=== PATIENT | female | born 1965 | race African-American/Black ===

== ENCOUNTER 2020-05-24 09:17 | Outpatient (REF) | payer MEDICAID, SELFPAY ==
[2020-05-24 10:49] LABS: Anion Gap 11 (12-20); Blood Urea Nitrogen 15 mg/dL (9-16); Carbon Dioxide 26 mmol/L (22-29); Chloride 107 mmol/L (96-108); Estimated Glomerular Filt Rate > 60; Glucose Random 106 mg/dL (60-115); Potassium 4.4 mmol/l (3.3-5.1); Sodium 140 mmol/L (135-145)
== END 2020-05-24 09:18 | disposition home or self-care (01) ==
LOC: HO.LAB 09:17
PROVIDERS: PCP Nurse Practitioner Family; Visit Provider Physician Assistant Medical
DX: I42.8 Other cardiomyopathies (principal)
CPT/HCPCS: 80051; 82565; 82947; 84520

== ENCOUNTER → 2020-11-07 08:34 | Outpatient (REF) | payer MEDICAID, SELFPAY ==
--- NOTE | 2020-11-07 08:30 | CA_ITS ---
Transthoracic Echocardiogram Patient (Last, First, Middle): Flor Martinez, Gender: Female Date of : 1965 Age: 55 Procedure Date: 11/07/2020 Procedure Type: Transthoracic Echocardiogram Location: OP Height: 156.21 cm Weight: 73.48 kg BSA: 1.74 m2 Heart Rate: bpm BP: 121 / 66 mmHg Warehouse Production Worker: YAMILETH Referring MD: Everett Wray MD Bending Press Operator: Florin Sands MD Symptoms: I42.8 NON ISCHEMIC CARDIOMYOPATHY Study Quality: Fair ECG Rhythm: Sinus Conclusions: - Normal LV systolic function by Smith's method Findings Left Ventricle Normal left ventricular size and systolic function. The visually estimated ejection fraction is between 55-60%. Diastolic function was not performed Measurements 2D Systolic Function EF 4C: 62.00 >55% Updated in Other Vendor System with Status of Final Florin Sands MD electronically signed on 11/07/2020 12:40:26 PM with status of Final
== END ==
LOC: HO.CARD 08:34
PROVIDERS: Visit Provider Internal Medicine Cardiovascular Disease
DX: I42.8 Other cardiomyopathies (principal)
CPT/HCPCS: 93308; Q9957

== ENCOUNTER 2020-11-13 09:51 | Outpatient (REF) | payer MEDICAID, SELFPAY ==
--- NOTE | ~2020-11-13 | MM_ITS ---
EXAMINATION: MM SCREENING DIGITAL BREAST TOMOSYNTHESIS, BILATERAL CLINICAL INFORMATION: Screening. Asymptomatic. The lifetime risk of breast cancer based on the Tyrer-Cuzick Model is 6%. COMPARISON: Mammography: 05/11/2019, 04/28/2018, 11/06/2016 TECHNIQUE: Digital breast tomosynthesis is performed in both the craniocaudal and mediolateral oblique views along with computer-aided detection (CAD). Synthesized 2D images are generated from the tomosynthesis. FINDINGS: There are scattered areas of fibroglandular density (ACR BI-RADS breast composition Category b). Parenchymal pattern is similar to prior exams. There is no interval mass or architectural abnormality or developing density. Again, there are round calcifications in the bilateral anterior central breasts. The axilla and skin contours are unremarkable. MM/MM tomosynthesis screening BI IMPRESSION: No mammographic evidence of malignancy. ASSESSMENT: BI-RADS 2: Benign RECOMMENDATION: Routine annual mammography screening. This patient's information was entered into a reminder system with a target due date for their next mammogram.
== END 2020-11-13 09:52 | disposition home or self-care (01) ==
LOC: HO.MAMMO 09:51
PROVIDERS: Visit Provider Nurse Practitioner Family
DX: Z12.31 Encounter for screening mammogram for malignant neoplasm of breast (principal)
CPT/HCPCS: 77063; 77067

== ENCOUNTER 2021-03-19 12:06 | Outpatient (REF) | payer MEDICAID, SELFPAY ==
[2021-03-19 13:01] LABS: MANUAL DIFF FLAG NO
[2021-03-19 13:07] LABS: Basophils Percent Auto 0.6 % (0-2); Eosinophils Absolute Auto 0.3 X10*3/uL (0.0-0.4); Eosinophils Percent Auto 5.3 % (0-4); Hematocrit 39.5 % (37-47); Hemoglobin 12.9 g/dl (12.0-16.0); Imm Gran Abs Auto 0.02 X10*3/uL (0.00-0.03); Imm Gran Pct Auto 0.4 % (0.0-0.4); Lymphocytes Absolute Auto 1.8 X10*3/uL (1.2-4.9); Lymphocytes Percent Auto 35.4 % (20-40); Mean Corpuscular HGB Conc 32.7 g/dl (31.0-35.0); Mean Corpuscular Hemoglobin 29.7 pg (27.0-33.0); Mean Platelet Volume 12.4 fL (9.4-12.3); Monocytes Absolute Auto 0.4 X10*3/uL (0.1-1.2); Monocytes Percent Auto 8.3 % (2-11); Neutrophils Absolute Auto 2.5 X10*3/uL (2.0-8.3); Platelet Count 230 X10*3/uL (160-400); Red Blood Count 4.34 X10*6/uL (4.20-5.50); Red Cell Distribution Width 13.6 % (11.0-16.0); White Blood Count 5.1 X10*3/uL (4.8-10.8)
[2021-03-19 13:13] LABS: Estimated Average Glucose 114 mg/dL; Hemoglobin A1c % 5.6 %
[2021-03-19 14:06] LABS: Alanine Aminotransferase 22 U/L (0-31); Albumin Level 4.2 g/dL (3.5-5.0); Alkaline Phosphatase 100 U/L (39-117); Anion Gap 13 (12-20); Aspartate Amino Transferase 24 U/L (5-31); Bilirubin Total 0.5 mg/dL (0.0-1.0); Blood Urea Nitrogen 17 mg/dL (9-16); Calcium 9.5 mg/dL (8.4-10.2); Carbon Dioxide 24 mmol/L (22-29); Chloride 109 mmol/L (96-108); Cholesterol 134 mg/dL; Estimated Glomerular Filt Rate > 60; Glucose Random 73 mg/dL (60-115); HDL Cholesterol 37 mg/dL; LDL Cholesterol Calculated 76 mg/dl; Potassium 4.6 mmol/L (3.3-5.1); Sodium 141 mmol/L (135-145); Total Protein 7.3 g/dL (6.5-8.0); Triglycerides 105 mg/dL
[2021-03-19 14:23] LABS: Vitamin D 25-OH Total 56.8 ng/mL (>30)
[2021-03-19 14:30] LABS: Creatinine Urine 124.73 mg/dL; Microalbum/Creatinine Ratio Ur 4.8 ug/mg cr
== END 2021-03-19 12:07 | disposition home or self-care (01) ==
LOC: HO.LAB 12:06
PROVIDERS: Visit Provider Internal Medicine
DX: I10 Essential (primary) hypertension (principal); M79.7 Fibromyalgia; R73.03 Prediabetes
CPT/HCPCS: 36415; 80053; 80061; 82043; 82306; 83036; 85025

== ENCOUNTER 2021-07-30 12:01 | Outpatient (REF) | payer MEDICAID, SELFPAY ==
--- NOTE | ~2021-07-30 | XR_ITS ---
EXAMINATION: XR HIP, LEFT CLINICAL INFORMATION: Left-sided pain COMPARISON: None TECHNIQUE: Two views of the left hip. FINDINGS: Bones and soft tissues are normal. No fracture. Alignment is anatomic. Hip joint space is maintained. XR/XR hip LT w PEL1V IMPRESSION: Normal left hip.
== END 2021-07-30 12:02 | disposition home or self-care (01) ==
LOC: HO.XRAY 12:01
PROVIDERS: PCP Internal Medicine; Visit Provider Internal Medicine
DX: M25.552 Pain in left hip (principal)
CPT/HCPCS: 73502

== ENCOUNTER 2021-09-01 07:43 | Outpatient (REF) | payer MEDICAID, SELFPAY ==
--- NOTE | ~2021-09-01 | XR_ITS ---
EXAMINATION: XR HIP, RIGHT CLINICAL INFORMATION: Pain COMPARISON: Previous x-ray July 2021 TECHNIQUE: Two views of the right hip and one view of the pelvis. FINDINGS: Bone alignment is normal. No fracture or dislocation is seen. There is mild arthritis at the right hip joint with small osteophytes along the superior lateral acetabular surface. There are degenerative changes of visualized lower lumbar spine. Bones of the pelvis are unremarkable. Soft tissues are unremarkable. XR/XR hip RT w PEL1V IMPRESSION: Mild degenerative changes.
== END 2021-09-01 07:44 | disposition home or self-care (01) ==
LOC: HO.HOSX 07:43
PROVIDERS: Visit Provider Physician Assistant
DX: M25.552 Pain in left hip (principal); M25.551 Pain in right hip; M54.16 Radiculopathy, lumbar region; Z88.8 Allergy status to other drugs, medicaments and biological substances
CPT/HCPCS: 73502; 99202

== ENCOUNTER → 2021-09-22 08:39 | Outpatient (BNVA) | payer MEDICAID, SELFPAY | PROVIDERS: PCP Internal Medicine; Visit Provider Internal Medicine | DX: M54.16 Radiculopathy, lumbar region (principal); M47.816 Spondylosis without myelopathy or radiculopathy, lumbar region; M79.18 Myalgia, other site | CPT/HCPCS: 99202 ==

== ENCOUNTER → 2021-10-07 09:54 | Outpatient (BNVA) | payer MEDICAID, SELFPAY | PROVIDERS: PCP Internal Medicine; Referring Provider Internal Medicine; Visit Provider Nurse Practitioner Family | DX: G47.33 Obstructive sleep apnea (adult) (pediatric) (principal); E66.9 Obesity, unspecified; Z68.35 Body mass index [BMI] 35.0-35.9, adult | CPT/HCPCS: 99202 ==

== ENCOUNTER → 2021-10-13 10:01 | Outpatient (BNVA) | payer MEDICAID, SELFPAY | PROVIDERS: PCP Internal Medicine; Visit Provider Internal Medicine | DX: M79.18 Myalgia, other site (principal) | CPT/HCPCS: 20553; J3300 ==

== ENCOUNTER 2021-10-27 11:00 | Outpatient (RCR) | payer MEDICAID, SELFPAY ==
--- NOTE | 2021-10-10 13:38 | MHC.PT.EP ---
[facility] [place] Office [place] [facility] [place] Office [address] Rosita Meneses [address] [phone] F: [phone] F: [phone] F: [phone] F: [phone] Physical Therapy Plan of Care Date of Evaluation: Date of Surgery: N/A Diagnosis: M54.16 radiculopathy, lumbar region M47.816 spondylosis without myelopathy or radiculopathy, lumbar region Assessment: pt's signs and symptoms seem consistent w/ poor habitual posturing as well as core and pelvic weakness causing excessive movement of lumbar spine and SI joints. pt presents to physical therapy with pain, decreased range of motion, decreased strength, impaired functional mobility, impaired postural awareness, and gait deviations. pt is a good candidate for skilled PT due to age, potential remediation of impairments, typical disease/condition progression and prognosis, comorbidities, and motivation. pt would benefit from tailored strengthening and stretching exercise program, functional training, gait training, postural re-training, neuromuscular re-education, modalities as needed for pain, equipment safety demonstration. Frequency and Duration: The patient will be seen 2x/wk for 6 wks Short Term Goals: pt will be I w HEP to promote self-management of condition. pt will demo proper sitting posture w/ lumbar roll to promote neutral spine w/ seated ADLs and sitting at latter-day for social participation. Long-Term Goals: pt will report a statistically significant improvement in self-reported outcome measure, Eliana, to promote return to PLOF. pt will improve B hip abduction strength to at least 4+/5 to improve Trendelenburg w/ gait on even ground. Treatment Plan: Modalities to reduce pain, spasms and effusion. Manual therapy to restore motion and function. Therapeutic exercise to improve strength and flexibility. Neuromuscular re-education for posture and balance. Therapeutic activities to return to functional activities of daily living. Electronically signed by: Lelia Galaviz PT, DPT Please sign and return to therapist. Thank you for your referral.
--- NOTE | 2021-11-18 14:26 | MHC.PT.DC ---
[facility] [place] Office [place] Office [place] Office [address] Rosita Meneses 140 [facility] [phone] F: [phone] F: [phone] F: [phone] F: [phone] Physical Therapy Discharge Report Diagnosis: M54.16 radiculopathy, lumbar region M47.816 spondylosis without myelopathy or radiculopathy, lumbar region Date of Surgery: N/A Date of Evaluation: 10/10/21 Date of Discharge: 11/18/21 Treatments to Date: 4 Cancellations to Date: 4 No Shows to Date: 3 Discharge Status: Visit Non-compliance Discharge Summary: The patient cancelled four consecutive appointments and no showed three consecutive appointments. Per [facility] Core Therapy policy she is being discharged for visit non-compliance. Electronically signed by: Lelia Galaviz PT, DPT Please sign and return to therapist. Thank you for your referral.
== END 2021-11-18 14:26 | disposition home or self-care (01) ==
LOC: HO.PT 11:00
PROVIDERS: PCP Internal Medicine; Visit Provider Internal Medicine
DX: M54.16 Radiculopathy, lumbar region (principal); M47.816 Spondylosis without myelopathy or radiculopathy, lumbar region
CPT/HCPCS: 97110; 97112; 97162

== ENCOUNTER 2021-12-02 08:55 | Outpatient (REF) | payer MEDICAID, SELFPAY ==
--- NOTE | ~2021-12-02 | MR_ITS ---
EXAMINATION: MR LUMBAR SPINE WITHOUT CONTRAST CLINICAL INFORMATION: 56-year-old with low back and left leg pain. COMPARISON: None TECHNIQUE: MRI of the lumbar spine was obtained using routine sequences without contrast. FINDINGS: CORONAL ALIGNMENT: Slight mid lumbar dextrocurvature noted, which could be positional. SAGITTAL ALIGNMENT: The lumbosacral spine is anatomically aligned. There is no spondylolisthesis or spondylolysis. LUMBOSACRAL JUNCTION: Normal. Rudimentary S1-S2 intervertebral disc. VERTEBRAL BODIES: Vertebral body heights are well maintained. DISC SPACES AND ENDPLATES: Intervertebral disc space heights are well maintained. Disc desiccation is noted at L5-S1 and, to a lesser degree, at L3-L4. No significant spondylosis. Endplates appear intact. SPINAL CANAL: No abnormal developmental findings. BONE MARROW: Note is made of marrow edema in the L5 and S1 pedicles bilaterally and on both sides of the left L5-S1 facet joint. This could be reactive secondary to facet arthrosis or could be related to stress reactions in the pedicles. No suspicious marrow replacing process. No other foci of bone marrow edema. Small benign vertebral hemangioma on the right side of the L4 vertebral body. CONUS MEDULLARIS: Terminates at L1-L2. Morphology and signal are normal. Minimal dilatation of the central canal within the visualized distal thoracic spinal cord is noted which is nonspecific. INTRADURAL NERVE ROOTS: Within normal limits. L5-S1: Small central disc protrusion noted with left posterolateral disc osteophyte complex. Slight flattening of the central dural sac is noted with mild ligamentum flavum thickening without significant spinal canal stenosis. Severe left-sided and uyrpapld-be-hmasyf right-sided facet arthropathy is noted with mild right-sided and yeivzvlk-ls-heipni left-sided neural foraminal stenosis, with encroachment on the exiting left L5 nerve root. Active facet inflammatory changes are suspected on the left. L4-L5: Tiny, shallow left subarticular disc protrusion. Minor facet arthrosis noted. No canal or neural foraminal stenosis. L3-L4: Normal disc contour. No significant facet arthrosis, canal or neural foraminal stenosis. L2-L3: Normal disc contour. No significant facet arthrosis, canal or neural foraminal stenosis. L1-L2: Normal disc contour. No significant facet arthrosis, canal or neural foraminal stenosis. PARASPINAL/RETROPERITONEAL: The paravertebral soft tissues appear unremarkable. MR/MR lumbar spine wo con IMPRESSION: 1. Discogenic degenerative changes at L5-S1 as discussed above, with small central disc protrusion and left posterolateral disc osteophyte complex, severe left-sided and soxuksaq-tp-axnuuz right-sided facet arthropathy with active inflammatory changes at the left facet joint, with sgyrhclj-iy-rsmcak left-sided neural foraminal stenosis impinging on the exiting left L5 nerve root. No spinal canal stenosis. 2. Mild marrow edema in the L5 and S1 pedicles bilaterally which may be reactive or secondary to stress reactions.
== END 2021-12-02 08:56 | disposition home or self-care (01) ==
LOC: HO.MRI 08:55
PROVIDERS: Visit Provider Internal Medicine
DX: M54.16 Radiculopathy, lumbar region (principal)
CPT/HCPCS: 72148

== ENCOUNTER → 2022-01-12 09:04 | Outpatient (BNVA) | payer MEDICAID, SELFPAY | PROVIDERS: PCP Internal Medicine; Visit Provider Internal Medicine | DX: M79.18 Myalgia, other site (principal); M79.7 Fibromyalgia | CPT/HCPCS: 99212 ==

== ENCOUNTER → 2022-01-13 08:55 | Outpatient (BNVA) | payer MEDICAID, SELFPAY | PROVIDERS: PCP Internal Medicine; Visit Provider Nurse Practitioner Family | DX: G47.33 Obstructive sleep apnea (adult) (pediatric) (principal); Z99.89 Dependence on other enabling machines and devices | CPT/HCPCS: 99212 ==

== ENCOUNTER → 2022-05-19 08:46 | Outpatient (BNVA) | payer MEDICAID, SELFPAY | PROVIDERS: PCP Internal Medicine; Visit Provider Nurse Practitioner Family | DX: G47.33 Obstructive sleep apnea (adult) (pediatric) (principal) | CPT/HCPCS: 99212 ==

== ENCOUNTER → 2022-09-15 10:24 | Outpatient (BNVA) | payer MEDICAID, SELFPAY | PROVIDERS: PCP Internal Medicine; Visit Provider Nurse Practitioner Family | DX: G47.33 Obstructive sleep apnea (adult) (pediatric) (principal); Z99.89 Dependence on other enabling machines and devices | CPT/HCPCS: 99212 ==

== ENCOUNTER 2022-12-28 08:12 | Outpatient (REF) | payer MEDICARE, MEDICAID, SELFPAY ==
--- NOTE | ~2022-12-28 | MM_ITS ---
EXAMINATION: MM SCREENING DIGITAL BREAST TOMOSYNTHESIS, BILATERAL CLINICAL INFORMATION: Screening. Asymptomatic. The lifetime risk of breast cancer based on the Tyrer-Cuzick Model is 6%. COMPARISON: Mammography: 11/13/2020, 05/11/2019, 04/28/2018 TECHNIQUE: Digital breast tomosynthesis is performed in both the craniocaudal and mediolateral oblique views along with computer-aided detection (CAD). Synthesized 2D images are generated from the tomosynthesis. FINDINGS: There are scattered areas of fibroglandular density (ACR BI-RADS breast composition Category b). Parenchymal pattern is similar to prior studies. There is summation artifact anterior left breast on synthesized MLO view, tomography unremarkable. There are no significant masses, abnormal calcifications, or other abnormalities. There is no developing density or architectural abnormality. The axilla and skin contours are unremarkable. MM/MM tomosynthesis screening BI IMPRESSION: No mammographic evidence of malignancy. ASSESSMENT: BI-RADS 2: Benign RECOMMENDATION: Routine annual mammography screening. This patient's information was entered into a reminder system with a target due date for their next mammogram.
== END 2022-12-28 08:13 | disposition home or self-care (01) ==
LOC: HO.MAMMO 08:12
PROVIDERS: PCP Registered Nurse; Visit Provider Registered Nurse
DX: Z12.31 Encounter for screening mammogram for malignant neoplasm of breast (principal)
CPT/HCPCS: 77063; 77067

== ENCOUNTER → 2023-01-13 13:30 | Outpatient (BNVA) | payer MEDICARE, MEDICAID, SELFPAY | PROVIDERS: PCP Registered Nurse; Visit Provider Internal Medicine | DX: Z01.818 Encounter for other preprocedural examination (principal); R11.0 Nausea; R07.9 Chest pain, unspecified | CPT/HCPCS: 99202 ==

== ENCOUNTER 2023-04-01 08:03 | Day surgery (SDC) | payer MEDICARE, MEDICAID, SELFPAY ==
[2023-03-30 10:21] VITALS: BMI 39.1
--- NOTE | 2023-03-31 11:44 | HO.ANESPROP2 ---
Documented by User: Kristie Vargas NP 03/31/23 11:50 HPI - Anesthesia Eval Consult details Narrative: 57yo F for Upper Endoscopy and Colonoscopy Nonischemic CMP. Follows [facility]. Last office visit 01/2023. Instructed complete GI w/u for atypical CP. Consider ICD in future if EF not improved on Jardiance. [facility] Active Problems Active Problems: All Active Problems (Updated 03/30/23 @ 10:20 by Cyndi Winn RN) Lumbar back pain with radiculopathy affecting left lower extremity (Acute) Lumbar back pain with radiculopathy affecting right lower extremity (Acute) Myofascial pain dysfunction syndrome (Acute) Fibromyalgia (Acute) Chest pain (Acute) Nausea (Acute) Colon cancer screening (Acute) Cervical myofascial pain syndrome (Acute) Lumbar spondylosis (Acute) Obesity (Acute) GERD (gastroesophageal reflux disease) (Acute) Mild persistent asthma (Acute) Uterine leiomyoma (Acute) Depressive disorder (Acute) ALKA on CPAP (Acute) Allergic rhinitis (Acute) Nonrheumatic mitral valve regurgitation (Acute) Non-ischemic cardiomyopathy (Acute) Prediabetes (Acute) Obstructive sleep apnea (Acute) Past Medical History Medical History Allergic rhinitis Cervical myofascial pain syndrome Depressive disorder GERD (gastroesophageal reflux disease) Lumbar spondylosis Mild persistent asthma Non-ischemic cardiomyopathy Nonrheumatic mitral valve regurgitation Obesity ALKA on CPAP Prediabetes Uterine leiomyoma Family History Family History Family/Other Intestinal cancer, Onset Age: 31 Surgical History Surgical History H/O elbow surgery H/O: hysterectomy History of hand surgery History of hernia surgery Hx of cardiac catheterization Hx of colonoscopy Social History Social History Alcohol intake: never Patient Tobacco Use Status: Former Tobacco user Years Smoked: stopped in 2007 Are you DNR?: No Advance Directives: No Advance Directives Information Provided: Yes Recently lost weight without trying: No Nutrition Risks: No Nutritional Risk Current occupational status: disabled 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 Meds Allergies Allergy/AdvReac Type Severity Reaction Status Date / Time diclofenac [DICLOFENAC] Allergy Unknown itch Verified 04/01/23 08:18 Home Medications Medication Instructions Recorded Confirmed Last Taken Type albuterol sulfate 90 mcg/actuation 2 puff inhalation QID 09/22/21 05/19/22 Unknown History aerosol inhaler (ProAir HFA) amlodipine 5 mg tablet 5 mg PO QPM 09/22/21 05/19/22 Unknown History cetirizine 10 mg tablet 10 mg PO QAM 09/22/21 05/19/22 Unknown History chlorpromazine 50 mg tablet 100 mg PO BEDTIME 09/22/21 05/19/22 Unknown History fluticasone propionate 110 2 puff PO BID 09/22/21 05/19/22 Unknown History mcg/actuation HFA aerosol inhaler (Flovent HFA) ibuprofen 800 mg tablet 800 mg PO TID PRN 09/22/21 05/19/22 Unknown History lisinopril 2.5 mg tablet 2.5 mg PO QAM 09/22/21 05/19/22 Unknown History omeprazole 20 mg capsule,delayed 20 mg PO 09/22/21 05/19/22 Unknown History release venlafaxine 75 mg capsule,extended 75 mg PO QAM 09/22/21 05/19/22 Unknown History release 24 hr oxcarbazepine 300 mg tablet 300 mg PO DAILY 10/13/21 05/19/22 Unknown History oxcarbazepine 300 mg tablet 900 mg PO .hs 10/13/21 05/19/22 Unknown History hydrochlorothiazide 12.5 mg tablet 12.5 mg PO QAM 09/15/22 Unknown History pregabalin 150 mg capsule 200 mg PO BID 09/15/22 Unknown History Exam Exam Date and Time: March 31, 2023 1144 Height,Weight and Vital Signs: Height 5 ft 1 in Weight 93.894 kg Narrative Narrative: EKG 09/2022 NSR @ 64 LBBB ECHO 01/2023 1 Severe globabl hypokinesis of LV contractility 2. Overall LV systolic function is moderate-severely impaired with an EF 30-35% 3. No change c/w 08/2022 Assessment and Plan Assessment Anesthesia Assessment: Chart Reviewed Documented by User: Victorina Jennings MD 04/01/23 08:44 PMFSH Past Medical History Medical History Allergic rhinitis Cervical myofascial pain syndrome Depressive disorder GERD (gastroesophageal reflux disease) Lumbar spondylosis Mild persistent asthma Non-ischemic cardiomyopathy Nonrheumatic mitral valve regurgitation Obesity ALKA on CPAP Prediabetes Uterine leiomyoma Family History Family History Family/Other Intestinal cancer, Onset Age: 31 Family history of problems with anesthesia: No Surgical History Surgical History H/O elbow surgery H/O: hysterectomy History of hand surgery History of hernia surgery Hx of cardiac catheterization Hx of colonoscopy History of Problems with Anesthesia: No Social History Social History Alcohol intake: never Patient Tobacco Use Status: Former Tobacco user Years Smoked: stopped in 2007 Are you DNR?: No Advance Directives: No Advance Directives Information Provided: Yes Recently lost weight without trying: No Nutrition Risks: No Nutritional Risk Current occupational status: disabled 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 Meds Allergies Allergy/AdvReac Type Severity Reaction Status Date / Time diclofenac [DICLOFENAC] Allergy Unknown itch Verified 04/01/23 08:18 Home Medications Medication Instructions Recorded Confirmed Last Taken Type albuterol sulfate 90 mcg/actuation 2 puff inhalation QID 09/22/21 05/19/22 Unknown History aerosol inhaler (ProAir HFA) amlodipine 5 mg tablet 5 mg PO QPM 09/22/21 05/19/22 Unknown History cetirizine 10 mg tablet 10 mg PO QAM 09/22/21 05/19/22 Unknown History chlorpromazine 50 mg tablet 100 mg PO BEDTIME 09/22/21 05/19/22 Unknown History fluticasone propionate 110 2 puff PO BID 09/22/21 05/19/22 Unknown History mcg/actuation HFA aerosol inhaler (Flovent HFA) ibuprofen 800 mg tablet 800 mg PO TID PRN 09/22/21 05/19/22 Unknown History lisinopril 2.5 mg tablet 2.5 mg PO QAM 09/22/21 05/19/22 Unknown History omeprazole 20 mg capsule,delayed 20 mg PO 09/22/21 05/19/22 Unknown History release venlafaxine 75 mg capsule,extended 75 mg PO QAM 09/22/21 05/19/22 Unknown History release 24 hr oxcarbazepine 300 mg tablet 300 mg PO DAILY 10/13/21 05/19/22 Unknown History oxcarbazepine 300 mg tablet 900 mg PO .hs 10/13/21 05/19/22 Unknown History hydrochlorothiazide 12.5 mg tablet 12.5 mg PO QAM 09/15/22 Unknown History pregabalin 150 mg capsule 200 mg PO BID 09/15/22 Unknown History Exam Airway Mallampati Class: III TM Dist: <=3cm Heart: rrr Lungs: cta Assessment and Plan Assessment Anesthesia Assessment: Anesthesia Plan Discussed Final Anesthetic Review Family History of Problems with Anesthesia: No History of Problems with Anesthesia: No ASA Class: IV Final Preanesthetic Review: No Changes in Pt Med Stat, Meds/Allgs Chart Reviewed, Consent Obtained/Reviewed and Anes Risks/Benef Reviewed Patient Risk: High (now with low EF , severely impaired ventricular function.pt not agood historian, low functional capacity, pt easily SOB with exertion. Dr. hanna aware ) Procedure Risk: Low Anesthetic Plan Anesthetic Plan: MAC: Disposition: Standard PACU
[2023-04-01 08:15] VITALS: BP 151/77; PULSE 76; RESP 17; TEMP 36.8; O2SAT 98
[2023-04-01] MEDS: Lactated Ringers 1,000 ML 100 ML IVCONT (08:29)
--- NOTE | 2023-04-01 08:53 | MHC.SHP ---
Pre-Procedural Eval Section A Date of Service: 04/01/23 Section B Chief Complaint: Chest pain, screening Details of Present Illness: Medical History: Allergic rhinitis Cervical myofascial pain syndrome Depressive disorder GERD (gastroesophageal reflux disease) Lumbar spondylosis Mild persistent asthma Non-ischemic cardiomyopathy Nonrheumatic mitral valve regurgitation Obesity Obstructive sleep apnea ALKA on CPAP Prediabetes Uterine leiomyoma Surgical History H/O elbow surgery H/O: hysterectomy History of hand surgery History of hernia surgery Hx of colonoscopy Allergies: Allergies Allergy/AdvReac Type Severity Reaction Status Date / Time diclofenac [DICLOFENAC] Allergy Unknown itch Verified 04/01/23 08:18 Review of Systems Review of Systems Comment: 10 point ROS negative except as above Exam Exam Comment: Gen appear: No acute distress HEENT: no icterus Chest: No overt resp distress Abd: soft, nontender, nondistended Psych: Stable affect, answering questions appropriately Neuro: A/Ox3 noted to move all extremities spontaneously Ext: no peripheral edema Plan Diagnosis/Plan: Unchanged I have reviewed the history and physical and performed a pertinent physical examination on my patient. No changes have occurred unless specified. Time Spent With Patient Time: Total time managing care of this patient today ____ minutes.
--- NOTE | 2023-04-01 09:28 | P.OP_ITS ---
Operative Note Operative Note Date of Service: 04/01/23 Narrative: Procedure:?Esophagogastroduodenoscopy and colonoscopy Endoscopist:?Estelle Fischer MD Indication:?Chest pain, CRC screening Anesthesia Provider:?Bronson Hernandez MD Anesthesia Type:?MAC Instrument:?Olympus [id number], [id number] EGD Procedure:?? The procedure, indications, preparation and potential complications were reviewed with the patient, who indicated understanding and gave written informed consent to proceed. Encounter was carried out with the help of a head worker. A physical exam was performed. The endoscope was introduced through the mouth, and advanced to the second part of duodenum. The mucosa was carefully examined on slow withdrawal of the endoscope.? There were no immediate complications.? Patient tolerated the procedure well. EGD Findings:? * Esophagus:? Normal mucosa noted in the entire esophagus.? The Z-line is at 37 cm and irregular to <1 cm. Middle and lower esophagus cold forceps biopsies were obtained to r/o eosinophilic esophagitis. ? * Stomach:? Normal gastric mucosa. Retroflexion was performed in the fundus. * Duodenum:? Normal mucosa was noted to the second portion of the duodenum. Cold forceps biopsies were taken to rule out celiac disease. Colonoscopy Procedure:? The patient was then turned for the colonoscopy. A digital rectal exam was performed which was abnormal for external hemorrhoids.? A distal attachment cap was affixed to the tip of the scope and the colonoscope was then inserted through the anus and advanced through the colon to the cecum at 80 cm and terminal ileum. Appendiceal orifice and ileocecal valve were identified. Mucosa was carefully examined under high definition white light as the instrument was slowly withdrawn in a retrograde panoramic fashion. Retroflexion was performed in the rectum. The procedure was not difficult. There were no immediate obvious complications. The quality of the prep was BBPS: 3+2+3 = adequate Withdrawal time: 10 minutes Limitations: No limitation. Findings: Mucosa: Normal mucosa to cecum and terminal ileum.? Protruding lesions: * Large internal hemorrhoids without stigmata of recent bleeding. Excavated lesions: * Moderate diverticulosis of sigmoid colon. Impression: 1. Normal esophageal mucosa (biopsy) 2. Normal stomach mucosa 3. Stomach mucosa (biopsy) 4. Normal colon and terminal ileum mucosa 5. Diverticulosis 6. Internal hemorrhoids Recommendations:?? * Normal upper endoscopy. * Await pathology results.? * Repeat colonoscopy for asymptomatic colon cancer screening in 10 years.
[2023-04-01 09:34] VITALS: BP 94/62; PULSE 69; RESP 18; TEMP 36.2; O2SAT 94
[2023-04-01 09:49] VITALS: BP 101/63; PULSE 62; RESP 18; TEMP 36.7; O2SAT 96
== END 2023-04-01 10:17 | disposition home or self-care (01) ==
PROVIDERS: PCP Registered Nurse; Visit Provider Internal Medicine
PROC: (CPT 43239; principal; 2023-04-01 09:40)
DX: Z12.11 Encounter for screening for malignant neoplasm of colon (principal); K57.30 Diverticulosis of large intestine without perforation or abscess without bleeding; K64.8 Other hemorrhoids; K64.4 Residual hemorrhoidal skin tags; R19.7 Diarrhea, unspecified; K21.9 Gastro-esophageal reflux disease without esophagitis; R11.0 Nausea; R07.9 Chest pain, unspecified; I42.8 Other cardiomyopathies; J45.30 Mild persistent asthma, uncomplicated; J30.9 Allergic rhinitis, unspecified; G47.33 Obstructive sleep apnea (adult) (pediatric); R73.03 Prediabetes; E66.9 Obesity, unspecified; Z68.39 Body mass index [BMI] 39.0-39.9, adult; Z88.8 Allergy status to other drugs, medicaments and biological substances; Z79.899 Other long term (current) drug therapy; Z99.89 Dependence on other enabling machines and devices; Z87.891 Personal history of nicotine dependence
CPT/HCPCS: 43239; G0121; 88305; J3010

== ENCOUNTER → 2023-04-01 08:03 | Outpatient (BNV) | payer MEDICARE, MEDICAID, SELFPAY | PROVIDERS: PCP Registered Nurse; Visit Provider Internal Medicine | DX: Z12.11 Encounter for screening for malignant neoplasm of colon (principal); R07.9 Chest pain, unspecified; K64.8 Other hemorrhoids; K57.30 Diverticulosis of large intestine without perforation or abscess without bleeding | CPT/HCPCS: 43239; G0121 ==

== ENCOUNTER 2023-04-13 13:30 | Outpatient (AMB) | payer MEDICARE, MEDICAID, SELFPAY ==
--- NOTE | 2023-04-13 13:32 | MHC.OFFVIS ---
Intake Vital Signs 04/13/23 13:38 Height 5 ft 1 in Weight 209 lb BMI 39.5 BP 116/84 Blood Pressure Location Rt brachial Position Sitting Pulse 86 Pulse Source Pulse Oximeter Pulse Oximetry (%) 98 Oxygen Delivery Method Room Air Intake Visit Reasons: cpap follow up Intake Note: Patient presents for follow up CPAP. Patient states Im here to follow up on my sleep apnea. Allergies diclofenac [DICLOFENAC] Allergy (Unknown, Verified 04/13/23 13:39) itch HPI HPI Comments History of Present Illness Details 57 y/o female patient presents for follow up of ALKA on CPAP. Pt's insurance has changed and need compliance and follow up note. The CPAP compliance and therapy response reviewed (01/14/23-04/13/23). Pt is on APAP [id number]. The usage days 91% and and the average usage hours 5 hrs. The mean pressure was 8.8 and AHI was 3.2/hr. Pt reports that she sleeps well with CPAP for 5-6 hrs and daytime sleepiness has resolved. However, she has not received new supplies since July, last year. [facility] Medical History Allergic rhinitis Cervical myofascial pain syndrome Depressive disorder GERD (gastroesophageal reflux disease) Lumbar spondylosis Mild persistent asthma Non-ischemic cardiomyopathy Nonrheumatic mitral valve regurgitation Obesity ALKA on CPAP Prediabetes Uterine leiomyoma Surgical History H/O elbow surgery H/O: hysterectomy History of hand surgery History of hernia surgery Hx of cardiac catheterization Hx of colonoscopy Family History Family/Other Intestinal cancer, Onset Age: 31 Social History Alcohol intake: never Patient Tobacco Use Status: Former Tobacco user Years Smoked: stopped in 2007 Current occupational status: disabled 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 Review of Systems Const All systems reviewed & are unremarkable except as noted in HPI and below Physical Exam Vital Signs: Last Vital Signs Pulse 86 04/13/23 13:38 BP 116/84 04/13/23 13:38 Pulse Ox 98 04/13/23 13:38 Oxygen Delivery Method Room Air 04/13/23 13:38 BMI result Body Mass Index 39.5 Const General: no acute distress Orientation/consciousness: patient oriented x3 Resp Effort & Inspection: able to speak in complete sentences Neuro General: patient oriented x3 Psych Mental Status: mental status grossly normal Speech and movement: Clear speech present Attitude: cooperative Assessment & Plan Assessment & Plan (1) ALKA on CPAP: Code(s): G47.33 - Obstructive sleep apnea (adult) (pediatric); Z99.89 - Dependence on other enabling machines and devices Plan Continue APAP 9-12 cmH2O nightly > 4 hours, as pt is having good clinical effect. Clean machine and supplies daily. Change PAP supplies routinely. We will request new CPAP mask from regional- as pt is Sami speaking. Pt to call us/respiratory home care company with any concerns. f/u in 1yr or sooner prn. Coding Level of Care Code Est Pt Level 3 (58579) Diagnoses ALKA on CPAP G47.33; Z99.89
[2023-04-13 13:38] VITALS: BP 116/84; PULSE 86; O2SAT 98; BMI 39.5
== END 2023-04-13 14:09 | disposition home or self-care (01) ==
LOC: HO.HSMC 13:30
PROVIDERS: PCP Registered Nurse; Visit Provider Nurse Practitioner Family
DX: G47.33 Obstructive sleep apnea (adult) (pediatric) (principal); Z99.89 Dependence on other enabling machines and devices
CPT/HCPCS: 99213

== ENCOUNTER → 2023-04-13 13:30 | Outpatient (BNVA) | payer MEDICARE, MEDICAID, SELFPAY | PROVIDERS: PCP Registered Nurse; Visit Provider Nurse Practitioner Family | DX: G47.33 Obstructive sleep apnea (adult) (pediatric) (principal); Z99.89 Dependence on other enabling machines and devices | CPT/HCPCS: 99212 ==

== ENCOUNTER 2023-04-14 09:44 | Outpatient (AMB) | payer MEDICARE, MEDICAID, SELFPAY ==
--- NOTE | 2023-04-14 09:46 | A.OFFVIS_ITS ---
Intake Vital Signs 04/14/23 09:47 Height 5 ft 1 in Weight 205 lb 0.478 oz BMI 38.7 BP 125/70 Blood Pressure Location Lt brachial Position Sitting Pulse 70 Intake Visit Reasons: S/P Double; Dr. Fischer Intake Note: Flor presents in the office as a follow up double for Amado. CC: No concerns just here for the results to her procedures. Cost Recovery Technician Required: Yes Allergies diclofenac [DICLOFENAC] Allergy (Unknown, Verified 04/14/23 09:49) itch HPI HPI Comments History of Present Illness Details 57y.o F with PMH of who is here for chest pain 01/13/23: Pt reports having chest pain associated with burning devon on walking long dis tance that started almost 3 years ago. This is associated with shortness of breath. Intermittently with palpitations and nausea. No changes in appetite, and has gained weight. Has been taking Omeprazole 20 BID x 1 year now without any change in sx. Has had extensive cardiac work up through Dr Wray including cardiac cath, echo etc without any CAD or cardiomyopathy. Last colo was in 2017 (Dr Dan) no polyps were noted but cecum could not be intubated. Repeat recommended in 5-10 years. 04/01/23: 1. Normal esophageal mucosa (biopsy) 2. Normal stomach mucosa 3. Stomach mucosa (biopsy) 4. Normal colon and terminal ileum mucosa 5. Diverticulosis 6. Internal hemorrhoids Path: A.? Duodenum, biopsy:? Duodenal mucosa within normal limits; preserved villous architecture and no increased intraepithelial lymphocytes seen.? B.? Esophagus, lower, biopsy:? Squamous mucosa within normal limits; negative for inflammation (including intraepithelial eosinophils), fungal organisms, intestinal metaplasia and dysplasia.? C.? Esophagus, middle, biopsy:? Squamous mucosa with rare intraepithelial eosinophils (up to 2 per high-power field); negative for fungal organisms, intestinal metaplasia and dysplasia. 04/14/23: Reports persistent chest discomfort devon early in morning and on exertion. Recent echo and records from Cardiology reviewed from January 2022. EF 35%. Being considered for ICD and has appt next month. EGD and colo results reviewed with the pt. Mild reflux otherwise no esophageal abnormality. No colon polyps. [facility] Medical History Allergic rhinitis Cervical myofascial pain syndrome Depressive disorder GERD (gastroesophageal reflux disease) Lumbar spondylosis Mild persistent asthma Non-ischemic cardiomyopathy Nonrheumatic mitral valve regurgitation Obesity ALKA on CPAP Prediabetes Uterine leiomyoma Surgical History H/O elbow surgery H/O: hysterectomy History of esophagogastroduodenoscopy (EGD) History of hand surgery History of hernia surgery Hx of cardiac catheterization Hx of colonoscopy Family History Family/Other Intestinal cancer, Onset Age: 31 Social History Alcohol intake: never Patient Tobacco Use Status: Former Tobacco user Years Smoked: stopped in 2007 Current occupational status: disabled 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 Chest pain likely due to underlying cardiac disease and cardiomyopathy. Undergoing work up through her rn testing. No evidence of esophageal abnormality on endoscopic assessment to account for this. Plan: - Reduce omeprazole to 20mg once daily x 4 weeks and then decrease to 10mg once daily. 2. No colon polyps were noted on most recent colo. Plan: - Repeat colonoscopy due in 10 years. Follow up in GI office PRN Coding Level of Care Code Est Pt Level 4 (54564) Diagnoses Chest pain R07.9 Nausea R11.0 Colon cancer screening Z12.11
[2023-04-14 09:47] VITALS: BP 125/70; PULSE 70; BMI 38.7
== END 2023-04-14 10:26 | disposition home or self-care (01) ==
PROVIDERS: PCP Registered Nurse; Visit Provider Internal Medicine
DX: R07.9 Chest pain, unspecified (principal); R11.0 Nausea; Z12.11 Encounter for screening for malignant neoplasm of colon
CPT/HCPCS: 99214

== ENCOUNTER → 2023-04-14 09:44 | Outpatient (BNVA) | payer MEDICARE, MEDICAID, SELFPAY | PROVIDERS: PCP Registered Nurse; Visit Provider Internal Medicine | DX: Z12.11 Encounter for screening for malignant neoplasm of colon (principal); R07.9 Chest pain, unspecified; R11.0 Nausea | CPT/HCPCS: 99212 ==

== ENCOUNTER 2023-04-16 10:36 | Outpatient (AMB) | payer MEDICARE, MEDICAID, SELFPAY ==
[2023-04-16 10:48] VITALS: BP 128/72; PULSE 68; RESP 14; O2SAT 95; BMI 39.3
--- NOTE | 2023-04-16 10:48 | A.OFFVIS_ITS ---
Intake Vital Signs 04/16/23 10:48 Height 5 ft 1 in Weight 208 lb BMI 39.3 BP 128/72 Blood Pressure Location Lt brachial Position Sitting Respiration 14 Pulse 68 Pulse Source Pulse Oximeter Pulse Oximetry (%) 95 Oxygen Delivery Method Room Air Intake Visit Reasons: LOW BACK PAIN Laydown Machine Operator Required: Yes Laydown Machine Operator Name: Oneida # [id number] Allergies diclofenac [DICLOFENAC] Allergy (Unknown, Verified 04/16/23 10:48) itch Medication List - Last Reconciled 04/16/23 by Cristina Garcia LPN albuterol sulfate 90 mcg/actuation (ProAir HFA) 2 puffs inhalation QID amlodipine 5 mg PO QPM APAP Machine/Device 9-12 cmH2O nightly > 4 hours cetirizine 10 mg PO QAM chlorpromazine 100 mg PO BEDTIME empagliflozin (Jardiance) 10 mg PO DAILY fluticasone propionate 110 mcg/actuation (Flovent HFA) 2 puffs PO BID hydrochlorothiazide 12.5 mg PO QAM ibuprofen 800 mg PO TID PRN isosorbide mononitrate ER 30 mg PO DAILY lisinopril 2.5 mg PO QAM omeprazole 20 mg PO oxcarbazepine 300 mg PO DAILY pregabalin 200 mg PO BID sacubitril-valsartan 24-26 mg (Entresto) 1 tab PO BID venlafaxine ER 75 mg PO QAM HPI LOW BACK PAIN HPI Details 57-year-old female who presents today to the office for an evaluation of low back pain. A certified scraper meat was present during the visit. The patient reports back pain that does not radiate down to her leg. She describes her pain as an aching, stabbing, and pinching. She has not received any injections in the past. She has not completed any physical therapy in the past. She is currently taking Lyrica 150 mg B.I.D. and inquired about increasing the dose for better pain relief. Past procedure: 10/13/21: Trigger point injection: Moder ate relief. [facility] Medical History Allergic rhinitis Cervical myofascial pain syndrome Depressive disorder GERD (gastroesophageal reflux disease) Lumbar spondylosis Mild persistent asthma Non-ischemic cardiomyopathy Nonrheumatic mitral valve regurgitation Obesity ALKA on CPAP Prediabetes Uterine leiomyoma Surgical History H/O elbow surgery H/O: hysterectomy History of esophagogastroduodenoscopy (EGD) History of hand surgery History of hernia surgery Hx of cardiac catheterization Hx of colonoscopy Family History Family/Other Intestinal cancer, Onset Age: 31 Social History Alcohol intake: never Patient Tobacco Use Status: Former Tobacco user Years Smoked: stopped in 2007 Current occupational status: disabled 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 Alert and oriented. Mood and affect appropriate. Follows and participates in conversation appropriately. Respiratory effort is unlabored. Able to transition from sit to stand unassisted. Ambulates with bilaterally normal heel strike and toe off. Lumbar extension is very limited. She is unable to do it because of increased pain. Facet loading is positive. Results Reviewed Results Reviewed: Significant facet hypertrophy on MR imaging of the L5-S1 facets. Assessment & Plan Assessment & Plan (1) Lumbar spondylosis: Code(s): M47.816 - Spondylosis without myelopathy or radiculopathy, lumbar region Plan Will schedule her for bilateral L5-S1 intraarticular facet aspiration/steroid injection. Discussed the risks and benefits of the procedure with the patient in detail. All questions were answered. The patient is on board with the plan. For the time being, continue taking Lyrica 150 mg B.I.D for pain relief. A refill was also provided today in the office. Justification for interventional therapy: ? Patient with average pain > 6/10 ? Patient has exhausted conservative therapy ? Patient unable to tolerate physical therapy due to pain. Scribed for Dr. Moser by Pramod Platt, claim review medical director, on 04/16/2023. I, Dr. Moser, have personally reviewed and agree with the information entered by the scribe. Medications: Changed From pregabalin 200 mg PO BID To pregabalin 150 mg PO BID 60 caps 5RF Coding Level of Care Code Est Pt Level 3 (63555) Diagnoses Lumbar spondylosis M47.816
== END 2023-04-16 11:23 | disposition home or self-care (01) ==
PROVIDERS: PCP Registered Nurse; Visit Provider Internal Medicine
DX: M47.816 Spondylosis without myelopathy or radiculopathy, lumbar region (principal)
CPT/HCPCS: 99213

== ENCOUNTER → 2023-04-16 10:36 | Outpatient (BNVA) | payer MEDICARE, MEDICAID, SELFPAY | PROVIDERS: PCP Registered Nurse; Visit Provider Internal Medicine | DX: M47.816 Spondylosis without myelopathy or radiculopathy, lumbar region (principal) | CPT/HCPCS: 99212 ==

== ENCOUNTER → 2023-08-27 10:42 | Outpatient (REF) | payer MEDICARE, MEDICAID, SELFPAY ==
--- NOTE | 2023-08-27 10:45 | CA_ITS ---
Transthoracic Echocardiogram Patient (Last, First, Middle): Flor Martinez I Gender: Female Date of : 1965 Age: 58 Procedure Date: 08/27/2023 Procedure Type: Transthoracic Echocardiogram Location: OP Height: 154.94 cm Weight: 89.36 kg BSA: 1.88 m2 Heart Rate: bpm BP: 124 / 70 mmHg Money Market Dealer: Referring MD: Everett Wray MD Symptoms: I42.0 NON ISCHEMIC CARDIOMYOPATHY Study Quality: Fair ECG Rhythm: Sinus Conclusions: - The left ventricular systolic function is mildly decreased. The calculated ejection fraction is 43% by biplane method. - No obvious valvular pathology seen on this study. Findings Left Ventricle Normal left ventricular cavity size. There is mildly increased left ventricular wall thickness. The left ventricular systolic function is mildly decreased. The calculated ejection fraction is 43% by biplane method. There is mild global hypokinesis. There is paradoxical septal motion consistent with a left bundle branch block. Diastolic function is normal for age. Right Ventricle Normal right ventricular cavity size. There is low normal right ventricular systolic function. Atria Both atria are normal in size. Aortic Valve The aortic valve was not well visualized. There is no aortic valve stenosis. There is no aortic valve regurgitation. Mitral Valve The mitral valve appears normal. There is trace mitral valve regurgitation. There is no mitral valve stenosis. Pulmonic Valve The pulmonic valve is likely normal. Tricuspid Valve There is trace tricuspid valve regurgitation. There is no evidence of pulmonary hypertension. Great Vessels The asc aorta is normal in size. Venous The inferior vena cava is normal in size and collapses greater than 50% with inspiration. Pericardium/Pleural There is no evidence of pericardial effusion. Prior Study Comparison No significant change compared to prior study dated: 11/07/2020. (images reviewed) Recommendations, Care & Conclusions No obvious valvular pathology seen on this study. Measurements 2D Linear Measurements IVSd: 1.16 0.6-0.9/0.6-1.0 cm LVIDd: 5.14 3.9-5.3/4.2-5.9 cm LVIDd Index: 2.73 2.4-3.2/2.2-3.1 cm/m2 LVIDs: 4.20 2.0-3.6 cm LVPWd: 1.13 0.7-1.1 cm Ao Root: 2.70 2.1-3.5 cm LA Diam: 3.80 2.7-3.8/3.0-4.0 cm LAIDs Index: 2.02 1.5-2.3 cm/m2 LV Mass: 285.35 67-162/88-224 g LV Mass Index: 151.78 43-95/49-115 g/m2 LVOT Diam: 2.00 3.0+(-)1.3 cm 2D Systolic Function EF 4C: 39.30 >55% EF 2C: 47.10 >55% EF BiP: 43.10 >55% Mitral Valve MV Pk E: 0.93 MV PK A: 0.80 MV Decel Time: 205.00 E/A: 1.20 E'Lateral: 9.57 E'Medial: 6.20 E/E' Med: 14.90 E/E' Lat: 9.70 PHT: 60.00 MVA PHT: 3.67 Decel Carter: 4.51 Aortic Valve AoV Pk Klye: 1.89 AoV Mn Kyle: 1.20 AoV VTI: 0.41 AoV Pk Grad: 14.00 Aov Mn Grad: 7.00 RK Cont.VTI: 1.92 LVOT LVOT Pk Kyle: 1.23 LVOT Mn Kyle: 0.81 LVOT VTI: 0.25 LVOT Pk Grad: 6.00 LVOT Mn Grad: 3.00 LVOT Diam: 2.00 LVOT Area: 3.14 Diastolic Function MV Pk E: 0.93 MV Pk A: 0.80 E/A: 1.20 E'Medial: 6.20 E/E' Med: 14.90 E' Laterial: 9.57 E/E' Lat: 9.70 Right Ventricle TAPSE (mm): 21.00 TVS' Kyle: 9.00 Tricuspid Valve TR Pk Kyle: 2.00 TR Pk Grad: 16.00 RA Press: 3.00 RVSP: 19.00 Great Vessels Aorta Ao Root-2D: 2.70 2.0-3.7 cm Ao Asc: 2.80 2.1-3.4 cm Pulmonary Valve PV Pk Kyle: 1.44 Peak PV Grad: 8.00 Updated in Other Vendor System with Status of Final Arslan Rios MD electronically signed on 08/28/2023 3:23:18 PM with status of Final
== END ==
LOC: HO.CARD 10:42
PROVIDERS: PCP Internal Medicine; Visit Provider Internal Medicine Cardiovascular Disease
DX: I42.8 Other cardiomyopathies (principal)
CPT/HCPCS: 93306

== ENCOUNTER → 2023-08-27 10:45 | Outpatient (BNV) | payer MEDICARE, MEDICAID, SELFPAY | PROVIDERS: PCP Internal Medicine; Visit Provider Internal Medicine | DX: I42.0 Dilated cardiomyopathy (principal) | CPT/HCPCS: 93306 ==

== ENCOUNTER 2023-09-10 10:23 | Outpatient (REF) | payer MEDICARE, MEDICAID, SELFPAY ==
[2023-09-10 11:04] LABS: Eosinophils Absolute Auto 0.2 X10*3/uL (0.0-0.4); Imm Gran Abs Auto 0.01 X10*3/uL (0.00-0.03); Imm Gran Pct Auto 0.2 % (0.0-0.4); Monocytes Absolute Auto 0.3 X10*3/uL (0.1-1.2)
[2023-09-10 11:10] LABS: INTERNATIONAL NORM RATIO 0.9 (0.9-1.1)
[2023-09-10 11:31] LABS: Basophils Percent Auto 0.7 % (0-2); Eosinophils Percent Auto 4.8 % (0-4); Hemoglobin 13.9 g/dl (12.0-16.0); Lymphocytes Absolute Auto 1.7 X10*3/uL (1.2-4.9); Mean Corpuscular HGB Conc 32.3 g/dl (31.0-35.0); Mean Corpuscular Hemoglobin 28.4 pg (27.0-33.0); Mean Corpuscular Volume 87.8 fL (80.0-98.0); Mean Platelet Volume 13.4 fL (9.4-12.3); Monocytes Percent Auto 7.2 % (2-11); Neutrophils Absolute Auto 2.3 x10*3/uL (2.0-8.3); Neutrophils Percent Auto 50.1 % (45-73); Platelet Count 171 X10*3/uL (160-400); White Blood Count 4.6 X10*3/uL (4.8-10.8)
[2023-09-10 11:33] LABS: Anion Gap 11 (12-20); Blood Urea Nitrogen 14 mg/dL (9-16); Calcium 8.9 mg/dL (8.4-10.2); Carbon Dioxide 26 mmol/L (22-29); Chloride 107 mmol/L (96-108); Estimated Glomerular Filt Rate > 60; Glucose Random 90 mg/dL (60-115); Potassium 3.6 mmol/L (3.3-5.1); Sodium 140 mmol/L (135-145)
== END 2023-09-10 10:24 | disposition home or self-care (01) ==
LOC: HO.LAB 10:23
PROVIDERS: PCP Internal Medicine; Visit Provider Internal Medicine Cardiovascular Disease
DX: I44.7 Left bundle-branch block, unspecified (principal)
CPT/HCPCS: 36415; 80048; 85025; 85610

== ENCOUNTER 2023-10-13 10:50 | Outpatient (REF) | payer MEDICARE, MEDICAID, SELFPAY ==
[2023-10-13 13:11] LABS: MANUAL DIFF FLAG NO
[2023-10-13 13:36] LABS: Basophils Percent Auto 0.7 % (0-2); Eosinophils Absolute Auto 0.4 X10*3/uL (0.0-0.4); Eosinophils Percent Auto 7.2 % (0-4); Hematocrit 40.1 % (37.0-47.0); Hemoglobin 13.2 g/dl (12.0-16.0); Imm Gran Abs Auto 0.02 X10*3/uL (0.00-0.03); Imm Gran Pct Auto 0.3 % (0.0-0.4); Lymphocytes Absolute Auto 1.3 X10*3/uL (1.2-4.9); Lymphocytes Percent Auto 22.2 % (20-40); Mean Corpuscular HGB Conc 32.9 g/dl (31.0-35.0); Mean Corpuscular Hemoglobin 28.6 pg (27.0-33.0); Mean Platelet Volume 13.3 fL (9.4-12.3); Monocytes Absolute Auto 0.5 X10*3/uL (0.1-1.2); Monocytes Percent Auto 8.1 % (2-11); Neutrophils Absolute Auto 3.6 x10*3/uL (2.0-8.3); Neutrophils Percent Auto 61.5 % (45-73); Platelet Count 207 X10*3/uL (160-400); Red Blood Count 4.61 X10*6/uL (4.20-5.50); Red Cell Distribution Width 14.1 % (11.0-16.0); White Blood Count 5.8 X10*3/uL (4.8-10.8)
[2023-10-13 14:07] LABS: Erythrocyte Sedimentation Rate 80 MM/HR (0-20)
[2023-10-13 14:39] LABS: Rheumatoid Factor < 13.0 IU/mL (<15.0)
[2023-10-14 08:48] LABS: HIV AB/AG Nonreactive (Nonreactive); HIV Num 1 0.06 S/CO (0.00-0.99); ~HepC Num1 0.41 S/CO (0.00-0.79); ~Hepatitis C Antibody Nonreactive (Nonreactive)
[2023-10-18 13:04] LABS: Anti Nuclear Antibody Pattern Nuclear, Speckled; Anti Nuclear Antibody Screen POSITIVE (NEGATIVE)
== END 2023-10-13 10:51 | disposition home or self-care (01) ==
LOC: HO.HHCL 10:50
PROVIDERS: Visit Provider Internal Medicine
DX: R53.83 Other fatigue (principal)
CPT/HCPCS: 36415; 80048; 84443; 85025; 85652; 86038; 86039; 86140; 86431; 86803; 87389

== ENCOUNTER 2023-11-17 08:41 | Outpatient (REF) | payer MEDICARE, MEDICAID, SELFPAY ==
[2023-11-17 09:49] LABS: MANUAL DIFF FLAG NO
[2023-11-17 10:54] LABS: Appearance Urine Cloudy; Color Urine Yellow; Glucose Urine UA >=1000 mg/dL (Negative); Leukocyte Esterase Urine Negative (Negative); Nitrite Urine Negative (Negative); PH 6.5 (5.0-9.0); Specific Gravity - Urine 1.025 (1.005-1.025); UMIC TRIGGER UA YES; Urine Blood Negative (Negative); Urine Ketones Trace mg/dL (Negative); Urine Protein Trace mg/dL (Neg-Trace)
[2023-11-17 10:54] LABS: Basophils Percent Auto 0.5 % (0-2); Eosinophils Absolute Auto 0.2 X10*3/uL (0.0-0.4); Eosinophils Percent Auto 3.6 % (0-4); Hemoglobin 12.6 g/dl (12.0-16.0); Imm Gran Abs Auto 0.01 X10*3/uL (0.00-0.03); Imm Gran Pct Auto 0.2 % (0.0-0.4); Lymphocytes Absolute Auto 1.1 X10*3/uL (1.2-4.9); Mean Corpuscular HGB Conc 32.3 g/dl (31.0-35.0); Mean Corpuscular Hemoglobin 28.4 pg (27.0-33.0); Mean Corpuscular Volume 87.8 fL (80.0-98.0); Mean Platelet Volume 12.9 fL (9.4-12.3); Monocytes Absolute Auto 0.4 X10*3/uL (0.1-1.2); Monocytes Percent Auto 7.7 % (2-11); Neutrophils Absolute Auto 3.8 x10*3/uL (2.0-8.3); Platelet Count 262 X10*3/uL (160-400); Red Blood Count 4.44 X10*6/uL (4.20-5.50); Red Cell Distribution Width 14.6 % (11.0-16.0); White Blood Count 5.6 X10*3/uL (4.8-10.8)
[2023-11-17 11:05] LABS: Bacteria Urine 3+ (None Seen); Hyaline Casts Urine 0-2 /LPF (0-2); RBC Urine 0-2 /HPF (0-2); Squamous Epithelial Cell Urine >20 /HPF (0-2); WBC Urine 0-5 /HPF (0-5)
[2023-11-17 11:23] LABS: Alanine Aminotransferase 26 U/L (0-31); Albumin Level 3.6 g/dL (3.5-5.0); Alkaline Phosphatase 101 U/L (39-117); Anion Gap 13 (12-20); Aspartate Amino Transferase 46 U/L (5-31); Bilirubin Total 0.6 mg/dL (0.0-1.0); Blood Urea Nitrogen 10 mg/dL (9-16); C Reactive Protein 5.14 mg/dL (< or = 0.50); Calcium 8.9 mg/dL (8.4-10.2); Carbon Dioxide 25 mmol/L (22-29); Chloride 103 mmol/L (96-108); Estimated Glomerular Filt Rate > 60; Glucose Random 104 mg/dL (60-115); Sodium 138 mmol/L (135-145); Total Protein 8.5 g/dL (6.5-8.0)
[2023-11-17 11:25] LABS: Potassium 2.8 mmol/L (3.3-5.1)
[2023-11-17 11:37] LABS: HBc Num1 0.38 S/CO (0.00-0.79); HBsAGNum1 0.27 S/CO (0.00-0.99); Hepatitis A Antibody IgM 0.16 Index (0-0.79); Hepatitis B Core Antibody Nonreactive (Nonreactive); Hepatitis B Surface Antigen Negative (Negative); ~HepC Num1 0.26 S/CO (0.00-0.79); ~Hepatitis A Antibody IgM Nonreactive (Nonreactive); ~Hepatitis B Surface Antibody REACTIVE (Nonreactive); ~Hepatitis C Antibody Nonreactive (Nonreactive)
[2023-11-17 11:58] LABS: Protein/Creatinine Ratio, Ur 0.21 (<0.2); Total Protein Urine Random 26 mg/dL (<12)
[2023-11-17 12:26] LABS: Erythrocyte Sedimentation Rate 73 MM/HR (0-20)
[2023-11-18 09:28] LABS: Complement C3 179 mg/dL (83-193)
[2023-11-18 14:43] LABS: Cyclic Citrullinated Peptide <16 UNITS
[2023-11-19 21:05] LABS: Anti DNA DS Antibody 11 IU/mL; Antibody to SS-A Antigen >8.0 POS AI (<1.0 NEG); Antibody to SS-B Antigen <1.0 NEG AI (<1.0 NEG); SM/Ribonucleoprotein Ab >8.0 POS AI (<1.0 NEG); Smith Protein 2.1 POS AI (<1.0 NEG)
[2023-11-19 22:03] LABS: Prot Elec - Albumin 3.3 g/dL (3.8-4.8); Prot Elec - Alpha1 0.5 g/dL (0.2-0.3); Prot Elec - Alpha2 0.9 g/dL (0.5-0.9); Prot Elec - Beta 1 0.5 g/dL (0.4-0.6); Prot Elec - Beta 2 0.5 g/dL (0.2-0.5); Prot Elec - Gamma 2.4 g/dL (0.8-1.7); Prot Elec - Total Protein 8.1 g/dL (6.1-8.1)
[2023-11-19 22:28] LABS: TS Negative Control Passed; TS Panel A 0; TS Panel B 0; TS Positive Control Passed; TSpotTB Negative (Negative)
[2023-11-24 19:29] LABS: DNAds, Crithidia Antibody Positive (Negative)
[2023-11-25 09:33] LABS: IgA 240 mg/dL (47-310); IgG 2601 mg/dL (600-1640); IgM 85 mg/dL (50-300)
[2023-11-26 19:28] LABS: Cytosolic 5'nuc 1A Ab IgG <5 Units; Ej Ab <11 SI (<11); HMGCR Ab IgG <2 CU (<20); Jo-1 Ab <11 SI (<11); MDA5 Ab <11 SI (<11); Mi-2 alpha Ab <11 SI (<11); Mi-2 beta Ab <11 SI (<11); NXP-2 (MJ) Ab <11 SI (<11); Oj Ab <11 SI (<11); Pl-12 Ab <11 SI (<11); Pl-7 Ab <11 SI (<11); SRP Ab <11 SI (<11); TIF1 gamma Ab <11 SI (<11)
[2023-11-27 18:23] LABS: Centromere Protein A Ab <11 SI (<11); Centromere Protein B Ab <11 SI (<11); Fibrillarin Ab <11 SI (<11); PM SCL 100 Ab <11 SI (<11); PM SCL 75 Ab <11 SI (<11); RNA Polymerase III RP11 Ab <11 SI (<11); RNA Polymerase III RP155 Ab <11 SI (<11); SCL-70 Extractable Nuclear Ab <11 SI (<11); Th-To Ab <11 SI (<11); U1 SNRNP RNP 70KD 51 SI (<11); U1 SNRNP RNP A 153 SI (<11); U1 SNRNP RNP C 21 SI (<11)
== END 2023-11-17 08:42 | disposition home or self-care (01) ==
LOC: HO.LAB 08:41
PROVIDERS: PCP Internal Medicine; Visit Provider Student in an Organized Health Care Education/Training Program
DX: M34.9 Systemic sclerosis, unspecified (principal); M32.9 Systemic lupus erythematosus, unspecified; R76.8 Other specified abnormal immunological findings in serum; M25.50 Pain in unspecified joint; Z11.7 Encounter for testing for latent tuberculosis infection; Z11.59 Encounter for screening for other viral diseases; Z79.899 Other long term (current) drug therapy; Z72.89 Other problems related to lifestyle
CPT/HCPCS: 36415; 80053; 81001; 82550; 82570; 82784; 83516; 83520; 84156; 84165; 84182; 85025; 85652; 86140; 86160; 86200; 86225; 86235; 86255; 86334; 86481; 86704; 86706; 86709; 86803; 87340; 99202

== ENCOUNTER 2023-11-17 08:41 | Outpatient (AMB) | payer MEDICARE, MEDICAID, SELFPAY ==
--- NOTE | 2023-11-17 08:47 | A.OFFVIS_ITS ---
Intake Vital Signs 11/17/23 08:48 Height 5 ft 1 in Weight 187 lb 6.287 oz BMI 35.4 BP 118/72 Blood Pressure Location Rt brachial Position Sitting Pulse 96 Pulse Source Pulse Oximeter Pulse Oximetry (%) 94 Oxygen Delivery Method Room Air Intake Visit Reasons: +JOANN Intake Note: New pt presents today for consult, referred by [facility] Dr Leo. +JOANN, fatigue, joint pain Cardiothoracic Anesthesia Technician Required: Yes Cardiothoracic Anesthesia Technician Language: Shoeshiner Name: Katia Tariq - form signed Accompanied by: Daughter Allergies diclofenac [DICLOFENAC] Allergy (Unknown, Verified 11/17/23 08:51) itch Medication List - Last Reconciled 11/17/23 by Lisa Simmons MD albuterol sulfate 90 mcg/actuation (ProAir HFA) 2 puffs inhalation QID amlodipine 5 mg PO QPM APAP Machine/Device 9-12 cmH2O nightly > 4 hours cetirizine 10 mg PO QAM chlorpromazine 100 mg PO BEDTIME empagliflozin (Jardiance) 10 mg PO DAILY fluticasone propionate 110 mcg/actuation (Flovent HFA) 2 puffs PO BID hydrochlorothiazide 12.5 mg PO QAM ibuprofen 800 mg PO TID PRN isosorbide mononitrate ER 30 mg PO DAILY lisinopril 2.5 mg PO QAM omeprazole 20 mg PO oxcarbazepine 300 mg PO DAILY pregabalin 300 mg PO BID sacubitril-valsartan 24-26 mg (Entresto) 1 tab PO BID venlafaxine ER 75 mg PO QAM HPI HPI Comments History of Present Illness Details This is a 58-year-old female who presents for evaluation of a positive JOANN. Patient stated that she has had generalized fatigue and weakness for more than 2 years. Recently patient had an AICD placed. She stated that she has history of mitral regurgitation, she stated that it was treated with medications however her heart rate was too slow and an AICD was placed recently. Patient is unaware of any family history of an autoimmune rheumatic disease. She has generalized pain but no swollen joints. Denies any skin rashes. Denies any history of DVT/PE. Denies any history of stroke or AL. denies any fevers or weight loss. She had 6 pregnancies in total, 5 children and 1 miscarriage. [facility] Medical History Cervical myofascial pain syndrome Lumbar spondylosis Obesity GERD (gastroesophageal reflux disease) Mild persistent asthma Uterine leiomyoma Depressive disorder ALKA on CPAP Allergic rhinitis Nonrheumatic mitral valve regurgitation Non-ischemic cardiomyopathy Prediabetes Surgical History Hx of cardiac pacemaker History of esophagogastroduodenoscopy (EGD) Hx of cardiac catheterization Hx of colonoscopy History of hernia surgery H/O elbow surgery H/O: hysterectomy History of hand surgery Family History Family/Other Intestinal cancer, Onset Age: 31 Social History Alcohol intake: never Patient Tobacco Use Status: Former Tobacco user Years Smoked: stopped in 2007 Current occupational status: disabled 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 Female Reproductive History Menstrual Total pregnancies: 6 Full term: 5 Ab spontaneous: 1 Review of Systems Const Reports fatigue and Reports weakness Card Reports dyspnea Resp Reports dyspnea GI Reports diarrhea Musc Reports back pain and Reports myalgias Neuro Reports weakness Psych Reports anxiety Endo Reports fatigue and Reports polydipsia Physical Exam Vital Signs: Last Vital Signs Pulse 96 11/17/23 08:48 BP 118/72 11/17/23 08:48 Pulse Ox 94 11/17/23 08:48 Oxygen Delivery Method Room Air 11/17/23 08:48 BMI result Body Mass Index 35.4 Const General: cooperative, healthy appearing and comfortable Nutritional Appearance: obese Orientation/consciousness: patient oriented x3 Limitations: no limitations HEENT Head: Yes normocephalic and Yes atraumatic Mouth: moist mucous membranes Resp Effort & Inspection: normal respiratory effort and able to speak in complete sentences Auscultation: clear to auscultation bilaterally Skin General skin exam: no rashes or lesions noted Neuro General: patient oriented x3 Extrem Other: No active synovitis Normal nailfold capillaroscopy Assessment & Plan Assessment & Plan (1) Positive JOANN (antinuclear antibody): Code(s): R76.8 - Other specified abnormal immunological findings in serum Plan: This is a 58-year-old female who presents for evaluation of positive JOANN as well as significantly elevated ESR. This was in the setting of generalized fatigue for a few years. Will order comprehensive serology to screen for underlying autoimmune rheumatic disease. Follow-up in 6 weeks Plan I spent 48 minutes reviewing patient's chart, evaluating patient, ordering diagnostic workup, counseling patient and documenting in the chart Orders: Orders Anti DNA DS Antibody Today M32.9 - Systemic lupus erythematosus, unspecified Complement C3 Today M32.9 - Systemic lupus erythematosus, unspecified Protein Creatinine Ratio, Ur Today M32.9 - Systemic lupus erythematosus, unspecified Sjogren's Antibodies Today M32.9 - Systemic lupus erythematosus, unspecified Comprehensive Met. Panel Today M32.9 - Systemic lupus erythematosus, unspecified T Spot TB Today Z11.7 - Encounter for testing for latent tuberculosis infection Immunofixation Pnl, Serum Today M32.9 - Systemic lupus erythematosus, unspecified Creatine Kinase Total Today M32.9 - Systemic lupus erythematosus, unspecified Cyclic Citrullinated Peptide Today M25.50 - Pain in unspecified joint MSA Panel Extended Today M60.9 - Myositis, unspecified Anti Extractable Nuclear Ag Today M32.9 - Systemic lupus erythematosus, unspecified Complement C4 Today M32.9 - Systemic lupus erythematosus, unspecified C Reactive Protein Today M32.9 - Systemic lupus erythematosus, unspecified DNA Double Stranded-Crithidia Today M32.9 - Systemic lupus erythematosus, unspecified Erythrocyte Sedimentation Rate Today M32.9 - Systemic lupus erythematosus, unspecified UA w Microscopic Today M32.9 - Systemic lupus erythematosus, unspecified Complete Blood Count Auto Diff Today M32.9 - Systemic lupus erythematosus, unspecified Hepatitis A,B,C Profile Today Z11.59 - Encounter for screening for other viral diseases Protein Electrophoresis, Serum Today M32.9 - Systemic lupus erythematosus, unspecified Scleroderma 12 Panel Today M34.9 - Systemic sclerosis, unspecified Coding Level of Care Code New Pt Level 4 (12304) Diagnoses Positive JOANN (antinuclear antibody) R76.8
[2023-11-17 08:48] VITALS: BP 118/72; PULSE 96; O2SAT 94; BMI 35.4
== END 2023-11-17 09:23 | disposition home or self-care (01) ==
PROVIDERS: PCP Internal Medicine; Visit Provider Student in an Organized Health Care Education/Training Program
DX: R76.8 Other specified abnormal immunological findings in serum (principal)
CPT/HCPCS: 99204

== ENCOUNTER 2023-12-03 09:46 | Outpatient (AMB) | payer MEDICARE, MEDICAID, SELFPAY ==
[2023-12-03 10:03] VITALS: BP 112/72; PULSE 72; O2SAT 98; BMI 36.3
--- NOTE | 2023-12-03 10:03 | MHC.OFFVIS ---
Vital Signs 12/03/23 10:03 Height 5 ft 1 in Weight 192 lb BMI 36.3 BP 112/72 Blood Pressure Location Rt brachial Position Sitting Pulse 72 Pulse Source Pulse Oximeter Pulse Oximetry (%) 98 Oxygen Delivery Method Room Air Intake Visit Reasons: 1yr follow up/ Confirmed Intake Note: Patient presents for 1 year follow up. Allergies diclofenac [DICLOFENAC] Allergy (Unknown, Verified 12/03/23 10:12) itch HPI Comments Details: 58-yr-old female presents for follow-up visit. Pt endorses the following interval medical history changes: Pt reports she underwent biventricular ICD pacemaker placement in Sep d/t HTN, bradycardia, LBBB, EF 30%, unfortunately, has needed to have 2 revisions and now needs a 3rd revision- scheduled tentatively for this . She also recently had rheumatology consult for + JOANN w/ elevated ESR. She is sleeping well w/ CPAP use. She has only missed days when she has been hospitalized. She has enough PAP supplies. Cleans her PAP supplies. 09/03/23-12/01/23, APAP compliance report reveals APAP- 9-12 cmH2O w/ average pressure 8.9cmH2O; overall usage of 88.89% with usage > 4 hours of 87.78%; average usage on days used 7hrs 45min; and residual AHI of 2.9/hr. [facility] Medical History Cervical myofascial pain syndrome Lumbar spondylosis Obesity GERD (gastroesophageal reflux disease) Mild persistent asthma Uterine leiomyoma Depressive disorder ALKA on CPAP Allergic rhinitis Nonrheumatic mitral valve regurgitation Non-ischemic cardiomyopathy Prediabetes Surgical History Hx of cardiac pacemaker History of esophagogastroduodenoscopy (EGD) Hx of cardiac catheterization Hx of colonoscopy History of hernia surgery H/O elbow surgery H/O: hysterectomy History of hand surgery Family History Family/Other Intestinal cancer, Onset Age: 31 Social History Alcohol intake: never Patient Tobacco Use Status: Former Tobacco user Years Smoked: stopped in 2007 Current occupational status: disabled 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 Review of Systems Const All systems reviewed & are unremarkable except as noted in HPI and below Physical Exam Vital Signs: Last Vital Signs Pulse 72 12/03/23 10:03 BP 112/72 12/03/23 10:03 Pulse Ox 98 12/03/23 10:03 Oxygen Delivery Method Room Air 12/03/23 10:03 BMI result Body Mass Index 36.3 Const General: no acute distress Orientation/consciousness: patient oriented x3 HEENT Head: Yes normocephalic Resp Effort & Inspection: normal respiratory effort and able to speak in complete sentences Neuro General: patient oriented x3 Psych Mental Status: mental status grossly normal Speech and movement: Clear speech present Attitude: cooperative Results Reviewed Results Reviewed: PAP compliance report- see HPI Assessment & Plan Assessment & Plan (1) Obstructive sleep apnea: Code(s): G47.33 - Obstructive sleep apnea (adult) (pediatric) Category: Medical Plan Continue APAP 9-12 cmH2O nightly > 4 hours, as pt is having good clinical effect. Clean machine and supplies daily. Change PAP supplies routinely. Pt to call us/respiratory home care company with any concerns. F/u w/ cardiology as scheduled. f/u in 6 months or sooner prn. Coding Level of Care Code Est Pt Level 3 (38830) Diagnoses Obstructive sleep apnea G47.33
== END 2023-12-03 11:07 | disposition home or self-care (01) ==
PROVIDERS: PCP Internal Medicine; Visit Provider Nurse Practitioner Family
DX: G47.33 Obstructive sleep apnea (adult) (pediatric) (principal)
CPT/HCPCS: 99213

== ENCOUNTER → 2023-12-03 09:46 | Outpatient (BNVA) | payer MEDICARE, MEDICAID, SELFPAY | PROVIDERS: Visit Provider Nurse Practitioner Family | DX: G47.33 Obstructive sleep apnea (adult) (pediatric) (principal) | CPT/HCPCS: 99212 ==

== ENCOUNTER 2023-12-14 12:19 | Outpatient (REF) | payer MEDICARE, MEDICAID, SELFPAY ==
--- NOTE | ~2023-12-14 | US_ITS ---
EXAMINATION: US VENOUS WITH DOPPLER UPPER EXTREMITY, LEFT CLINICAL INFORMATION: Left arm swelling and pain COMPARISON: None available. TECHNIQUE: Ultrasound of the upper extremity is performed using compression sonography and color and pulse Doppler flow with assessment of augmentation of flow. There is also imaging and Doppler assessment of the jugular and subclavian veins. Spectral analysis with color-flow imaging is performed. FINDINGS: Thrombus is present in the basilic vein throughout its course. In the upper arm, thrombus is present in the left brachial vein.The left IJ and subclavian vein are free of thrombus. The cephalic vein is free of thrombus. The radial veins appear normal. No imaging of the ulnar vein is present. US/US venous duplex UE LT IMPRESSION: There is DVT as well as superficial thrombophlebitis in the left arm with superficial thrombus in the basilic vein DVT in the brachial vein.
== END 2023-12-14 12:20 | disposition home or self-care (01) ==
LOC: HO.US 12:19
PROVIDERS: Absent Provider Internal Medicine; PCP Internal Medicine; Visit Provider Emergency Medicine
DX: Z13.89 Encounter for screening for other disorder (principal)
CPT/HCPCS: 93971

== ENCOUNTER 2023-12-14 13:39 | Emergency (ER) | payer MEDICARE, MEDICAID, SELFPAY ==
[2023-12-14 14:46] VITALS: BP 106/74; PULSE 103; RESP 16; TEMP 36.4; O2SAT 97; BMI 34.3
--- NOTE | 2023-12-14 14:48 | ED_ITS ---
HPI - Extremity Problem General Chief complaint: General Medical Stated complaint: Bloodclot-ultrasound just done Time Seen by Provider: 12/14/23 15:04 Source: patient and old records reviewed Mode of arrival: ambulatory Limitations: no limitations History of Present Illness HPI Narrative: 58 female who had AICD placed last week presents to the ER from outpatient imaging for evaluation of a positive DVT study in her left arm. Patient reports a couple of days after the defibrillator was placed she noticed swelling, redness, pain of her right upper arm. Ultrasound today showed deep vein thrombosis in the brachial vein. She denies any chest pain or shortness of breath. She has ongoing soreness in the area where the defibrillator was placed. She is unable to lift her arm above her head due to pain as well as instructions from her washer and crusher tender. She has not on anticoagulation. No history of DVTs in the past. MD Complaint: extremity pain and extremity swelling Onset (ago): day(s) Pain Consistency: constant Location: left and upper extremity Severity scale (1-10): 6 Quality: aching Radiation: distal Relieving factors: rest Exacerbating factors: range of motion and palpation Associated symptoms: denies other symptoms Related Data Home Medications ?Medication ?Instructions ?Recorded ?Confirmed albuterol sulfate 90 mcg/actuation 2 puff inhalation QID 09/22/21 11/17/23 aerosol inhaler (ProAir HFA) amlodipine 5 mg tablet 5 mg PO QPM 09/22/21 11/17/23 cetirizine 10 mg tablet 10 mg PO QAM 09/22/21 11/17/23 chlorpromazine 50 mg tablet 100 mg PO BEDTIME 09/22/21 11/17/23 fluticasone propionate 110 2 puff PO BID 09/22/21 11/17/23 mcg/actuation HFA aerosol inhaler (Flovent HFA) ibuprofen 800 mg tablet 800 mg PO TID PRN 09/22/21 11/17/23 lisinopril 2.5 mg tablet 2.5 mg PO QAM 09/22/21 11/17/23 omeprazole 20 mg capsule,delayed 20 mg PO 09/22/21 11/17/23 release venlafaxine 75 mg capsule,extended 75 mg PO QAM 09/22/21 11/17/23 release 24 hr oxcarbazepine 300 mg tablet 300 mg PO DAILY 10/13/21 11/17/23 hydrochlorothiazide 12.5 mg tablet 12.5 mg PO QAM 09/15/22 11/17/23 empagliflozin 10 mg tablet 10 mg PO DAILY 04/14/23 11/17/23 (Jardiance) isosorbide mononitrate 30 mg 30 mg PO DAILY 04/14/23 11/17/23 tablet,extended release 24 hr sacubitril 24 mg-valsartan 26 mg 1 tab PO BID 04/14/23 11/17/23 tablet (Entresto) pregabalin 300 mg capsule 300 mg PO BID 11/17/23 11/17/23 Previous Rx's ?Medication ?Instructions ?Recorded APAP Machine/Device #1 ea 01/13/22 apixaban 5 mg (74 tabs) tablets in 5 mg PO BID #74 ea 12/14/23 a dose pack (Eliquis DVT-PE Treat 30D Start) Allergies Allergy/AdvReac Type Severity Reaction Status Date / Time diclofenac [DICLOFENAC] Allergy Unknown itch Verified 12/14/23 14:51 Review of Systems 2 Review of Systems: Yes all other systems are reviewed and are negative [facility] Past Medical History Medical History Cervical myofascial pain syndrome Lumbar spondylosis Obesity GERD (gastroesophageal reflux disease) Mild persistent asthma Uterine leiomyoma Depressive disorder ALKA on CPAP Allergic rhinitis Nonrheumatic mitral valve regurgitation Non-ischemic cardiomyopathy Prediabetes Surgical History Hx of cardiac pacemaker History of esophagogastroduodenoscopy (EGD) Hx of cardiac catheterization Hx of colonoscopy History of hernia surgery H/O elbow surgery H/O: hysterectomy History of hand surgery Family History Family History Family/Other Intestinal cancer, Onset Age: 31 Social History Social History Alcohol intake: never Patient Tobacco Use Status: Former Tobacco user Years Smoked: stopped in 2007 Advance Directives: No Advance Directives Information Provided: Yes Current occupational status: disabled 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 Oriented X3. No acute distress. Head: normocephalic, atraumatic. Eyes: Pupils equal, round and reactive to light. ENT: Pharynx normal. No tonsillar swelling or exudate. Neck: Normal inspection. Neck supple. CVS: Normal heart rate and rhythm. Pulses normal. Chest wall with recent incision site on the upper left side consistent with recent AICD placement, surgical site is clean, dry, intact no warmth, redness, drainage. Respiratory: No respiratory distress. Breath sounds normal. Skin: Skin warm and dry. Normal skin color. Normal skin turgor. No rashes. Extremities: No lower extremity edema. No joint swelling. Left upper extremity with proximal erythema and warmth, mild swelling, soft tissue tenderness. Neurovascularly intact distally. Neuro/psych: Oriented X 3. No motor deficit. No sensory deficit. CN II-XII intact. Normal speech and cognition. Course Course Course Narrative: This is a Rapid Medical Examination (RME) performed by Sam Vitale PA-C in triage. Full HPI, ROS, assessment and treatment plan per primary provider in the Main ED. 58 yo female with recent AICD placement 12/09/23 here with + DVT test as an outpatient. LUE swelling and pain x3 days. Plan: check labs and start NOAC x3-6 months Medical Decision Making Medical Decision Making MDM Narrative: 50-year-old female presents to the ER for evaluation of positive DVT study done as an outpatient of the left upper extremity. This is a provoked deep vein thrombosis as she had recent procedure. She has no chest pain or shortness a breath suggest pulmonary embolism. Low suspicion for arterial clot. Labs were rechecked today, no anemia or thrombocytopenia. Will start her on Eliquis. She was counseled on initiation of this medication as well as maintenance, complications, risks and benefits. She expressed understanding and will rock picker the prescription tonight to start it. She will follow-up with her washer and crusher tender and primary care doctor for further prescribing of this medication. Stable for discharge home Differential Diagnosis Differential Diagnoses: The differential diagnosis associated with the presentation includes Acute DVT, superficial thrombophlebitis, arterial clot Admission/Observation Consideration of admission/observation: Escalation of care including admission/observation considered Lab Data MDM Lab Attestation statement: I reviewed the patient's lab results. No anemia or thrombocytopenia 12/14/23 15:02 12/14/23 15:02 Labs: Lab Results 12/14/23 12/14/23 Range/Units 15:02 16:23 WBC 8.2 (4.8-10.8) X10*3/uL RBC 4.53 (4.20-5.50) X10*6/uL Hgb 12.9 (12.0-16.0) g/dl Hct 39.6 (37.0-47.0) % MCV 87.4 (80.0-98.0) fL MCH 28.5 (27.0-33.0) pg MCHC 32.6 (31.0-35.0) g/dl RDW 15.5 (11.0-16.0) % Plt Count 169 D (160-400) X10*3/uL MPV 12.0 (9.4-12.3) fL Immature Gran % (Auto) 0.4 (0.0-0.4) % Neut % (Auto) 74.0 H (45-73) % Lymph % (Auto) 16.7 L (20-40) % [place] % (Auto) 7.2 (2-11) % Eos % (Auto) 1.2 (0-4) % Baso % (Auto) 0.5 (0-2) % Lymph # (Auto) 1.4 (1.2-4.9) X10*3/uL [place] # (Auto) 0.6 (0.1-1.2) X10*3/uL Eos # (Auto) 0.1 (0.0-0.4) X10*3/uL Baso # (Auto) 0.0 (0.0-0.2) X10*3/uL Abs Immat Gran (auto) 0.03 (0.00-0.03) X10*3/uL Absolute Neuts (auto) 6.1 (2.0-8.3) x10*3/uL Absolute Nucleated RBC 0.000 (0.0-0.012) X10*3/uL Nucleated RBC % (auto) 0.0 (0.0-0.2) /100WBC Smear Tech's Comments VERIFIED PT 13.3 D (11.1-13.3) SEC INR 1.1 (0.9-1.1) APTT 31.4 (26.0-36.8) SEC Sodium 137 (135-145) mmol/L Potassium 3.6 D (3.3-5.1) mmol/L Chloride 103 (96-108) mmol/L Carbon Dioxide 22 (22-29) mmol/L Anion Gap 16 (12-20) BUN 10 (9-16) mg/dL Creatinine 0.84 (0.5-1.4) mg/dL Estim Creat Clear Calc 73.9 Estimated GFR > 60 Random Glucose 99 (60-115) mg/dL Calcium 9.1 (8.4-10.2) mg/dL Magnesium 1.7 (1.6-2.6) mg/dL Total Bilirubin 0.5 (0.0-1.0) mg/dL Direct Bilirubin 0.2 (0.0-0.5) mg/dL AST 63 H (5-31) U/L ALT 30 (0-31) U/L Alkaline Phosphatase 124 H (39-117) U/L Total Protein 9.0 H (6.5-8.0) g/dL Albumin 3.3 L (3.5-5.0) g/dL Independent Interpretation I performed an independent interpretation of an: Ultrasound Interpretation: DVT noted in the basilic vein Radiology Impression Discussion of test interpretation with radiology: I have reviewed the radiologist's reading. Radiologist Impression: EXAMINATION: US VENOUS WITH DOPPLER UPPER EXTREMITY, LEFT CLINICAL INFORMATION: Left arm swelling and pain COMPARISON: None available. TECHNIQUE: Ultrasound of the upper extremity is performed using compression sonography and color and pulse Doppler flow with assessment of augmentation of flow. There is also imaging and Doppler assessment of the jugular and subclavian veins. Spectral analysis with color-flow imaging is performed. FINDINGS: Thrombus is present in the basilic vein throughout its course. In the upper arm, thrombus is present in the left brachial vein.The left IJ and subclavian vein are free of thrombus. The cephalic vein is free of thrombus. The radial veins appear normal. No imaging of the ulnar vein is present. US/US venous duplex UE LT IMPRESSION: There is DVT as well as superficial thrombophlebitis in the left arm with superficial thrombus in the basilic vein DVT in the brachial vein. External Record Review External record reviewed: Prior outpatient labs Prescription Management I considered prescription management with: Pain Medication and Antibiotic Critical Care Time Critical Care Time Critical Care Time: No Discharge Plan Discharge Clinical Impression: Acute deep vein thrombosis (DVT) of left upper extremity Patient Disposition: Home, Self-Care Instructions: Deep Vein Thrombosis (ED) Additional Instructions: take the prescribed blood thinner medication to treat your blood clot follow up with your doctor and your washer and crusher tender Prescriptions: New Seth DVT-PE Treat 30D Start 5 mg (74 tabs) tablets,dose pack 5 mg PO BID Qty: 74 0RF No Action Flovent HFA 110 mcg/actuation HFA aerosol inhaler 2 puff PO BID lisinopril 2.5 mg tablet 2.5 mg PO QAM omeprazole 20 mg capsule,delayed release(DR/EC) 20 mg PO cetirizine 10 mg tablet 10 mg PO QAM venlafaxine 75 mg capsule,extended release 24hr 75 mg PO QAM ibuprofen 800 mg tablet 800 mg PO TID PRN amlodipine 5 mg tablet 5 mg PO QPM chlorpromazine 50 mg tablet 100 mg PO BEDTIME albuterol sulfate [ProAir HFA] 90 mcg/actuation HFA aerosol inhaler 2 puff inhalation QID oxcarbazepine 300 mg tablet 300 mg PO DAILY (DME) APAP Machine/Device Kit See Rx Instructions .Route Qty: 1 0RF Rx Instructions: 9-12 cmH2O nightly > 4 hours hydrochlorothiazide 12.5 mg tablet 12.5 mg PO QAM pregabalin 300 mg capsule 300 mg PO BID Jardiance 10 mg tablet 10 mg PO DAILY isosorbide mononitrate 30 mg tablet extended release 24 hr 30 mg PO DAILY Entresto 24-26 mg tablet 1 tab PO BID Referrals: Joan Antunez MD [Primary Care Provider] - Interventions: ED Discharge Assessment Last Done: 12/14/23 17:36 Discharge Date/Time: 12/14/23 17:37 Print Language: Hong Konger
[2023-12-14 15:15] LABS: Basophils Percent Auto 0.5 % (0-2); Eosinophils Absolute Auto 0.1 X10*3/uL (0.0-0.4); Eosinophils Percent Auto 1.2 % (0-4); Hematocrit 39.6 % (37.0-47.0); Hemoglobin 12.9 g/dl (12.0-16.0); Imm Gran Abs Auto 0.03 X10*3/uL (0.00-0.03); Imm Gran Pct Auto 0.4 % (0.0-0.4); Lymphocytes Absolute Auto 1.4 X10*3/uL (1.2-4.9); Lymphocytes Percent Auto 16.7 % (20-40); MANUAL DIFF FLAG SCAN; Mean Corpuscular HGB Conc 32.6 g/dl (31.0-35.0); Mean Corpuscular Hemoglobin 28.5 pg (27.0-33.0); Mean Corpuscular Volume 87.4 fL (80.0-98.0); Monocytes Absolute Auto 0.6 X10*3/uL (0.1-1.2); Monocytes Percent Auto 7.2 % (2-11); Neutrophils Absolute Auto 6.1 x10*3/uL (2.0-8.3); PLT CLUMP 1; Red Blood Count 4.53 X10*6/uL (4.20-5.50); Red Cell Distribution Width 15.5 % (11.0-16.0); SCAN SMEAR FLAG 1
[2023-12-14 15:25] LABS: Platelet Count 169 X10*3/uL (160-400); White Blood Count 8.2 X10*3/uL (4.8-10.8)
[2023-12-14 15:50] LABS: Alanine Aminotransferase 30 U/L (0-31); Albumin Level 3.3 g/dL (3.5-5.0); Alkaline Phosphatase 124 U/L (39-117); Anion Gap 16 (12-20); Aspartate Amino Transferase 63 U/L (5-31); Bilirubin Direct 0.2 mg/dL (0.0-0.5); Bilirubin Total 0.5 mg/dL (0.0-1.0); Blood Urea Nitrogen 10 mg/dL (9-16); Calcium 9.1 mg/dL (8.4-10.2); Carbon Dioxide 22 mmol/L (22-29); Chloride 103 mmol/L (96-108); Creatinine Clr Calc Pharmacy 73.9; Estimated Glomerular Filt Rate > 60; Glucose Random 99 mg/dL (60-115); Magnesium 1.7 mg/dL (1.6-2.6); Potassium 3.6 mmol/L (3.3-5.1); Sodium 137 mmol/L (135-145)
[2023-12-14 16:02] LABS: SLIDE REVIEW VERIFIED
[2023-12-14 16:40] LABS: INTERNATIONAL NORM RATIO 1.1 (0.9-1.1); Prothrombin Time 13.3 SEC (11.1-13.3)
[2023-12-14 16:43] LABS: Partial Thromboplastin Time 31.4 SEC (26.0-36.8)
[2023-12-14 17:36] VITALS: BP 106/74; PULSE 103; RESP 16; TEMP 36.4; O2SAT 97
== END 2023-12-14 17:37 | disposition home or self-care (01) ==
PROVIDERS: Physician Assistant; Emergency Provider Emergency Medicine; PCP Internal Medicine
DX: I82.622 Acute embolism and thrombosis of deep veins of left upper extremity (principal); Z95.810 Presence of automatic (implantable) cardiac defibrillator
CPT/HCPCS: 36415; 80048; 80076; 83735; 85025; 85610; 85730; 93971; 99282; 99284

== ENCOUNTER 2023-12-23 09:33 | Outpatient (REF) | payer MEDICARE, MEDICAID, SELFPAY ==
[2023-12-24 14:13] LABS: Cardiolipin IgG Ab <2.0 GPL-U/mL; Cardiolipin IgM Ab <2.0 MPL-U/mL
[2023-12-30 14:44] LABS: DRVVT Confirmation Negative (Negative); PTT (LAC) Screen 37 sec (<=40)
[2023-12-31 21:52] LABS: Beta-2 Glycoprotein IgA <2.0 U/mL (<20.0); Beta-2 Glycoprotein IgG <2.0 U/mL (<20.0); Beta-2 Glycoprotein IgM <2.0 U/mL (<20.0)
== END 2023-12-23 09:34 | disposition home or self-care (01) ==
LOC: HO.LAB 09:33
PROVIDERS: PCP Internal Medicine; Visit Provider Student in an Organized Health Care Education/Training Program
DX: D68.61 Antiphospholipid syndrome (principal); M32.8 Other forms of systemic lupus erythematosus; Z79.899 Other long term (current) drug therapy
CPT/HCPCS: 36415; 85597; 85598; 85613; 85730; 86146; 86147; 99212

== ENCOUNTER 2023-12-23 09:33 | Outpatient (AMB) | payer MEDICARE, MEDICAID, SELFPAY ==
--- NOTE | 2023-12-23 09:37 | A.OFFVIS_ITS ---
Intake Visit Reasons: JOANN +ve/CM Intake Note: Patient last seen 11/17/23 presents today for follow up and test results. Patient reports Pacemaker surgery on 12/09/23 at [facility] [place] due to a lead falling off. Patient was also seen at our ED where a clot was found on the left arm, started on Eliquis. Credit And Collections Representative Required: Yes Credit And Collections Representative Language: [place] [place] Name: Chandni Accompanied by: Daughter Allergies diclofenac [DICLOFENAC] Allergy (Unknown, Verified 12/23/23 09:37) itch Medication List - Last Reconciled 12/23/23 by Lisa Simmons MD albuterol sulfate 90 mcg/actuation (ProAir HFA) 2 puffs inhalation QID amlodipine 5 mg PO QPM APAP Machine/Device 9-12 cmH2O nightly > 4 hours apixaban (Eliquis DVT-PE Treat 30D Start) 5 mg PO BID cetirizine 10 mg PO QAM chlorpromazine 100 mg PO BEDTIME empagliflozin (Jardiance) 10 mg PO DAILY fluticasone propionate 110 mcg/actuation (Flovent HFA) 2 puffs PO BID hydrochlorothiazide 12.5 mg PO QAM ibuprofen 800 mg PO TID PRN isosorbide mononitrate ER 30 mg PO DAILY lisinopril 2.5 mg PO QAM omeprazole 20 mg PO oxcarbazepine 300 mg PO DAILY pregabalin 300 mg PO BID sacubitril-valsartan 24-26 mg (Entresto) 1 tab PO BID venlafaxine ER 75 mg PO QAM HPI Comments Details: Patient returns for follow-up after completion of her diagnostic workup. A few days ago patient had her pacemaker adjusted, soon after she developed left upper extremity DVT and SVT confirmed with venous duplex. She was started on Eliquis and referred to her contact lens cutter. She stated that she will be on Eliquis for approximately 3 months. Initial history: This is a 58-year-old female who presents for evaluation of a positive JOANN. Patient stated that she has had generalized fatigue and weakness for more than 2 years. Recently patient had an AICD placed. She stated that she has history of mitral regurgitation, she stated that it was treated with medications however her heart rate was too slow and an AICD was placed recently. Patient is unaware of any family history of an autoimmune rheumatic disease. She has generalized pain but no swollen joints. Denies any skin rashes. Denies any history of DVT/PE. Denies any history of stroke or [place]. denies any fevers or weight loss. She had 6 pregnancies in total, 5 children and 1 miscarriage. [facility] Medical History Cervical myofascial pain syndrome Lumbar spondylosis Obesity GERD (gastroesophageal reflux disease) Mild persistent asthma Uterine leiomyoma Depressive disorder ALKA on CPAP Allergic rhinitis Nonrheumatic mitral valve regurgitation Non-ischemic cardiomyopathy Prediabetes Surgical History Hx of cardiac pacemaker History of esophagogastroduodenoscopy (EGD) Hx of cardiac catheterization Hx of colonoscopy History of hernia surgery H/O elbow surgery H/O: hysterectomy History of hand surgery Family History Family/Other Intestinal cancer, Onset Age: 31 Social History Alcohol intake: never Patient Tobacco Use Status: Former Tobacco user Years Smoked: stopped in 2007 Current occupational status: disabled 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 Female Reproductive History Menstrual Total pregnancies: 6 Full term: 5 Ab spontaneous: 1 Review of Systems Const Reports fatigue Musc Reports back pain and Reports myalgias Endo Reports fatigue Physical Exam Const General: cooperative, healthy appearing and comfortable Nutritional Appearance: obese Orientation/consciousness: patient oriented x3 Limitations: no limitations HEENT Head: Yes normocephalic and Yes atraumatic Mouth: moist mucous membranes Resp Effort & Inspection: normal respiratory effort and able to speak in complete sentences Auscultation: clear to auscultation bilaterally Skin General skin exam: no rashes or lesions noted Neuro General: patient oriented x3 Extrem Other: No active synovitis Normal nailfold capillaroscopy Assessment & Plan Assessment & Plan (1) SLE (systemic lupus erythematosus): Comment: dx 12/2023 (+++JOANN +++Mcelroy+++AUTOMOBILE INSPECTOR ++DsDNA) Code(s): M32.9 - Systemic lupus erythematosus, unspecified Category: Medical Qualifiers: Systemic lupus erythematosus type: other Systemic lupus erythematosus organ involvement: unspecified Qualified Code(s): M32.8 - Other forms of systemic lupus erythematosus Plan: This is a 58-year-old female with history of nonischemic cardiomyopathy s/p pacemaker placement who presents for evaluation of a positive JOANN. Labs show significantly elevated ESR. Subsequent serology showed positive Mcelroy/AUTOMOBILE INSPECTOR/dsDNA and hypergammaglobulinemia. Patient has specific serologies for lupus. She has vague symptoms that can be related to lupus such as generalized intermittent body aches, questionable fevers and fatigue. There is no significant cytopenias or proteinuria. Patient recently had a provoked DVT in the left upper extremity in the setting of pacemaker adjustment. Started on Eliquis. Discussed risks and benefits of hydroxychloroquine. Start hydroxychloroquine 200 mg Twice daily. Hydroxychloroquine has been shown to reduce thrombo embolism risk There is some risk of QTC prolongation with hydroxychloroquine combination with chlorpromazine however patient has a pacemaker Will check antiphospholipid antibodies Labs before next visit in 3 months (2) Long-term use of hydroxychloroquine: Code(s): Z79.899 - Other assisted (current) drug therapy Category: Medical Plan: Discussed risk of retinopathy associated with hydroxychloroquine. Advised patient to follow-up with her life skills coach Plan I spent 40 minutes reviewing patient's chart, evaluating patient, ordering diagnostic workup, counseling patient and documenting in the chart Orders: Orders Lupus Anticoagulant Panel Today D68.61 - Antiphospholipid syndrome Complement C3 3 Months M32.9 - Systemic lupus erythematosus, unspecified Protein Creatinine Ratio, Ur 3 Months M32.9 - Systemic lupus erythematosus, unspecified DNA Double Stranded-Crithidia 3 Months M32.9 - Systemic lupus erythematosus, unspecified Beta-2 Glycoprotein Antibody Today D68.61 - Antiphospholipid syndrome Cardiolipin Antibodies Today D68.61 - Antiphospholipid syndrome Anti DNA DS Antibody 3 Months M32.9 - Systemic lupus erythematosus, unspecified Complement C4 3 Months M32.9 - Systemic lupus erythematosus, unspecified C Reactive Protein 3 Months M32.9 - Systemic lupus erythematosus, unspecified Erythrocyte Sedimentation Rate 3 Months M32.9 - Systemic lupus erythematosus, unspecified UA w Microscopic 3 Months M32.9 - Systemic lupus erythematosus, unspecified Complete Blood Count Auto Diff 3 Months M32.9 - Systemic lupus erythematosus, unspecified Comprehensive Met. Panel 3 Months M32.9 - Systemic lupus erythematosus, unspecified Medications: New hydroxychloroquine 200 mg PO BID 180 tabs 1RF Coding Level of Care Code Est Pt Level 4 (14050) Diagnoses Other forms of systemic lupus erythematosus, unspecified organ involvement status M32.8 Systemic lupus erythematosus type: other Systemic lupus erythematosus organ involvement: unspecified Long-term use of hydroxychloroquine Z79.899
== END 2023-12-23 10:15 | disposition home or self-care (01) ==
PROVIDERS: PCP Internal Medicine; Visit Provider Student in an Organized Health Care Education/Training Program
DX: M32.8 Other forms of systemic lupus erythematosus (principal); Z79.899 Other long term (current) drug therapy
CPT/HCPCS: 99214

== ENCOUNTER 2024-01-12 13:22 | Outpatient (REF) | payer OTHER, SELFPAY ==
[2024-01-12 15:12] LABS: Alanine Aminotransferase 19 U/L (0-31); Albumin Level 3.6 g/dL (3.5-5.0); Alkaline Phosphatase 105 U/L (39-117); Anion Gap 11 (12-20); Aspartate Amino Transferase 35 U/L (5-31); Bilirubin Direct 0.2 mg/dL (0.0-0.5); Bilirubin Total 0.4 mg/dL (0.0-1.0); Blood Urea Nitrogen 12 mg/dL (9-16); Calcium 9.4 mg/dL (8.4-10.2); Carbon Dioxide 24 mmol/L (22-29); Chloride 111 mmol/L (96-108); Estimated Glomerular Filt Rate > 60; Glucose Random 92 mg/dL (60-115); Potassium 3.6 mmol/L (3.3-5.1); Sodium 142 mmol/L (135-145)
== END 2024-01-12 13:23 | disposition home or self-care (01) ==
LOC: HO.LAB 13:22
PROVIDERS: Absent Provider Internal Medicine Cardiovascular Disease; PCP Internal Medicine; Visit Provider Internal Medicine
DX: M32.9 Systemic lupus erythematosus, unspecified (principal); R53.83 Other fatigue
CPT/HCPCS: 36415; 80048; 80076; 84443

== ENCOUNTER 2024-03-10 08:41 | Outpatient (REF) | payer OTHER, SELFPAY ==
--- NOTE | ~2024-03-10 | MM_ITS ---
EXAMINATION: MM SCREENING DIGITAL BREAST TOMOSYNTHESIS, BILATERAL CLINICAL INFORMATION: Screening. Asymptomatic. COMPARISON: Mammography: This study is compared with prior exams dating back to 2018. TECHNIQUE: Digital breast tomosynthesis is performed in both the craniocaudal and mediolateral oblique views along with computer-aided detection (CAD). Synthesized 2D images are generated from the tomosynthesis. FINDINGS: There are scattered areas of fibroglandular density (ACR BI-RADS breast composition Category b). There are no significant masses, abnormal calcifications, or other abnormalities. There is a pacemaker in the superior aspect of the left breast. MM/MM tomosynthesis screening BI IMPRESSION: No mammographic evidence of malignancy. ASSESSMENT: BI-RADS BI-RADS 1 - Negative RECOMMENDATION: Routine annual mammography screening. 1 year F/U This examination should not preclude the clinical evaluation of a suspicious palpable abnormality. This patient's information was entered into a reminder system with a target due date for their next mammogram. Electronically signed by: Cielo Velazquez MD 04/10/2024 11:02 PM EDT
== END 2024-03-10 08:42 | disposition home or self-care (01) ==
LOC: HO.MAMMO 08:41
PROVIDERS: PCP Internal Medicine; Visit Provider Internal Medicine
DX: Z12.31 Encounter for screening mammogram for malignant neoplasm of breast (principal)
CPT/HCPCS: 77063; 77067

== ENCOUNTER → 2024-03-10 09:00 | Outpatient (BNV) | payer OTHER, SELFPAY | PROVIDERS: PCP Internal Medicine; Visit Provider Radiology Diagnostic Radiology | DX: Z12.31 Encounter for screening mammogram for malignant neoplasm of breast (principal) | CPT/HCPCS: 77063; 77067 ==

== ENCOUNTER 2024-03-14 09:38 | Outpatient (REF) | payer OTHER, SELFPAY ==
[2024-03-14 10:18] LABS: Basophils Percent Auto 1.1 % (0-2); Eosinophils Absolute Auto 0.2 X10*3/uL (0.0-0.4); Eosinophils Percent Auto 6.1 % (0-4); Hematocrit 40.6 % (37.0-47.0); Imm Gran Abs Auto 0.01 X10*3/uL (0.00-0.03); Imm Gran Pct Auto 0.3 % (0.0-0.4); Lymphocytes Absolute Auto 1.4 X10*3/uL (1.2-4.9); Lymphocytes Percent Auto 35.5 % (20-40); MANUAL DIFF FLAG SCAN; Mean Corpuscular Hemoglobin 28.1 pg (27.0-33.0); Mean Corpuscular Volume 87.7 fL (80.0-98.0); Monocytes Absolute Auto 0.4 X10*3/uL (0.1-1.2); Monocytes Percent Auto 9.2 % (2-11); Neutrophils Absolute Auto 1.8 x10*3/uL (2.0-8.3); Neutrophils Percent Auto 47.8 % (45-73); PLT CLUMP 1; Red Blood Count 4.63 X10*6/uL (4.20-5.50); Red Cell Distribution Width 14.8 % (11.0-16.0); SCAN SMEAR FLAG 1
[2024-03-14 10:48] LABS: White Blood Count 3.8 X10*3/uL (4.8-10.8)
[2024-03-14 10:49] LABS: Mean Platelet Volume 13.3 fL (9.4-12.3); Platelet Count 147 X10*3/uL (160-400)
[2024-03-14 10:51] LABS: SLIDE REVIEW VERIFIED
[2024-03-14 10:55] LABS: Erythrocyte Sedimentation Rate 21 MM/HR (0-20)
[2024-03-14 11:00] LABS: Appearance Urine Clear; Color Urine Yellow; Glucose Urine UA >=1000 mg/dL (Negative); Leukocyte Esterase Urine Moderate (2+) (Negative); Nitrite Urine Negative (Negative); Specific Gravity - Urine 1.015 (1.005-1.025); UMIC TRIGGER UA YES; Urine Blood Negative (Negative); Urine Ketones Negative (Negative); Urine Protein Negative (Neg-Trace)
[2024-03-14 11:06] LABS: Bacteria Urine None Seen (None Seen); Hyaline Casts Urine 0-2 /LPF (0-2); RBC Urine 0-2 /HPF (0-2)
[2024-03-14 11:26] LABS: Alanine Aminotransferase 21 U/L (0-31); Albumin Level 3.6 g/dL (3.5-5.0); Alkaline Phosphatase 111 U/L (39-117); Anion Gap 14 (12-20); Aspartate Amino Transferase 35 U/L (5-31); Bilirubin Total 0.3 mg/dL (0.0-1.0); Blood Urea Nitrogen 15 mg/dL (9-16); C Reactive Protein 0.87 mg/dL (< or = 0.50); Carbon Dioxide 24 mmol/L (22-29); Chloride 108 mmol/L (96-108); Estimated Glomerular Filt Rate > 60; Glucose Random 88 mg/dL (60-115); Sodium 141 mmol/L (135-145); Total Protein 8.4 g/dL (6.5-8.0)
[2024-03-14 11:49] LABS: Creatinine Urine 32.91 mg/dL; Protein/Creatinine Ratio, Ur 0.24 (<0.2); Total Protein Urine Random 8 mg/dL (<12)
[2024-03-15 12:53] LABS: Complement C3 159 mg/dL (83-193)
[2024-03-15 14:13] LABS: Anti DNA DS Antibody 3 IU/mL
[2024-03-26 16:09] LABS: DNAds, Crithidia Antibody Negative (Negative)
== END 2024-03-14 09:39 | disposition home or self-care (01) ==
LOC: HO.LAB 09:38
PROVIDERS: Visit Provider Student in an Organized Health Care Education/Training Program
DX: M32.9 Systemic lupus erythematosus, unspecified (principal)
CPT/HCPCS: 36415; 80053; 81001; 82570; 84156; 85025; 85652; 86140; 86160; 86225; 86255

== ENCOUNTER 2024-03-23 09:34 | Outpatient (AMB) | payer OTHER, SELFPAY ==
--- NOTE | 2024-03-23 09:35 | MHC.OFFVIS ---
Vital Signs 03/23/24 09:47 Height 5 ft 2 in Weight 200 lb 2.876 oz BMI 36.6 BP 112/74 Blood Pressure Location Rt brachial Respiration 16 Pulse 64 Pulse Source Pulse Oximeter Pulse Oximetry (%) 95 Oxygen Delivery Method Room Air Intake Visit Reasons: SLE/lm Intake Note: Patient presents for SLE. Box Blank Machine Operator Helper Required: Yes Box Blank Machine Operator Helper Language: Doorperson Services: Box Blank Machine Operator Helper Offered & Declined Box Blank Machine Operator Helper Name: Chandni Jackson Information Interpreted: non-clinical & clinical Impregnator And Drier: Impregnator And Drier Present Accompanied by: Daughter Allergies diclofenac [DICLOFENAC] Allergy (Unknown, Verified 03/23/24 09:43) itch Medication List - Last Reconciled 03/23/24 by Lisa Simmons MD albuterol sulfate 90 mcg/actuation (ProAir HFA) 2 puffs inhalation QID amlodipine 5 mg PO QPM APAP Machine/Device 9-12 cmH2O nightly > 4 hours apixaban (Eliquis DVT-PE Treat 30D Start) 5 mg PO BID apixaban (Eliquis) 5 mg PO BID cetirizine 10 mg PO QAM chlorpromazine 100 mg PO BEDTIME empagliflozin (Jardiance) 10 mg PO DAILY fluticasone propionate 110 mcg/actuation (Flovent HFA) 2 puffs PO BID hydrochlorothiazide 12.5 mg PO QAM hydroxychloroquine 200 mg PO BID ibuprofen 800 mg PO TID PRN isosorbide mononitrate ER 30 mg PO DAILY lisinopril 2.5 mg PO QAM omeprazole 20 mg PO oxcarbazepine 300 mg PO DAILY pregabalin 300 mg PO BID sacubitril-valsartan 24-26 mg (Entresto) 1 tab PO BID venlafaxine ER 75 mg PO QAM HPI Comments Details: 58-year-old female with newly diagnosed lupus returns for follow-up. She has been taking the hydroxychloroquine 200 mg Twice daily for the last 3 months. She states that she is doing about the same overall. She continues to have diffuse body aches. Has not had any swollen joints. Denies any new skin rashes. She is scheduled for a cardiac MRI next month Initial history: This is a 58-year-old female who presents for evaluation of a positive JOANN. Patient stated that she has had generalized fatigue and weakness for more than 2 years. Recently patient had an AICD placed. She stated that she has history of mitral regurgitation, she stated that it was treated with medications however her heart rate was too slow and an AICD was placed recently. Patient is unaware of any family history of an autoimmune rheumatic disease. She has generalized pain but no swollen joints. Denies any skin rashes. Denies any history of DVT/PE. Denies any history of stroke or [place]. denies any fevers or weight loss. She had 6 pregnancies in total, 5 children and [address] [facility] Medical History Cervical myofascial pain syndrome Lumbar spondylosis Obesity GERD (gastroesophageal reflux disease) Mild persistent asthma Uterine leiomyoma Depressive disorder ALKA on CPAP Allergic rhinitis Nonrheumatic mitral valve regurgitation Non-ischemic cardiomyopathy Prediabetes Surgical History Hx of cardiac pacemaker History of esophagogastroduodenoscopy (EGD) Hx of cardiac catheterization Hx of colonoscopy History of hernia surgery H/O elbow surgery H/O: hysterectomy History of hand surgery Family History Family/Other Intestinal cancer, Onset Age: 31 Social History Alcohol intake: never Patient Tobacco Use Status: Former Tobacco user Years Smoked: stopped in 2007 Current occupational status: disabled 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 Female Reproductive History Menstrual Total pregnancies: 6 Full term: 5 Ab spontaneous: 1 Review of Systems Const Reports fatigue Musc Reports back pain and Reports myalgias Endo Reports fatigue Physical Exam Vital Signs: Last Vital Signs Pulse 64 03/23/24 09:47 Resp 16 03/23/24 09:47 BP 112/74 03/23/24 09:47 Pulse Ox 95 03/23/24 09:47 Oxygen Delivery Method Room Air 03/23/24 09:47 BMI result Body Mass Index 36.6 Const General: cooperative, healthy appearing and comfortable Nutritional Appearance: obese Orientation/consciousness: patient oriented x3 Limitations: no limitations HEENT Head: Yes normocephalic and Yes atraumatic Mouth: moist mucous membranes Resp Effort & Inspection: normal respiratory effort and able to speak in complete sentences Auscultation: clear to auscultation bilaterally Skin General skin exam: no rashes or lesions noted Neuro General: patient oriented x3 Extrem Other: No active synovitis Multiple fibromyalgia tender points Normal nailfold capillaroscopy Results Reviewed Results Reviewed: Laboratory Tests 11/17/23 03/14/24 03/14/24 09:47 09:46 09:59 C-Reactive Protein 5.14 H 0.87 H Protein/Creatinin Ratio 0.24 H SS-A/Ro Antibody >8.0 POS A Sm (Mcelroy) Antibody 2.1 POS A SM/ALLERGIST/PEDIATRIC PULMONOLOGIST IgG Antibody >8.0 POS A Double Strand DNA Ab 11 H 3 Laboratory Tests 11/17/23 03/14/24 09:47 09:59 ESR 73 H 21 H Assessment & Plan Assessment & Plan (1) SLE (systemic lupus erythematosus): Comment: dx 12/2023 (+++JOANN +++Mcelroy+++ALLERGIST/PEDIATRIC PULMONOLOGIST ++DsDNA) HCQ 12/2023 effective Code(s): M32.9 - Systemic lupus erythematosus, unspecified Category: Medical Qualifiers: Systemic lupus erythematosus type: other Systemic lupus erythematosus organ involvement: unspecified Qualified Code(s): M32.8 - Other forms of systemic lupus erythematosus Plan: This is a 58-year-old female with lupus who presents for follow-up. She has been taking hydroxychloroquine regularly for the last 3 months. Symptomatically patient states that she is doing about the same overall. On physical exam there are no signs of active SLE such as active synovitis, skin rashes, oral ulcers, her symptoms are mainly related to fibromyalgia. Her inflammatory markers and dsDNA are markedly improved however. Given her history of ischemic cardiomyopathy, I discussed her case with her business continuity planning director and a cardiac MRI was ordered for next month Continue with hydroxychloroquine 200 mg Twice daily Labs before next visit in 4 months (2) Long-term use of hydroxychloroquine: Code(s): Z79.899 - Other termite exterminator helper (current) drug therapy Category: Medical Plan: Discussed risk of retinopathy associated with hydroxychloroquine. States that she was recently evaluated by nfl player. We will attempt to request records Plan I spent 30 minutes reviewing patient's chart, evaluating patient, ordering diagnostic workup, counseling patient and documenting in the chart Orders: Orders Complete Blood Count Auto Diff 4 Months M32.8 - Other forms of systemic lupus erythematosus Comprehensive Met. Panel 4 Months M32.8 - Other forms of systemic lupus erythematosus Anti DNA DS Antibody 4 Months M32.8 - Other forms of systemic lupus erythematosus Protein Creatinine Ratio, Ur 4 Months M32.8 - Other forms of systemic lupus erythematosus Erythrocyte Sedimentation Rate 4 Months M32.8 - Other forms of systemic lupus erythematosus C Reactive Protein 4 Months M32.8 - Other forms of systemic lupus erythematosus Complement C3 4 Months M32.8 - Other forms of systemic lupus erythematosus Complement C4 4 Months M32.8 - Other forms of systemic lupus erythematosus UA w Microscopic 4 Months M32.8 - Other forms of systemic lupus erythematosus Coding Level of Care Code Est Pt Level 4 (40047) Diagnoses Other forms of systemic lupus erythematosus, unspecified organ involvement status M32.8 Systemic lupus erythematosus type: other Systemic lupus erythematosus organ involvement: unspecified Long-term use of hydroxychloroquine Z79.899
[2024-03-23 09:47] VITALS: BP 112/74; PULSE 64; RESP 16; O2SAT 95; BMI 36.6
== END 2024-03-23 10:08 | disposition home or self-care (01) ==
PROVIDERS: PCP Internal Medicine; Visit Provider Student in an Organized Health Care Education/Training Program
DX: M32.8 Other forms of systemic lupus erythematosus (principal); Z79.899 Other long term (current) drug therapy
CPT/HCPCS: 99214

== ENCOUNTER → 2024-03-23 09:34 | Outpatient (BNVA) | payer OTHER, SELFPAY | PROVIDERS: PCP Internal Medicine; Visit Provider Student in an Organized Health Care Education/Training Program | DX: M32.8 Other forms of systemic lupus erythematosus (principal); Z79.899 Other long term (current) drug therapy | CPT/HCPCS: 99212 ==

== ENCOUNTER 2024-04-28 09:35 | Outpatient (REF) | payer OTHER, SELFPAY ==
[2024-04-28 11:33] LABS: B Type Natriuretic Peptide 18 pg/mL (<100)
[2024-04-28 11:41] LABS: Anion Gap 12 (12-20); Blood Urea Nitrogen 15 mg/dL (9-16); Carbon Dioxide 27 mmol/L (22-29); Chloride 107 mmol/L (96-108); Estimated Glomerular Filt Rate > 60; Glucose Random 80 mg/dL (60-115); Potassium 4.1 mmol/L (3.3-5.1); Sodium 142 mmol/L (135-145)
== END 2024-04-28 09:36 | disposition home or self-care (01) ==
LOC: HO.LAB 09:35
PROVIDERS: PCP Internal Medicine; Visit Provider Internal Medicine Cardiovascular Disease
DX: I87.2 Venous insufficiency (chronic) (peripheral) (principal)
CPT/HCPCS: 36415; 80048; 83880

== ENCOUNTER 2024-06-09 10:04 | Outpatient (AMB) | payer OTHER, SELFPAY ==
[2024-06-09 10:34] VITALS: BMI 36.6
--- NOTE | 2024-06-09 10:34 | A.OFFVIS_ITS ---
Vital Signs 06/09/24 10:34 Height 5 ft 2 in Weight 200 lb BMI 36.6 Intake Visit Reasons: 6 MONTH F/U Intake Note: Patient presets for 6 month follow up Allergies diclofenac [DICLOFENAC] Allergy (Unknown, Verified 06/09/24 10:35) itch HPI Comments Details: 58-yr-old female presents for follow-up visit of ALKA. Pt endorses the following interval medical history changes: She has started hydroxychloroquine for tx of SLE. Reports her paper tester and sample cutter edward baltazar working closely together. Had recent cardiac MRI, 04/2024 at [facility]: LVEF 42%, nml LV size, no LGE w some degradation from motion artifact, Basal septal hypertrophy to 1.4 cm without LGE.?Nml RV. She uses her machine nightly. She is sleeping well w/ CPAP use. Denies SOB at night. Does prefer to sleep w/ head elevated some. She has enough PAP supplies. Cleans her PAP supplies. 05/09/24-06/07/24, APAP compliance report reveals APAP- 9-12 cmH2O w/ average pressure 9cmH2O; overall usage of 100% with usage > 4 hours of 93%; average usage on days used 6hrs 26min; and residual AHI of 3.2/hr. [facility] Medical History Cervical myofascial pain syndrome Lumbar spondylosis Obesity GERD (gastroesophageal reflux disease) Mild persistent asthma Uterine leiomyoma Depressive disorder ALKA on CPAP Allergic rhinitis Nonrheumatic mitral valve regurgitation Non-ischemic cardiomyopathy Prediabetes Surgical History Hx of cardiac pacemaker History of esophagogastroduodenoscopy (EGD) Hx of cardiac catheterization Hx of colonoscopy History of hernia surgery H/O elbow surgery H/O: hysterectomy History of hand surgery Family History Family/Other Intestinal cancer, Onset Age: 31 Social History Alcohol intake: never Patient Tobacco Use Status: Former Tobacco user Years Smoked: stopped in 2007 Current occupational status: disabled 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 Physical Exam Vital Signs: BMI result Body Mass Index 36.6 Const General: no acute distress Orientation/consciousness: patient oriented x3 HEENT Head: Yes normocephalic Resp Effort & Inspection: normal respiratory effort and able to speak in complete sentences Neuro General: patient oriented x3 Psych Mental Status: mental status grossly normal Speech and movement: Clear speech present Attitude: cooperative Assessment & Plan Assessment & Plan (1) Obstructive sleep apnea: Code(s): G47.33 - Obstructive sleep apnea (adult) (pediatric) Category: Medical Plan Continue APAP 9-12 cmH2O nightly > 4 hours, as pt is having good clinical effect. Clean machine and supplies daily. Change PAP supplies routinely. Pt to call us/respiratory home care company with any concerns. F/u w/ cardiology and rheumatology as scheduled. Pt advised to f/u w/ any new s/s, especially nocturnal dyspnea, orthopnea. f/u in 6 months or sooner prn. Coding Level of Care Code Est Pt Level 3 (09038) Diagnoses Obstructive sleep apnea G47.33
== END 2024-06-09 11:11 | disposition home or self-care (01) ==
LOC: HO.HSMS 10:04
PROVIDERS: PCP Internal Medicine; Visit Provider Nurse Practitioner Family
DX: G47.33 Obstructive sleep apnea (adult) (pediatric) (principal)
CPT/HCPCS: 99213

== ENCOUNTER → 2024-06-09 10:04 | Outpatient (BNVA) | payer OTHER, SELFPAY | PROVIDERS: PCP Internal Medicine; Visit Provider Nurse Practitioner Family | DX: G47.33 Obstructive sleep apnea (adult) (pediatric) (principal) | CPT/HCPCS: 99212 ==

== ENCOUNTER 2024-07-21 09:27 | Outpatient (REF) | payer OTHER, SELFPAY ==
[2024-07-21 10:00] LABS: MANUAL DIFF FLAG NO
[2024-07-21 10:30] LABS: Basophils Percent Auto 0.9 % (0-2); Eosinophils Absolute Auto 0.3 X10*3/uL (0.0-0.4); Eosinophils Percent Auto 6.6 % (0-4); Hematocrit 40.7 % (37.0-47.0); Hemoglobin 13.4 g/dl (12.0-16.0); Imm Gran Abs Auto 0.02 X10*3/uL (0.00-0.03); Imm Gran Pct Auto 0.4 % (0.0-0.4); Lymphocytes Absolute Auto 1.1 X10*3/uL (1.2-4.9); Lymphocytes Percent Auto 23.5 % (20-40); Mean Corpuscular HGB Conc 32.9 g/dl (31.0-35.0); Mean Corpuscular Hemoglobin 29.2 pg (27.0-33.0); Mean Corpuscular Volume 88.7 fL (80.0-98.0); Mean Platelet Volume 12.9 fL (9.4-12.3); Monocytes Absolute Auto 0.4 X10*3/uL (0.1-1.2); Monocytes Percent Auto 7.9 % (2-11); Neutrophils Absolute Auto 2.9 x10*3/uL (2.0-8.3); Neutrophils Percent Auto 60.7 % (45-73); Platelet Count 184 X10*3/uL (160-400); Red Blood Count 4.59 X10*6/uL (4.20-5.50); Red Cell Distribution Width 14.6 % (11.0-16.0); White Blood Count 4.7 X10*3/uL (4.8-10.8)
[2024-07-21 11:08] LABS: Erythrocyte Sedimentation Rate 14 MM/HR (0-20)
[2024-07-21 11:14] LABS: Appearance Urine Clear; Color Urine Yellow; Glucose Urine UA >=1000 mg/dL (Negative); Leukocyte Esterase Urine Negative (Negative); Nitrite Urine Negative (Negative); PH 5.5 (5.0-9.0); UMIC TRIGGER UA YES; Urine Blood Negative (Negative); Urine Ketones Negative (Negative); Urine Protein Negative (Neg-Trace)
[2024-07-21 11:20] LABS: Bacteria Urine None Seen (None Seen); Hyaline Casts Urine 0-2 /LPF (0-2); RBC Urine 0-2 /HPF (0-2); WBC Urine 0-5 /HPF (0-5)
[2024-07-21 12:08] LABS: Creatinine Urine 22.58 mg/dL; Total Protein Urine Random < 7 mg/dL (<12)
[2024-07-21 15:22] LABS: Albumin Level 3.6 g/dL (3.5-5.0); Anion Gap 10 (12-20); Aspartate Amino Transferase 24 U/L (5-31); Bilirubin Total 0.4 mg/dL (0.0-1.0); Blood Urea Nitrogen 11 mg/dL (9-16); C Reactive Protein 0.45 mg/dL (< or = 0.50); Calcium 8.9 mg/dL (8.4-10.2); Carbon Dioxide 26 mmol/L (22-29); Chloride 108 mmol/L (96-108); Estimated Glomerular Filt Rate > 60; Glucose Random 90 mg/dL (60-115); Sodium 140 mmol/L (135-145); Total Protein 6.4 g/dL (6.5-8.0)
[2024-07-21 16:17] LABS: Alanine Aminotransferase 22 U/L (0-31); Alkaline Phosphatase 121 U/L (39-117)
[2024-07-24 11:09] LABS: Complement C3 170 mg/dL (83-193)
[2024-07-24 23:32] LABS: Anti DNA DS Antibody 2 IU/mL
== END 2024-07-21 09:28 | disposition home or self-care (01) ==
LOC: HO.LAB 09:27
PROVIDERS: PCP Internal Medicine; Visit Provider Student in an Organized Health Care Education/Training Program
DX: M32.8 Other forms of systemic lupus erythematosus (principal)
CPT/HCPCS: 36415; 80053; 81001; 82570; 84156; 85025; 85652; 86140; 86160; 86225

== ENCOUNTER 2024-07-25 09:30 | Outpatient (AMB) | payer OTHER, SELFPAY ==
--- NOTE | 2024-07-25 09:47 | MHC.OFFVIS ---
Vital Signs 07/25/24 09:57 Height 5 ft 2 in Weight 194 lb 0.108 oz BMI 35.5 BP 112/74 Blood Pressure Location Lt brachial Position Sitting Pulse 91 Pulse Source Pulse Oximeter Pulse Oximetry (%) 98 Oxygen Delivery Method Room Air Intake Visit Reasons: SLE Intake Note: Patient presents for SLE. Allergies diclofenac [DICLOFENAC] Allergy (Unknown, Verified 07/25/24 09:50) itch Medication List - Last Reconciled 07/25/24 by Lisa Simmons MD albuterol sulfate 90 mcg/actuation (ProAir HFA) 2 puffs inhalation QID amlodipine 5 mg PO QPM APAP Machine/Device 9-12 cmH2O nightly > 4 hours apixaban (Eliquis DVT-PE Treat 30D Start) 5 mg PO BID apixaban (Eliquis) 5 mg PO BID cetirizine 10 mg PO QAM chlorpromazine 100 mg PO BEDTIME empagliflozin (Jardiance) 10 mg PO DAILY fluticasone propionate 110 mcg/actuation (Flovent HFA) 2 puffs PO BID furosemide 40 mg PO DAILY hydrochlorothiazide 12.5 mg PO QAM hydroxychloroquine 200 mg PO BID ibuprofen 800 mg PO TID PRN isosorbide mononitrate ER 30 mg PO DAILY metoprolol succinate ER 25 mg PO DAILY omeprazole 20 mg PO pregabalin 300 mg PO BID sacubitril-valsartan 24-26 mg (Entresto) 1 tab PO BID venlafaxine ER 75 mg PO QAM HPI Comments Details: 59-year-old female with lupus returns for follow-up. She is on hydroxychloroquine 200 mg Twice daily . She states that recently she has been having multiple episodes of diarrhea. She has had episodes of fecal urgency and accidents while attending scientology. She denies any fevers. She states that she feels about the same overall. Initial history: This is a 58-year-old female who presents for evaluation of a positive JOANN. Patient stated that she has had generalized fatigue and weakness for more than 2 years. Recently patient had an AICD placed. She stated that she has history of mitral regurgitation, she stated that it was treated with medications however her heart rate was too slow and an AICD was placed recently. Patient is unaware of any family history of an autoimmune rheumatic disease. She has generalized pain but no swollen joints. Denies any skin rashes. Denies any history of DVT/PE. Denies any history of stroke or [place]. denies any fevers or weight loss. She had 6 pregnancies in total, 5 children and 1 miscarriage. [facility] Medical History Cervical myofascial pain syndrome Lumbar spondylosis Obesity GERD (gastroesophageal reflux disease) Mild persistent asthma Uterine leiomyoma Depressive disorder ALKA on CPAP Allergic rhinitis Nonrheumatic mitral valve regurgitation Non-ischemic cardiomyopathy Prediabetes Surgical History Hx of cardiac pacemaker History of esophagogastroduodenoscopy (EGD) Hx of cardiac catheterization Hx of colonoscopy History of hernia surgery H/O elbow surgery H/O: hysterectomy History of hand surgery Family History Family/Other Intestinal cancer, Onset Age: 31 Social History Alcohol intake: never Patient Tobacco Use Status: Former Tobacco user Years Smoked: stopped in 2007 Current occupational status: disabled 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 Review of Systems Const Reports fatigue GI Reports fecal incontinence and Reports diarrhea Musc Reports back pain and Reports myalgias Endo Reports fatigue Physical Exam Vital Signs: Last Vital Signs Pulse 91 07/25/24 09:57 BP 112/74 07/25/24 09:57 Pulse Ox 98 07/25/24 09:57 Oxygen Delivery Method Room Air 07/25/24 09:57 BMI result Body Mass Index 35.5 Const General: cooperative, healthy appearing and comfortable Nutritional Appearance: obese Orientation/consciousness: patient oriented x3 Limitations: no limitations HEENT Head: Yes normocephalic and Yes atraumatic Mouth: moist mucous membranes Resp Effort & Inspection: normal respiratory effort and able to speak in complete sentences Auscultation: clear to auscultation bilaterally Skin General skin exam: no rashes or lesions noted Neuro General: patient oriented x3 Extrem Other: No active synovitis Few fibromyalgia tender points Normal nailfold capillaroscopy Assessment & Plan Assessment & Plan (1) SLE (systemic lupus erythematosus): Comment: dx 12/2023 (+++JOANN +++Mcelroy+++ELEMENTARY TEACHER ++DsDNA) HCQ 12/2023 effective Code(s): M32.9 - Systemic lupus erythematosus, unspecified Category: Medical Qualifiers: Systemic lupus erythematosus type: other Systemic lupus erythematosus organ involvement: unspecified Qualified Code(s): M32.8 - Other forms of systemic lupus erythematosus Plan: This is a 59-year-old female with lupus who presents for follow-up. On hydroxychloroquine 20 mg Twice daily. Doing well overall with no signs suggestive of active disease. Labs are essentially normal Given her history of ischemic cardiomyopathy, I discussed her case with her sales representative leather goods and a cardiac MRI was completed. It was a limited study due to pacemaker artifact but there were no signs suggestive of active carditis or infiltrative disorder. Continue with hydroxychloroquine 200 mg Twice daily Labs before next visit in 6 months (2) Long-term use of hydroxychloroquine: Code(s): Z79.899 - Other long term care phlebotomist (current) drug therapy Category: Medical Plan: Discussed risk of retinopathy associated with hydroxychloroquine. Patient was evaluated by Dr. Bacon 03/2024, it does not look like Dr. Bacon was aware that patient is on hydroxychloroquine. Patient states that her next appointment is not until 03/2024. Advised patient to try to get an earlier appointment with Dr. Bacon (3) Diarrhea: Code(s): R19.7 - Diarrhea, unspecified Category: Medical Qualifiers: Diarrhea type: functional diarrhea Qualified Code(s): K59.1 - Functional diarrhea Plan: Follow-up with PCP Plan I spent 30 minutes reviewing patient's chart, evaluating patient, ordering diagnostic workup, counseling patient and documenting in the chart Orders: Orders Anti DNA DS Antibody 6 Months M32.8 - Other forms of systemic lupus erythematosus Erythrocyte Sedimentation Rate 6 Months M32.8 - Other forms of systemic lupus erythematosus Protein Creatinine Ratio, Ur 6 Months M32.8 - Other forms of systemic lupus erythematosus UA w Microscopic 6 Months M32.8 - Other forms of systemic lupus erythematosus Complete Blood Count Auto Diff 6 Months M32.8 - Other forms of systemic lupus erythematosus Comprehensive Met. Panel 6 Months M32.8 - Other forms of systemic lupus erythematosus Complement C3 6 Months M32.8 - Other forms of systemic lupus erythematosus Complement C4 6 Months M32.8 - Other forms of systemic lupus erythematosus C Reactive Protein 6 Months M32.8 - Other forms of systemic lupus erythematosus Coding Level of Care Code Est Pt Level 4 (91473) Diagnoses Other forms of systemic lupus erythematosus, unspecified organ involvement status M32.8 Systemic lupus erythematosus type: other Systemic lupus erythematosus organ involvement: unspecified Long-term use of hydroxychloroquine Z79.899 Functional diarrhea K59.1 Diarrhea type: functional diarrhea
[2024-07-25 09:57] VITALS: BP 112/74; PULSE 91; O2SAT 98; BMI 35.5
== END 2024-07-25 10:14 | disposition home or self-care (01) ==
PROVIDERS: PCP Internal Medicine; Visit Provider Student in an Organized Health Care Education/Training Program
DX: M32.8 Other forms of systemic lupus erythematosus (principal); Z79.899 Other long term (current) drug therapy; K59.1 Functional diarrhea
CPT/HCPCS: 99214

== ENCOUNTER → 2024-07-25 09:30 | Outpatient (BNVA) | payer OTHER, SELFPAY | PROVIDERS: PCP Internal Medicine; Visit Provider Student in an Organized Health Care Education/Training Program | DX: M32.8 Other forms of systemic lupus erythematosus (principal); K59.1 Functional diarrhea; Z79.899 Other long term (current) drug therapy | CPT/HCPCS: 99212 ==

== ENCOUNTER 2024-10-04 10:41 | Outpatient (AMB) | payer OTHER, SELFPAY ==
--- NOTE | 2024-10-04 10:48 | A.OFFVIS_ITS ---
Vital Signs 10/04/24 10:54 Height 5 ft 1.5 in Weight 198 lb 6.656 oz BMI 36.9 BP 112/67 Blood Pressure Location Lt brachial Position Sitting Pulse 62 Intake Visit Reasons: Diarrhea Intake Note: Flor presents in the office as a follow up for diarrhea. CC: Has a procedure for her heart on December 08. She states that she is having a lot of diarrhea. She denies blood when she has a BM. Denies pains as well. Marine Pipefitter Helper Required: Yes Allergies diclofenac [DICLOFENAC] Allergy (Unknown, Verified 10/04/24 10:55) itch HPI Comments Details: 57y.o F with PMH of who is here for chest pain 01/13/23: Pt reports having chest pain associated with burning devon on walking long distance that started almost 3 years ago. This is associated with shortness of breath. Intermittently with palpitations and nausea. No changes in appetite, and has gained weight. Has been taking Omeprazole 20 BID x 1 year now without any change in sx. Has had extensive cardiac work up through Dr Wray including cardiac cath, echo etc without any CAD or cardiomyopathy. Last colo was in 2017 (Dr Dan) no polyps were noted but cecum could not be intubated. Repeat recommended in 5-10 years. 04/01/23: 1. Normal esophageal mucosa (biopsy) 2. Normal stomach mucosa 3. Stomach mucosa (biopsy) 4. Normal colon and terminal ileum mucosa 5. Diverticulosis 6. Internal hemorrhoids Path: A.? Duodenum, biopsy:? Duodenal mucosa within normal limits; preserved villous architecture and no increased intraepithelial lymphocytes seen.? B.? Esophagus, lower, biopsy:? Squamous mucosa within normal limits; negative for inflammation (including intraepithelial eosinophils), fungal organisms, intestinal metaplasia and dysplasia.? C.? Esophagus, middle, biopsy:? Squamous mucosa with rare intraepithelial eosinophils (up to 2 per high-power field); negative for fungal organisms, intestinal metaplasia and dysplasia. 04/14/23: Reports persistent chest discomfort devon early in morning and on exertion. Recent echo and records from Cardiology reviewed from January 2022. EF 35%. Being considered for ICD and has appt next month. EGD and colo results reviewed with the pt. Mild reflux otherwise no esophageal abnormality. No colon polyps. 10/04/24: Pt pranav this follow up for chronic diarrhea. Reports around 6-7 months ago, developed diarrhea which she describes as watery stools that occur at least 4-5 times a day, sometimes with incontinence. Night time sx. Sx present at least half the week. No blood in stool. Has lower abd pain sometimes and the pain doesnt change with BM. No N/V. No untentional weight loss. No travel outside [place], no new meds in one year. PENDING SALE TO [facility] Medical History Cervical myofascial pain syndrome Lumbar spondylosis Obesity GERD (gastroesophageal reflux disease) Mild persistent asthma Uterine leiomyoma Depressive disorder ALKA on CPAP Allergic rhinitis Nonrheumatic mitral valve regurgitation Non-ischemic cardiomyopathy Prediabetes Surgical History Hx of cardiac pacemaker History of esophagogastroduodenoscopy (EGD) Hx of cardiac catheterization Hx of colonoscopy History of hernia surgery H/O elbow surgery H/O: hysterectomy History of hand surgery Family History Family/Other Intestinal cancer, Onset Age: 31 Social History Alcohol intake: never Patient Tobacco Use Status: Former Tobacco user Years Smoked: stopped in 2007 Current occupational status: disabled 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 Review of Systems Const All systems reviewed & are unremarkable except as noted in HPI and below Physical Exam Vital Signs: Last Vital Signs Pulse 62 10/04/24 10:54 BP 112/67 10/04/24 10:54 BMI result Body Mass Index 36.9 No apparent distress Nonicteric Abdomen soft, nondistended Alert and oriented x3, normal gait Assessment & Plan Assessment & Plan (1) Diarrhea: Code(s): R19.7 - Diarrhea, unspecified Category: Medical Qualifiers: Diarrhea type: functional diarrhea Qualified Code(s): K59.1 - Functional diarrhea (2) Change in bowel habit: Code(s): R19.4 - Change in bowel habit Category: Medical (3) Fecal incontinence: Code(s): R15.9 - Full incontinence of feces Category: Medical Plan Chronic diarrhea new since 6 months. Incontinence appears to be 2/2 functional and from urgency. Ddx include chronic infectious, inflammatory, malabsorption including panc insufficiency. Plan: - Labs as below - Based on results may need imaging vs endoscopic eval Close follow up 4 weeks Orders: Orders Complete Blood Count no Diff Today K59.1 - Functional diarrhea Comprehensive Met. Panel Today K59.1 - Functional diarrhea Calprotectin, Fecal Today K59.1 - Functional diarrhea Cryptosporidium Ag DFA Today K59.1 - Functional diarrhea Giardia Ag Stool EIA Today K59.1 - Functional diarrhea Pancreatic Elastase-1 Today K59.1 - Functional diarrhea Immunoglobulin A Today K59.1 - Functional diarrhea Transglutaminase IgA Today K59.1 - Functional diarrhea TSH reflex Free T4 Today K59.1 - Functional diarrhea GI Panel Today K59.1 - Functional diarrhea Coding Level of Care Code Est Pt Level 4 (04877) Diagnoses Functional diarrhea K59.1 Diarrhea type: functional diarrhea Change in bowel habit R19.4 Fecal incontinence R15.9
[2024-10-04 10:54] VITALS: BP 112/67; PULSE 62; BMI 36.9
--- OUTSIDE RECORDS SUMMARY | 2024-10-04 13:14 | XMS_ITS | Encounter Summary ---
Author Organization [employer] Address [address] [facility] 7t [place] [address] Care Team Providers Care Government Minister Name Role Phone Joan Antunez MD Primary Care Provide r Reason for Visit * Reason Onset Date Comments Nurse Triage 11/17/2023 Encounter Details Date Type Department Care Team ([facility] st Contact Info) Description 11/17/2023 Telephone [facility] MEDICINE [address] [place], [place] [phone] Joan Antunez MD [address] [place] [address] Nurse Triage Social History Tobacco Use Types Packs/Day Years Used Date Smoking Tobacco: Former Cigarettes Passive Smoke Exposure: Past Smokeless Tobacco: Never Alcohol Use Standard Drinks/Week Comments Never 0 (1 standard drink = 0.6 oz pur e alcohol) Depression Answer Date Recorded Patient Health Questionnaire-9 Score 8 11/06/2022 Housing Stability Answer Date Recorded What is your housing situation today? I have young donahue 06/07/[address] you li ve. Do you have problems with any of the following? None of the above 06/07/2023 Food Insecurity Answer Date Recorded Within the past 12 months, y ou worried that your food would run out before you got money to buy more: Never True 06/07/2023 Within the past 12 months,th e food you bought just didn't last and you didn't have enough money to get more: Never True Transportation Answer Date Recorded In the past 12 months, has l ack of transportation kept you from medical appts, meetings, work or from getting things needed for daily living? No 06/07/2023 Utilities Answer Date Recorded In the past 12 months, has t he electric, gas, oil or water company threatened to shut off services in your home? No 06/07/2023 Depression Answer Date Recorded Patient Health Questionnaire-2 Score 2 11/06/2022 Comments Unknown Sex and Gender Information Value Date Recorded Sex Assigned at Female 06/08/2022 10:20 AM EDT Legal Sex Female 10:20 AM EDT Gender Identity Female 06/08/2022 10:20 AM EDT Sexual Orientation Straight 06/08/2022 10 :20 AM EDT documented as of this encounter Miscellaneous Notes * Telephone Encounter - Shaina Lainez RN - 11/26/2023 4:22 PM EDT Patient referred to [facility] for COMMUNICATION CLERK 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 Paperwork sent to Provider for signature an then it will be faxed to [facility]. * Telephone Encounter - Delphine Burns RN - 11/17/2023 1:08 PM EDT Triage call with [place] [employer] [place] [id number] Pt reports diarrhea which started again 2-3 days ago. Pt reports this is a chronic problem as well.Pt has not had diarrhea today but has had this 2-3 x daily for last 3 days and it is just liquid nostool. Pt reports decreased appetite and has lost 4-5 lbs recently. Pt is neg for fever or abdominal pain. Pt has not been out of the country. Pt is offered to come to [facility] to be seen by provider but,has apt with PCP 11/23/23 coming up. Pt will wait for apt with PCP. Pt is advised to increase liquids to at least 6-8 glasses daily, include broth, decaf tea, gator mallory. Pt agrees with disposition andhome care reviewed. Protocol Used: Diarrhea (Adult) Protocol-Based Disposition: See in Office or Video Visit within 2 Weeks Positive Triage Question: * Diarrhea is a chronic symptom (recurrent or ongoing AND lasting > 4 weeks) * All higher-acuity triage questions were negative Care Advice Discussed: * Fluid Therapy During Mild to Moderate Diarrhea * Wash Your Hands * Reasons To Call Back - Signs of dehydration occur (e.g., no urine over 12 hours, very dry mouth, lightheaded, etc.) - Moderate diarrhea lasts more than 2 days - Diarrhea lasts over 7 days - You become worse * Telephone Encounter - Marc Langston - 11/17/2023 12:04 PM EDT Symptoms: Diarrhea, Weakness Outcome: Schedule an urgent appointment (within 1 hour) or talk to a nurse or provider soon Reason: Getting worse Swiss Speaker documented in this encounter Plan of Treatment Upcoming Encounters Date Type Department Care Team (Late st Contact Info) Description 11/02/2024 9:15 AM EDT Office Visit [facility] MEDICINE [address] [place] [address] Joan Antunez MD [address] [place] [address] 01/29/2025 9:00 AM EDT Office Visit [facility] ADULT DENTAL [address] [place] [address] Meggan, Regina [address] [place] [address] documented as of this encounter Visit Diagnoses Not on filedocumented in this encounter Additional Health Concerns Assessment Noted Time PHQ-9 Depression Total Score: 8 11/07/19 10:23 AM EDT documented as of this encounter Care Teams Government Minister Relationship Specialty Start Date End Date Joan Antunez MD [address] [place] [address] PCP - General Internal Medicine 06/07/23 documented as of this encounter
--- OUTSIDE RECORDS SUMMARY | 2024-10-04 13:14 | XMS_ITS | Encounter Summary ---
Author Organization [employer] Address [address] [facility] 7t [place] [address] Care Team Providers Care Healthcare Receptionist Name Role Phone Brannon David SIDDIQUI Primary Care Provider Unavail Jesusita MayersP Primary Care Provider [phone] Joan Antunez MD Primary Care Provide r Encounter Details Date Type Department Care Team (Late st Contact Info) Description 10/26/2022 Orders Only [facility] MED & PEDS [address] [place] [address] Radha Jimenez LPN Social History Tobacco Use Types Packs/Day Years Used Date Smoking Tobacco: Never Assessed Comments Unknown Sex and Gender Information Value Date Recorded Sex Assigned at Female 06/08/2022 10:20 AM EDT Legal Sex Female 10:20 AM EDT Gender Identity Female 06/08/2022 10:20 AM EDT Sexual Orientation Straight 06/08/2022 10 :20 AM EDT documented as of this encounter Plan of Treatment Upcoming Encounters Date Type Department Care Team (Late st Contact Info) Description 11/02/2024 9:15 AM EDT Office Visit [facility] MEDICINE [address] [place], [place] [phone] Joan Antunez MD [address] [place] [address] 01/29/2025 9:00 AM EDT Office Visit [facility] ADULT DENTAL [address] [place], [place] [phone] Regina Broderick [address] [place] [address] documented as of this encounter Visit Diagnoses Not on filedocumented in this encounter Care Teams Healthcare Receptionist Relationship Specialty Start Date End Date David South AGNP PCP - General Family Medicine 10/08/22 04/28/23 Jesusita Garcia FNP [address] [place] [address] PCP - General Family Medicine 04/29/23 06/06/23 Joan Antunez MD [address] [place] [address] PCP - General Internal Medicine 06/07/23 documented as of this encounter
--- OUTSIDE RECORDS SUMMARY | 2024-10-04 13:14 | XMS_ITS | Encounter Summary ---
Author Organization [employer] Address [address] [facility] [address] 7[address] [place] [address] Care Team Providers Care Bandoleer Straightener Stamper Name Role Phone Joan Antunez MD Primary Care Provide r Reason for Visit * Reason Comments Med Refill Encounter Details Date Type Department Care Team ([facility] st Contact Info) Description 09/09/[address] [facility] MEDICINE [address] [place], [place] [phone] Joan Antunez MD [address] [place], [place] [phone] Chronic diarrhea Social History Tobacco Use Types Packs/Day Years Used Date Smoking Tobacco: Former Cigarettes Passive Smoke Exposure: Past Smokeless Tobacco: Never Alcohol Use Standard Drinks/Week Comments Never 0 (1 standard drink = 0.6 oz pur e alcohol) Depression Answer Date Recorded Patient Health Questionnaire-9 Score 14 11/23/2023 Patient Health Questionnaire-9 Score 14 11/23/2023 Last PHQ-9: Questionnaire Data Not on file 0 11/23/2023 Housing Stability Answer Date Recorded What is [...] Answer Date Recorded Patient Health Questionnaire-2 Score 5 11/23/2023 Comments Unknown Sex and Gender Information Value [...] Description 11/02/2024 9:15 AM EDT Office [facility] MEDICINE [address] [place] [address] Joan Antunez MD [address] [place] [address] 01/29/2025 9:00 AM EDT Office Visit [facility] ADULT DENTAL [address] [place] [address] Meggan, Regina [address] [place] [address] documented as of this encounter Visit Diagnoses Diagnosis Chronic diarrhea Diarrhea documented in this encounter Additional Health Concerns Assessment Noted Time PHQ-9 Depression Total Score: 14 024 12:06 PM EDT documented as of this encounter Care Teams Bandoleer Straightener Stamper Relationship Specialty Start Date End Date Joan Antunez MD [address] [place] [id number] PCP - General Internal Medicine 06/07/23 documented as of this encounter
--- OUTSIDE RECORDS SUMMARY | 2024-10-04 13:14 | XMS_ITS | Encounter Summary ---
Author Organization [employer] Address [address] [facility] 7t [place] [address] Care Team Providers Care Ssas Developer Name Role Phone Joan Antunez MD Primary Care Provide r Reason for Visit * Reason Comments Med Refill Encounter Details Date Type Department Care Team (Late st Contact Info) Description 08/15/[address] [facility] MEDICINE [address] [place], [place] [phone] Joan Antunez MD [address] [place], [place] [phone] Chronic back pain, unspecified back location, unspecified back pain laterality Social History Tobacco Use Types Packs/Day Years [...] is your housing situation today? I have youngselma donahue 06/07/[address] you [...] 11/02/2024 9:15 AM EDT Office Visit [facility] MEDICINE [address] [place] [address] Joan Antunez MD [address] [place] [address] 01/29/2025 9:00 AM EDT Office Visit [facility] ADULT DENTAL [address] [place] [address] Meggan, Regina [address] [place] [address] documented as of this encounter Visit Diagnoses Diagnosis Chronic back pain, unspecified back location, unspecified back pain laterality documented in this encounter Additional Health Concerns Assessment Noted Time PHQ-9 Depression Total Score: 14 024 12:06 PM EDT documented as of this encounter Care Teams Ssas Developer Relationship Specialty Start Date End Date Joan Antunez MD [address] [place] [id number] PCP - General Internal Medicine 06/07/23 documented as of this encounter
--- OUTSIDE RECORDS SUMMARY | 2024-10-04 13:14 | XMS_ITS | Encounter Summary ---
Author Organization [employer] Address [address] [facility] 7t [place] [address] Care Team Providers Care Photographic Equipment Mechanic Name Role Phone David South Primary Care Provider Jesusita Sandra Primary Care Provider [phone] Joan Antunez MD Primary Care Provide r Reason for Visit * Reason Onset Date Comments Appointment 03/12/2023 Encounter Details Date Type Department Care Team (Late st Contact Info) Description 03/12/2023 Telephone [facility] ADULT DENTAL [address] [place], [place] [phone] MegganArsenioRegina [address] [place] [address] Appointment Social History Tobacco Use Types Packs/Day Years Used Date Smoking Tobacco: Former Cigarettes Smokeless Tobacco: Never Alcohol Use Standard Drinks/Week Comments Never 0 (1 standard drink = 0.6 oz pur e alcohol) Depression Answer Date Recorded Patient Health Questionnaire-9 Score 8 11/06/2022 Depression Answer Date Recorded Patient Health Questionnaire-2 Score 2 11/06/2022 Comments Unknown Sex and Gender Information Value Date Recorded Sex Assigned at Female 06/08/2022 10:20 AM EDT Legal Sex Female 10:20 AM EDT Gender Identity Female 06/08/2022 10:20 AM EDT Sexual Orientation Straight 06/08/2022 10 :20 AM EDT documented as of this encounter Miscellaneous Notes * Telephone Encounter - Prema Flores - 03/12/2023 8:11 AM EDT Daughter of patient called in at 8:10 stating that her mom has covid and is unable to come to hygiene visit scheduled for 8am. Informed daughter that [facility] dental has her infomration and will call her when it is her turn on the list again to call in. Encouraged patient to call in from time to time looking for cancellations DR documented in this encounter Plan of Treatment Upcoming Encounters Date Type Department Care Team (Late st Contact Info) Description 11/02/2024 9:15 AM EDT Office Visit [facility] MEDICINE [address] [place] [address] Joan Antunez MD [address] [place] [address] 01/29/2025 9:00 AM EDT Office Visit [facility] ADULT DENTAL [address] [place] [address] Regina Broderick [address] [place] [address] documented as of this encounter Visit Diagnoses Not on filedocumented in this encounter Additional Health Concerns Assessment Noted Time PHQ-9 Depression Total Score: 8 11/07/19 10:23 AM EDT documented as of this encounter Care Teams Photographic Equipment Mechanic Relationship Specialty Start Date End Date David South AGNP PCP - General Family Medicine 10/08/22 04/28/23 Jesusita Garcia FNP [address] [place] [id number] PCP - General Family Medicine 04/29/23 06/06/23 Joan Antunez MD [address] [place] [id number] PCP - General Internal Medicine 06/07/23 documented as of this encounter
--- OUTSIDE RECORDS SUMMARY | 2024-10-04 13:14 | XMS_ITS | Encounter Summary ---
Author Organization [employer] Address [address] [facility] 7 [place] [address] Care Team Providers Care Ash Pit Worker Name Role Phone Katherine Da Silva MD Primary Care Provider Madhuri Grayson [facility] Primary Care Provider David Blankenship [facility] Primary Care Provider Jesusita Sandra [employer] SUPERINTENDENT Primary Care Provider [phone] Joan Antunez MD Primary Care Provide r Encounter Details Date Type Department Care Team (Latest Contact Info) Description 10/06/2019 Abstract [facility] CONVERSIONS Dental, Provider, DDS Social History Tobacco Use Types Packs/Day Years [...] Upcoming Encounters Date Type Department Care Team ( st Contact Info) Description 11/02/2024 9:15 AM EDT Office Visit [facility] MEDICINE [address] [place], [place] [phone] Joan Antunez MD [address] [place] [address] 01/29/2025 9:00 AM EDT Office Visit [facility] ADULT DENTAL [address] [place], [place] [phone] Regina Broderick [address] [place] [address] documented as of this encounter Visit Diagnoses Not on filedocumented in this encounter Care Teams Ash Pit Worker Relationship Specialty Start Date End Date Katherine Da Silva MD PCP - General Family Medicine 09/24/20 06/28/22 Madhuri Sawyer FNP PCP - General 06/29/22 10/07/22 David South AGNP PCP - General Family Medicine 10/08/22 04/28/23 Jesusita Garcia FNP [address] [place] [phone] PCP - General Family Medicine 04/29/23 06/06/23 Joan Antunez MD [address] [place] [phone] PCP - General Internal Medicine 06/07/23 documented as of this encounter
--- OUTSIDE RECORDS SUMMARY | 2024-10-04 13:14 | XMS_ITS | Encounter Summary ---
Author Organization [employer] Address [address] [facility] 7t [place] [address] Care Team Providers Care Disintegrator Name Role Phone Joan Antunez MD Primary Care Provide r Reason for Visit * Reason Onset Date Comments Nurse Triage 12/16/2023 Encounter Details Date Type Department Care Team ([facility] st Contact Info) Description 12/16/2023 Telephone [facility] MEDICINE [address] [place], [place] [phone] Joan Antunez MD [address] [place] [address] Nurse Triage Social History Tobacco Use Types [...] encounter Miscellaneous Notes * Telephone Encounter - Ca Ortiz RN - 12/16/2023 10:45 AM EDT Call returned to Flor Martinez to triage below. Spoke with daughter Nirali Jackson who is on HIPAA form from February 2023. 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 Pt started on Eliquis 5mg 2 tabs BID x 1 week. Then transitioning 5mg BID after week one . Ptstarted taking yesterday. Per daughter pt now having vomiting and diarrhea. No blood in vomit or stool. Pt having nausea with fluids. Daughter denies any known fever. Per daughter pt has appt with Cardiology on 12/20 at 9am and with PCP next week same day. Per daughter patient having lower abdominalpain intermittent. Last vomit episode this morning. Pt tolerating clear fluids and crackers now. Riri restrepo advised that per Up to Date do not see those sx listed as possible SE to Eliquis. Advised will send to note to PCP to review and further advise. Advised can seek WIC for sx today or tomorrow asnothing sooner with PCP or team before booked appt. Reviewed home care advise, ER precautions and reasons to call back. Multiple (2) protocols were used on this call. Disposition for Call: Callback or Video Visit by PCP Today Protocol Used: Diarrhea (Adult) Protocol-Based Disposition: Callback or Video Visit by PCP Today Video visit offer not recorded Positive Triage Question: * Recent hospitalization and diarrhea present > 3 days * All higher-acuity triage questions were negative Care Advice Discussed: * Reassurance and Education - Diarrhea * Fluid Therapy During Mild to Moderate Diarrhea * Expected Course * Reasons To Call Back - Signs of dehydration occur (e.g., no urine over 12 hours, very dry mouth, lightheaded, etc.) - Moderate diarrhea lasts more than 2 days - Diarrhea lasts over 7 days - You become worse Protocol Used: Vomiting (Adult) Protocol-Based Disposition: See in Office or Video Visit Today Override (Final) Disposition: Discuss with PCP and Callback by Nurse Today Override Reason: No appointments available Video visit offer not recorded Positive Triage Question: * Mild to Moderate vomiting (e.g., 1-5 times/day) and lasts > 48 hours (2 days) * All higher-acuity triage questions were negative Care Advice Discussed: * Reassurance and Education * Clear Liquids * Reasons To Call Back - Vomiting lasts for more than 2 days (48 hours) - Signs of dehydration occur - You become worse * Telephone Encounter - Kat Huffman - 12/16/2023 10:02 AM EDT Symptoms: Medication Reaction, Cough, Vomiting, Diarrhea Outcome: Schedule an urgent appointment (within 1 hour) or talk to a nurse or provider soon Reason: Caller denied all higher acuity questions The caller accepted this outcome swedish speaker documented in this encounter Plan of Treatment Upcoming Encounters Date Type Department Care Team (Late st Contact Info) Description 11/02/2024 9:15 AM EDT Office Visit [facility] MEDICINE [address] [place], [place] [phone] Joan Antunez MD [address] [place] [address] 01/29/2025 9:00 AM EDT Office Visit [facility] ADULT DENTAL [address] [place], [place] [phone] Regina Broderick [address] [place], [place] [phone] documented as of this encounter Visit Diagnoses Not on filedocumented in this encounter Additional Health Concerns Assessment Noted Time PHQ-9 Depression Total Score: 14 024 12:06 PM EDT documented as of this encounter Care Teams Disintegrator Relationship Specialty Start Date End Date Joan Antunez MD [address] [place] [address] PCP - General Internal Medicine 06/07/23 documented as of this encounter
--- OUTSIDE RECORDS SUMMARY | 2024-10-04 13:14 | XMS_ITS | Encounter Summary ---
Author Organization [employer] Address [address] [facility] [address] 7[address] [place] [address] Care Team Providers Care Tank Truck Driver Name Role Phone Joan Antunez MD Primary Care Provide r Encounter Details Date Type Department Care Team ([facility] st Contact Info) Description 12/16/2023 Telephone [facility] MEDICINE [address] [place], [place] [phone] Joan Antunez MD [address] [place], [place] [phone] Social History Tobacco Use Types Packs/Day Years [...] Description 11/02/2024 9:15 AM EDT Office Visit [facility] MEDICINE [address] [place] [address] Joan Antunez MD [address] [place] [address] 01/29/2025 9:00 AM EDT Office Visit [facility] ADULT DENTAL [address] [place] [address] Meggan, Regina [address] [place] [address] documented as of this encounter Visit Diagnoses Not on filedocumented in this encounter Additional Health Concerns Assessment Noted Time PHQ-9 Depression Total Score: 14 024 12:06 PM EDT documented as of this encounter Care Teams Tank Truck Driver Relationship Specialty Start Date End Date Joan Antunez MD [address] [place] [id number] PCP - General Internal Medicine 06/07/23 documented as of this encounter
--- OUTSIDE RECORDS SUMMARY | 2024-10-04 13:14 | XMS_ITS | Clinical Summary ---
Author Organization [employer] Address [address] [place] [address] Care Team Providers Care Dealership General Manager Name Role Phone Joan Antunez MD Primary Care Provide r Allergies Active Allergy Reactions Criticality Noted Date Comments Diclofenac Rash,Itching Low 04/20/2017 Medications Calcium Antacid Extra Strength 750 MG chewable tabletIndicatio ns:GERD without esophagitis CHEW 1 TABLET BY MOUTH THREE TIMES DAILY BEFORE MEALS 90 tablet 1 08/12/19 23 Active Entresto 24-26 MG tablet TAKE 1 TABLET BY MOUTH TWICE DAILY IN THE MORNING AND IN THE EVENING 10/16/19 23 Active OXcarbazepine (Trileptal) 300 MG tablet take 1 tablet by oral route in the morning & 3 at bedtime 04/04/20 20 Active isosorbide mononitrate ER (Imdur) 30 MG 24 hr tablet Take 30 mg by mouth in the morning. 10/02/19 23 Active chlorproMAZINE (Thorazine) 50 MG tablet take 2 tablets by oral route every bedtime 04/04/20 20 Active dexAMETHasone (Decadron) 4 MG tabletIndicatio ns:Chronic back pain, unspecified back location, unspecified back pain laterality Take 1 tablet (4 mg) by mouth with breakfast for 5 days. 5 tablet 03/03/20 23 Active Mometasone Furoate (Asmanex HFA) 100 MCG/ACT aerosol INHALE 2 PUFFS BY MOUTH TWICE DAILY. RINSE MOUTH AFTER USING. 13 g 2 08/06/20 23 Active albuterol (Ventolin HFA) 108 (90 Base) MCG/ACT inhalerIndicati ons:Mild persistent asthma, unspecified whether complicated Inhale 2 puffs every 6 (six) hours if needed for wheezing. 18 g 10/13/19 24 025 Active budesonide (Pulmicort Flexhaler) 180 MCG/ACT inhalerIndicati ons:Mild persistent asthma, unspecified whether complicated Inhale 2 puffs in the morning and at bedtime. Rinse mouth with water after use to reduce aftertaste and incidence of candidiasis. Do not swallow. 1 each 2 10/13/19 24 025 Active potassium chloride CR (Klor-Con M20) 20 MEQ ER tabletIndicatio ns:Hypokalemia Take 1 tablet (20 mEq) by mouth 3 times daily. Do not crush or chew. 42 tablet 11/23/19 24 025 Active metoprolol succinate XL (Toprol-XL) 25 MG 24 hr tablet Take 25 mg by mouth Once per day. Do not crush or chew. Active fluticasone (Flonase) 50 MCG/ACT nasal spray INHALE 2 SPRAYS IN EACH NOSTRIL ONCE DAILY NEEDED 48 g 1 05/08/20 24 Active omeprazole (PriLOSEC) [address] capsule TAKE 1 CAPSULE BY MOUTH TWICE DAILY IN THE MORNING AND IN THE EVENING BEFORE MEALS 180 capsule 1 05/08/20 24 Active cetirizine (ZyrTEC) 10 MG tablet TAKE 1 TABLET BY MOUTH EVERY MORNING 90 tablet 1 07/26/20 24 Active pregabalin (Lyrica) 300 MG capsuleIndicati ons:Chronic back pain, unspecified back location, unspecified back pain laterality Take 1 capsule (300 mg) by mouth 2 times daily. TAKE 1 CAPSULE BY MOUTH TWICE DAILY IN THE MORNING AND IN THE EVENING 56 capsule 08/15/19 25 Active dicyclomine (Bentyl) 20 MG tabletIndicatio ns:Chronic diarrhea TAKE 1 TABLET BY MOUTH 4 TIMES A DAY IN THE MORNING, AT NOON, IN THE EVENING, AND AT BEDTIME 60 tablet 1 09/11/19 25 Active dicyclomine (Bentyl) 20 MG tabletIndicatio ns:Chronic diarrhea Take 1 tablet (20 mg) by mouth before breakfast, before lunch, before evening meal, and at bedtime. 60 tablet 1 12/26 025 Discontinued Active Problems Problem Noted Date Diagnosed Date Chronic diarrhea 08/03/2024 Assessment & Plan (08/03/2024 9:56 AM EST): I will refer patient to GI and start her on bentyl I will prescribed for patient pull ups Mixed stress and urge urinary incontinence 08/03 Assessment & Plan (08/03/2024 9:57 AM EST): I will prescribed for patient pull ups Periodontal disease 07/28/2024 Fractured dental confucianist with loss of materi al 03/27/2024 Lupus (systemic lupus erythematosus) 02/03/2024 Assessment & Plan (08/03/2024 9:59 AM EST): Continue to follow with specialist I will prescribed for patient roller walker, shower chair, bed rails and mattress Assessment & Plan (05/05/2024 12:38 PM EDT): Continue to follow with rheumatology Assessment & Plan (02/03/2024 10:20 AM EDT): Continue to follow with specialist Left arm pain 12/21/2023 Hypokalemia 11/23/2023 Assessment & Plan (11/24/2023 2:15 PM EDT): I will supplement with potassium chloride 20mEq TID and recheck BMP in 1 week I also discontinue hydrochlorothiazide S/P implantation of automati c cardioverter/defibrillator (AICD) 11/23/2023 Assessment & Plan (02/03/2024 10:20 AM EDT): Continue to follow with cardiology Assessment & Plan (11/24/2023 2:11 PM EDT): As above Positive JOANN (antinuclear antibody) 10/18/2023 Assessment & Plan (11/24/2023 2:12 PM EDT): Continue to follow with rheumatology Other fatigue 10/13/2023 Assessment & Plan (11/03/2023 2:39 PM EDT): I advise patient not to miss her appointments with both public health registrar and beauty artist Nausea 10/13/2023 Polyarthralgia 07/29/2023 Assessment & Plan (08/03/2024 9:57 AM EST): I will prescribed for patient roller walker, shower chair, bed rails and mattress Assessment & Plan (11/24/2023 2:12 PM EDT): Acetaminophen PRB Continue to follow with rheumatology Assessment & Plan (07/29/2023 4:38 PM EST): Patient will follow with pain management Persistent cough 07/29/2023 Weight loss 07/23/2023 07/23/2023 Viral gastroenteritis 07/23/2023 07/23/2023 Assessment & Plan (12/21/2023 2:03 PM EDT): Drink plenty of fluids slowly and rest I will prescribe for her zofran for nausea and probiotics to se if it helps with diarrhea If symptoms persist I advise to reports back Dental calculus 04/22/2023 Periodontosis 04/22/2023 Localized gingival recession 04/22/2023 Missing teeth, acquired 04/22/2023 Alveolitis of jaw, right 03/03/2023 Dental caries 02/22/2023 Chronic back pain 11/06/2022 Overview (03/03/2023): Assessment & Plan (03/03/2023 5:55 PM EDT): MRI lumbar spine 12/02/2021 MR/MR lumbar spine wo con IMPRESSION: 1. Discogenic degenerative changes at L5-S1 as discussed above, with small central disc protrusion and left posterolateral disc osteophyte complex, severe left-sided and [id number] right-sided facet arthropathy with active inflammatory changes at the left facet joint, with [id number] left-sided neural foraminal stenosis impinging on the exiting left L5 nerve root. No spinal canal stenosis. 2. Mild marrow edema in the L5 and S1 pedicles bilaterally which may be reactive or secondary to stress reactions. Patient requesting referral to orthopedic surgery. Assessment & Plan (11/06/2022 11:06 AM EDT): Per patient managed at [facility] orthoped[facility]. She is taking pregabalin 200 mg BID for pain management. Routine adult health maintenance 11/06/2022 Cardiomyopathy 11/05/2022 Assessment & Plan (11/24/2023 2:11 PM EDT): S/p AICD continue to follow with cardiology Assessment & Plan (11/06/2022 12:31 PM EDT): Upcoming cardiology appointment November 17. For follow up from nuclear stress test. Recent echo 09/02/22 Conclusions: 1 there is moderate global hypokinesis of LV contractility 2 overall left ventricular systolic function is moderately impaired with an EF between 35 and 40 3 moderate mitral regurgitation is present 4 compared with the findings of the prior report 12/24/21 no change. Non-rheumatic mitral regurgitation 11/05/2022 Prediabetes 11/05/2022 Assessment & Plan (11/06/2022 12:34 PM EDT): Glucose = 122 A1C = 6.2 Encounter for screening mamm ogram for malignant neoplasm of breast 11/05/2022 Assessment & Plan (11/06/2022 11:13 AM EDT): Normal mammogram as of 11/13/2020 Order for annual mammogram placed. Essential hypertension 11/17/2018 Assessment & Plan (08/03/2024 9:54 AM EST): I advised: - Aerobic exercise to reduce BP. Initial goal of 30 min walk 3-5x/week. Increase as tolerated. - low-sodium diet (goal: <2g/day) and heart healthy diet such as DASH to reduce BP and prevent ASCVD. - Home BP monitoring 1-2 x day with goal of <140/90. - Seek immediate medical attention for chest pain, palpitations, SOB, syncope, or sudden changes in mental status. - Do not change or discontinue current prescriptions without first consulting health care provider Assessment & Plan (05/05/2024 12:38 PM EDT): Maintenance: BMP: up to date Lipid Panel: up to date Patient being follow closely by cardiology - Aerobic exercise to reduce BP. Initial goal of 30 min walk 3-5x/week. Increase as tolerated. - low-sodium diet (goal: <2g/day) and heart healthy diet such as DASH to reduce BP and prevent ASCVD. - Home BP monitoring 1-2 x day with goal of <140/90. - Seek immediate medical attention for chest pain, palpitations, SOB, syncope, or sudden changes in mental status. - Do not change or discontinue current prescriptions without first consulting health care provider Assessment & Plan (02/03/2024 10:20 AM EDT): Today elevated plan is to RTC 2 weeks for nurse visit if BP not at goal we will increase her metoprolol to 50mg ER daily, also advise: - Aerobic exercise to reduce BP. Initial goal of 30 min walk 3-5x/week. Increase as tolerated. - low-sodium diet (goal: <2g/day) and heart healthy diet such as DASH to reduce BP and prevent ASCVD. - Home BP monitoring 1-2 x day with goal of <140/90. - Seek immediate medical attention for chest pain, palpitations, SOB, syncope, or sudden changes in mental status. - Do not change or discontinue current prescriptions without first consulting health care provider Assessment & Plan (10/13/2023 12:18 PM EST): Maintenance: BMP:ordered today Lipid Panel: ASCVD Risk: Calculate pending updated labs - Aerobic exercise to reduce BP. Initial goal of 30 min walk 3-5x/week. Increase as tolerated. - low-sodium diet (goal: <2g/day) and heart healthy diet such as DASH to reduce BP and prevent ASCVD. - Home BP monitoring 1-2 x day with goal of <140/90. - Seek immediate medical attention for chest pain, palpitations, SOB, syncope, or sudden changes in mental status. - Do not change or discontinue current prescriptions without first consulting health care provider Assessment & Plan (07/29/2023 4:38 PM EST): - Aerobic exercise to reduce BP. Initial goal of 30 min walk 3-5x/week. Increase as tolerated. - low-sodium diet (goal: <2g/day) and heart healthy diet such as DASH to reduce BP and prevent ASCVD. - Home BP monitoring 1-2 x day with goal of <140/90. - Seek immediate medical attention for chest pain, palpitations, SOB, syncope, or sudden changes in mental status. - Do not change or discontinue current prescriptions without first consulting health care provider Allergic rhinitis 09/06/2015 Depressive disorder 09/06/2015 Gastroesophageal reflux disease without esophagi tis 09/06/2015 Impaired glucose tolerance 09/06/2015 Mild persistent asthma 09/06/2015 Assessment & Plan (10/13/2023 12:18 PM EST): Patient educated to avoid asthma triggers Albuterol inhaler refilled Pulmicort prescribed (asmanex not cover by insurance?) Assessment & Plan (07/29/2023 4:38 PM EST): Avoid asthma triggers Albuterol inhaler PRN I discontinue flovent 110mcg and start her on mometasone 200mcg BID Class 2 obesity due to exces s calories with body mass index (BMI) of 39.0 to 39.9 in adult 09/06/2015 Assessment & Plan (11/06/2022 11:19 AM EDT): Discussed diet and exercise. She agrees to start adding more vegetables to her diet. She will speak to her public health registrar November 17 about potential exercise. Obstructive sleep apnea of adult 09/06/2015 Uterine leiomyoma 09/06/2015 Encounters Date Type Department Care Team Description 09/09/2024 Refill [facility] [address] [place] [address] Joan Antunez MD Chronic diarrhea 08/31/2024 Telephone [facility] [address] [place] [address] Joan Antunez MD Durable Medical Equipment (Home Care Delivered From: Pull-ups (XL)) 08/21/2024 9:00 AM EST Office Visit [facility] [address] [place] [address] Burke Frederick DDS Fractured dental confucianist with loss of material (Primary Dx) 08/16/2024 Telephone [facility] [address] [place] [phone] Joan Antunez MD 08/15/2024 Refill [facility] [address] [place] [phone] Joan Antunez MD Chronic back pain, unspecified back location, unspecified back pain laterality 08/15/2024 Refill [facility] [address] [place] [phone] Joan Antunez MD Chronic back pain, unspecified back location, unspecified back pain laterality 08/12/2024 10:00 AM EST Office Visit [facility] [address] [place] [phone] John Melchor MD Vomiting and diarrhea (Primary Dx) 08/03/2024 9:00 AM EST Office Visit [facility] [address] [place] [phone] Joan Antunez MD Essential hypertension (Primary Dx); Chronic diarrhea; Systemic lupus erythematosus, unspecified SLE type, unspecified organ involvement status (CMS/HCC); Polyarthralgia; Mixed stress and urge urinary incontinence 08/03/[address] [phone] Mady Hyde [place] Durable Medical Equipment 08/03/2024 Travel 07/28/2024 9:00 AM EST Office Visit [facility] [address] [place] [phone] Regina Broderick Periodontal disease (Primary Dx); Localized gingival recession; Dental calculus; Missing teeth, acquired 07/26/2024 Refill [facility] [address] [place] [phone] Joan Antunez MD 07/24/2024 Patient Outreach [facility] [address] [place] [address] Joan Antunez MD Pre-visit Planning ([facility] screening completed on 10/13/2023) 07/21/2024 Orders Only GENERIC EXTERNAL DATA DEPARTMENT Provider, Generic External Data 07/04/2024 Refill [facility] [address] [place] [address] Joan Antunez MD Chronic back pain, unspecified back location, unspecified back pain laterality from Last 3 Months Immunizations Name Administration Dates Next Due Hep A, Adult 07/30/2011,01/13/2011 Hep B, adult 11/06/2016, 1,02/23/2011,01/13 Influenza Injectable Quadriv alant Preservative Free IIV4 MDCK 06/17/2020 Influenza injectable quadriv alent IIV4 with preservative 06/10/2018,07/07/2017 Influenza injectable quadriv alent preservative free 07/29/2023,06/12/2021,07/27/2019,07/27,05/23/2015 Influenza, IIV3, injectable 05/10/2014 Influenza, Split (incl. odalis fied surface antigen) 06/19/2013,05/02/2012 Influenza, seasonal, injecta ble, preservative free 05/05/2024 Regina SARS-CoV-2 Vaccination 11/16/2020 Pfizer Covid-19 Vaccine 12+ 05/05/2024, 1 Pneumococcal Conjugate PCV 20 10/26/2023 Pneumococcal Polysaccharide PPSV23 03/08/2018 TD (adult), 2 Lf tetanus tox oid, preservative free, adsorbed 05/31/2008 Td (adult), 5 Lf tetanus tox oid, preservative free, adsorbed 02/28/2015 Tdap 04/02/2022,02/19/2012 Zoster, Recombinant 12/02/2020,06/17/2020 Social History Tobacco Use Types Packs/Day Years Used Date Smoking Tobacco: Former Cigarettes Passive Smoke Exposure: Past Smokeless Tobacco: Never Tobacco Cessation:Counseling Given: Not Answered Alcohol Use Standard Drinks/Week Comments Never 0 (1 standard drink = 0.6 oz pur e alcohol) Depression Answer Date Recorded Patient Health Questionnaire-9 Score 14 11/23/2023 Patient Health Questionnaire-9 Score 14 11/23/2023 Last PHQ-9: Questionnaire Data Not on file 0 11/23/2023 Housing Stability Answer Date Recorded What is your housing situation today? I have young dnoahue 06/07/[address] you li [...] Orientation Straight 06/08/2022 10 :20 AM EDT Last Filed Vital Signs Vital Sign Reading Time Taken Comments Blood Pressure 160/100 08/12/2024 9:27 AM EST Pulse 60 08/12/2024 9:13 AM EST Temperature 37.3 ??C (99.1 ??F) 08/12/2024 9:13 AM ES T Respiratory Rate 18 08/12/2024 9:13 AM EST Oxygen Saturation 98% 08/12/2024 9:13 AM EST Inhaled Oxygen Concentration - - Weight 86.7 kg (191 lb 2 oz) 08/12/2024 9:13 AM EST Height 156.2 cm (5' 1.5 ) 08/12/2024 9:13 AM EST Body Mass Index 35.53 08/12/2024 9:13 AM EST Plan of Treatment Upcoming Encounters Date Type Department Care Team (Late st Contact Info) Description 11/02/2024 9:15 AM EDT Office Visit [facility] [address] [place] [address] Joan Antunez MD [address] [place] [address] 01/29/2025 9:00 AM EDT Office Visit [facility] [address] [place] [phone] Arsenio Broderickaris [address] [place] [address] Health Maintenance Due Date Last Done Comments CT Colonography 1965 FIT DNA/Cologuard 1965 FIT 1965 FOBT 1965 Sigmoidoscopy 1965 Pap Smear 1986 HPV/Cotest 1995 Colonoscopy 12/09/2021 12/09/2016 Colorectal Cancer Screening 12/09/2021 Dental Oral Exam 05/07/2024 11/04/2023, , 06/29/2013, Additional history exists Depression Monitoring (PHQ-9) 05/24/2024 11/23/2023, 11/23/2023 Alcohol/Substance Use Screening 10/12/2024 10/13/2023 Diabetes: Hemoglobin A1C 10/12/2024 024, 11/06/2022, 10/26/2022, Additional history exists SDOH Screening 10/12/2024 10/13/2023 Dental X-Ray: Bitewings 11/04/2024 11/04/19 24, 02/22/2023, 06/29/2013 Depression Screening 11/22/2024 11/23/2023, 11/23/19 24 Dental Prophylaxis 01/27/2025 07/28/2024, 0 04/22/2023, 07/28/2013, Additional history exists Mammogram 03/10/2025 03/10/2024, 12/08, 11/13/2020, Additional history exists Tobacco Screening 08/21/2025 08/21/2024 Dental X-Ray: Full Mouth 02/23/2026 02/22/2023 Lipid Panel 10/27/2027 10/26/2022, 10/08, 03/19/2021, Additional history exists DTaP/Tdap/Td Vaccines (4 - Td or Tdap) 04/02/2032 04/02/2022, 02/28/2015, 02/19/2012, Additional history exists RSV Patients and Patients Aged 60 years or older (1 - 1-dose 75+ series) 2040 Hepatitis A Vaccines Aged Out 07/30/2011, 01/14/20 11 No longer eligible based on patient's age to complete this topic Hepatitis B Vaccines Completed 11/06/2016, 07/30/2011, 02/23/2011, Additional history exists Zoster Vaccines Completed 12/02/2020, 06/17/2020 HIV Screening Completed 10/13/2023 Pneumococcal Vaccine: 50+ Years Completed 10/26/2023, 03/08/2018 Hepatitis C Screening Completed 11/17/2023, 024 COVID-19 Vaccine Completed 05/05/2024, 11/2020, 11/16/2020 Influenza Vaccine Completed 05/05/2024, , 06/12/2021, Additional history exists Cervical Cancer Screening Discontinued HIB Vaccines Aged Out No longer eligi ble based on patient's age to complete this topic HPV Vaccines Aged Out No longer eligi ble based on patient's age to complete this topic IPV Vaccines Aged Out No longer eligi ble based on patient's age to complete this topic Meningococcal Vaccine Aged Out No iker elizabeth eligible based on patient's age to complete this topic RSV under 20 months Aged Out No longe r eligible based on patient's age to complete this topic Rotavirus Vaccines Aged Out No longer eligible based on patient's age to complete this topic Procedures Procedure Name Priority Date/Time Associated Diagnosis Comments CASE PRESENTATION, DETAILED AND EXTENSIVE TREATMENT PLANNING Routine 08/21/2024 9:00 AM EST 29 MO RESIN-BASED COMPOSITE - 2 SURF, POSTERIOR Routine 08/21/2024 9:00 AM EST POCT INFLUENZA B (ID NOW RAPID MOLECULAR) Routine 08/12/2024 9:25 AM EST Vomiting and diarrhea POCT INFLUENZA A (ID NOW RAPID MOLECULAR) Routine 08/12/2024 9:24 AM EST Vomiting and diarrhea POCT COVID-19 AG MAYEN ID NOW Routine 08/12/2024 9:23 AM EST Vomiting and diarrhea CASE PRESENTATION, DETAILED AND EXTENSIVE TREATMENT PLANNING Routine 07/28/2024 9:00 AM EST Periodontal disease Localized gingival recession Dental calculus TOPICAL APPLICATION OF FLUORIDE VARNISH Routine 07/28/2024 9:00 AM EST Periodontal disease Localized gingival recession Dental calculus Missing teeth, acquired ORAL HYGIENE INSTRUCTIONS Routine 07/28/2024 9:00 AM EST Periodontal disease Localized gingival recession Dental calculus Missing teeth, acquired PROPHYLAXIS - ADULT Routine 07/28/2024 9 :00 AM EST Periodontal disease Dental calculus DNA (DS) ANTIBODY Routine 07/21/2024 9:5 7 AM EST COMPLEMENT COMPONENT C4C Routine 07/21/2024 9:57 AM EST COMPLEMENT COMPONENT C3C Routine 07/21/2024 9:57 AM EST C-REACTIVE PROTEIN Routine 07/21/2024 9: 57 AM EST COMPREHENSIVE METABOLIC PANEL Routine 07/21/2024 9:57 AM EST SED RATE BY MODIFIED WESTERGREN Routine 07/21/2024 9:57 AM EST CBC WITH AUTO DIFFERENTIAL Routine 07/21/2024 9:57 AM EST PROTEIN CREATININE RATIO, URINE Routine 07/21/2024 9:45 AM EST URINALYSIS, COMPLETE Routine 07/21/2024 9:45 AM EST BI MAMMOGRAM SCREENING TOMOSYNTHESIS BILATERAL Routine 03/10/2024 8:46 AM EDT HEPATITIS PANEL, GENERAL Routine 11/17/2023 9:47 AM EDT BITEWINGS - 4 RADIOGRAPHIC IMAGES Routine 11/04/2023 1:00 PM EDT PERIODIC ORAL EVALUATION - ESTABLISHED PATIENT Routine 11/04/2023 1:00 PM EDT HIV 1/2 ANTIGEN/ANTIBODY, FOURTH GENERATION W/RFL Routine 10/13/2023 10:53 AM EST Other fatigue POCT GLYCATED HEMOGLOBIN, TOTAL Routine 10/13/2023 10:18 AM EST Prediabetes INTRAORAL - COMPLETE SERIES OF RADIOGRAPHIC IMAGES Routine 02/22/2023 9:30 AM EDT LIPID PANEL, STANDARD Routine 10/26/2022 9:27 AM EDT HM COLONOSCOPY Routine 12/09/2016 from Last 3 Months or Most Recently Relevant to Health Maintenance Results * POCT Rapid Influenza B MAYEN ID NOW (08/12/2024 9:25 AM EST) Influenza B Negative Negative, Indeterminate [facility] QC Media Lot # [id number] [facility] Lot# Expiration Date [facility] Swab 08/12/2024 9:25 AM EST us John Melchor MD POINT OF CARE TEST ENTER/EDIT OR DERABLES Final Result Performing Organization Address [facility] Co de Phone Number [facility] [address] [place] [phone] * POCT Rapid Influenza A MAYEN ID NOW (08/12/2024 9:24 AM EST) Influenza A Negative Negative, Indeterminate [facility] Media Lot # [id number] [facility] Lot# Expiration Date [facility] Swab 08/12/2024 9:24 AM EST us John Melchor MD POINT OF CARE TEST ENTER/EDIT OR DERABLES Edited Result - Final Performing Organization Address City/[facility]/ZIP Co de Phone Number [facility] [address] [place] [address] [phone] * POCT Rapid Covid-19 MAYEN ID NOW (08/12/2024 9:23 AM EST) Pathologist [facility] Coronavirus Antigen PCR Negative Negative, Indeterminate, None Detected, Invalid, Specimen unsatisfactory for evaluation, Weakly Positive QC Media Lot # [id number] Lot# Expiration Date [id number] Swab 08/12/2024 9:23 AM EST John Melchor MD POINT OF CARE TEST ENTER/EDIT OR DERABLES Final Result * (ABNORMAL) CBC auto differential (07/21/2024 9:57 AM EST) Pathologist [facility] White Blood Count 4.7(L) 4.8 - 10.8 X10*3/uL [facility] Red Blood Count 4.59 4.20 - 5.50 X10*6/uL [facility] Hemoglobin 13.4 12.0 - 16.0 g/dl [facility] Hematocrit 40.7 37.0 - 47.0 % [facility] Mean Corpuscular Volume 88.7 80.0 - 98.0 fL [facility] Mean Corpuscular Hemoglobin 29.2 27.0 - 33.0 pg [facility] Mean Corpuscular HGB Conc 32.9 31.0 - 35.0 g/dl [facility] Red Cell Distribution Width 14.6 11.0 - 16.0 % [facility] Platelet Count 184 160 - 400 X10*3/uL [facility] Mean Platelet Volume 12.9(H) 9.4 - 12.3 fL [facility] Neutrophils Percent Auto 60.7 45 - 73 % [facility] Imm Gran Pct Auto 0.4 0.0 - 0.4 % [facility] Lymphocytes Percent Auto 23.5 20 - 40 % [facility] Monocytes Percent Auto 7.9 2 - 11 % [facility] Eosinophils Percent Auto 6.6(H) 0 - 4 % [facility] Basophils Percent Auto 0.9 0 - 2 % [facility] NRBC Pct Auto 0.0 0.0 - 0.2 /100WBC [facility] Neutrophils Absolute Auto 2.9 2.0 - 8.3 x10*3/uL [facility] Imm Gran Abs Auto 0.02 0.00 - 0.03 X10*3/uL [facility] Lymphocytes Absolute Auto 1.1(L) 1.2 - 4.9 X10*3/uL [facility] Monocytes Absolute Auto 0.4 0.1 - 1.2 X10*3/uL [facility] Eosinophils Absolute Auto 0.3 0.0 - 0.4 X10*3/uL [facility] [facility] Basophils Absolute Auto 0.0 0.0 - 0.2 X10*3/uL [facility] NRBC Abs Auto 0.000 0.0 - 0.012 X10*3/uL [facility] 07/21/2024 9:57 AM EST 07/21/2024 9:57 AM EST us Generic External Data Provider LAB BLOOD ORDERAB LES Final Result Performing Organization Address [facility] Co de Phone Number [facility] [address] [place] [phone] * DNA (ds) Antibody (07/21/2024 9:57 AM EST) Anti DNA DS Antibody 2 IU/mL [facility] Comment:IU/mL Interpretation < or = 4 Negative 5-9 Indeterminate > or = 10 PositiveTHIS TEST WAS PERFORMED AT:[facility] [address] [phone] HILARIO MD 07/21/2024 9:57 AM EST 07/21/2024 9:57 AM EST us Generic External Data Provider LAB BLOOD ORDERAB LES Final Result Performing Organization Address [facility] Co de Phone Number [facility] [address] [place] [address] [place] [phone] * Sed Rate by Modified Sammyergren (07/21/2024 9:57 AM EST) Erythrocyte Sedimentation Rate 14 0 - 20 MM/HR [facility] Comment:Patients with polycy themia and many hemoglobin abnormalitiesmay have depressed sed rates whereas patients with anemiamay have elevated sed rates. 07/21/2024 9:57 AM EST 07/21/2024 9:57 AM EST us Generic External Data Provider LAB BLOOD ORDERAB LES Final Result Performing Organization Address City/[facility]/ZIP Co de Phone Number [facility] [address] [place] [phone] * Complement Component C3c (07/21/2024 9:57 AM EST) Complement C3 170 83 - 193 mg/dL [facility] Comment:THIS TEST WAS PERFOR MED AT:[employer] [place] [phone] HILARIO MD 07/21/2024 9:57 AM EST 07/21/2024 9:57 AM EST us Generic External Data Provider LAB BLOOD ORDERAB LES Final Result Performing Organization Address City/[facility]/ZIP Co de Phone Number [facility] [address] [place] [phone] * Complement Component C4c (07/21/2024 9:57 AM EST) Complement C4 40 15 - 57 mg/dL [facility] Comment:THIS TEST WAS PERFOR MED AT:[employer] [place] [phone] HILARIO MD 07/21/2024 9:57 AM EST 07/21/2024 9:57 AM EST us Generic External Data Provider LAB BLOOD ORDERAB LES Final Result Performing Organization Address City/[facility]/ZIP Co de Phone Number [facility] [address] [place] [address] [phone] * C-reactive Protein (07/21/2024 9:57 AM EST) Pathologist [facility] C Reactive Protein 0.45 < or = 0.50 mg/dL [facility] 07/21/2024 9:57 AM EST 07/21/2024 2:58 PM EST Generic External Data Provider LAB BLOOD ORDERAB LES Final Result Performing Organization Address [facility] Co de Phone Number [facility] [address] [place] [address] [phone] * (ABNORMAL) Comprehensive Metabolic Panel (07/21/2024 9:57 AM EST) Pathologist [facility] Sodium 140 135 - 145 mmol/L [facility] Potassium 4.0 3.3 - 5.1 mmol/L [facility] Chloride 108 96 - 108 mmol/L [facility] Carbon Dioxide 26 22 - 29 mmol/L [facility] Anion Gap 10(L) 12 - 20 [facility] Urea Nitrogen (BUN) 11 9 - 16 mg/dL [facility] Creatinine, Serum 0.86 0.5 - 1.4 mg/dL [facility] Estimated Glomerular Filt Rate >60 [facility] Comment:Chronic Kidney Disea se: Estimated GFR < 60 mL/min/1.14i1Hqlsrp Kidney Disease: Estimated GFR < 15 mL/min/1.73m2 Glucose 90 60 - 115 mg/dL [facility] Calcium 8.9 8.4 - 10.2 mg/dL [facility] Bilirubin, Total 0.4 0.0 - 1.0 mg/dL [facility] Aspartate Amino Transferase 24 5 - 31 U/L [facility] Alanine Aminotransferase 22 0 - 31 U/L [facility] Total Protein 6.4(L) 6.5 - 8.0 g/dL [facility] Albumin Level 3.6 3.5 - 5.0 g/dL [facility] Alkaline Phosphatase 121(H) 39 - 117 U/L [facility] 07/21/2024 9:57 AM EST 07/21/2024 2:58 PM EST Generic External Data Provider LAB BLOOD ORDERAB LES Final Result Performing Organization Address [facility] Phone Number [facility] [address] [place] [phone] * Protein Creatinine Ratio, Urine (07/21/2024 9:45 AM EST) Creatinine, Urine 22.58 mg/dL [facility] Protein, Total, Random Urine <7 <12 mg/dL [facility] Protein/Creatin ine Ratio, Ur TNP <0.2 [facility] Comment:Unable to calculate urine protein creatinine ratio due tolow creatinine or protein result. 07/21/2024 9:45 AM EST 07/21/2024 10:25 AM EST Generic External Data Provider LAB URINE ORDERAB LES Final Result Performing Organization Address [facility] Phone Number [facility] [address] [place] [phone] * (ABNORMAL) Urinalysis Complete (07/21/2024 9:45 AM EST) Color Urine Yellow [facility] Appearance Urine Clear [facility] PH 5.5 5.0 - 9.0 [facility] Glucose Urine UA >=1000(A) Negative mg/dL [facility] Urine Blood Negative Negative [facility] Specific [place] - Urine 1.010 1.005 - 1.025 [facility] Urine Protein Negative Neg-Trace mg/dL [facility] Urine Ketones Negative Negative mg/dL [facility] Nitrite Urine Negative Negative [facility] Leukocyte Esterase Urine Negative Negative [facility] RBC Urine 0-2 0 - 2 /HPF [facility] Urine WBC 0-5 0 - 5 /HPF [facility] Urine Squamous Epithelial Cell 3-5 0 - 2 /HPF [facility] Urine Bacteria None Seen None Seen [facility] Hyaline Casts, Urine 0-2 0 - 2 /LPF [facility] 07/21/2024 9:45 AM EST 07/21/2024 10:25 AM EST us Generic External Data Provider LAB URINE ORDERAB LES Final Result [facility] [address] [place] [phone] * BI Mammogram Screening Tomosynthesis Bilateral (03/10/2024 8:46 AM EDT) Anatomical Region Laterality Modality Breast Bilateral Mammography 03/10/2024 8:46 AM EDT Narrative 04/10/2024 11:06 PM EDT ? [facility] ? [address] ?[place] [address] ? Mammography Report ? Signed ? Patient: Flor Martinez I ?MR#: [id number] ?? 59 ? : 1965 ?Acct:[id number] ? Age/Sex: 58 / F ?ADM Date: 03/10/24 ? Loc: HO.MAMMO ? Attending Dr: Joan Casiano MD ? Ordering Physician: Joan Antunez MD ?Results: ?? 1Negative ? Date of Service: 03/10/24 ?Follow Up: 1 Year From Orig ?? inal Mammogram ? Procedure(s): MM tomosynthesis screening BI ?? Accession Number(s): [id number] ? cc: Joan Antunez MD ? EXAMINATION: ?? MM SCREENING DIGITAL BREAST TOMOSYNTHESIS, BILATERAL ? CLINICAL INFORMATION: ? Screening. Asymptomatic. ? COMPARISON: ?? Mammography: This study is compared with prior exams dating back to ? 2018. ?? TECHNIQUE: ?? Digital breast tomosynthesis is performed in both the craniocaudal and ?? mediolateral oblique views along with computer-aided detection (CAD). ? Synthesized 2D images are generated from the tomosynthesis. ? FINDINGS: ?? There are scattered areas of fibroglandular density (ACR BI-RADS breast ?? composition Category b). ? There are no significant masses, abnormal calcifications, or other ?? abnormalities. ?? There is a pacemaker in the superior aspect of the left breast. ? MM/MM tomosynthesis screening BI ?? IMPRESSION: ?? No mammographic evidence of malignancy. ? ASSESSMENT: ? BI-RADS BI-RADS 1 - Negative ? RECOMMENDATION: ?? Routine annual mammography screening. ? 1 year F/U ? This examination should not preclude the clinical evaluation of a ?? suspicious palpable abnormality. ? This patient's information was entered into a reminder system with a ?? target due date for their next mammogram. ? Electronically signed by: ??Cielo Velazquez MD ??04/10/2024 11:02 PM EDT RP ? Dictated By: ?Cielo Velazquez MD ? Signed By: ?<Electronically signed by Cielo Velazquez MD in OV> ? 04/10/242 ? DD/ 0846 ? TD/TT: 03/10/24 0906 ? Rehab Trainer: ? Procedure Note Donotuseinterpreter, Image - 04/10/2024 [facility] [address] [place] [address] Mammography Report Signed Patient: Flor Martinez IMR#: [id number] 59 : 1965Acct:[id number] Age/Sex: 58 / FADM Date: 03/10/24 Loc: HO.MAMMO Attending Dr: Joan Casiano MD Ordering Physician: Joan Antunez MDResults: 1Negative Date of Service: 03/10/24Follow Up: 1 Year From Orig inal Mammogram Procedure(s): MM tomosynthesis screening BI Accession Number(s): [id number] cc: Joan Antunez MD EXAMINATION: MM SCREENING DIGITAL BREAST TOMOSYNTHESIS, BILATERAL CLINICAL INFORMATION: Screening. Asymptomatic. COMPARISON: Mammography: This study is compared with prior exams dating back to 2018. TECHNIQUE: Digital breast tomosynthesis is performed in both the craniocaudal and mediolateral oblique views along with computer-aided detection (CAD). Synthesized 2D images are generated from the tomosynthesis. FINDINGS: There are scattered areas of fibroglandular density (ACR BI-RADS breast composition Category b). There are no significant masses, abnormal calcifications, or other abnormalities. There is a pacemaker in the superior aspect of the left breast. MM/MM tomosynthesis screening BI IMPRESSION: No mammographic evidence of malignancy. ASSESSMENT: BI-RADS BI-RADS 1 - Negative RECOMMENDATION: Routine annual mammography screening. 1 year F/U This examination should not preclude the clinical evaluation of a suspicious palpable abnormality. This patient's information was entered into a reminder system with a target due date for their next mammogram. Electronically signed by: Cielo Velazquez MD 04/10/2024 11:02 PM EDT Dictated By: Cielo Velazquez MD Signed By: <Electronically signed by Cielo Velazquez MD in OV> 04/10/242301 DD/ 0846 TD/TT: 03/10/24 0906 Rehab Trainer: us Joan Casiano MD IMG BI PROCEDURES Fin al Result * Hepatitis Panel, General (11/17/2023 9:47 AM EDT) Hepatitis A IgM Nonreactive Nonreactive [facility] Comment:IgM antibodies to PICKENS V not detected; does not exclude earlyacute or recovered HAV infection. ~Hepatitis B Surface Antibody REACTIVE Nonreactive [facility] Comment:REACTIVE: > 11.99 mI U/mL Hepatitis B Core Antibody Nonreactive Nonreactive [facility] Hepatitis C Antibody Nonreactive Nonreactive [facility] Comment:Antibodies to HCV no t detected; does not exclude early acuteHCV infection. Hepatitis B Surface Ag Negative Negative [facility] 11/17/2023 9:47 AM EDT 11/17/2023 9:47 AM EDT us Generic External Data Provider LAB BLOOD ORDERAB LES Final Result [facility] [address] [place] [phone] * HIV-1/2 Antigen and Antibodies, Fourth Generation, with Reflexes (10/13/2023 10:53 AM EST) HIV AB/AG Nonreactive Nonreactive [facility] Comment:HIV-1 p24 Ag and/or HIV-1/HIV-2 Ab not detected.A test result that is nonreactive does not exclude thepossibility of exposure to or infection with HIV-1 and/orHIV-2. Nonreactive results in this assay for individualswith prior exposure to HIV-1 and/or HIV-2 may be due toantigen and antibody levels that are below the limit ofdetection of this assay.The [employer] HIV Ag/Ab Combo assay result andsupplemental assay results should be interpreted inconjunction with the patient's clinical presentation,history and other laboratory results. If the results areinconsistent with clinical evidence, additional testing issuggested to confirm the result. Blood Venous blood specimen / Unknown 10/13/2023 10:53 AM EST 10/13/2023 1:07 PM EST us Joan Casiano MD LAB BLOOD ORDERABLES Final Result [facility] [address] [place] [phone] * (ABNORMAL) POCT HGB A1C (10/13/2023 10:18 AM EST) Hemoglobin A1C 6.4(A) 4.0 - 6.0 % QC Media Lot # [id number] Lot# Expiration Date Blood 10/13/2023 10:1 8 AM EST us Joan Casiano MD POINT OF CARE TEST EN TER/EDIT ORDERABLES Final Result * (ABNORMAL) Lipid Panel, Standard (10/26/2022 9:27 AM EDT) Cholesterol, Total 115 <200 mg/dL [facility] [employer] [place] [employer] HDL Cholesterol 40(L) > OR = 50 mg/dL [facility] [employer] [place] [employer] Triglycerides 100 <150 mg/dL [facility] [place] [employer] LDL Cholesterol 56 mg/dL (calc) [facility] [employer] [place] [employer] Comment: Reference range: <100 Desirable range <100 mg/dL for primary prevention; ?? <70 mg/dL for patients with CHD or diabetic patients with > or = 2 CHD risk factors. LDL-C is now calculated using the Javan-Emery calculation, which is a validated novel method providing better accuracy than the Friedewald equation in the estimation of LDL-C. Javan SS et al. DERRICK. 2013;310(19): 5376-5893 (http://education.MaSpatule.com.RolePoint/faq/FOT628) Chol/HDLC Ratio 2.9 <5.0 (calc) [facility] [place] [employer] Non-HDL Cholesterol 75 <130 mg/dL (calc) [facility] [employer] [place] [employer] Comment: For patients with diabetes plus 1 major ASCVD risk factor, treating to a non-HDL-C goal of <100 mg/dL (LDL-C of <70 mg/dL) is considered a therapeutic option. 10/26/2022 9:27 AM EDT 10/26/2022 9:28 AM EDT Narrative [facility] - 10/26/2022 9:57 PM EDT FASTING:YES FASTING: YES Katherine Da Silva MD LAB BLOOD ORDERABLES Final R esult [facility] [address], [place] [phone] [facility] [address] [place] [phone] * Colonoscopy (12/09/2016) [facility] Signature Colonoscopy Normal Normal Narrative Mariel Tan - 12/09/2016 Recommended 5 year follow up Historical Provider HEALTH MAINTENANCE Final Result from Last 3 Months or Most Recently Relevant to Health Maintenance Insurance [address] - [facility] [address] [place] [address] DENTAL - [facility] [address] [place] [address] [address] [place] [address] [address] [place] [address] Care Teams Dealership General Manager Relationship Specialty Start Date End Date Joan Antunez MD [address] [place] [phone] PCP - General Internal Medicine 06/07/23
--- OUTSIDE RECORDS SUMMARY | 2024-10-04 13:14 | XMS_ITS | Encounter Summary ---
Author Organization [employer] Address [address] [facility] 7t [place] [address] Care Team Providers Care Optical Mechanic Apprentice Name Role Phone Joan Antunez MD Primary Care Provide r Reason for Visit * Reason Comments Med Refill Encounter Details Date Type Department Care Team ([facility] st Contact Info) Description 10/28/2023 Refill [facility] MEDICINE [address] [place], [place] [phone] Joan Antunez MD [address] [place], [place] [phone] Social History Tobacco Use Types Packs/Day Years [...] Description 11/02/2024 9:15 AM EDT Office Visit [facility] MEDICINE [address] [place] [address] Joan Antunez MD [address] [place] [address] 01/29/2025 9:00 AM EDT Office Visit [facility] ADULT DENTAL [address] [place] [address] Meggan, Regina [address] [place] [address] documented as of this encounter Visit Diagnoses Not on filedocumented in this encounter Additional Health Concerns Assessment Noted Time PHQ-9 Depression Total Score: 8 11/07/19 10:23 AM EDT documented as of this encounter Care Teams Optical Mechanic Apprentice Relationship Specialty Start Date End Date Joan Antunez MD [address] [place] [phone] PCP - General Internal Medicine 06/07/23 documented as of this encounter
--- OUTSIDE RECORDS SUMMARY | 2024-10-04 13:14 | XMS_ITS | Encounter Summary ---
Author Organization [employer] Address [address] [facility] [address] 7t [place] [address] Care Team Providers Care Auto Washer Name Role Phone Joan Antunez MD Primary Care Provide r Encounter Details Date Type Department Care Team ([facility] st Contact Info) Description 06/22/2023 Abstract [facility] MEDICINE [address] [place], [place] [phone] Joan Antunez MD [address] [place], [place] [phone] Social History Tobacco Use Types Packs/Day Years [...] Description 11/02/2024 9:15 AM EDT Office Visit [facility] MEDICINE [address] [place] [address] Joan Antunez MD [address] [place] [address] 01/29/2025 9:00 AM EDT Office Visit [facility] ADULT DENTAL [address] [place] [address] Meggan, Regina [address] [place] [address] documented as of this encounter Procedures Procedure Name Priority Date/Time Associated Diagnosis Comments COLONOSCOPY Routine 12/09/2016 documented in this encounter Results * Colonoscopy (12/09/2016) Colonoscopy Normal Normal Narrative Mariel Tan - 12/09/2016 Recommended 5 year follow up Historical Provider HEALTH MAINTENANCE Final Result documented in this encounter Visit Diagnoses Not on filedocumented in this encounter Additional Health Concerns Assessment Noted Time PHQ-9 Depression Total Score: 8 11/07/19 23 10:23 AM EDT documented as of this encounter Care Teams Auto Washer Relationship Specialty Start Date End Date Joan Antunez MD [address] [place], [place] [phone] PCP - General Internal Medicine 06/07/23 documented as of this encounter
--- OUTSIDE RECORDS SUMMARY | 2024-10-04 13:14 | XMS_ITS | Encounter Summary ---
Author Organization [employer] Address [address] [facility] 7t [place] [address] Care Team Providers Care Dental Chairside Assistant Name Role Phone Katherine Da Silva MD Primary Care Provider Madhuri Grayson [facility] Primary Care Provider David Blankenship [facility] Primary Care Provider Jesusita Sandra [employer] SET UP OPERATOR Primary Care Provider [phone] Joan Antunez MD Primary Care Provide r Encounter Details Date Type Department Care Team (Latest Contact Info) Description 10/05/2018 Abstract [facility] CONVERSIONS Dental, Provider, DDS Social History Tobacco [...] 9:15 AM EDT Office Visit [facility] MEDICINE [address] [place], [place] [phone] Joan Antunez MD [address] [place] [address] 01/29/2025 9:00 AM EDT Office Visit [facility] ADULT DENTAL [address] [place], [place] [phone] Regina Broderick [address] [place] [address] documented as of this encounter Visit Diagnoses Not on filedocumented in this encounter Care Teams Dental Chairside Assistant Relationship Specialty Start Date End Date Katherine Da Silva MD PCP - General Family Medicine 09/24/20 06/28/22 Madhuri Sawyer FNP PCP - General 06/29/22 10/07/22 David South AGNP PCP - General Family Medicine 10/08/22 04/28/23 Jesusita Garcia FNP [address] [place] [phone] PCP - General Family Medicine 04/29/23 06/06/23 Joan Antunez MD [address] [place] [address] PCP - General Internal Medicine 06/07/23 documented as of this encounter
--- OUTSIDE RECORDS SUMMARY | 2024-10-04 13:14 | XMS_ITS | Encounter Summary ---
Author Organization [employer] Address [address] [facility] [address] 7[address] [place] [address] Care Team Providers Care Compensation And Hris Analyst Name Role Phone Joan Antunez MD Primary Care Provide r Encounter Details Date Type Department Care Team ([facility] st Contact Info) Description 09/08/2023 Orders Only [facility] MEDICINE [address] [place], [place] [phone] Joan Antunez MD [address] [place], [place] [phone] Prediabetes (Primary Dx) Social History Tobacco Use Types Packs/Day Years [...] 9:15 AM EDT Office Visit [facility] MEDICINE [address] [place] [address] Joan Antunez MD [address] [place] [address] 01/29/2025 9:00 AM EDT Office Visit [facility] ADULT DENTAL [address] [place] [address] Meggan, Regina [address] [place] [address] documented as of this encounter Visit Diagnoses Diagnosis Prediabetes- Primary Other abnormal glucose documented in this encounter Additional Health Concerns Assessment Noted Time PHQ-9 Depression Total Score: 8 11/07/19 10:23 AM EDT documented as of this encounter Care Teams Compensation And Hris Analyst Relationship Specialty Start Date End Date Joan Antunez MD [address] [place] [phone] PCP - General Internal Medicine 06/07/23 documented as of this encounter
--- OUTSIDE RECORDS SUMMARY | 2024-10-04 13:14 | XMS_ITS | Encounter Summary ---
Author Organization [employer] Address [address] [facility] 7 [place] [address] Care Team Providers Care Welder Fitter Name Role Phone Digna Madhuri [facility] Primary Care Provider David Blankenship Primary Care Provider Jesusita Sandra [facility] Primary Care Provider [phone] Joan Antunez MD Primary Care Provide r Reason for Visit * Reason Comments Med Refill Encounter Details Date Type Department Care Team (Late st Contact Info) Description 08/11/2022 Refill [facility] MEDICINE [address] [place] [address] Delma Gauthier MD [address] [place] [address] Nausea (Primary Dx) Social History Tobacco Use Types [...] encounter Miscellaneous Notes * Telephone Encounter - Hayley Almaraz LPN - 08/25/2022 3:06 PM EST F/U with patient on request for RESIDENTIAL SPECIALIST services, she needs mostly IADL's, but does need med reminders.Discussed [facility], patient informed she needs PE appt, says she has tried but was told no appt avail. Pt sending release for [facility] services pending return. Informed patient we would send message to [place] team to call her to schedule PE appt. documented in this encounter Plan of Treatment Upcoming Encounters Date Type Department Care Team (Late st Contact Info) Description 11/02/2024 9:15 AM EDT Office Visit [facility] MEDICINE [address] [place] [phone] Joan Antunez MD [address] [place] [address] 01/29/2025 9:00 AM EDT Office Visit [facility] ADULT DENTAL [address] [place] [address] Arsenio Broderickaris [address] [place] [address] documented as of this encounter Visit Diagnoses Diagnosis Nausea- Primary Nausea alone documented in this encounter Care Teams Welder Fitter Relationship Specialty Start Date End Date Madhuri Sawyer FNP PCP - General 06/29/22 10/07/22 David South AGNP PCP - General Family Medicine 10/08/22 04/28/23 Jesusita Garcia FNP [address] [place] [phone] PCP - General Family Medicine 04/29/23 06/06/23 Joan Antunez MD [address] [place] [phone] PCP - General Internal Medicine 06/07/23 documented as of this encounter
--- OUTSIDE RECORDS SUMMARY | 2024-10-04 13:14 | XMS_ITS | Encounter Summary ---
Author Organization [employer] Address [address] [place] [address] 7 [place] [address] Care Team Providers Care Net Front End Developer Name Role Phone DignaMadhuri [facility] Primary Care Provider David Blankenship [facility] Primary Care Provider Jesusita Sandra [facility] Primary Care Provider [phone] Joan Antunez MD Primary Care Provide r Reason for Visit * Reason Comments Med Refill Encounter Details Date Type Department Care Team (Late st Contact Info) Description 08/06/2022 Refill [facility] MEDICINE [address] [place] [address] Delma Gauthier MD [address] [place] [phone] Social History Tobacco Use Types Packs/Day Years [...] [facility] MEDICINE [address] [place] [address] Joan Antunez MD [address] [place] [address] 01/29/2025 9:00 AM EDT Office Visit [facility] ADULT DENTAL [address] [place], [place] [phone] Regina Broderick [address] [place] [address] documented as of this encounter Visit Diagnoses Not on filedocumented in this encounter Care Teams Net Front End Developer Relationship Specialty Start Date End Date Madhuri Sawyer FNP PCP - General 06/29/22 10/07/22 David South AGNP PCP - General Family Medicine 10/08/22 04/28/23 Jesusita Garcia FNP [address] [place] [address] PCP - General Family Medicine 04/29/23 06/06/23 Joan Antunez MD [address] [place] [address] PCP - General Internal Medicine 06/07/23 documented as of this encounter
--- OUTSIDE RECORDS SUMMARY | 2024-10-04 13:14 | XMS_ITS | Encounter Summary ---
Author Organization [employer] Address [address] [place] [address] 7t [place] [address] Care Team Providers Care National Accounts Sales Name Role Phone Jesusita Garcia LETAHA Primary Care Provider [phone] Joan Antunez MD Primary Care Provide r Encounter Details Date Type Department Care Team (Late Contact Info) Description 05/07/2023 Abstract [facility] PEDIATRIC DENTAL [address] [place] [address] Burke Frederick DDS [address] [place] [address] Social History Tobacco Use Types Packs/Day Years [...] Encounters Date Type Department Care Team (Late Contact Info) Description 11/02/2024 9:15 AM EDT Office Visit [facility] MEDICINE [address] [place] [address] Joan Antunez MD [address] [place] [address] 01/29/2025 9:00 AM EDT Office Visit [facility] ADULT DENTAL [address] [place] [address] Regina Broderick [address] [place] [address] documented as of this encounter Visit Diagnoses Not on filedocumented in this encounter Additional Health Concerns Assessment Noted Time PHQ-9 Depression Total Score: 8 11/07/19 10:23 AM EDT documented as of this encounter Care Teams National Accounts Sales Relationship Specialty Start Date End Date Jesusita Garcia FNP [address] [place] [id number] PCP - General Family Medicine 04/29/23 06/06/23 Joan Antunez MD [address] [place] [id number] PCP - General Internal Medicine 06/07/23 documented as of this encounter
--- OUTSIDE RECORDS SUMMARY | 2024-10-04 13:14 | XMS_ITS | Encounter Summary ---
Author Organization [employer] Address 75 [facility] 7t [place] [address] Care Team Providers Care Brazer Induction Name Role Phone DignaMadhuri [facility] Primary Care Provider David Blankenship [facility] Primary Care Provider Jesusita Sandra [facility] Primary Care Provider [phone] Joan Antunez MD Primary Care Provide r Encounter Details Date Type Department Care Team (Late st Contact Info) Description 08/11/2022 Orders Only [facility] CHC MED & PEDS [address] [place] [address] Radha Jimenez LPN Social History Tobacco Use [...] Description 11/02/2024 9:15 AM EDT Office Visit [facility] MEDICINE [address] [place], [place] [phone] Joan Antunez MD [address] [place], [place] [phone] 01/29/2025 9:00 AM EDT Office Visit [facility] ADULT DENTAL [address] [place] [address] Regina Broderick [address] [place] [address] documented as of this encounter Visit Diagnoses Not on filedocumented in this encounter Care Teams Brazer Induction Relationship Specialty Start Date End Date Madhuri Sawyer FNP PCP - General 06/29/22 10/07/22 David South AGNP PCP - General Family Medicine 10/08/22 04/28/23 Jesusita Garcia FNP [address] [place] [address] PCP - General Family Medicine 04/29/23 06/06/23 Joan Antunez MD [address] [place] [address] PCP - General Internal Medicine 06/07/23 documented as of this encounter
== END 2024-10-04 11:36 | disposition home or self-care (01) ==
PROVIDERS: PCP Internal Medicine; Visit Provider Internal Medicine
DX: K59.1 Functional diarrhea (principal); R15.9 Full incontinence of feces
CPT/HCPCS: 99214

== ENCOUNTER → 2024-10-04 10:41 | Outpatient (BNVA) | payer OTHER, SELFPAY | PROVIDERS: PCP Internal Medicine; Visit Provider Internal Medicine | DX: K59.1 Functional diarrhea (principal); R19.4 Change in bowel habit; R15.9 Full incontinence of feces | CPT/HCPCS: 99212 ==

== ENCOUNTER 2024-10-06 14:59 | Outpatient (REF) | payer OTHER, SELFPAY ==
--- OUTSIDE RECORDS SUMMARY | 2024-10-06 17:10 | XMS_ITS | Encounter Summary ---
Author Organization [employer] Address 75 [facility] 7t [place] [address] Care Team Providers Care Commercial Reporter Name Role Phone David South Primary Care Provider Jesusita Sandra Primary Care Provider [phone] Joan Antunez MD Primary Care Provide r Reason for Visit * Reason Onset Date Comments Appointment 03/12/2023 Encounter Details Date Type Department Care Team (Late st Contact Info) Description 03/12/2023 Telephone [facility] ADULT DENTAL [address] [place], [place] [phone] MegganArsenioRegina [address] [place] [address] Appointment Social History Tobacco Use Types Packs/Day [...] visit scheduled for 8am. Informed daughter that [facility] dental has her infomration and will call her when it is her turn on the list again to call in. Encouraged patient to call in from time to time looking for cancellations DR documented in this encounter Plan of Treatment Upcoming Encounters Date Type Department Care Team (Late st Contact Info) Description 11/02/2024 9:15 AM EDT Office Visit [facility] MEDICINE [address] [place] [address] Joan Antunez MD 230 [place] [address] 01/29/2025 9:00 AM EDT Office Visit [facility] ADULT DENTAL [address] [place] [address] Regina Broderick [address] [place] [address] documented as of this encounter Visit Diagnoses Not on filedocumented in this encounter Additional Health Concerns Assessment Noted Time PHQ-9 Depression Total Score: 8 11/07/19 10:23 AM EDT documented as of this encounter Care Teams Commercial Reporter Relationship Specialty Start Date End Date David South AGNP PCP - General Family Medicine 10/08/22 04/28/23 Jesusita Garcia FNP [address] [place] [address] PCP - General Family Medicine 04/29/23 06/06/23 Joan Antunez MD [address] [place] [address] PCP - General Internal Medicine 06/07/23 documented as of this encounter
--- OUTSIDE RECORDS SUMMARY | 2024-10-06 17:10 | XMS_ITS | Encounter Summary ---
Author Organization [employer] Address 75 [facility] 7t [place] [address] Care Team Providers Care Medical Geneticist Name Role Phone DignaMadhuri [facility] Primary Care Provider David Blankenship [facility] Primary Care Provider Jesusita Sandra [facility] Primary Care Provider [phone] Joan Antunez MD Primary Care Provide r Encounter Details Date Type Department Care Team (Late st Contact Info) Description 08/11/2022 Orders Only [facility] CHC MED & PEDS [address] [place] [address] Radha Jimenez LPN Social History Tobacco Use [...] 11/02/2024 9:15 AM EDT Office Visit [facility] MEDICINE [address] [place], [place] [phone] Joan Antunez MD 230 [place], [place] [phone] 01/29/2025 9:00 AM EDT Office Visit [facility] ADULT DENTAL [address] [place] [address] Regina Broderick [address] [place] [address] documented as of this encounter Visit Diagnoses Not on filedocumented in this encounter Care Teams Medical Geneticist Relationship Specialty Start Date End Date Madhuri Sawyer FNP PCP - General 06/29/22 10/07/22 David South AGNP PCP - General Family Medicine 10/08/22 04/28/23 Jesusita Garcia FNP [address] [place] [address] PCP - General Family Medicine 04/29/23 06/06/23 Joan Antunez MD [address] [place] [address] PCP - General Internal Medicine 06/07/23 documented as of this encounter
--- OUTSIDE RECORDS SUMMARY | 2024-10-06 17:10 | XMS_ITS | Encounter Summary ---
Author Organization [employer] Address 75 [facility] 7t [place] [address] Care Team Providers Care Foundry Laborer Coreroom Name Role Phone Joan Antunez MD Primary Care Provide r Reason for Visit * Reason Onset Date Comments Nurse Triage 11/17/2023 Encounter Details Date Type Department Care Team ([facility] st Contact Info) Description 11/17/2023 Telephone [facility] MEDICINE 230 [place], [place] [phone] Joan Antunez MD [address] [place] [address] Nurse Triage Social History Tobacco Use Types [...] PM EDT Patient referred to [facility] for [facility] 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 Paperwork sent to Provider for signature an then it will be faxed to [facility]. * Telephone Encounter - Delphine Burns RN - 11/17/2023 1:08 PM EDT Triage call with [place] [employer] [place] [id number] Pt reports diarrhea which started again 2-3 [...] country. Pt is offered to come to [facility] to be seen by provider but,has apt [...] nurse or provider soon Reason: Getting worse Turkish Speaker documented in this encounter Plan of Treatment Upcoming Encounters Date Type Department Care Team (Late st Contact Info) Description 11/02/2024 9:15 AM EDT Office Visit [facility] MEDICINE [address] [place] [address] Joan Antunez MD [address] [place] [address] 01/29/2025 9:00 AM EDT Office Visit [facility] ADULT DENTAL [address] [place] [address] Meggan, Regina [address] [place] [address] documented as of this encounter Visit Diagnoses Not on filedocumented in this encounter Additional Health Concerns Assessment Noted Time PHQ-9 Depression Total Score: 8 11/07/19 10:23 AM EDT documented as of this encounter Care Teams Foundry Laborer Coreroom Relationship Specialty Start Date End Date Joan Antunez MD [address] [place] [address] PCP - General Internal Medicine 06/07/23 documented as of this encounter
--- OUTSIDE RECORDS SUMMARY | 2024-10-06 17:10 | XMS_ITS | Encounter Summary ---
Author Organization [employer] Address 75 [facility] 7t [place] [address] Care Team Providers Care Electrical Systems Designer Name Role Phone Joan Antunez MD Primary Care Provide r Reason for Visit * Reason Comments Med Refill Encounter Details Date Type Department Care Team ([facility] st Contact Info) Description 10/28/2023 Refill [facility] MEDICINE [address] [place], [place] [phone] Joan Antunez MD 230 [place], [place] [phone] Social History Tobacco Use Types Packs/Day Years [...] Description 11/02/2024 9:15 AM EDT Office Visit [facility] MEDICINE [address] [place] [address] Joan Antunez MD [address] [place] [address] 01/29/2025 9:00 AM EDT Office Visit [facility] ADULT DENTAL [address] [place] [address] Meggan, Regina [address] [place] [address] documented as of this encounter Visit Diagnoses Not on filedocumented in this encounter Additional Health Concerns Assessment Noted Time PHQ-9 Depression Total Score: 8 11/07/19 10:23 AM EDT documented as of this encounter Care Teams Electrical Systems Designer Relationship Specialty Start Date End Date Joan Antunez MD [address] [place] [address] PCP - General Internal Medicine 06/07/23 documented as of this encounter
--- OUTSIDE RECORDS SUMMARY | 2024-10-06 17:10 | XMS_ITS | Encounter Summary ---
Author Organization [employer] Address 75 [facility] 7t [place] [address] Care Team Providers Care Linseed Oil Press Tender Name Role Phone Brannon David SIDDIQUI Primary Care Provider Unavail Jesusita MayersP Primary Care Provider [phone] Joan Antunez MD Primary Care Provide r Encounter Details Date Type Department Care Team (Late st Contact Info) Description 10/26/2022 Orders Only [facility] CHC MED & PEDS [address] [place] [address] Radha Jimenez LPN Social History Tobacco Use [...] Description 11/02/2024 9:15 AM EDT Office Visit [facility] MEDICINE 230 [place], [place] [phone] Joan Antunez MD 230 [place] [address] 01/29/2025 9:00 AM EDT Office Visit [facility] ADULT DENTAL [address] [place], [place] [phone] Regina Broderick [address] [place] [address] documented as of this encounter Visit Diagnoses Not on filedocumented in this encounter Care Teams Linseed Oil Press Tender Relationship Specialty Start Date End Date David South AGNP PCP - General Family Medicine 10/08/22 04/28/23 Jesusita Garcia FNP [address] [place] [address] PCP - General Family Medicine 04/29/23 06/06/23 Joan Antunez MD [address] [place] [address] PCP - General Internal Medicine 06/07/23 documented as of this encounter
--- OUTSIDE RECORDS SUMMARY | 2024-10-06 17:10 | XMS_ITS | Encounter Summary ---
Author Organization [employer] Address [address] [facility] [address] 7t [place] [address] Care Team Providers Care Electrical Electronics Engineers Name Role Phone Joan Antunez MD Primary Care Provide r Reason for Visit * Reason Comments Med Refill Encounter Details Date Type Department Care Team ([facility] st Contact Info) Description 09/09/2024 Refill [facility] MEDICINE [address] [place], [place] [phone] Joan Antunez MD 230 [place], [place] [phone] Chronic diarrhea Social History Tobacco Use Types [...] Description 11/02/2024 9:15 AM EDT Office Visit [facility] MEDICINE [address] [place] [address] Joan Antunez MD [address] [place] [address] 01/29/2025 9:00 AM EDT Office Visit [facility] ADULT DENTAL [address] [place] [address] Meggan, Regina [address] [place] [address] documented as of this encounter Visit Diagnoses Diagnosis Chronic diarrhea Diarrhea documented in this encounter Additional Health Concerns Assessment Noted Time PHQ-9 Depression Total Score: 14 024 12:06 PM EDT documented as of this encounter Care Teams Electrical Electronics Engineers Relationship Specialty Start Date End Date Joan Antunez MD [address] [place] [address] PCP - General Internal Medicine 06/07/23 documented as of this encounter
--- OUTSIDE RECORDS SUMMARY | 2024-10-06 17:10 | XMS_ITS | Encounter Summary ---
Author Organization [employer] Address 75 [facility] 7t [place] [address] Care Team Providers Care Milk Tanker Driver Name Role Phone Joan Antunez MD Primary Care Provide r Reason for Visit * Reason Comments Med Refill Encounter Details Date Type Department Care Team (Late st Contact Info) Description 08/15/2024 Refill [facility] MEDICINE [address] [place], [place] [phone] Joan Antunez MD [address] [place], [place] [phone] Chronic back pain, unspecified back location, unspecified [...] Description 11/02/2024 9:15 AM EDT Office Visit [facility] MEDICINE [address] [place] [address] Joan Antunez MD [address] [place] [address] 01/29/2025 9:00 AM EDT Office Visit [facility] ADULT DENTAL [address] [place] [address] Meggan, Regina [address] [place] [address] documented as of this encounter Visit Diagnoses Diagnosis Chronic back pain, unspecified back location, unspecified back pain laterality documented in this encounter Additional Health Concerns Assessment Noted Time PHQ-9 Depression Total Score: 14 024 12:06 PM EDT documented as of this encounter Care Teams Milk Tanker Driver Relationship Specialty Start Date End Date Joan Antunez MD [address] [place] [id number] PCP - General Internal Medicine 06/07/23 documented as of this encounter
--- OUTSIDE RECORDS SUMMARY | 2024-10-06 17:10 | XMS_ITS | Clinical Summary ---
Author Organization [employer] Address [address] [facility] [address] [place] [address] Care Team Providers Care Ad Setter Name Role Phone Joan Antunez MD Primary [...] pull ups Periodontal disease 07/28/2024 Fractured dental rastafarian with loss of materi al 03/27/2024 Lupus [...] not to miss her appointments with both research quality assurance specialist and superintendent oil well services Nausea 10/13/2023 Polyarthralgia 07/29/2023 Assessment & Plan [...] posterolateral disc osteophyte complex, severe left-sided and hlkfeypr-ke-sjqkml right-sided facet arthropathy with active inflammatory changes at the left facet joint, with rxzbfswx-hm-kvkfko left-sided neural foraminal stenosis impinging on the exiting left L5 nerve root. No spinal canal stenosis. 2. Mild marrow edema in the L5 and S1 pedicles bilaterally which may be reactive or secondary to stress reactions. Patient requesting referral to orthopedic surgery. Assessment & Plan (11/06/2022 11:06 AM EDT): Per patient managed at [facility]. She is taking pregabalin 200 mg [...] her diet. She will speak to her research quality assurance specialist November 17 about potential exercise. Obstructive sleep apnea of adult 09/06/2015 Uterine leiomyoma 09/06/2015 Encounters Date Type Department Care Team Description 09/09/2024 Refill [facility] [address] [place] [address] Joan Antunez MD Chronic diarrhea 08/31/2024 Telephone [facility] [address] [place] [address] Joan Antunez MD Durable Medical Equipment (Home Care Delivered From: Pull-ups (XL)) 08/21/2024 9:00 AM EST Office Visit [facility] [address] [place] [address] Burke Frederick DDS Fractured dental rastafarian with loss of material (Primary Dx) 08/16/2024 Telephone [facility] [address] [place] [phone] Joan Antunez MD 08/15/2024 Refill [facility] [address] [place] [phone] Joan Antunez MD Chronic back pain, unspecified back location, unspecified back pain laterality 08/15/2024 Refill [facility] [address] [place] [phone] Joan Antunez MD Chronic back pain, unspecified back location, unspecified back pain laterality 08/12/2024 10:00 AM EST Office Visit [facility] [address] [place] [phone] John Melchor MD Vomiting and diarrhea (Primary Dx) 08/03/2024 9:00 AM EST Office Visit [facility] [address] [place] [phone] Joan Antunez MD Essential hypertension (Primary Dx); Chronic diarrhea; Systemic lupus erythematosus, unspecified SLE type, unspecified organ involvement status (CMS/HCC); Polyarthralgia; Mixed stress and urge urinary incontinence 08/03/[address] [address] Mady Hyde [place] Durable Medical Equipment 08/03/2024 Travel 07/28/2024 9:00 AM EST Office Visit [facility] [address] [place] [phone] Regina Broderick Periodontal disease (Primary Dx); Localized gingival recession; Dental calculus; Missing teeth, acquired 07/26/2024 Refill [facility] [address] [place] [phone] Joan Antunez MD 07/24/2024 Patient Outreach [facility] [address] [place] [address] Joan Antunez MD Pre-visit Planning ([facility] screening completed on 10/13/2023) 07/21/2024 Orders Only GENERIC EXTERNAL DATA DEPARTMENT Provider, Generic External Data from Last 3 Months Immunizations Name Administration Dates Next Due Hep A, Adult 07/30/2011,01/13/2011 Hep B, adult 11/06/2016, 1,02/23/2011,01/13 Influenza Injectable Quadriv alant Preservative Free IIV4 MDCK 06/17/2020 Influenza injectable quadriv alent IIV4 with preservative 06/10/2018,07/07/2017 Influenza injectable quadriv alent preservative free 07/29/2023,06/12/2021,07/27/2019,07/27,05/23/2015 Influenza, IIV3, injectable 05/10/2014 Influenza, Split (incl. odalis fied surface antigen) 06/19/2013,05/02/2012 Influenza, seasonal, injecta ble, preservative free 05/05/2024 [employer] SARS-CoV-2 Vaccination 11/16/2020 Pfizer Covid-19 Vaccine 12+ [...] Description 11/02/2024 9:15 AM EDT Office Visit [address] [address] Joan Antunez MD [address] [place] [address] 01/29/2025 9:00 AM EDT Office Visit [facility] [address] [place] [address] Regina Broderick [address] [place] [address] Health Maintenance Due Date Last Done Comments [...] this topic Meningococcal Vaccine Aged Out No ikre elizabeth eligible based on patient's age to [...] AM EST) Influenza B Negative Negative, Indeterminate [facility] QC Media Lot # [id number] [facility] Lot# Expiration Date [facility] Swab 08/12/2024 9:25 AM EST John Melchor MD POINT OF CARE TEST ENTER/EDIT OR DERABLES Final Result Performing Organization Address [facility]/ZIP Co de Phone Number [facility] [address] [place] [phone] * POCT Rapid Influenza A MAYEN ID NOW (08/12/2024 9:24 AM EST) Influenza A Negative Negative, Indeterminate [facility] QC Media Lot # [id number] [facility] Lot# Expiration Date [facility] Swab 08/12/2024 9:24 AM EST us John Melchor MD POINT OF CARE TEST ENTER/EDIT OR DERABLES Edited Result - Final Performing Organization Address [facility]/ZIP Co de Phone Number [facility] [address] [place] [phone] * POCT Rapid Covid-19 MAYEN ID NOW (08/12/2024 9:23 AM EST) Pathologist [facility] Coronavirus Antigen PCR Negative Negative, Indeterminate, None Detected, Invalid, Specimen unsatisfactory for evaluation, Weakly Positive QC Media Lot # [id number] Lot# Expiration Date [id number] Swab 08/12/2024 9:23 AM EST John Melchor MD POINT OF CARE TEST ENTER/EDIT OR DERABLES Final Result * (ABNORMAL) CBC auto differential (07/21/2024 9:57 AM EST) Pathologist [facility] White Blood Count 4.7(L) 4.8 - 10.8 X10*3/uL [facility] Red Blood Count 4.59 4.20 - 5.50 X10*6/uL [facility] Hemoglobin 13.4 12.0 - 16.0 g/dl [facility] Hematocrit 40.7 37.0 - 47.0 % [facility] Mean Corpuscular Volume 88.7 80.0 - 98.0 fL [facility] Mean Corpuscular Hemoglobin 29.2 27.0 - 33.0 pg [facility] Mean Corpuscular HGB Conc 32.9 31.0 - 35.0 g/dl [facility] Red Cell Distribution Width 14.6 11.0 - 16.0 % [facility] Platelet Count 184 160 - 400 X10*3/uL [facility] Mean Platelet Volume 12.9(H) 9.4 - 12.3 fL [facility] Neutrophils Percent Auto 60.7 45 - 73 % [facility] Imm Gran Pct Auto 0.4 0.0 - 0.4 % [facility] Lymphocytes Percent Auto 23.5 20 - 40 % [facility] Monocytes Percent Auto 7.9 2 - 11 % [facility] Eosinophils Percent Auto 6.6(H) 0 - 4 % [facility] Basophils Percent Auto 0.9 0 - 2 % [facility] NRBC Pct Auto 0.0 0.0 - 0.2 /100WBC [facility] Neutrophils Absolute Auto 2.9 2.0 - 8.3 x10*3/uL [facility] Imm Gran Abs Auto 0.02 0.00 - 0.03 X10*3/uL [facility] Lymphocytes Absolute Auto 1.1(L) 1.2 - 4.9 X10*3/uL [facility] Monocytes Absolute Auto 0.4 0.1 - 1.2 X10*3/uL [facility] Eosinophils Absolute Auto 0.3 0.0 - 0.4 X10*3/uL [facility] Basophils Absolute Auto 0.0 0.0 - 0.2 X10*3/uL [facility] NRBC Abs Auto 0.000 0.0 - 0.012 X10*3/uL [facility] 07/21/2024 9:57 AM EST 07/21/2024 9:57 AM EST Generic External Data Provider LAB BLOOD ORDERAB LES Final Result Performing Organization Address City/[facility]/ZIP Co de Phone Number [facility] [address] [place] [address] [phone] * DNA (ds) Antibody (07/21/2024 9:57 AM EST) [facility] Anti DNA DS Antibody 2 IU/mL [facility] Comment:IU/mL Interpretation < or = 4 Negative 5-9 Indeterminate > or = 10 PositiveTHIS TEST WAS PERFORMED AT:[facility] [address] [id number] HILARIO MD 07/21/2024 9:57 AM EST 07/21/2024 9:57 AM EST Generic External Data Provider LAB BLOOD ORDERAB LES Final Result Performing Organization Address [facility] Co de Phone Number [facility] [address] [place] [address] [phone] * Sed Rate by Radha Polanco (07/21/2024 9:57 AM EST) Pathologist [facility] Erythrocyte Sedimentation Rate 14 0 - 20 MM/HR [facility] Comment:Patients with polycy themia and many hemoglobin abnormalitiesmay have depressed sed rates whereas patients with anemiamay have elevated sed rates. 07/21/2024 9:57 AM EST 07/21/2024 9:57 AM EST us Generic External Data Provider LAB BLOOD ORDERAB LES Final Result Performing Organization Address [facility] Co de Phone Number [facility] [address] [place] [phone] * Complement Component C3c (07/21/2024 9:57 AM EST) Complement C3 170 83 - 193 mg/dL [facility] Comment:THIS TEST WAS PERFOR MED AT:[facility] [id number] [place] [address]IAPLTEULOGIO HILARIO MD 07/21/2024 9:57 AM EST 07/21/2024 9:57 AM EST us Generic External Data Provider LAB BLOOD ORDERAB LES Final Result Performing Organization Address [facility] de Phone Number [facility] [address] [place] [phone] * Complement Component C4c (07/21/2024 9:57 AM EST) Complement C4 40 15 - 57 mg/dL [facility] Comment:THIS TEST WAS PERFOR MED AT:[facility] [id number] [place] [address]ECQYKBLAS HILARIO MD 07/21/2024 9:57 AM EST 07/21/2024 9:57 AM EST us Generic External Data Provider LAB BLOOD ORDERAB LES Final Result Performing Organization Address [facility] Co de Phone Number [facility] [address] [place] [phone] * C-reactive Protein (07/21/2024 9:57 AM EST) C Reactive Protein 0.45 < or = 0.50 mg/dL [facility] 07/21/2024 9:57 AM EST 07/21/2024 2:58 PM EST us Generic External Data Provider LAB BLOOD ORDERAB LES Final Result [facility] [address] [place] [phone] * (ABNORMAL) Comprehensive Metabolic Panel (07/21/2024 9:57 AM EST) Sodium 140 135 - 145 mmol/L [facility] Potassium 4.0 3.3 - 5.1 mmol/L [facility] Chloride 108 96 - 108 mmol/L [facility] Carbon Dioxide 26 22 - 29 mmol/L [facility] Anion Gap 10(L) 12 - 20 [facility] Urea Nitrogen (BUN) 11 9 - 16 mg/dL [facility] Creatinine, Serum 0.86 0.5 - 1.4 mg/dL [facility] Estimated Glomerular Filt Rate >60 [facility] Comment:Chronic Kidney Disea se: Estimated GFR < 60 mL/min/1.13r4Cvmgdz Kidney Disease: Estimated GFR < 15 mL/min/1.73m2 Glucose 90 60 - 115 mg/dL [facility] Calcium 8.9 8.4 - 10.2 mg/dL [facility] Bilirubin, Total 0.4 0.0 - 1.0 mg/dL [facility] Aspartate Amino Transferase 24 5 - 31 U/L [facility] Alanine Aminotransferase 22 0 - 31 U/L [facility] Total Protein 6.4(L) 6.5 - 8.0 g/dL [facility] Albumin Level 3.6 3.5 - 5.0 g/dL [facility] Alkaline Phosphatase 121(H) 39 - 117 U/L [facility] 07/21/2024 9:57 AM EST 07/21/2024 2:58 PM EST Generic External Data Provider LAB BLOOD ORDERAB LES Final Result Performing Organization Address [facility] de Phone Number [facility] [address] [place] [phone] * Protein Creatinine Ratio, Urine (07/21/2024 9:45 AM EST) Creatinine, Urine 22.58 mg/dL [facility] Protein, Total, Random Urine <7 <12 mg/dL [facility] Protein/Creatin ine Ratio, Ur TNP <0.2 [facility] Comment:Unable to calculate urine protein creatinine ratio due tolow creatinine or protein result. 07/21/2024 9:45 AM EST 07/21/2024 10:25 AM EST Generic External Data Provider LAB URINE ORDERAB LES Final Result Performing Organization Address [facility] Phone Number [facility] [address] [place] [phone] * (ABNORMAL) Urinalysis Complete (07/21/2024 9:45 AM EST) Color Urine Yellow [facility] Appearance Urine Clear [facility] PH 5.5 5.0 - 9.0 [facility] Glucose Urine UA >=1000(A) Negative mg/dL [facility] Urine Blood Negative Negative [facility] Specific [place] - Urine 1.010 1.005 - 1.025 [facility] Urine Protein Negative Neg-Trace mg/dL [facility] Urine Ketones Negative Negative mg/dL [facility] Nitrite Urine Negative Negative [facility] Leukocyte Esterase Urine Negative Negative [facility] RBC Urine 0-2 0 - 2 /HPF [facility] Urine WBC 0-5 0 - 5 /HPF [facility] Urine Squamous Epithelial Cell 3-5 0 - 2 /HPF [facility] Urine Bacteria None Seen None Seen [facility] Hyaline Casts, Urine 0-2 0 - 2 /LPF [facility] 07/21/2024 9:45 AM EST 07/21/2024 10:25 AM EST us Generic External Data Provider LAB URINE ORDERAB LES Final Result [facility] [address] [facility] [place] [address] [phone] * BI Mammogram Screening Tomosynthesis Bilateral (03/10/2024 8:46 AM EDT) Anatomical Region Laterality Modality Breast Bilateral Mammography 03/10/2024 8:46 AM EDT Narrative 04/10/2024 11:06 PM EDT ? [facility] [place] ? [address] ?[place] [address] ? Mammography Report ? Signed ? Patient: Juan,Flor I ?MR#: [id number] ?? 59 ? : 1965 ?Acct:[id number] ? Age/Sex: 58 / F ?ADM Date: 03/10/24 ? Loc: HO.MAMMO ? Attending Dr: Joan Casiano MD ? Ordering Physician: Joan Antunez MD ?Results: ?? 1Negative ? Date of Service: 03/10/24 ?Follow Up: 1 Year From Orig ?? inal Mammogram ? Procedure(s): MM tomosynthesis screening BI ?? Accession Number(s): [id number] ? cc: Joan Antunez MD ? EXAMINATION: ?? MM SCREENING DIGITAL BREAST TOMOSYNTHESIS, BILATERAL ? CLINICAL INFORMATION: ? Screening. Asymptomatic. ? COMPARISON: ?? Mammography: This study is compared with prior exams dating back to ? 2017. ?? TECHNIQUE: ?? Digital breast tomosynthesis is [...] by Cielo Velazquez MD in OV> ? 04/10/242301 ? DD/ 0846 ? TD/TT: 03/10/24 0906 ? Mining Teacher: ? Procedure Note Elizabeth, Mayra - 04/10/2024 [facility] [address] [place] [address] [place]. [place], [place] [address] Mammography Report Signed Patient: Flor Martinez IMR#: [id number] : 1965Acct:[id number] Age/Sex: 58 / FADM Date: 03/10/24 Loc: HO.MAMMO Attending Dr: Joan Casiano MD Ordering Physician: Joan Antunez MDResults: 1Negative Date of Service: 03/10/24Follow Up: 1 Year From Orig ina Mammogram Procedure(s): MM tomosynthesis screening BI Accession Number(s): [id number] cc: Joan Antunez MD EXAMINATION: MM SCREENING [...] OV> 04/10/242301 DD/ 0846 TD/TT: 03/10/24 0906 Mining Teacher: Joan Casiano MD IMG BI PROCEDURES Fin al Result * Hepatitis Panel, General (11/17/2023 9:47 AM EDT) Hepatitis A IgM Nonreactive Nonreactive [facility] Comment:IgM antibodies to PICKENS V not detected; does not exclude earlyacute or recovered HAV infection. ~Hepatitis B Surface Antibody REACTIVE Nonreactive [facility] Comment:REACTIVE: > 11.99 mI U/mL Hepatitis B Core Antibody Nonreactive Nonreactive [facility] Hepatitis C Antibody Nonreactive Nonreactive [facility] Comment:Antibodies to HCV no t detected; does not exclude early acuteHCV infection. Hepatitis B Surface Ag Negative Negative [facility] 11/17/2023 9:47 AM EDT 11/17/2023 9:47 AM EDT us Generic External Data Provider LAB BLOOD ORDERAB LES Final Result [facility] [address] [place] [phone] * HIV-1/2 Antigen and Antibodies, Fourth Generation, with Reflexes (10/13/2023 10:53 AM EST) HIV AB/AG Nonreactive Nonreactive [facility] Comment:HIV-1 p24 Ag and/or HIV-1/HIV-2 Ab not detected.A test result that is nonreactive does not exclude thepossibility of exposure to or infection with HIV-1 and/orHIV-2. Nonreactive results in this assay for individualswith prior exposure to HIV-1 and/or HIV-2 may be due toantigen and antibody levels that are below the limit ofdetection of this assay.The [employer] HIV Ag/Ab Combo assay result andsupplemental assay results should be interpreted inconjunction with the patient's clinical presentation,history and other laboratory results. If the results areinconsistent with clinical evidence, additional testing issuggested to confirm the result. Blood Venous blood specimen / Unknown 10/13/2023 10:53 AM EST 10/13/2023 1:07 PM EST us Joan Casiano MD LAB BLOOD ORDERABLES Final Result [facility] [address] [place] [phone] [phone] * (ABNORMAL) POCT HGB A1C (10/13/2023 10:18 AM EST) Hemoglobin A1C 6.4(A) 4.0 - 6.0 % QC Media Lot # [id number] Lot# Expiration Date Blood 10/13/2023 10:1 8 AM EST Joan Casiano MD POINT OF CARE TEST EN TER/EDIT ORDERABLES Final Result * (ABNORMAL) Lipid Panel, Standard (10/26/2022 9:27 AM EDT) Cholesterol, Total 115 <200 mg/dL [employer] [facility] HDL Cholesterol 40(L) > OR = 50 mg/dL [employer] [facility] Triglycerides 100 <150 mg/dL [employer] [facility] LDL Cholesterol 56 mg/dL (calc) [employer] [facility] Comment: Reference range: <100 Desirable range <100 mg/dL for primary prevention; ?? <70 mg/dL for patients with CHD or diabetic patients with > or = 2 CHD risk factors. LDL-C is now calculated using the Javan-Emery calculation, which is a validated novel method providing better accuracy than the Friedewald equation in the estimation of LDL-C. Javan GARCIA et al. DERRICK. 2013;310(19): 2489-7615 (http://education.TruClinic.MiniTime/faq/POF143) Chol/HDLC Ratio 2.9 <5.0 (calc) [employer] [facility] Non-HDL Cholesterol 75 <130 mg/dL (calc) [employer] [facility] Comment: For patients with diabetes plus 1 major ASCVD risk factor, treating to a non-HDL-C goal of <100 mg/dL (LDL-C of <70 mg/dL) is considered a therapeutic option. 10/26/2022 9:27 AM EDT 10/26/2022 9:28 AM EDT Narrative [facility] - 10/26/2022 9:57 PM EDT FASTING:YES FASTING: YES Katherine Da Silva MD LAB BLOOD ORDERABLES Final R esult [facility] [address] [facility], [place] [address] [employer] [facility] [address] [place] [phone] * Hm Colonoscopy (12/09/2016) Colonoscopy Normal Normal Narrative Mariel Tan - 12/09/2016 Recommended 5 year follow up Historical Provider HEALTH MAINTENANCE Final Result from Last 3 Months or Most Recently Relevant to Health Maintenance Insurance [address] [place], [place] [phone] [place] [address] - [facility] [address] [place] [address] DENTAL - [facility] [address] [place] [address] [address] [place] [address] [address] [place] [address] Care Teams Ad Setter Relationship Specialty Start Date End Date Joan Antunez MD [address] [place] [phone] PCP - General Internal Medicine 06/07/23
--- OUTSIDE RECORDS SUMMARY | 2024-10-06 17:10 | XMS_ITS | Encounter Summary ---
Author Organization [employer] Address [address] [facility] [place] [address] Care Team Providers Care Candy Starch Mold Printer Name Role Phone Joan Antunez MD Primary Care Provide r Encounter Details Date Type Department Care Team ([facility] st Contact Info) Description 06/22/2023 Abstract [facility] [address] [place], [place] [phone] Joan Antunez MD [address] [place], [place] [phone] Social History Tobacco Use Types Packs/Day Years [...] Description 11/02/2024 9:15 AM EDT Office Visit [facility] [address] [place] [address] Joan Antunez MD [address] [place] [address] 01/29/2025 9:00 AM EDT Office Visit [facility] AD[facility] [address] [place] [address] Meggan, Regina [address] [place] [address] documented as of this encounter Procedures Procedure [...] documented as of this encounter Care Teams Candy Starch Mold Printer Relationship Specialty Start Date End Date Joan Antunez MD [address] [place], [place] [phone] PCP - General Internal Medicine 06/07/23 documented as of this encounter
--- OUTSIDE RECORDS SUMMARY | 2024-10-06 17:10 | XMS_ITS | Encounter Summary ---
Author Organization [employer] Address [address] [place] [address] 7t [place] [address] Care Team Providers Care Inside Channel Account Manager Name Role Phone Jesusita Garcia LEATHA Primary Care Provider [phone] Joan Antunez MD Primary Care Provide r Encounter Details Date Type Department Care Team (Late Contact Info) Description 05/07/2023 Abstract [facility] [address] [place] [address] Burke Frederick DDS [address] [place] [address] Social History Tobacco Use Types Packs/Day Years [...] Description 11/02/2024 9:15 AM EDT Office Visit [facility] [address] [place] [address] Joan Antunez MD [address] [place] [address] 01/29/2025 9:00 AM EDT Office Visit [facility] ADULT DENTAL [address] [place] [address] Regina Broderick [address] [place] [address] documented as of this encounter Visit Diagnoses Not on filedocumented in this encounter Additional Health Concerns Assessment Noted Time PHQ-9 Depression Total Score: 8 11/07/19 10:23 AM EDT documented as of this encounter Care Teams Inside Channel Account Manager Relationship Specialty Start Date End Date Jesusita Garcia FNP [address] [place] [phone] PCP - General Family Medicine 04/29/23 06/06/23 Joan Antunez MD [address] [place] [phone] PCP - General Internal Medicine 06/07/23 documented as of this encounter
--- OUTSIDE RECORDS SUMMARY | 2024-10-06 17:10 | XMS_ITS | Encounter Summary ---
Author Organization [employer] Address 75 [facility] 7t [place] [address] Care Team Providers Care Driver Starting Gate Name Role Phone Joan Antunez MD Primary Care Provide r Reason for Visit * Reason Onset Date Comments Nurse Triage 12/16/2023 Encounter Details Date Type Department Care Team ([facility] st Contact Info) Description 12/16/2023 Telephone [facility] MEDICINE 230 [place], [place] [phone] Joan Antunez MD 230 [place] [address] Nurse Triage Social History Tobacco Use Types [...] acuity questions The caller accepted this outcome tamazight speaker documented in this encounter Plan of Treatment Upcoming Encounters Date Type Department Care Team (Late st Contact Info) Description 11/02/2024 9:15 AM EDT Office Visit [facility] MEDICINE 230 [place], [place] [phone] Joan Antunez MD 230 [place] [address] 01/29/2025 9:00 AM EDT Office Visit [facility] ADULT DENTAL 230 [place], [place] [phone] Regina Broderick 230 [place], [place] [phone] documented as of this encounter Visit Diagnoses Not on filedocumented in this encounter Additional Health Concerns Assessment Noted Time PHQ-9 Depression Total Score: 14 024 12:06 PM EDT documented as of this encounter Care Teams Driver Starting Gate Relationship Specialty Start Date End Date Joan Antunez MD 230 [place] [address] PCP - General Internal Medicine 06/07/23 documented as of this encounter
--- OUTSIDE RECORDS SUMMARY | 2024-10-06 17:10 | XMS_ITS | Encounter Summary ---
Author Organization [employer] Address 75 [facility] 7 [place] [address] Care Team Providers Care Hearing And Speech Assistant Name Role Phone Katherine Da Silva MD Primary Care Provider Madhuri Grayson [facility] Primary Care Provider David Blank[facility]hip [facility] Primary Care Provider Jesusita Sandra PAPER CONSERVATOR Primary Care Provider [phone] Joan Antunez MD Primary Care Provide r Encounter Details Date Type Department Care Team (Latest Contact Info) Description 10/06/2019 Abstract [facility] CONVERSIONS Dental, Provider, DDS Social History [...] [facility] 230 [place], [place] [phone] Joan Antunez MD 230 [place] [address] 01/29/2025 9:00 AM EDT Office Visit [facility] ADULT DENTAL 230 [place], [place] [phone] Regina Broderick 230 [place] [address] documented as of this encounter Visit Diagnoses Not on filedocumented in this encounter Care Teams Hearing And Speech Assistant Relationship Specialty Start Date End Date Katherine Da Silva MD PCP - General Family Medicine 09/24/20 06/28/22 Madhuri Sawyer FNP PCP - General 06/29/22 10/07/22 David South AGNP PCP - General Family Medicine 10/08/22 04/28/23 Jesusita Garcia FNP [address] [place] [address] PCP - General Family Medicine 04/29/23 06/06/23 Joan Antunez MD [address] [place] [address] PCP - General Internal Medicine 06/07/23 documented as of this encounter
--- OUTSIDE RECORDS SUMMARY | 2024-10-06 17:10 | XMS_ITS | Encounter Summary ---
Author Organization [employer] Address [address] [facility] [address] 7[address] [place] [address] Care Team Providers Care Shorthand Teacher Name Role Phone Joan Antunez MD Primary Care Provide r Encounter Details Date Type Department Care Team ([facility] st Contact Info) Description 09/08/2023 Orders Only [facility] MEDICINE 230 [place], [place] [phone] Joan Antunez MD 230 [place], [place] [phone] Prediabetes (Primary Dx) Social History Tobacco Use [...] 11/02/2024 9:15 AM EDT Office Visit [facility] MEDICINE 230 [place] [address] Joan Antunez MD 230 [place] [address] 01/29/2025 9:00 AM EDT Office Visit [facility] ADULT DENTAL 230 [place] [address] Meggan, Regina 230 [place] [address] documented as of this encounter Visit Diagnoses Diagnosis Prediabetes- Primary Other abnormal glucose documented in this encounter Additional Health Concerns Assessment Noted Time PHQ-9 Depression Total Score: 8 11/07/19 10:23 AM EDT documented as of this encounter Care Teams Shorthand Teacher Relationship Specialty Start Date End Date Joan Antunez MD [address] [place] [address] PCP - General Internal Medicine 06/07/23 documented as of this encounter
--- OUTSIDE RECORDS SUMMARY | 2024-10-06 17:10 | XMS_ITS | Encounter Summary ---
Author Organization [employer] Address [address] [facility] [address] 7t [place] [address] Care Team Providers Care Technology Engineer Name Role Phone Joan Antunez MD Primary Care Provide r Encounter Details Date Type Department Care Team ([facility] st Contact Info) Description 12/16/2023 Telephone [facility] MEDICINE 230 [place], [place] [phone] Joan Antunez MD 230 [place], [place] [phone] Social History Tobacco Use Types Packs/Day Years [...] Description 11/02/2024 9:15 AM EDT Office Visit [facility] MEDICINE 230 [place] [address] Joan Antunez MD 230 [place] [address] 01/29/2025 9:00 AM EDT Office Visit [facility] ADULT DENTAL 230 [place] [address] Meggan, Regina 230 [place] [address] documented as of this encounter Visit Diagnoses Not on filedocumented in this encounter Additional Health Concerns Assessment Noted Time PHQ-9 Depression Total Score: 14 024 12:06 PM EDT documented as of this encounter Care Teams Technology Engineer Relationship Specialty Start Date End Date Joan Antunez MD [address] [place] [address] PCP - General Internal Medicine 06/07/23 documented as of this encounter
--- OUTSIDE RECORDS SUMMARY | 2024-10-06 17:10 | XMS_ITS | Encounter Summary ---
Author Organization [employer] Address 75 [facility] 7t [place] [address] Care Team Providers Care Custodial Foreman Name Role Phone Katherine Da Silva MD Primary Care Provider Madhuri Grayson [facility] Primary Care Provider David Blankenship [facility] Primary Care Provider Jesusita Sandra DOUBLE ENDING MACHINE OPERATOR Primary Care Provider [phone] Joan Antunez MD Primary Care Provide r Encounter Details Date Type Department Care Team (Latest Contact Info) Description 10/05/2018 Abstract [facility] CONVERSIONS Dental, Provider, DDS Social [...] Description 11/02/2024 9:15 AM EDT Office Visit [facility] MEDICINE 230 [place], [place] [phone] Joan Antunez MD 230 [place] [address] 01/29/2025 9:00 AM EDT Office Visit [facility] ADULT DENTAL 230 [place], [place] [phone] Regina Broderick 230 [place] [address] documented as of this encounter Visit Diagnoses Not on filedocumented in this encounter Care Teams Custodial Foreman Relationship Specialty Start Date End Date Katherine Da Silva MD PCP - General Family Medicine 09/24/20 06/28/22 Madhuri Sawyer FNP PCP - General 06/29/22 10/07/22 David South AGNP PCP - General Family Medicine 10/08/22 04/28/23 Jesusita Garcia FNP [address] [place] [address] PCP - General Family Medicine 04/29/23 06/06/23 Joan Antunez MD [address] [place] [address] PCP - General Internal Medicine 06/07/23 documented as of this encounter
--- OUTSIDE RECORDS SUMMARY | 2024-10-06 17:11 | XMS_ITS | Encounter Summary ---
Author Organization [employer] Address 75 [facility] 7 [place] [address] Care Team Providers Care Animal Cop Name Role Phone Digna Madhuri [facility] Primary Care Provider David Blankenship Primary Care Provider Jesusita Sandra [facility] Primary Care Provider [phone] Joan Antunez MD Primary Care Provide r Reason for Visit * Reason Comments Med Refill Encounter Details Date Type Department Care Team (Late st Contact Info) Description 08/11/2022 Refill [facility] MEDICINE 230 [place] [address] Delma Gauthier MD 230 [place] [address] Nausea (Primary Dx) Social History Tobacco Use [...] 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, she needs 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 IADL's, but does [...] Description 11/02/2024 9:15 AM EDT Office Visit [facility] MEDICINE 230 [place] [address] Joan Antunez MD 230 [place] [address] 01/29/2025 9:00 AM EDT Office Visit [facility] ADULT DENTAL 230 [place] [address] Arsenio Broderickaris 230 [place] [address] documented as of this encounter Visit Diagnoses Diagnosis Nausea- Primary Nausea alone documented in this encounter Care Teams Animal Cop Relationship Specialty Start Date End Date Madhuri Sawyer FNP PCP - General 06/29/22 10/07/22 David South AGNP PCP - General Family Medicine 10/08/22 04/28/23 Jesusita Garcia FNP [address] [place] [address] PCP - General Family Medicine 04/29/23 06/06/23 Joan Antunez MD [address] [place] [address] PCP - General Internal Medicine 06/07/23 documented as of this encounter
--- OUTSIDE RECORDS SUMMARY | 2024-10-06 17:11 | XMS_ITS | Encounter Summary ---
Author Organization [employer] Address [address] [place] [address] 7 [place] [address] Care Team Providers Care Design Project Manager Name Role Phone DignaMadhuri [facility] Primary Care Provider David Blankenship [facility] Primary Care Provider Jesusita Sandra [facility] Primary Care Provider [phone] Joan Antunez MD Primary Care Provide r Reason for Visit * Reason Comments Med Refill Encounter Details Date Type Department Care Team (Late st Contact Info) Description 08/06/2022 Refill [facility] MEDICINE 230 [place] [address] Delma Gauthier MD [address] [place] [address] Social History Tobacco Use Types Packs/Day Years [...] 11/02/2024 9:15 AM EDT Office Visit [facility] MEDICINE 230 [place] [address] Joan Antunez MD 230 [place] [address] 01/29/2025 9:00 AM EDT Office Visit [facility] ADULT DENTAL 230 [place], [place] [phone] Regina Broderick 230 [place] [address] documented as of this encounter Visit Diagnoses Not on filedocumented in this encounter Care Teams Design Project Manager Relationship Specialty Start Date End Date Madhuri Sawyer FNP PCP - General 06/29/22 10/07/22 David South AGNP PCP - General Family Medicine 10/08/22 04/28/23 Jesusita Garcia FNP 230 [place] [address] PCP - General Family Medicine 04/29/23 06/06/23 Joan Antunez MD [address] [place] [address] PCP - General Internal Medicine 06/07/23 documented as of this encounter
[2024-10-07 14:50] LABS: Adenovirus F 40/41 Not Detected (Not Detect.); Astrovirus Not Detected (Not Detect.); Campylobacter Not Detected (Not Detect.); Cryptosporidium Not Detected (Not Detect.); Cyclospora cayetanensis Not Detected (Not Detect.); E. coli EAEC Not Detected (Not Detect.); E. coli EPEC Not Detected (Not Detect.); E. coli ETEC Not Detected (Not Detect.); E. coli STEC Not Detected (Not Detect.); Entamoeba histolytica Not Detected (Not Detect.); Giardia lamblia Not Detected (Not Detect.); Norovirus GI/GII Not Detected (Not Detect.); Plesiomonas shigelloides Not Detected (Not Detect.); Rotavirus A Not Detected (Not Detect.); Salmonella Not Detected (Not Detect.); Sapovirus Not Detected (Not Detect.); Shigella sp./EIEC Not Detected (Not Detect.); Vibrio Not Detected (Not Detect.); Vibrio Cholerae Not Detected (Not Detect.); Yersinia enterocolitica Not Detected (Not Detect.)
== END 2024-10-06 15:00 | disposition home or self-care (01) ==
LOC: HO.LNP 14:59
PROVIDERS: Visit Provider Internal Medicine
DX: K59.1 Functional diarrhea (principal)
CPT/HCPCS: 87015; 87272; 87329; 87507

== ENCOUNTER 2024-10-11 | Outpatient (REF) | payer OTHER, SELFPAY ==
--- OUTSIDE RECORDS SUMMARY | 2024-10-12 14:28 | XMS_ITS | Encounter Summary ---
Author Organization [employer] Address [address] [facility] [address] 7t [place] [address] Care Team Providers Care Wind Energy Project Manager Name Role Phone Joan Antunez MD Primary Care Provide r Encounter Details Date Type Department Care Team ([facility] st Contact Info) Description 09/08/2023 Orders Only [facility] MEDICINE 230 [place], [place] [phone] Joan Antunez MD 230 [place], [place] [phone] Prediabetes (Primary Dx) Social History Tobacco Use [...] Office Visit [facility] MEDICINE 230 [place] [address] Joan Antunez MD 230 [place] [address] 01/29/2025 9:00 AM EDT Office Visit [facility] ADULT DENTAL 230 [place] [address] Meggan, Regina 230 [place] [address] documented as of this encounter Visit Diagnoses Diagnosis Prediabetes- Primary Other abnormal glucose documented in this encounter Additional Health Concerns Assessment Noted Time PHQ-9 Depression Total Score: 8 11/07/19 10:23 AM EDT documented as of this encounter Care Teams Wind Energy Project Manager Relationship Specialty Start Date End Date Joan Antunez MD [address] [place] [address] PCP - General Internal Medicine 06/07/23 documented as of this encounter
--- OUTSIDE RECORDS SUMMARY | 2024-10-12 14:28 | XMS_ITS | Encounter Summary ---
Author Organization [employer] Address 75 [facility] 7t [place] [address] Care Team Providers Care Composite Mechanic Name Role Phone Katherine Da Silva MD Primary Care Provider Madhuri Grayson [facility] Primary Care Provider David Blankenship [facility] Primary Care Provider Jesusita Sandra DIRECTOR OF DIGITAL MARKETING Primary Care Provider [phone] Joan Antunez MD Primary Care Provide r Encounter Details Date Type Department Care Team (Latest Contact Info) Description 10/05/2018 Abstract [facility] CONVERSIONS Dental, Provider, DDS Social History [...] Description 11/02/2024 9:15 AM EDT Office Visit [facility] MEDICINE 230 [place], [place] [phone] Joan Antunez MD 230 [place] [address] 01/29/2025 9:00 AM EDT Office Visit [facility] ADULT DENTAL 230 [place], [place] [phone] Regina Broderick 230 [place] [address] documented as of this encounter Visit Diagnoses Not on filedocumented in this encounter Care Teams Composite Mechanic Relationship Specialty Start Date End Date Katherine Da Silva MD PCP - General Family Medicine 09/24/20 06/28/22 Madhuri Sawyer FNP PCP - General 06/29/22 10/07/22 David South AGNP PCP - General Family Medicine 10/08/22 04/28/23 Jesusita Garcia FNP [address] [place] [address] PCP - General Family Medicine 04/29/23 06/06/23 Joan Antunez MD [address] [place] [address] PCP - General Internal Medicine 06/07/23 documented as of this encounter
--- OUTSIDE RECORDS SUMMARY | 2024-10-12 14:28 | XMS_ITS | Encounter Summary ---
Author Organization [employer] Address [address] [place] [address] 7t [place] [address] Care Team Providers Care Hand Fabric Cutter Name Role Phone Jesusita Garcia LEATHA Primary Care Provider [phone] Joan Antunez MD Primary Care Provide r Encounter Details Date Type Department Care Team (Late Contact Info) Description 05/07/2023 Abstract [facility] PEDI[facility]IC DENTAL 230 [place] [address] Burke Frederick DDS 230 [place] [address] Social History Tobacco Use Types Packs/Day Years [...] 11/02/2024 9:15 AM EDT Office Visit [facility] MEDICINE 230 [place] [address] Joan Antunez MD 230 [place] [address] 01/29/2025 9:00 AM EDT Office Visit [facility] ADULT DENTAL 230 [place] [address] Regina Broderick 230 [place] [address] documented as of this encounter Visit Diagnoses Not on filedocumented in this encounter Additional Health Concerns Assessment Noted Time PHQ-9 Depression Total Score: 8 11/07/19 10:23 AM EDT documented as of this encounter Care Teams Hand Fabric Cutter Relationship Specialty Start Date End Date Jesusita Garcia FNP [address] [place] [address] PCP - General Family Medicine 04/29/23 06/06/23 Joan Antunez MD [address] [place] [address] PCP - General Internal Medicine 06/07/23 documented as of this encounter
--- OUTSIDE RECORDS SUMMARY | 2024-10-12 14:28 | XMS_ITS | Encounter Summary ---
Author Organization [employer] Address 75 [facility] 7t [place] [address] Care Team Providers Care Field Artillery Fire Control Man Name Role Phone DignaMadhuri [facility] Primary Care Provider David Blankenship [facility] Primary Care Provider Jesusita Sandra [facility] Primary Care Provider [phone] Joan Antunez MD Primary Care Provide r Encounter Details Date Type Department Care Team (Late st Contact Info) Description 08/11/2022 Orders Only [facility] MED & PEDS [address] [place] [address] Radha Jimenez LPN Social History Tobacco Use [...] Office Visit [facility] MEDICINE 230 [place], [place] [phone] Joan Antunez MD 230 [place], [place] [phone] 01/29/2025 9:00 AM EDT Office Visit [facility] ADULT DENTAL [address] [place] [address] Regina Broderick [address] [place] [address] documented as of this encounter Visit Diagnoses Not on filedocumented in this encounter Care Teams Field Artillery Fire Control Man Relationship Specialty Start Date End Date Madhuri Sawyer FNP PCP - General 06/29/22 10/07/22 David South AGNP PCP - General Family Medicine 10/08/22 04/28/23 Jesusita Garcia FNP 230 [place] [address] PCP - General Family Medicine 04/29/23 06/06/23 Joan Antunez MD 230 [place] [address] PCP - General Internal Medicine 06/07/23 documented as of this encounter
--- OUTSIDE RECORDS SUMMARY | 2024-10-12 14:28 | XMS_ITS | Encounter Summary ---
Author Organization [employer] Address [address] [place] [address] 7 [place] [address] Care Team Providers Care Due Diligence Coordinator Name Role Phone DignaMadhuri [facility] Primary Care Provider David Blankenship [facility] Primary Care Provider Jesusita Sandra [facility] Primary Care Provider [phone] Joan Antunez MD Primary Care Provide r Reason for Visit * Reason Comments Med Refill Encounter Details Date Type Department Care Team (Late st Contact Info) Description 08/06/2022 Refill [facility] MEDICINE 230 [place] [address] Delma Gauthier MD [address] [place] [address] Social History Tobacco Use Types Packs/Day Years [...] 9:15 AM EDT Office Visit [facility] MEDICINE 230 [place] [address] Joan Antunez MD 230 [place] [address] 01/29/2025 9:00 AM EDT Office Visit [facility] ADULT DENTAL 230 [place], [place] [phone] Regina Broderick 230 [place] [address] documented as of this encounter Visit Diagnoses Not on filedocumented in this encounter Care Teams Due Diligence Coordinator Relationship Specialty Start Date End Date Madhuri Sawyer FNP PCP - General 06/29/22 10/07/22 David South AGNP PCP - General Family Medicine 10/08/22 04/28/23 Jesusita Garcia FNP 230 [place] [address] PCP - General Family Medicine 04/29/23 06/06/23 Joan Antunez MD [address] [place] [address] PCP - General Internal Medicine 06/07/23 documented as of this encounter
--- OUTSIDE RECORDS SUMMARY | 2024-10-12 14:28 | XMS_ITS | Encounter Summary ---
Author Organization [employer] Address [address] [facility] 7t [place] [address] Care Team Providers Care Channel Marketing Specialist Name Role Phone Joan Antunez MD Primary Care Provide r Encounter Details Date Type Department Care Team ([facility] st Contact Info) Description 06/22/2023 Abstract [facility] MEDICINE 230 [place], [place] [phone] Joan nAtunez MD 230 [place], [place] [phone] Social History Tobacco Use Types Packs/Day Years [...] Visit [facility] MEDICINE 230 [place] [address] Joan Antunez MD 230 [place] [address] 01/29/2025 9:00 AM EDT Office Visit [facility] ADULT DENTAL 230 [place] [address] Meggan, Regina 230 [place] [address] documented as of this encounter Procedures Procedure [...] documented as of this encounter Care Teams Channel Marketing Specialist Relationship Specialty Start Date End Date Joan Antunez MD 230 [place], [place] [phone] PCP - General Internal Medicine 06/07/23 documented as of this encounter
--- OUTSIDE RECORDS SUMMARY | 2024-10-12 14:28 | XMS_ITS | Encounter Summary ---
Author Organization [employer] Address 75 [facility] 7t [place] [address] Care Team Providers Care Medical Attendant Name Role Phone Brannon David SIDDIQUI Primary Care Provider Unavail Jesusita MayersP Primary Care Provider [phone] Joan Antunez MD Primary Care Provide r Encounter Details Date Type Department Care Team (Late st Contact Info) Description 10/26/2022 Orders Only [facility] MED & PEDS [address] [place] [address] Radha Jimenez LPN Social History Tobacco Use [...] Description 11/02/2024 9:15 AM EDT Office Visit [facility] MEDICINE 230 [place], [place] [phone] Joan Antunez MD 230 [place] [address] 01/29/2025 9:00 AM EDT Office Visit [facility] ADULT DENTAL 230 [place], [place] [phone] Regina Broderick 230 [place] [address] documented as of this encounter Visit Diagnoses Not on filedocumented in this encounter Care Teams Medical Attendant Relationship Specialty Start Date End Date David South AGNP PCP - General Family Medicine 10/08/22 04/28/23 Jesusita Garcia FNP 230 [place] [address] PCP - General Family Medicine 04/29/23 06/06/23 Joan Antunez MD 230 [place] [address] PCP - General Internal Medicine 06/07/23 documented as of this encounter
--- OUTSIDE RECORDS SUMMARY | 2024-10-12 14:28 | XMS_ITS | Encounter Summary ---
Author Organization [email or web address] Address 75 [facility] 7t [place] [address] Care Team Providers Care Ground Nuclear Weapons Assembly Officer Name Role Phone Joan Antunez MD Primary Care Provide r Reason for Visit * Reason Onset Date Comments Nurse Triage 12/16/2023 Encounter Details Date Type Department Care Team ([facility] st Contact Info) Description 12/16/2023 Telephone [facility] MEDICINE 230 [place], [place] [phone] Joan Antunez MD 230 [place] [address] Nurse Triage Social History Tobacco Use Types [...] acuity questions The caller accepted this outcome venezuelan speaker documented in this encounter Plan of Treatment Upcoming Encounters Date Type Department Care Team (Late st Contact Info) Description 11/02/2024 9:15 AM EDT Office Visit [facility] MEDICINE 230 [place], [place] [phone] Joan Antunez MD 230 [place] [address] 01/29/2025 9:00 AM EDT Office Visit [facility] ADULT DENTAL 230 [place], [place] [phone] Regina Broderick 230 [place], [place] [phone] documented as of this encounter Visit Diagnoses Not on filedocumented in this encounter Additional Health Concerns Assessment Noted Time PHQ-9 Depression Total Score: 14 024 12:06 PM EDT documented as of this encounter Care Teams Ground Nuclear Weapons Assembly Officer Relationship Specialty Start Date End Date Joan Antunez MD 230 [place] [address] PCP - General Internal Medicine 06/07/23 documented as of this encounter
--- OUTSIDE RECORDS SUMMARY | 2024-10-12 14:28 | XMS_ITS | Encounter Summary ---
Author Organization [employer] Address [address] [facility] 7 [place] [address] Care Team Providers Care Cosmetic Manager Name Role Phone Katherine Da Silva MD Primary Care Provider Madhuri Grayson [facility] Primary Care Provider [facility] Primary Care Provider Jesusita Sandra SPECIAL EDUCATOR Primary Care Provider [phone] Joan Antunez MD Primary Care Provide r Encounter Details Date Type Department Care Team (Latest Contact Info) Description 10/06/2019 Abstract [facility] CONVERSIONS Dental, Provider, DDS Social History [...] [facility] MEDICINE [address] [place], [place] [phone] Joan Antunez MD [address] [place] [address] 01/29/2025 9:00 AM EDT Office Visit [facility] ADULT DENTAL [address] [place], [place] [phone] Regina Broderick [address] [place] [address] documented as of this encounter Visit Diagnoses Not on filedocumented in this encounter Care Teams Cosmetic Manager Relationship Specialty Start Date End Date Katherine Da Silva MD PCP - General Family Medicine 09/24/20 06/28/22 Madhuri Sawyer FNP PCP - General 06/29/22 10/07/22 David South AGNP PCP - General Family Medicine 10/08/22 04/28/23 Jesusita Garcia FNP [address] [place] [id number] PCP - General Family Medicine 04/29/23 06/06/23 Joan Antunez MD [address] [place] [id number] PCP - General Internal Medicine 06/07/23 documented as of this encounter
--- OUTSIDE RECORDS SUMMARY | 2024-10-12 14:28 | XMS_ITS | Encounter Summary ---
Author Organization [email or web address] Address [address] [facility] 7t [place] [address] Care Team Providers Care Diamond Grinder Name Role Phone Joan Antunez MD Primary Care Provide r Reason for Visit * Reason Onset Date Comments Nurse Triage 11/17/2023 Encounter Details Date Type Department Care Team ([facility] st Contact Info) Description 11/17/2023 Telephone [facility] MEDICINE [address] [place], [place] [phone] Joan Antunez MD [address] [place] [address] Nurse Triage Social History Tobacco Use Types [...] PM EDT Patient referred to [facility] for FILL[facility] L[facility] UP 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 Paperwork sent to Provider for signature an then it will be faxed to [facility]. * Telephone Encounter - Delphine Burns RN - 11/17/2023 1:08 PM EDT Triage call with [place] [id number] Pt reports diarrhea which started again 2-3 [...] country. Pt is offered to come to [facility] to be seen by provider but,has apt [...] nurse or provider soon Reason: Getting worse Israeli Speaker documented in this encounter Plan of Treatment Upcoming Encounters Date Type Department Care Team (Late st Contact Info) Description 11/02/2024 9:15 AM EDT Office Visit [facility] MEDICINE [address] [place] [address] Joan Antunez MD [address] [place] [address] 01/29/2025 9:00 AM EDT Office Visit [facility] ADULT DENTAL [address] [place] [address] Meggan, Regina [address] [place] [address] documented as of this encounter Visit Diagnoses Not on filedocumented in this encounter Additional Health Concerns Assessment Noted Time PHQ-9 Depression Total Score: 8 11/07/19 10:23 AM EDT documented as of this encounter Care Teams Diamond Grinder Relationship Specialty Start Date End Date Joan Antunez MD [address] [place] [address] PCP - General Internal Medicine 06/07/23 documented as of this encounter
--- OUTSIDE RECORDS SUMMARY | 2024-10-12 14:28 | XMS_ITS | Encounter Summary ---
Author Organization [employer] Address [address] [facility] 7t [place] [address] Care Team Providers Care Steam Crane Operator Name Role Phone David South Primary Care Provider Jesusita Sandra Primary Care Provider [phone] Joan Antunez MD Primary Care Provide r Reason for Visit * Reason Onset Date Comments Appointment 03/12/2023 Encounter Details Date Type Department Care Team (Late st Contact Info) Description 03/12/2023 Telephone [facility] ADULT DENTAL [address] [place], [place] [phone] MegganArsenioRegina [address] [place] [address] Appointment Social History Tobacco Use Types Packs/Day [...] visit scheduled for 8am. Informed daughter that [facility] dental has her infomration and will call her when it is her turn on the list again to call in. Encouraged patient to call in from time to time looking for cancellations DR documented in this encounter Plan of Treatment Upcoming Encounters Date Type Department Care Team (Late st Contact Info) Description 11/02/2024 9:15 AM EDT Office Visit [facility] MEDICINE [address] [place] [address] Joan Antunez MD [address] [place] [address] 01/29/2025 9:00 AM EDT Office Visit [facility] ADULT DENTAL [address] [place] [address] Regina Broderick [address] [place] [address] documented as of this encounter Visit Diagnoses Not on filedocumented in this encounter Additional Health Concerns Assessment Noted Time PHQ-9 Depression Total Score: 8 11/07/19 10:23 AM EDT documented as of this encounter Care Teams Steam Crane Operator Relationship Specialty Start Date End Date David South AGNP PCP - General Family Medicine 10/08/22 04/28/23 Jesusita Garcia FNP [address] [place] [phone] PCP - General Family Medicine 04/29/23 06/06/23 Joan Antunez MD [address] [place] [phone] PCP - General Internal Medicine 06/07/23 documented as of this encounter
--- OUTSIDE RECORDS SUMMARY | 2024-10-12 14:28 | XMS_ITS | Encounter Summary ---
Author Organization [employer] Address [address] [facility] [address] 7[address] [place] [address] Care Team Providers Care Iap Displays Analyst Name Role Phone Joan Antunez MD Primary Care Provide r Encounter Details Date Type Department Care Team ([facility] st Contact Info) Description 12/16/2023 Telephone [facility] MEDICINE [address] [place], [place] [phone] Joan Antunez MD [address] [place], [place] [phone] Social History Tobacco Use Types Packs/Day Years [...] 11/02/2024 9:15 AM EDT Office Visit [facility] MEDICINE [address] [place] [address] Joan Antunez MD [address] [place] [address] 01/29/2025 9:00 AM EDT Office Visit [facility] ADULT DENTAL [address] [place] [address] Meggan, Regina [address] [place] [address] documented as of this encounter Visit Diagnoses Not on filedocumented in this encounter Additional Health Concerns Assessment Noted Time PHQ-9 Depression Total Score: 14 024 12:06 PM EDT documented as of this encounter Care Teams Iap Displays Analyst Relationship Specialty Start Date End Date Joan Antunez MD [address] [place] [phone] PCP - General Internal Medicine 06/07/23 documented as of this encounter
--- OUTSIDE RECORDS SUMMARY | 2024-10-12 14:28 | XMS_ITS | Clinical Summary ---
Author Organization [employer] Address [address] [facility] 7[address] [place] [address] Care Team Providers Care Program Counselor Name Role Phone Joan Antunez MD Primary Care Provide r Allergies Active Allergy Reactions Criticality Noted Date Comments Diclofenac Rash,Itching Low 04/20/2017 Medications Calcium Antacid Extra Strength 750 MG chewable tabletIndication s:GERD without esophagitis CHEW 1 TABLET BY MOUTH THREE TIMES DAILY BEFORE MEALS 90 tablet 1 3 Active Entresto 24-26 MG tablet TAKE 1 TABLET BY MOUTH TWICE DAILY IN THE MORNING AND IN THE EVENING 3 Active OXcarbazepine (Trileptal) 300 MG tablet take 1 tablet by oral route in the morning & 3 at bedtime 0 Active isosorbide mononitrate ER (Imdur) 30 MG 24 hr tablet Take 30 mg by mouth in the morning. 3 Active chlorproMAZINE (Thorazine) 50 MG tablet take 2 tablets by oral route every bedtime 0 Active dexAMETHasone (Decadron) 4 MG tabletIndication s:Chronic back pain, unspecified back location, unspecified back pain laterality Take 1 tablet (4 mg) by mouth with breakfast for 5 days. 5 tablet 3 Active Mometasone Furoate (Asmanex HFA) 100 MCG/ACT aerosol INHALE 2 PUFFS BY MOUTH TWICE DAILY. RINSE MOUTH AFTER USING. 13 g 2 3 Active albuterol (Ventolin HFA) 108 (90 Base) MCG/ACT inhalerIndicatio ns:Mild persistent asthma, unspecified whether complicated Inhale 2 puffs every 6 (six) hours if needed for wheezing. 18 g 4 Active budesonide (Pulmicort Flexhaler) 180 MCG/ACT inhalerIndicatio ns:Mild persistent asthma, unspecified whether complicated Inhale 2 puffs in the morning and at bedtime. Rinse mouth with water after use to reduce aftertaste and incidence of candidiasis. Do not swallow. 1 each 2 4 Active potassium chloride CR (Klor-Con M20) 20 MEQ ER tabletIndication s:Hypokalemia Take 1 tablet (20 mEq) by mouth 3 times daily. Do not crush or chew. 42 tablet 4 11/23/19 25 Active metoprolol succinate XL (Toprol-XL) 25 MG 24 hr tablet Take 25 mg by mouth Once per day. Do not crush or chew. Active fluticasone (Flonase) 50 MCG/ACT nasal spray INHALE 2 SPRAYS IN EACH NOSTRIL ONCE DAILY NEEDED 48 g 1 4 Active omeprazole (PriLOSEC) [address] capsule TAKE 1 CAPSULE BY MOUTH TWICE DAILY IN THE MORNING AND IN THE EVENING BEFORE MEALS 180 capsule 1 4 Active cetirizine (ZyrTEC) 10 MG tablet TAKE 1 TABLET BY MOUTH EVERY MORNING 90 tablet 1 4 Active pregabalin (Lyrica) 300 MG capsuleIndicatio ns:Chronic back pain, unspecified back location, unspecified back pain laterality Take 1 capsule (300 mg) by mouth 2 times daily. TAKE 1 CAPSULE BY MOUTH TWICE DAILY IN THE MORNING AND IN THE EVENING 56 capsule 5 Active dicyclomine (Bentyl) 20 MG tabletIndication s:Chronic diarrhea TAKE 1 TABLET BY MOUTH 4 TIMES A DAY IN THE MORNING, AT NOON, IN THE EVENING, AND AT BEDTIME 60 tablet 1 5 Active Active Problems Problem Noted Date Diagnosed Date Chronic diarrhea 08/03/2024 Assessment & Plan (08/03/2024 9:56 AM EST): I will refer patient to GI and start her on bentyl I will prescribed for patient pull ups Mixed stress and urge urinary incontinence 08/03 Assessment & Plan (08/03/2024 9:57 AM EST): I will prescribed for patient pull ups Periodontal disease 07/28/2024 Fractured dental buddhism with loss of materi al 03/27/2024 Lupus [...] not to miss her appointments with both care management associate and net mobile developer Nausea 10/13/2023 Polyarthralgia 07/29/2023 Assessment & Plan [...] posterolateral disc osteophyte complex, severe left-sided and [id number] right-sided facet arthropathy with active inflammatory changes at the left facet joint, with [id number] left-sided neural foraminal stenosis impinging on the exiting left L5 nerve root. No spinal canal stenosis. 2. Mild marrow edema in the L5 and S1 pedicles bilaterally which may be reactive or secondary to stress reactions. Patient requesting referral to orthopedic surgery. Assessment & Plan (11/06/2022 11:06 AM EDT): Per patient managed at [facility] orthopedics. She is taking pregabalin 200 mg [...] her diet. She will speak to her care management associate November 17 about potential exercise. Obstructive sleep apnea of adult 09/06/2015 Uterine leiomyoma 09/06/2015 Encounters Date Type Department Care Team Description 09/09/2024 Refill [facility] [address] [place] [address] Joan Antunez MD Chronic diarrhea 08/31/2024 Telephone [facility] [address] [place] [address] Joan Antunez MD Durable Medical Equipment (Home Care Delivered From: Pull-ups (XL)) 08/21/2024 9:00 AM EST Office Visit [facility] [address] [place] [address] Burke Frederick DDS Fractured dental buddhism with loss of material (Primary Dx) 08/16/2024 Telephone [facility] [address] [place] [phone] Joan Antunez MD 08/15/2024 Refill [facility] [address] [place] [phone] Joan Antunez MD Chronic back pain, unspecified back location, unspecified back pain laterality 08/15/2024 Refill [facility] [address] [place] [phone] Joan Antunez MD Chronic back pain, unspecified back location, unspecified back pain laterality 08/12/2024 10:00 AM EST Office Visit [facility] [address] [place] [phone] John Melchor MD Vomiting and diarrhea (Primary Dx) 08/03/2024 9:00 AM EST Office Visit [facility] [address] [place] [phone] Joan Antunez MD Essential hypertension (Primary Dx); Chronic diarrhea; Systemic lupus erythematosus, unspecified SLE type, unspecified organ involvement status (CMS/HCC); Polyarthralgia; Mixed stress and urge urinary incontinence 08/03/2024 Telephone [facility] [address] [place] [phone] Mady Hyde MA Durable Medical Equipment 08/03/2024 Travel 07/28/2024 9:00 AM EST Office Visit [facility] [address] [place] [phone] Regina Broderick Periodontal disease (Primary Dx); Localized gingival recession; Dental calculus; Missing teeth, acquired 07/26/2024 Refill [facility] [address] [place] [address] Joan Antunez MD 07/24/2024 Patient Outreach [facility] [address] [place] [phone] Joan Antunez MD Pre-visit Planning (SDOH screening completed on 10/13/2023) 07/21/2024 Orders Only [...] Description 11/02/2024 9:15 AM EDT Office Visit [facility] [address] [place] [address] Joan Antunez MD [address] [place] [address] 01/29/2025 9:00 AM EDT Office Visit [facility] [address] [place] [address] Regina Broderick [address] [place] [address] Health Maintenance Due Date Last Done Comments [...] 02/22/2023, 06/29/2013 Depression Screening 11/22/2024 11/23/2023, 11/23/19 Dental Prophylaxis 01/27/2025 07/28/2024, 0 04/22/2023, 07/28/2013, [...] teeth, acquired PROPHYLAXIS - ADULT Routine 07/28/2024 9:00 AM EST Periodontal disease Dental calculus DNA [...] AM EST) Influenza B Negative Negative, Indeterminate [facility] QC Media Lot # [id number] [facility] Lot# Expiration Date [facility] Swab 08/12/2024 9:25 AM EST John Melchor MD POINT OF CARE TEST ENTER/EDIT OR DERABLES Final Result Performing Organization Address [facility] Co de Phone Number [facility] [address] [place] [phone] * POCT Rapid Influenza A MAYEN ID NOW (08/12/2024 9:24 AM EST) Influenza A Negative Negative, Indeterminate [facility] QC Media Lot # [id number] [facility] Lot# Expiration Date [facility] Swab 08/12/2024 9:24 AM EST us John Melchor MD POINT OF CARE TEST ENTER/EDIT OR DERABLES Edited Result - Final Performing Organization Address City/[facility] Co de Phone Number [facility] [address] [place] [phone] * POCT Rapid Covid-19 MAYEN ID NOW (08/12/2024 9:23 AM EST) Coronavirus Antigen PCR Negative Negative, Indeterminate, None Detected, Invalid, Specimen unsatisfactory for evaluation, Weakly Positive QC Media Lot # [id number] Lot# Expiration Date ,026 Swab 08/12/2024 9:23 AM EST John Melchor MD POINT OF CARE TEST ENTER/EDIT OR DERABLES Final Result * (ABNORMAL) CBC auto differential (07/21/2024 9:57 AM EST) White Blood Count 4.7(L) 4.8 - 10.8 X10*3/uL [facility] Red Blood Count 4.59 4.20 - 5.50 X10*6/uL [facility] Hemoglobin 13.4 12.0 - 16.0 g/dl [facility] Hematocrit 40.7 37.0 - 47.0 % [facility] Mean Corpuscular Volume 88.7 80.0 - 98.0 fL [facility] Mean Corpuscular Hemoglobin 29.2 27.0 - 33.0 pg [facility] Mean Corpuscular HGB Conc 32.9 31.0 - 35.0 g/dl [facility] Red Cell Distribution Width 14.6 11.0 - 16.0 % [facility] Platelet Count 184 160 - 400 X10*3/uL [facility] Mean Platelet Volume 12.9(H) 9.4 - 12.3 fL [facility] Neutrophils Percent Auto 60.7 45 - 73 % [facility] Imm Gran Pct Auto 0.4 0.0 - 0.4 % [facility] Lymphocytes Percent Auto 23.5 20 - 40 % [facility] Monocytes Percent Auto 7.9 2 - 11 % [facility] Eosinophils Percent Auto 6.6(H) 0 - 4 % [facility] Basophils Percent Auto 0.9 0 - 2 % [facility] NRBC Pct Auto 0.0 0.0 - 0.2 /100WBC [facility] Neutrophils Absolute Auto 2.9 2.0 - 8.3 x10*3/uL [facility] Imm Gran Abs Auto 0.02 0.00 - 0.03 X10*3/uL [facility] Lymphocytes Absolute Auto 1.1(L) 1.2 - 4.9 X10*3/uL [facility] Monocytes Absolute Auto 0.4 0.1 - 1.2 X10*3/uL [facility] Eosinophils Absolute Auto 0.3 0.0 - 0.4 X10*3/uL [facility] Basophils Absolute Auto 0.0 0.0 - 0.2 X10*3/uL [facility] NRBC Abs Auto 0.000 0.0 - 0.012 X10*3/uL [facility] 07/21/2024 9:57 AM EST 07/21/2024 9:57 AM EST Generic External Data Provider LAB BLOOD ORDERAB LES Final Result Performing Organization Address [facility] Co de Phone Number [facility] [address] [place] [phone] * DNA (ds) Antibody (07/21/2024 9:57 AM EST) Anti DNA DS Antibody 2 IU/mL [facility] Comment:IU/mL Interpretation < or = 4 Negative 5-9 Indeterminate > or = 10 PositiveTHIS TEST WAS PERFORMED AT:[employer] [address] [phone] HILARIO MD 07/21/2024 9:57 AM EST 07/21/2024 9:57 AM EST Generic External Data Provider LAB BLOOD ORDERAB LES Final Result Performing Organization Address [facility] Co de Phone Number [facility] [address] [place] [phone] * Sed Rate by Radha Polanco (07/21/2024 9:57 AM EST) Erythrocyte Sedimentation Rate 14 0 - 20 MM/HR [facility] Comment:Patients with polycy themia and many hemoglobin abnormalitiesmay have depressed sed rates whereas patients with anemiamay have elevated sed rates. 07/21/2024 9:57 AM EST 07/21/2024 9:57 AM EST Generic External Data Provider LAB BLOOD ORDERAB LES Final Result Performing Organization Address [facility] de Phone Number [facility] [address] [place] [phone] * Complement Component C3c (07/21/2024 9:57 AM EST) Complement C3 170 83 - 193 mg/dL [facility] Comment:THIS TEST WAS PERFOR MED AT:[employer] [place] [phone] HILARIO MD 07/21/2024 9:57 AM EST 07/21/2024 9:57 AM EST Generic External Data Provider LAB BLOOD ORDERAB LES Final Result Performing Organization Address [facility] [address] [place] [phone] * Complement Component C4c (07/21/2024 9:57 AM EST) Complement C4 40 15 - 57 mg/dL [facility] Comment:THIS TEST WAS PERFOR MED AT:[employer] [place] [phone] HILARIO MD 07/21/2024 9:57 AM EST 07/21/2024 9:57 AM EST Generic External Data Provider LAB BLOOD ORDERAB LES Final Result Performing Organization Address [facility] de Phone Number [facility] [address] [place] [phone] * C-reactive Protein (07/21/2024 9:57 AM EST) C Reactive Protein 0.45 < or = 0.50 mg/dL [facility] 07/21/2024 9:57 AM EST 07/21/2024 2:58 PM EST us Generic External Data Provider LAB BLOOD ORDERAB LES Final Result Performing Organization Address City/[facility]/ZIP Co de Phone Number [facility] [address] [place] [phone] * (ABNORMAL) Comprehensive Metabolic Panel (07/21/2024 9:57 AM EST) Sodium 140 135 - 145 mmol/L [facility] Potassium 4.0 3.3 - 5.1 mmol/L [facility] Chloride 108 96 - 108 mmol/L [facility] Carbon Dioxide 26 22 - 29 mmol/L [facility] Anion Gap 10(L) 12 - 20 [facility] Urea Nitrogen (BUN) 11 9 - 16 mg/dL [facility] Creatinine, Serum 0.86 0.5 - 1.4 mg/dL [facility] Estimated Glomerular Filt Rate >60 [facility] Comment:Chronic Kidney Disea se: Estimated GFR < 60 mL/min/1.77u8Owprjg Kidney Disease: Estimated GFR < 15 mL/min/1.73m2 Glucose 90 60 - 115 mg/dL [facility] Calcium 8.9 8.4 - 10.2 mg/dL [facility] Bilirubin, Total 0.4 0.0 - 1.0 mg/dL [facility] Aspartate Amino Transferase 24 5 - 31 U/L [facility] Alanine Aminotransferase 22 0 - 31 U/L [facility] Total Protein 6.4(L) 6.5 - 8.0 g/dL [facility] Albumin Level 3.6 3.5 - 5.0 g/dL [facility] Alkaline Phosphatase 121(H) 39 - 117 U/L [facility] 07/21/2024 9:57 AM EST 07/21/2024 2:58 PM EST us Generic External Data Provider LAB BLOOD ORDERAB LES Final Result Performing Organization Address City/[facility]/ZIP Co de Phone Number [facility] [address] [place] [phone] * Protein Creatinine Ratio, Urine (07/21/2024 9:45 AM EST) Creatinine, Urine 22.58 mg/dL [facility] Protein, Total, Random Urine <7 <12 mg/dL [facility] Protein/Creatin ine Ratio, Ur TNP <0.2 [facility] Comment:Unable to calculate urine protein creatinine ratio due tolow creatinine or protein result. 07/21/2024 9:45 AM EST 07/21/2024 10:25 AM EST us Generic External Data Provider LAB URINE ORDERAB LES Final Result [facility] [address] [place] [phone] * (ABNORMAL) Urinalysis Complete (07/21/2024 9:45 AM EST) Color Urine Yellow [facility] Appearance Urine Clear [facility] PH 5.5 5.0 - 9.0 [facility] Glucose Urine UA >=1000(A) Negative mg/dL [facility] Urine Blood Negative Negative [facility] Specific [place] - Urine 1.010 1.005 - 1.025 [facility] Urine Protein Negative Neg-Trace mg/dL [facility] Urine Ketones Negative Negative mg/dL [facility] Nitrite Urine Negative Negative [facility] Leukocyte Esterase Urine Negative Negative [facility] RBC Urine 0-2 0 - 2 /HPF [facility] Urine WBC 0-5 0 - 5 /HPF [facility] Urine Squamous Epithelial Cell 3-5 0 - 2 /HPF [facility] Urine Bacteria None Seen None Seen [facility] Hyaline Casts, Urine 0-2 0 - 2 /LPF [facility] 07/21/2024 9:45 AM EST 07/21/2024 10:25 AM EST us Generic External Data Provider LAB URINE ORDERAB LES Final Result [facility] [address] [place] [phone] * BI Mammogram Screening Tomosynthesis Bilateral (03/10/2024 8:46 AM EDT) Anatomical Region Laterality Modality Breast Bilateral Mammography 03/10/2024 8:46 AM EDT Narrative 04/10/2024 11:06 PM EDT ? [facility] ? [address] ?[place] [address] ? Mammography Report ? Signed ? Patient: Flor Martinez I ?MR#: [id number] ?? 59 ? : 1965 ?Acct:[id number] ? Age/Sex: 58 / F ?ADM Date: 03/10/24 ? Loc: HO.MAMMO ? Attending Dr: Joan Casiano MD ? Ordering Physician: Joan Antunez MD ?Results: ?? 1Negative ? Date of Service: 03/10/24 ?Follow Up: 1 Year From Orig ?? inal Mammogram ? Procedure(s): MM tomosynthesis screening BI ?? Accession Number(s): [id number] ? cc: Joan Antunez MD ? EXAMINATION: [...] by Cielo Velazquez MD in OV> ? 04/10/24 2302 ? DD/ 0846 ? TD/TT: 03/10/24 0906 ? Director Of Distance Learning: ? Procedure Note Elizabeth, Image - 04/10/2024 [facility] [address] [place] [address] [place], [place] [address] Mammography Report Signed Patient: Flor Martinez [facility]#: [id number] 59 : 1965Acct:[id number] Age/Sex: 58 / FADM Date: 03/10/24 Loc: JANAO Attending Dr: Joan Casiano MD Ordering Physician: Barciona Casiano,Joan MDResults: 1Negative Date of Service: 03/10/24Follow Up: 1 Year From Orig ina Mammogram Procedure(s): MM tomosynthesis screening BI Accession Number(s): [id number] cc: Joan Antunez MD EXAMINATION: MM SCREENING [...] signed by Cielo Velazquez MD in OV> 04/10/24 2302 DD/ 0846 TD/TT: 03/10/24 0906 Director Of Distance Learning: us Joan Casiano MD IMG BI PROCEDURES Fin al Result * Hepatitis Panel, General (11/17/2023 9:47 AM EDT) Hepatitis A IgM Nonreactive Nonreactive [facility] Comment:IgM antibodies to PICKENS V not detected; does not exclude earlyacute or recovered HAV infection. ~Hepatitis B Surface Antibody REACTIVE Nonreactive [facility] Comment:REACTIVE: > 11.99 mI U/mL Hepatitis B Core Antibody Nonreactive Nonreactive [facility] Hepatitis C Antibody Nonreactive Nonreactive [facility] Comment:Antibodies to HCV no t detected; does not exclude early acuteHCV infection. Hepatitis B Surface Ag Negative Negative [facility] 11/17/2023 9:47 AM EDT 11/17/2023 9:47 AM EDT us Generic External Data Provider LAB BLOOD ORDERAB LES Final Result Performing Organization Address City/[facility]/ZIP Co de Phone Number [facility] [address] [place] [phone] * HIV-1/2 Antigen and Antibodies, Fourth Generation, with Reflexes (10/13/2023 10:53 AM EST) [facility] HIV AB/AG Nonreactive Nonreactive [facility] Comment:HIV-1 p24 Ag and/or HIV-1/HIV-2 Ab not detected.A test result that is nonreactive does not exclude thepossibility of exposure to or infection with HIV-1 and/orHIV-2. Nonreactive results in this assay for individualswith prior exposure to HIV-1 and/or HIV-2 may be due toantigen and antibody levels that are below the limit ofdetection of this assay.The [employer] HIV Ag/Ab Combo assay result andsupplemental assay results should be interpreted inconjunction with the patient's clinical presentation,history and other laboratory results. If the results areinconsistent with clinical evidence, additional testing issuggested to confirm the result. Blood Venous blood specimen / Unknown 10/13/2023 10:53 AM EST 10/13/2023 1:07 PM EST us Joan Casiano MD LAB BLOOD ORDERABLES Final Result Performing Organization Address [facility]/ZIP Co de Phone Number [facility] [address] [place] [phone] * (ABNORMAL) POCT HGB A1C (10/13/2023 10:18 AM EST) Pathologist [facility] Hemoglobin A1C 6.4(A) 4.0 - 6.0 % QC Media Lot # [id number] Lot# Expiration Date 760 Blood 10/13/2023 10:1 8 AM EST Joan Casiano MD POINT OF CARE TEST EN TER/EDIT ORDERABLES Final Result * (ABNORMAL) Lipid Panel, Standard (10/26/2022 9:27 AM EDT) Pathologist [facility] Cholesterol, Total 115 <200 mg/dL [facility] HDL Cholesterol 40(L) > OR = 50 mg/dL [facility] Triglycerides 100 <150 mg/dL [facility] LDL Cholesterol 56 mg/dL (calc) [facility] Comment: Reference range: <100 Desirable range <100 mg/dL for primary prevention; ?? <70 mg/dL for patients with CHD or diabetic patients with > or = 2 CHD risk factors. LDL-C is now calculated using the Javan-Land calculation, which is a validated novel method providing better accuracy than the Friedewald equation in the estimation of LDL-C. Javan SS et al. DERRICK. 2013;310(19): 3094-6651 (http://education.Virtualmin/faq/SBO939) Chol/HDLC Ratio 2.9 <5.0 (calc) [facility] Non-HDL Cholesterol 75 <130 mg/dL (calc) [facility] Comment: For patients with diabetes plus 1 major ASCVD risk factor, treating to a non-HDL-C goal of <100 mg/dL (LDL-C of <70 mg/dL) is considered a therapeutic option. 10/26/2022 9:27 AM EDT 10/26/2022 9:28 AM EDT Narrative [facility] - 10/26/2022 9:57 PM EDT FASTING:YES FASTING: YES Katherine Da Silva MD LAB BLOOD ORDERABLES Final R esult [facility] [address] [facility], [place] [phone] [facility] [address] [place] [phone] * Hm Colonoscopy (12/09/2016) Colonoscopy Normal Normal Narrative Mariel Tan - 12/09/2016 Recommended 5 year follow up us Historical Provider HEALTH MAINTENANCE Final Result from Last 3 Months or Most Recently Relevant to Health Maintenance Insurance [address] [place] [address] [facility] [address] [place] [address] DENTAL - [facility] [address] [place] [address] [address] [place] [address] Care Teams Program Counselor Relationship Specialty Start Date End Date Joan Antunez MD [address] [place] [phone] PCP - General Internal Medicine 06/07/23
--- OUTSIDE RECORDS SUMMARY | 2024-10-12 14:28 | XMS_ITS | Encounter Summary ---
Author Organization [employer] Address [address] [facility] [address] [place] [address] Care Team Providers Care Brake Operator Name Role Phone Joan Antunez MD Primary Care Provide r Reason for Visit * Reason Comments Med Refill Encounter Details Date Type Department Care Team (Late st Contact Info) Description 08/15/2024 Refill [facility] [address] [place], [place] [phone] Joan Antunez MD [address] [place], [place] [phone] Chronic back pain, unspecified back location, unspecified [...] 11/02/2024 9:15 AM EDT Office Visit [facility] [address] [place] [address] Joan Antunez MD [address] [place] [address] 01/29/2025 9:00 AM EDT Office Visit [facility] [address] [place] [address] [place], Reg[place] [address] [place] [address] documented as of this encounter Visit Diagnoses Diagnosis Chronic back pain, unspecified back location, unspecified back pain laterality documented in this encounter Additional Health Concerns Assessment Noted Time PHQ-9 Depression Total Score: 14 024 12:06 PM EDT documented as of this encounter Care Teams Brake Operator Relationship Specialty Start Date End Date Joan Antunez MD [address] [place] [phone] PCP - General Internal Medicine 06/07/23 documented as of this encounter
--- OUTSIDE RECORDS SUMMARY | 2024-10-12 14:28 | XMS_ITS | Encounter Summary ---
Author Organization [employer] Address [address] [facility] 7 [place] [address] Care Team Providers Care Manager Commodities Name Role Phone Digna Madhuri [facility] Primary Care Provider David Blankenship Primary Care Provider Jesusita Sandra [facility] Primary Care Provider [phone] Joan Antunez MD Primary Care Provide r Reason for Visit * Reason Comments Med Refill Encounter Details Date Type Department Care Team (Late st Contact Info) Description 08/11/2022 Refill [facility] MEDICINE [address] [place] [address] Delma Gauthier MD [address] [place] [address] Nausea (Primary Dx) Social History Tobacco Use [...] EST F/U with patient on request for BUSINESS RELATIONS MANAGER services, she needs mostly IADL's, but does [...] 9:15 AM EDT Office Visit [facility] MEDICINE [address] [place] [address] Joan Antunez MD [address] [place] [address] 01/29/2025 9:00 AM EDT Office Visit [facility] ADULT DENTAL [address] [place] [address] Arsenio Broderickaris [address] [place] [address] documented as of this encounter Visit Diagnoses Diagnosis Nausea- Primary Nausea alone documented in this encounter Care Teams Manager Commodities Relationship Specialty Start Date End Date Madhuri Sawyer FNP PCP - General 06/29/22 10/07/22 David South AGNP PCP - General Family Medicine 10/08/22 04/28/23 Jesusita Garcia FNP [address] [place] [phone] PCP - General Family Medicine 04/29/23 06/06/23 Joan Antunez MD [address] [place] [id number] PCP - General Internal Medicine 06/07/23 documented as of this encounter
--- OUTSIDE RECORDS SUMMARY | 2024-10-12 14:28 | XMS_ITS | Encounter Summary ---
Author Organization [employer] Address [address] [facility] 7[address] [place] [address] Care Team Providers Care Seo Intern Name Role Phone Joan Antunez MD Primary Care Provide r Reason for Visit * Reason Comments Med Refill Encounter Details Date Type Department Care Team ([facility] st Contact Info) Description 10/28/2023 Refill [facility] MEDICINE [address] [place], [place] [phone] Joan Antunez MD [address] [place], [place] [phone] Social History Tobacco Use Types Packs/Day Years [...] [facility] MEDICINE [address] [place] [address] Joan Antunez MD [address] [place] [address] 01/29/2025 9:00 AM EDT Office Visit [facility] ADULT DENTAL [address] [place] [address] Meggan, Regina [address] [place] [address] documented as of this encounter Visit Diagnoses Not on filedocumented in this encounter Additional Health Concerns Assessment Noted Time PHQ-9 Depression Total Score: 8 11/07/19 10:23 AM EDT documented as of this encounter Care Teams Seo Intern Relationship Specialty Start Date End Date Joan Antunez MD [address] [place] [phone] PCP - General Internal Medicine 06/07/23 documented as of this encounter
[2024-10-18 18:39] LABS: Pancreatic Elastase-1 786 mcg/g (>200)
== END 2024-10-11 00:01 | disposition home or self-care (01) ==
LOC: HO.LNP
PROVIDERS: Visit Provider Internal Medicine
DX: K59.1 Functional diarrhea (principal)
CPT/HCPCS: 82656

== ENCOUNTER 2024-11-01 08:54 | Outpatient (AMB) | payer OTHER, SELFPAY ==
--- NOTE | 2024-11-01 08:58 | MHC.OFFVIS ---
Vital Signs 11/01/24 09:01 Height 5 ft 1.5 in Weight 202 lb 13.204 oz BMI 37.7 BP 110/60 Blood Pressure Location Lt brachial Position Sitting Pulse 58 Intake Visit Reasons: 4 wks f/u Labs Intake Note: Flor presents in the office as a 4 week follow up. CC: She had blood work and wants results - here today with her daughter. No new concerns at this time but she did bring a stool sample twice - she has lots of diarrhea. Her right pinky is very light and patient states that it gets cold and numb. Direct Chill Casting Operator Required: Yes Allergies diclofenac [DICLOFENAC] Allergy (Unknown, Verified 11/01/24 09:02) itch HPI Comments Details: 57y.o F with PMH of who is here for chest pain 01/13/23: Pt reports having chest pain associated with burning devon on walking long distance that started almost 3 years ago. This is associated with shortness of breath. Intermittently with palpitations and nausea. No changes in appetite, and has gained weight. Has been taking Omeprazole 20 BID x 1 year now without any change in sx. Has had extensive cardiac work up through Dr Wray including cardiac cath, echo etc without any CAD or cardiomyopathy. Last colo was in 2017 (Dr Dan) no polyps were noted but cecum could not be intubated. Repeat recommended in 5-10 years. 04/01/23: 1. Normal esophageal mucosa (biopsy) 2. Normal stomach mucosa 3. Stomach mucosa (biopsy) 4. Normal colon and terminal ileum mucosa 5. Diverticulosis 6. Internal hemorrhoids Path: A.? Duodenum, biopsy:? Duodenal mucosa within normal limits; preserved villous architecture and no increased intraepithelial lymphocytes seen.? B.? Esophagus, lower, biopsy:? Squamous mucosa within normal limits; negative for inflammation (including intraepithelial eosinophils), fungal organisms, intestinal metaplasia and dysplasia.? C.? Esophagus, middle, biopsy:? Squamous mucosa with rare intraepithelial eosinophils (up to 2 per high-power field); negative for fungal organisms, intestinal metaplasia and dysplasia. 04/14/23: Reports persistent chest discomfort devon early in morning and on exertion. Recent echo and records from Cardiology reviewed from January 2022. EF 35%. Being considered for ICD and has appt next month. EGD and colo results reviewed with the pt. Mild reflux otherwise no esophageal abnormality. No colon polyps. 10/04/24: Pt pranav this follow up for chronic diarrhea. Reports around 6-7 months ago, developed diarrhea which she describes as watery stools that occur at least 4-5 times a day, sometimes with incontinence. Night time sx. Sx present at least half the week. No blood in stool. Has lower abd pain sometimes and the pain doesnt change with BM. No N/V. No untentional weight loss. No travel outside [place], no new meds in one year. 11/01/24: Accompanied by her daughter. Seen with the help of academic affairs specialist Eleanor. Here for follow up. Reports diarrhea is in fact better. Was started on abilify 5 mg that also seemed to help with the diarrhea. Currently having 4 BMs per day but they are formed and no incontinence. Labs as below. Unfortunately blood work and fecal calpro not done. Laboratory Tests 10/06/24 10/11/24 13:15 19:12 Stool Pancreat Elastase 786 Stl C. cayetanensis PCR Not Detected Stool Rotavirus A PCR Not Detected Stl Adenov F 40/41 PCR Not Detected Stool Astrovirus (PCR) Not Detected Stool Campylobacter PCR Not Detected Stool Cryptosporidium PCR Not Detected Stl Sh Tox Pr E STEC PCR Not Detected Stool E coli O157 PCR Not applicable Stl Enterotoxigenic E PCR Not Detected Stool EPEC (PCR) Not Detected Stool EAEC (PCR) Not Detected Stl E. histolytica PCR Not Detected Stl Giardia Antigen SEE NOTE Stool Giardia Lamblia PCR Not Detected Stl P. shigelloides PCR Not Detected Stool Salmonella PCR Not Detected Stool Sapovirus (PCR) Not Detected Stl Shigella/EIEC PCR Not Detected St Y.enterocolitica PCR Not Detected Stool Vibrio (PCR) Not Detected Stl Vibrio cholerae PCR Not Detected Stl Norovirus GI/GII PCR Not Detected Cryptosporidium Exam SEE NOTE PFSH Medical History Cervical myofascial pain syndrome Lumbar spondylosis Obesity GERD (gastroesophageal reflux disease) Mild persistent asthma Uterine leiomyoma Depressive disorder [place] on CPAP Allergic rhinitis Nonrheumatic mitral valve regurgitation Non-ischemic cardiomyopathy Prediabetes Surgical History Hx of cardiac pacemaker History of esophagogastroduodenoscopy (EGD) Hx of cardiac catheterization Hx of colonoscopy History of hernia surgery H/O elbow surgery H/O: hysterectomy History of hand surgery Family History Family/Other Intestinal cancer, Onset Age: 31 Social History Alcohol intake: never Patient Tobacco Use Status: Former Tobacco user Years Smoked: stopped in 2007 Current occupational status: disabled 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 Review of Systems Const All systems reviewed & are unremarkable except as noted in HPI and below Physical Exam Vital Signs: Last Vital Signs Pulse 58 11/01/24 09:01 BP 110/60 11/01/24 09:01 BMI result Body Mass Index 37.7 No apparent distress Nonicteric Abdomen soft, nondistended Alert and oriented x3, normal gait Assessment & Plan Assessment & Plan (1) Diarrhea: Code(s): R19.7 - Diarrhea, unspecified Category: Medical Qualifiers: Diarrhea type: functional diarrhea Qualified Code(s): K59.1 - Functional diarrhea (2) Change in bowel habit: Code(s): R19.4 - Change in bowel habit Category: Medical (3) Fecal incontinence: Code(s): R15.9 - Full incontinence of feces Category: Medical Plan Reports improvement in diarrhea. F.I resolved. Reviewed that ok to hold off remaining work up for now but if has recurrence of sx, should go to lab to get rest of remaining work up done. Plan: - Add fiber as bulking agent - Imodium PRN Follow up 4 months Medications: New loperamide (Imodium A-D) Take 1 tab every night. Repeat next AM for loose stools. 2 mg PO QID 90 days PRN 90 tabs 0RF loose stool psyllium husk mix into at least 4 oz water or juice before administering 1 tsp PO DAILY 90 days 480 grams 0RF Coding Level of Care Code Est Pt Level 3 (88005) Diagnoses Functional diarrhea K59.1 Diarrhea type: functional diarrhea Change in bowel habit R19.4 Fecal incontinence R15.9
[2024-11-01 09:01] VITALS: BP 110/60; PULSE 58; BMI 37.7
--- OUTSIDE RECORDS SUMMARY | 2024-11-01 09:41 | XMS_ITS | Clinical Summary ---
Author Organization [employer] Address [address] [facility] 7t [place] [address] Care Team Providers Care Mechatronics Technician Name Role Phone Joan Antunez MD Primary [...] needed for wheezing. 18 g 10/13/19 24 Active budesonide (Pulmicort Flexhaler) 180 MCG/ACT inhalerIndicati ons:Mild persistent asthma, unspecified whether complicated Inhale 2 puffs in the morning and at bedtime. Rinse mouth with water after use to reduce aftertaste and incidence of candidiasis. Do not swallow. 1 each 2 10/13/19 24 Active potassium chloride CR (Klor-Con M20) 20 MEQ ER tabletIndicatio ns:Hypokalemia Take 1 tablet (20 mEq) by mouth 3 times daily. Do not crush or chew. 42 tablet 11/23/19 24 025 Active metoprolol succinate XL (Toprol-XL) 25 MG 24 hr tablet Take 25 mg by mouth Once per day. Do not crush or chew. Active omeprazole (PriLOSEC) [address] capsule TAKE 1 CAPSULE BY MOUTH TWICE DAILY IN THE MORNING AND IN THE EVENING BEFORE MEALS 180 capsule 1 05/08/20 24 Active cetirizine (ZyrTEC) 10 MG tablet TAKE 1 TABLET BY MOUTH EVERY MORNING 90 tablet 1 07/26/20 24 Active dicyclomine (Bentyl) 20 MG tabletIndicatio ns:Chronic diarrhea TAKE 1 TABLET BY MOUTH 4 TIMES A DAY IN THE MORNING, AT NOON, IN THE EVENING, AND AT BEDTIME 60 tablet 1 09/11/19 25 Active fluticasone (Flonase) 50 MCG/ACT nasal spray INSTILL 2 SPRAYS IN EACH NOSTRIL ONCE DAILY NEEDED 48 g 1 10/27/19 25 Active pregabalin (Lyrica) 300 MG capsuleIndicati ons:Chronic back pain, unspecified back location, unspecified back pain laterality TAKE 1 CAPSULE BY MOUTH TWICE DAILY IN THE MORNING AND IN THE EVENING 56 capsule 10/28/19 25 Active fluticasone (Flonase) 50 MCG/ACT nasal spray INHALE 2 SPRAYS IN EACH NOSTRIL ONCE DAILY NEEDED 48 g 1 05/08/20 24 025 Discontinued pregabalin (Lyrica) 300 MG capsuleIndicati ons:Chronic back pain, unspecified back location, unspecified back pain laterality Take 1 capsule (300 mg) by mouth 2 times daily. TAKE 1 CAPSULE BY MOUTH TWICE DAILY IN THE MORNING AND IN THE EVENING 56 capsule 08/15/19 25 025 Discontinued Active Problems Problem Noted Date Diagnosed Date Chronic diarrhea 08/03/2024 Assessment & Plan (08/03/2024 9:56 AM EST): I will refer patient to GI and start her on bentyl I will prescribed for patient pull ups Mixed stress and urge urinary incontinence 08/03 Assessment & Plan (08/03/2024 9:57 AM EST): I will prescribed for patient pull ups Periodontal disease 07/28/2024 Fractured dental mosque with loss of materi al 03/27/2024 Lupus [...] not to miss her appointments with both spin instructor and public health sanitarian technician Nausea 10/13/2023 Polyarthralgia 07/29/2023 Assessment & Plan [...] posterolateral disc osteophyte complex, severe left-sided and tjvagolh-wv-itjpym right-sided facet arthropathy with active inflammatory changes at the left facet joint, with [id number] left-sided neural foraminal stenosis impinging on the exiting left L5 nerve root. No spinal canal stenosis. 2. Mild marrow edema in the L5 and S1 pedicles bilaterally which may be reactive or secondary to stress reactions. Patient requesting referral to orthopedic surgery. Assessment & Plan (11/06/2022 11:06 AM EDT): Per patient managed at [facility] orthopedics. She is taking pregabalin 200 mg [...] her diet. She will speak to her spin instructor November 17 about potential exercise. Obstructive sleep apnea of adult 09/06/2015 Uterine leiomyoma 09/06/2015 Encounters Date Type Department Care Team Description 10/27/2024 Refill [facility] MED[facility]INE [address] [place] [address] Joan Antunez MD Chronic back pain, unspecified back location, unspecified back pain laterality 10/26/2024 Refill [facility] MEDICINE [address] [place] [phone] Joan Antunez MD 10/24/2024 Patient Outreach [facility] [address] [place] [phone] Joan Antunez MD Pre-visit Planning (SDOH screening negative and tobacco screening negative) 09/09/2024 Refill [facility] MEDICINE [address] [place] [address] Joan Antunez MD Chronic diarrhea 08/31/2024 Telephone [facility] MED[facility]INE [address] [place] [phone] Joan Antunez MD Durable Medical Equipment (Home Care Delivered From: Pull-ups (XL)) 08/21/2024 9:00 AM EST Office Visit [facility] ADULT DENTAL [address] [place] [phone] Burke Frederick DDS Fractured dental mosque with loss of material (Primary Dx) 08/16/2024 Telephone [facility] MEDICINE [address] [place] [phone] Joan Antunez MD 08/15/2024 Refill [facility] MED[facility]INE [address] [place] [phone] Joan Antunez MD Chronic back pain, unspecified back location, unspecified back pain laterality 08/15/2024 Refill [facility] MED[facility]INE [address] [place] [phone] Joan Antunez MD Chronic back pain, unspecified back location, unspecified back pain laterality 08/12/2024 10:00 AM EST Office Visit [facility] W[facility] [address] [place] [phone] John Melchor MD Vomiting and diarrhea (Primary Dx) 08/03/2024 9:00 AM EST Office Visit [facility] MEDICINE [address] [place] [phone] Joan Antunez MD Essential hypertension (Primary Dx); Chronic diarrhea; Systemic lupus erythematosus, unspecified SLE type, unspecified organ involvement status ([facility]/HCC); Polyarthralgia; Mixed stress and urge urinary incontinence 08/03/2024 Telephone [facility] MED[facility]INE [address] [place] [phone] Mady Hyde [place] Durable Medical Equipment 08/03/2024 Travel from Last 3 Months Immunizations Name Administration Dates Next Due Hep A, Adult 07/30/2011,01/13/2011 Hep B, adult 11/06/2016, 1,02/23/2011,01/13 Influenza Injectable Quadriv alant Preservative Free IIV4 MDCK 06/17/2020 Influenza injectable quadriv alent IIV4 with preservative 06/10/2018,07/07/2017 Influenza injectable quadriv alent preservative free 07/29/2023,06/12/2021,07/27/2019,07/27,05/23/2015 Influenza, IIV3, injectable 05/10/2014 Influenza, Split (incl. odalis fied surface antigen) 06/19/2013,05/02/2012 Influenza, seasonal, injecta ble, preservative free 05/05/2024 Global Filmdemic SARS-CoV-2 Vaccination 11/16/2020 Pfizer Covid-19 Vaccine 12+ [...] housing situation today? I have young donahue 10/24/[address] you li ve. Do you have problems with any of the following? None of the above 10/24/2024 Food Insecurity Answer Date Recorded Within the past 12 months, y ou worried that your food would run out before you got money to buy more: Never True 10/24/2024 Within the past 12 months,th e food you bought just didn't last and you didn't have enough money to get more: Never True Transportation Answer Date Recorded In the past 12 months, has l ack of transportation kept you from medical appts, meetings, work or from getting things needed for daily living? No 10/24/2024 Utilities Answer Date Recorded In the past 12 months, has t he electric, gas, oil or water company threatened to shut off services in your home? No 10/24/2024 Depression Answer Date Recorded Patient Health Questionnaire-2 Score 5 11/23/2023 Internet Access Answer Date Recorded Internet Access Q1 Yes 10/24/2024 Internet Access Q2 Not on file 10/24/2024 Comments Unknown Sex and Gender Information Value [...] Visit [facility] MED[facility]INE [address] [place] [address] Joan Antunez MD [address] [place] [address] 01/29/2025 9:00 AM EDT Office Visit [facility] ADULT DENTAL [address] [place] [address] Arsenio Broderickaris [address] [place] [address] Health Maintenance Due Date Last Done Comments CT Colonography 1965 FIT DNA/Cologuard 1965 FIT 1965 FOBT 1965 Sigmoidoscopy 1965 Alcohol/Substance Use Screening 1977 Pap Smear 1986 HPV/Cotest 1995 Colonoscopy 12/09/2021 12/09/2016 Colorectal Cancer Screening 12/09/2021 Dental Oral Exam 05/07/2024 11/04/2023, , 06/29/2013, Additional history exists Depression Monitoring (PHQ-9) 05/24/2024 11/23/2023, 11/23/2023 Diabetes: Hemoglobin A1C 10/12/2024 024, 11/06/2022, 10/26/2022, Additional history exists Dental X-Ray: Bitewings 11/04/2024 11/04/19 24, 02/22/2023, 06/29/2013 Depression Screening 11/22/2024 11/23/2023, 11/23/19 24 Dental Prophylaxis 01/27/2025 07/28/2024, 0 04/22/2023, 07/28/2013, Additional history exists Mammogram 03/10/2025 03/10/2024, 12/08, 11/13/2020, Additional history exists Tobacco Screening 08/21/2025 08/21/2024 SDOH Screening 10/24/2025 10/24/2024 Dental X-Ray: Full Mouth 02/23/2026 02/22/2023 Lipid [...] 08/12/2024 9:23 AM EST Vomiting and diarrhea PROPHYLAXIS - ADULT Routine 07/28/2024 9 :00 AM EST Periodontal disease Dental calculus BI MAMMOGRAM SCREENING TOMOSYNTHESIS BILATERAL Routine 03/10/2024 [...] AM EST) Influenza B Negative Negative, Indeterminate [facility] QC Media Lot # [id number] [facility] Lot# Expiration Date [id number] [facility] Swab 08/12/2024 9:25 AM EST John Melchor MD POINT OF CARE TEST ENTER/EDIT OR DERABLES Final Result [facility] [address] [place] [phone] * POCT Rapid Influenza A MAYEN ID NOW (08/12/2024 9:24 AM EST) Influenza A Negative Negative, Indeterminate [facility] QC Media Lot # [id number] [facility] Lot# Expiration Date [phone] [facility] Swab 08/12/2024 9:24 AM EST John Melchor MD POINT OF CARE TEST ENTER/EDIT OR DERABLES Edited Result - Final [facility] [address] [place] [address] [phone] * POCT Rapid Covid-19 MAYEN ID NOW (08/12/2024 9:23 AM EST) Pathologist [facility] Coronavirus Antigen PCR Negative Negative, Indeterminate, None Detected, Invalid, Specimen unsatisfactory for evaluation, Weakly Positive QC Media Lot # [id number] Lot# Expiration Date [id number] Swab 08/12/2024 9:23 AM EST John Melchor MD POINT OF CARE TEST ENTER/EDIT OR DERABLES Final Result * BI Mammogram Screening Tomosynthesis Bilateral (03/10/2024 8:46 AM EDT) Anatomical Region Laterality Modality Breast Bilateral Mammography 03/10/2024 8:46 AM EDT Narrative 04/10/2024 11:06 PM EDT ? [facility] [place] ? [address] ?[place] [address] ? Mammography Report ? Signed ? Patient: Juan,Flor I ?MR#: [id number] ?? 59 ? : 1965 ?Acct:[id number] ? Age/Sex: 58 / F ?ADM Date: 08/02/24 ? Loc: HO.MAMMO ? Attending Dr: Joan Casiano MD ? Ordering Physician: Joan Antunez MD ?Results: ?? 1Negative ? Date of Service: 03/10/24 ?Follow Up: 1 Year From Orig ?? inal Mammogram ? Procedure(s): MM tomosynthesis screening BI ?? Accession Number(s): [id number] ? cc: Joan Antunez MD ? EXAMINATION: [...] MD in OV> ? 04/10/242 ? DD/ ? TD/TT: 03/10/24 0906 ? Packaging Associate: ? Procedure Note Donotuseinterpreter, Image - 04/10/2024 Marg[facility] [address] [place] [address] Mammography Report Signed Patient: Flor Martinez IMR#: [id number] 59 : 1965Acct:[id number] Age/Sex: 58 / FADM Date: 03/10/24 Loc: HO.MAMMO Attending Dr: Joan Casiano MD Ordering Physician: Joan Antunez MDResults: 1Negative Date of Service: 03/10/24Follow Up: 1 Year From Orig inal Mammogram Procedure(s): MM tomosynthesis screening BI Accession Number(s): [id number] cc: Joan Antunez MD EXAMINATION: MM SCREENING [...] Cielo Velazquez MD 04/10/2024 11:02 PM EDT RP Dictated By: Cielo Velazquez MD Signed By: <Electronically signed by Cielo Velazquez MD in OV> 04/10/24 2302 DD/ 0846 TD/TT: 03/10/24 0906 Packaging Associate: us Joan Casiano MD IMG BI PROCEDURES Fin al Result * Hepatitis Panel, General (11/17/2023 9:47 AM EDT) Hepatitis A IgM Nonreactive Nonreactive [facility] Comment:IgM antibodies to PICKENS V not detected; does not exclude earlyacute or recovered HAV infection. ~Hepatitis B Surface Antibody REACTIVE Nonreactive [facility] Comment:REACTIVE: > 11.99 mI U/mL Hepatitis B Core Antibody Nonreactive Nonreactive [facility] Hepatitis C Antibody Nonreactive Nonreactive [facility] Comment:Antibodies to HCV no t detected; does not exclude early acuteHCV infection. Hepatitis B Surface Ag Negative Negative [facility] 11/17/2023 9:47 AM EDT 11/17/2023 9:47 AM EDT us Generic External Data Provider LAB BLOOD ORDERAB LES Final Result [facility] [address] [place] [phone] * HIV-1/2 Antigen and Antibodies, Fourth Generation, with Reflexes (10/13/2023 10:53 AM EST) HIV AB/AG Nonreactive Nonreactive [facility] Comment:HIV-1 p24 Ag and/or HIV-1/HIV-2 Ab not detected.A test result that is nonreactive does not exclude thepossibility of exposure to or infection with HIV-1 and/orHIV-2. Nonreactive results in this assay for individualswith prior exposure to HIV-1 and/or HIV-2 may be due toantigen and antibody levels that are below the limit ofdetection of this assay.The [employer] HIV Ag/Ab Combo assay result andsupplemental assay results should be interpreted inconjunction with the patient's clinical presentation,history and other laboratory results. If the results areinconsistent with clinical evidence, additional testing issuggested to confirm the result. Blood Venous blood specimen / Unknown 10/13/2023 10:53 AM EST 10/13/2023 1:07 PM EST Joan Casiano MD LAB BLOOD ORDERABLES Final Result [facility] [address] [place] [phone] * (ABNORMAL) POCT HGB A1C (10/13/2023 10:18 AM EST) Hemoglobin A1C 6.4(A) 4.0 - 6.0 % QC Media Lot # [id number] Lot# Expiration Date Blood 10/13/2023 10:1 8 AM EST Joan Casiano MD POINT OF CARE TEST EN TER/EDIT ORDERABLES Final Result * (ABNORMAL) Lipid Panel, Standard (10/26/2022 9:27 AM EDT) Cholesterol, Total 115 <200 mg/dL [employer] HDL Cholesterol 40(L) > OR = 50 mg/dL [employer] [employer] Triglycerides 100 <150 mg/dL [employer] [employer] [facility] LDL Cholesterol 56 mg/dL (calc) [facility] [employer] [facility] Comment: Reference range: <100 Desirable range <100 mg/dL for primary prevention; ?? <70 mg/dL for patients with CHD or diabetic patients with > or = 2 CHD risk factors. LDL-C is now calculated using the Selene calculation, which is a validated novel method providing better accuracy than the Friedewald equation in the estimation of LDL-C. Javan SS et al. DERRICK. 2013;310(19): 6367-6337 (http://education.Foxtrot.Morning Tec/faq/VOH484) Chol/HDLC Ratio 2.9 <5.0 (calc) [employer] [employer] Non-HDL Cholesterol 75 <130 mg/dL (calc) [employer] [employer] [facility] Comment: For patients with diabetes plus 1 major ASCVD risk factor, treating to a non-HDL-C goal of <100 mg/dL (LDL-C of <70 mg/dL) is considered a therapeutic option. 10/26/2022 9:27 AM EDT 10/26/2022 9:28 AM EDT Narrative [facility] - 10/26/2022 9:57 PM EDT FASTING:YES FASTING: YES Katherine Da Silva MD LAB BLOOD ORDERABLES Final R esult [facility] [address] [place] [address] [facility] [employer] [facility] [address] [place] [phone] * Hm Colonoscopy (12/09/2016) Colonoscopy Normal Normal Narrative Mariel Tan - 12/09/2016 Recommended 5 year follow up Historical Provider HEALTH MAINTENANCE Final Result from Last 3 Months or Most Recently Relevant to Health Maintenance Insurance [address] [place] [address] - [employer] [address] [place] [address] DENTAL - [facility] [address] [place] [address] [address] [place] [address] [address] [place] [address] Care Teams Mechatronics Technician Relationship Specialty Start Date End Date Joan Antunez MD [address] [place] [phone] PCP - General Internal Medicine 06/07/23
--- OUTSIDE RECORDS SUMMARY | 2024-11-01 09:41 | XMS_ITS | Encounter Summary ---
Author Organization [employer] Address [address] [facility] [address] [place] [address] Care Team Providers Care Retail Coverage Merchandiser Lead Name Role Phone Joan Antunez MD Primary Care Provide r Encounter Details Date Type Department Care Team ([facility] st Contact Info) Description 06/22/2023 Abstract [facility] MEDICINE [address] [place], [place] [phone] Joan Antunez MD [address] [place], [place] [phone] Social History Tobacco Use Types Packs/Day Years [...] Description 11/02/2024 9:15 AM EDT Office Visit [facility] MED[facility]INE [address] [place] [address] Joan Antunez MD [address] [place] [address] 01/29/2025 9:00 AM EDT Office Visit [facility] ADULT DENTAL [address] [place] [address] Meggan, Regina [address] [place] [address] documented as of this encounter Procedures Procedure [...] documented as of this encounter Care Teams Retail Coverage Merchandiser Lead Relationship Specialty Start Date End Date Joan Antunez MD [address] [place], [place] [phone] PCP - General Internal Medicine 06/07/23 documented as of this encounter
--- OUTSIDE RECORDS SUMMARY | 2024-11-01 09:41 | XMS_ITS | Encounter Summary ---
Author Organization [employer] Address [address] [facility] [facility] [address] [place] [address] Care Team Providers Care Machine Sneller Name Role Phone Joan Antunez MD Primary Care Provide r Encounter Details Date Type Department Care Team ([facility] st Contact Info) Description 09/08/2023 Orders Only [facility] MEDICINE [address] [place], [place] [phone] Joan Antunez MD [address] [place], [place] [phone] Prediabetes (Primary Dx) Social History Tobacco Use [...] 9:15 AM EDT Office Visit [facility] MEDICINE [address] [place] [address] Joan Antunez MD [address] [place] [address] 01/29/2025 9:00 AM EDT Office Visit [facility] ADULT DENTAL [address] [place] [address] Meggan, Regina [address] [place] [address] documented as of this encounter Visit Diagnoses Diagnosis Prediabetes- Primary Other abnormal glucose documented in this encounter Additional Health Concerns Assessment Noted Time PHQ-9 Depression Total Score: 8 11/07/19 10:23 AM EDT documented as of this encounter Care Teams Machine Sneller Relationship Specialty Start Date End Date Joan Antunez MD [address] [place] [phone] PCP - General Internal Medicine 06/07/23 documented as of this encounter
--- OUTSIDE RECORDS SUMMARY | 2024-11-01 09:41 | XMS_ITS | Encounter Summary ---
Author Organization [employer] Address [address] [facility] 7t [place] [address] Care Team Providers Care Bulk Tank Car Unloader Name Role Phone Joan Antunez MD Primary Care Provide r Reason for Visit * Reason Comments Med Refill Encounter Details Date Type Department Care Team ([facility] st Contact Info) Description 10/27/2024 Refill [facility] MEDICINE [address] [place], [place] [phone] Joan Antunez MD [address] [place], [place] [phone] Chronic back pain, unspecified back location, unspecified [...] your housing situation today? I have young rowan 10/24/[address] you li [...] Description 11/02/2024 9:15 AM EDT Office Visit [facility] MEDICINE [address] [place] [address] Joan Antunez MD [address] [place] [phone] 01/29/2025 9:00 AM EDT Office Visit [facility] ADULT DENTAL [address] [place] [address] Meggan Regina [address] [place] [address] documented as of this encounter Visit Diagnoses Diagnosis Chronic back pain, unspecified back location, unspecified back pain laterality documented in this encounter Additional Health Concerns Assessment Noted Time PHQ-9 Depression Total Score: 14 024 12:06 PM EDT documented as of this encounter Care Teams Bulk Tank Car Unloader Relationship Specialty Start Date End Date Joan Antunez MD [address] [place] [phone] PCP - General Internal Medicine 06/07/23 documented as of this encounter
--- OUTSIDE RECORDS SUMMARY | 2024-11-01 09:41 | XMS_ITS | Encounter Summary ---
Author Organization [employer] Address [address] [facility] 7t [place] [address] Care Team Providers Care Dean Of Men Name Role Phone Joan Antunez MD Primary Care Provide r Reason for Visit * Reason Comments Med Refill Encounter Details Date Type Department Care Team (Late st Contact Info) Description 08/15/2024 Refill [facility] MEDICINE [address] [place], [place] [phone] Joan Antunez MD [address] [place], [place] [phone] Chronic back pain, unspecified back location, unspecified [...] 11/02/2024 9:15 AM EDT Office Visit [facility] MEDICINE [address] [place] [address] Joan Antunez MD [address] [place] [address] 01/29/2025 9:00 AM EDT Office Visit [facility] ADULT DENTAL [address] [place] [address] Meggan, Regina [address] [place] [address] documented as of this encounter Visit Diagnoses Diagnosis Chronic back pain, unspecified back location, unspecified back pain laterality documented in this encounter Additional Health Concerns Assessment Noted Time PHQ-9 Depression Total Score: 14 024 12:06 PM EDT documented as of this encounter Care Teams Dean Of Men Relationship Specialty Start Date End Date Joan Antunez MD [address] [place] [address] PCP - General Internal Medicine 06/07/23 documented as of this encounter
--- OUTSIDE RECORDS SUMMARY | 2024-11-01 09:41 | XMS_ITS | Encounter Summary ---
Author Organization [employer] Address 75 [facility] 7t [place] [address] Care Team Providers Care Automatic Trimming Sewer Name Role Phone David South Primary Care Provider Jesusita Sandra Primary Care Provider [phone] Joan Antunez MD Primary Care Provide r Reason for Visit * Reason Onset Date Comments Appointment 03/12/2023 Encounter Details Date Type Department Care Team (Late st Contact Info) Description 03/12/2023 Telephone [facility] ADULT DENTAL [address], [place] [phone] MegganArsenioRegina [address] [place] [address] Appointment Social History Tobacco Use Types Packs/Day [...] visit scheduled for 8am. Informed daughter that [facility] dental has her infomration and will call her when it is her turn on the list again to call in. Encouraged patient to call in from time to time looking for cancellations DR documented in this encounter Plan of Treatment Upcoming Encounters Date Type Department Care Team (Late st Contact Info) Description 11/02/2024 9:15 AM EDT Office Visit [facility] MEDICINE [address] [place] [address] Joan Antunez MD [address] [place] [address] 01/29/2025 9:00 AM EDT Office Visit [facility] ADULT DENTAL [address] [place] [address] Regina Broderick [address] [place] [address] documented as of this encounter Visit Diagnoses Not on filedocumented in this encounter Additional Health Concerns Assessment Noted Time PHQ-9 Depression Total Score: 8 11/07/19 10:23 AM EDT documented as of this encounter Care Teams Automatic Trimming Sewer Relationship Specialty Start Date End Date David South AGNP PCP - General Family Medicine 10/08/22 04/28/23 Jesusita Garcia FNP [address] [place] [address] PCP - General Family Medicine 04/29/23 06/06/23 Joan Antunez MD [address] [place] [address] PCP - General Internal Medicine 06/07/23 documented as of this encounter
--- OUTSIDE RECORDS SUMMARY | 2024-11-01 09:41 | XMS_ITS | Encounter Summary ---
Author Organization [employer] Address 75 [facility] 7t [place] [address] Care Team Providers Care Core Winder Name Role Phone Brannon David SIDDIQUI Primary Care Provider Unavail Jesusita MayersP Primary Care Provider [phone] Joan Antunez MD Primary Care Provide r Encounter Details Date Type Department Care Team (Late st Contact Info) Description 10/26/2022 Orders Only [facility] CHC MED & PEDS [address] [place] [address] Radha Jimenez LPN Social History Tobacco Use [...] Description 11/02/2024 9:15 AM EDT Office Visit [facility] MEDICINE [address] [place], [place] [phone] Joan Antunez MD [address] [place] [address] 01/29/2025 9:00 AM EDT Office Visit [facility] ADULT DENTAL [address] [place], [place] [phone] Regina Broderick [address] [place] [address] documented as of this encounter Visit Diagnoses Not on filedocumented in this encounter Care Teams Core Winder Relationship Specialty Start Date End Date David South AGNP PCP - General Family Medicine 10/08/22 04/28/23 Jesusita Garcia FNP [address] [place] [address] PCP - General Family Medicine 04/29/23 06/06/23 Joan Antunez MD [address] [place] [address] PCP - General Internal Medicine 06/07/23 documented as of this encounter
--- OUTSIDE RECORDS SUMMARY | 2024-11-01 09:41 | XMS_ITS | Encounter Summary ---
Author Organization [employer] Address 75 [facility] 7t [place] [address] Care Team Providers Care Deck Mate Name Role Phone Joan Antunez MD Primary Care Provide r Reason for Visit * Reason Comments Med Refill Encounter Details Date Type Department Care Team ([facility] st Contact Info) Description 10/28/2023 Refill [facility] MEDICINE [address] [place], [place] [phone] Joan Antunez MD [address] [place], [place] [phone] Social History Tobacco Use Types Packs/Day Years [...] Description 11/02/2024 9:15 AM EDT Office Visit [facility] MEDICINE [address] [place] [address] Joan Antunez MD [address] [place] [address] 01/29/2025 9:00 AM EDT Office Visit [facility] ADULT DENTAL [address] [place] [address] Meggan, Regina [address] [place] [address] documented as of this encounter Visit Diagnoses Not on filedocumented in this encounter Additional Health Concerns Assessment Noted Time PHQ-9 Depression Total Score: 8 11/07/19 10:23 AM EDT documented as of this encounter Care Teams Deck Mate Relationship Specialty Start Date End Date Joan Antunez MD [address] [place] [address] PCP - General Internal Medicine 06/07/23 documented as of this encounter
--- OUTSIDE RECORDS SUMMARY | 2024-11-01 09:41 | XMS_ITS | Encounter Summary ---
Author Organization [employer] Address [address] [place] [address] 7t [place] [address] Care Team Providers Care Package Collector Name Role Phone Jesusita Garcia LEATHA Primary Care Provider [phone] Joan Antunez MD Primary Care Provide r Encounter Details Date Type Department Care Team (Late Contact Info) Description 05/07/2023 Abstract [facility] PEDIATRIC DENTAL [address] [place] [address] Burke Frederick DDS [address] [place] [address] Social History Tobacco Use Types Packs/Day Years [...] AM EDT Office Visit [facility] MEDICINE [address] [place] [address] Joan Antunez MD [address] [place] [address] 01/29/2025 9:00 AM EDT Office Visit [facility] ADULT DENTAL [address] [place] [address] Regina Broderick [address] [place] [address] documented as of this encounter Visit Diagnoses Not on filedocumented in this encounter Additional Health Concerns Assessment Noted Time PHQ-9 Depression Total Score: 8 11/07/19 10:23 AM EDT documented as of this encounter Care Teams Package Collector Relationship Specialty Start Date End Date Jesusita Garcia FNP [address] [place] [address] PCP - General Family Medicine 04/29/23 06/06/23 Joan Antunez MD [address] [place] [address] PCP - General Internal Medicine 06/07/23 documented as of this encounter
--- OUTSIDE RECORDS SUMMARY | 2024-11-01 09:42 | XMS_ITS | Encounter Summary ---
Author Organization [employer] Address 75 [facility] 7t [place] [address] Care Team Providers Care Cross Cut Saw Operator Name Role Phone DignaMadhuri [facility] Primary Care Provider David Blankenship [facility] Primary Care Provider Jesusita Sandra [facility] Primary Care Provider [phone] Joan Antunez MD Primary Care Provide r Encounter Details Date Type Department Care Team (Late st Contact Info) Description 08/11/2022 Orders Only [facility] CHC MED & PEDS [address] [place] [address] Radha Jimenez LPN Social History Tobacco Use [...] Description 11/02/2024 9:15 AM EDT Office Visit [facility] MEDICINE [address] [place], [place] [phone] Joan Antunez MD [address] [place], [place] [phone] 01/29/2025 9:00 AM EDT Office Visit [facility] ADULT DENTAL [address] [place] [address] Regina Broderick [address] [place] [address] documented as of this encounter Visit Diagnoses Not on filedocumented in this encounter Care Teams Cross Cut Saw Operator Relationship Specialty Start Date End Date Madhuri Sawyer FNP PCP - General 06/29/22 10/07/22 David South AGNP PCP - General Family Medicine 10/08/22 04/28/23 Jesusita Garcia FNP [address] [place] [address] PCP - General Family Medicine 04/29/23 06/06/23 Joan Antunez MD [address] [place] [address] PCP - General Internal Medicine 06/07/23 documented as of this encounter
--- OUTSIDE RECORDS SUMMARY | 2024-11-01 09:42 | XMS_ITS | Encounter Summary ---
Author Organization [employer] Address 75 [facility] 7t [place] [address] Care Team Providers Care University Administrator Name Role Phone Joan Antunez MD Primary Care Provide r Reason for Visit * Reason Comments Pre-visit Planning SDOH screening negat jeanne and tobacco screening negative Encounter Details Date Type Department Care Team ([facility] st Contact Info) Description 10/24/2024 Patient Outreach [facility] MEDICINE [address] [place], [place] [phone] Joan Antunez MD [address] [place], [place] [phone] Pre-visit Planning (SDOH screening negative and tobacco screening negative) Social History Tobacco Use Types Packs/Day Years [...] AM EDT documented as of this encounter Progress Notes * Cyndy White - 10/24/2024 9:08 AM EDT CC Cnydy placed successful outbound call to patient for pre-visit planning. Patient name and confirmed. Patient confirms appt date and time, and has transportation. Biggest concern for appointment at this time is back and hip pain frequently feeling tired Patient advised to bring to appointment a photo id and insurance card. Appropriate screenings completed in anticipation of appointment. documented in this encounter Plan of Treatment Upcoming Encounters Date Type Department Care Team (Late st Contact Info) Description 11/02/2024 9:15 AM EDT Office Visit [facility] MEDICINE [address] [place] [address] Joan Antunez MD [address] [place] [address] 01/29/2025 9:00 AM EDT Office Visit [facility] ADULT DENTAL [address] [place] [address] Regina Broderick [address] [place] [address] documented as of this encounter Visit Diagnoses Not on filedocumented in this encounter Additional Health Concerns Assessment Noted Time PHQ-9 Depression Total Score: 14 024 12:06 PM EDT documented as of this encounter Care Teams University Administrator Relationship Specialty Start Date End Date Joan Antunez MD [address] [place] [address] PCP - General Internal Medicine 06/07/23 documented as of this encounter
--- OUTSIDE RECORDS SUMMARY | 2024-11-01 09:42 | XMS_ITS | Encounter Summary ---
Author Organization [employer] Address 75 [facility] 7 [place] [address] Care Team Providers Care Candy Department Manager Name Role Phone Digna Madhuri [facility] Primary Care Provider David Blankenship Primary Care Provider Jesusita Sandra [facility] Primary Care Provider [phone] Joan Antunez MD Primary Care Provide r Reason for Visit * Reason Comments Med Refill Encounter Details Date Type Department Care Team (Late st Contact Info) Description 08/11/2022 Refill [facility] MEDICINE [address] [place] [address] Delma Gauthier MD [address] [place] [address] Nausea (Primary Dx) Social History Tobacco Use [...] EST F/U with patient on request for CHIP MUCKER services, she needs mostly IADL's, but does [...] Description 11/02/2024 9:15 AM EDT Office Visit [facility] MEDICINE [address] [place] [address] Joan Antunez MD [address] [place] [address] 01/29/2025 9:00 AM EDT Office Visit [facility] ADULT DENTAL [address] [place] [address] Arsenio Broderickaris [address] [place] [address] documented as of this encounter Visit Diagnoses Diagnosis Nausea- Primary Nausea alone documented in this encounter Care Teams Candy Department Manager Relationship Specialty Start Date End Date Madhuri Sawyer FNP PCP - General 06/29/22 10/07/22 David South AGNP PCP - General Family Medicine 10/08/22 04/28/23 Jesusita Garcia FNP [address] [place] [address] PCP - General Family Medicine 04/29/23 06/06/23 Joan Antunez MD [address] [place] [address] PCP - General Internal Medicine 06/07/23 documented as of this encounter
--- OUTSIDE RECORDS SUMMARY | 2024-11-01 09:42 | XMS_ITS | Encounter Summary ---
Author Organization [employer] Address [address] [facility] [address] 7t [place] [address] Care Team Providers Care Fire Technician Name Role Phone Joan Antunez MD Primary Care Provide r Encounter Details Date Type Department Care Team ([facility] st Contact Info) Description 12/16/2023 Telephone [facility] MEDICINE [address] [place], [place] [phone] Joan Antunez MD [address] [place], [place] [phone] Social History Tobacco Use Types Packs/Day Years [...] 11/02/2024 9:15 AM EDT Office Visit [facility] [address] [place] [address] Joan Antunez MD [address] [place] [address] 01/29/2025 9:00 AM EDT Office Visit [facility] ADULT DENTAL [address] [place] [address] Meggan, Regina [address] [place] [address] documented as of this encounter Visit Diagnoses Not on filedocumented in this encounter Additional Health Concerns Assessment Noted Time PHQ-9 Depression Total Score: 14 024 12:06 PM EDT documented as of this encounter Care Teams Fire Technician Relationship Specialty Start Date End Date Joan Antunez MD [address] [place] [address] PCP - General Internal Medicine 06/07/23 documented as of this encounter
--- OUTSIDE RECORDS SUMMARY | 2024-11-01 09:42 | XMS_ITS | Encounter Summary ---
Author Organization [employer] Address 75 [facility] 7t [place] [address] Care Team Providers Care Experimental Flight Test Mechanic Name Role Phone Katherine Da Silva MD Primary Care Provider Madhuri Grayson [facility] Primary Care Provider David Blankens[facility] Primary Care Provider Jesusita Sandra [facility]LET DRILL[facility] Primary Care Provider [phone] Joan Antunez MD Primary Care Provide r Encounter Details Date Type Department Care Team (Latest Contact Info) Description 10/06/2019 Abstract [facility] CONVERSIONS Dental, Provider, DDS Social History [...] [facility] [address] [place], [place] [phone] Joan Antunez MD [address] [place] [address] 01/29/2025 9:00 AM EDT Office Visit [facility] ADULT DENTAL [address] [place], [place] [phone] Regina Broderick [address] [place] [address] documented as of this encounter Visit Diagnoses Not on filedocumented in this encounter Care Teams Experimental Flight Test Mechanic Relationship Specialty Start Date End Date Katherine Da Silva MD PCP - General Family Medicine 09/24/20 06/28/22 Madhuri Sawyer FNP PCP - General 06/29/22 10/07/22 David South AGNP PCP - General Family Medicine 10/08/22 04/28/23 Jesusita Garcia FNP [address] [place] [address] PCP - General Family Medicine 04/29/23 06/06/23 Joan Antunez MD [address] [place] [address] PCP - General Internal Medicine 06/07/23 documented as of this encounter
--- OUTSIDE RECORDS SUMMARY | 2024-11-01 09:42 | XMS_ITS | Encounter Summary ---
Author Organization [employer] Address 75 [facility] 7t [place] [address] Care Team Providers Care Medical Research Assistant Name Role Phone Joan Antunez MD Primary Care Provide r Reason for Visit * Reason Onset Date Comments Nurse Triage 11/17/2023 Encounter Details Date Type Department Care Team ([facility] st Contact Info) Description 11/17/2023 Telephone [facility] MEDICINE [address] [place], [place] [phone] Joan Antunez MD [address] [place] [address] Nurse Triage Social History Tobacco Use Types [...] PM EDT Patient referred to [facility] for SHELL SHOP SUPERVISOR 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 Paperwork sent to Provider for signature an then it will be faxed to [facility]. * Telephone Encounter - Delphine Burns RN - 11/17/2023 1:08 PM EDT Triage call with [place] [employer] [place] [id number] Pt reports diarrhea which started again 2-3 [...] country. Pt is offered to come to [facility] to be seen by provider but,has [...] nurse or provider soon Reason: Getting worse Estonian Speaker documented in this encounter Plan of Treatment Upcoming Encounters Date Type Department Care Team (Late st Contact Info) Description 11/02/2024 9:15 AM EDT Office Visit [facility] MEDICINE [address] [place] [address] Joan Antunez MD [address] [place] [address] 01/29/2025 9:00 AM EDT Office Visit [facility] ADULT DENTAL [address] [place] [address] Meggan, Regina [address] [place] [address] documented as of this encounter Visit Diagnoses Not on filedocumented in this encounter Additional Health Concerns Assessment Noted Time PHQ-9 Depression Total Score: 8 11/07/19 10:23 AM EDT documented as of this encounter Care Teams Medical Research Assistant Relationship Specialty Start Date End Date Joan Antunez MD [address] [place] [address] PCP - General Internal Medicine 06/07/23 documented as of this encounter
--- OUTSIDE RECORDS SUMMARY | 2024-11-01 09:42 | XMS_ITS | Encounter Summary ---
Author Organization [employer] Address [address] [place] [address] 7 [place] [address] Care Team Providers Care Helpdesk Specialist Name Role Phone DignaMadhuri [facility] Primary Care Provider David Blankenship [facility] Primary Care Provider Jesusita Sandra [facility] Primary Care Provider [phone] Joan Antunez MD Primary Care Provide r Reason for Visit * Reason Comments Med Refill Encounter Details Date Type Department Care Team (Late st Contact Info) Description 08/06/2022 Refill [facility] MEDICINE [address] [place] [address] Delma Gauthier MD [address] [place] [address] Social History Tobacco Use Types Packs/Day Years [...] Office Visit [facility] MEDICINE [address] [place] [address] Joan Antunez MD [address] [place] [address] 01/29/2025 9:00 AM EDT Office Visit [facility] ADULT DENTAL [address] [place], [place] [phone] Regina Broderick [address] [place] [address] documented as of this encounter Visit Diagnoses Not on filedocumented in this encounter Care Teams Helpdesk Specialist Relationship Specialty Start Date End Date Madhuri Sawyer FNP PCP - General 06/29/22 10/07/22 David South AGNP PCP - General Family Medicine 10/08/22 04/28/23 Jesusita Garcia FNP [address] [place] [address] PCP - General Family Medicine 04/29/23 06/06/23 Joan Antunez MD [address] [place] [address] PCP - General Internal Medicine 06/07/23 documented as of this encounter
--- OUTSIDE RECORDS SUMMARY | 2024-11-01 09:42 | XMS_ITS | Encounter Summary ---
Author Organization [employer] Address 75 [facility] 7t [place] [address] Care Team Providers Care Press Bucker Name Role Phone Joan Antunez MD Primary Care Provide r Reason for Visit * Reason Onset Date Comments Nurse Triage 12/16/2023 Encounter Details Date Type Department Care Team ([facility] st Contact Info) Description 12/16/2023 Telephone [facility] MEDICINE [address] [place], [place] [phone] Joan Antunez MD [address] [place] [address] Nurse Triage Social History Tobacco Use Types [...] acuity questions The caller accepted this outcome macedonian speaker documented in this encounter Plan of Treatment Upcoming Encounters Date Type Department Care Team (Late st Contact Info) Description 11/02/2024 9:15 AM EDT Office Visit [facility] MEDICINE [address] [place], [place] [phone] Joan Antunez MD [address] [place] [address] 01/29/2025 9:00 AM EDT Office Visit [facility] ADULT DENTAL [address] [place], [place] [phone] Regina Broderick [address] [place], [place] [phone] documented as of this encounter Visit Diagnoses Not on filedocumented in this encounter Additional Health Concerns Assessment Noted Time PHQ-9 Depression Total Score: 14 024 12:06 PM EDT documented as of this encounter Care Teams Press Bucker Relationship Specialty Start Date End Date Joan Antunez MD [address] [place] [address] PCP - General Internal Medicine 06/07/23 documented as of this encounter
--- OUTSIDE RECORDS SUMMARY | 2024-11-01 09:42 | XMS_ITS | Encounter Summary ---
Author Organization [email or web address] Address 75 [facility] 7t [place] [address] Care Team Providers Care Prison Psychiatrist Name Role Phone Katherine Da Silva MD Primary Care Provider Madhuri Grayson [facility] Primary Care Provider David Blankenship [facility] Primary Care Provider Jesusita Sandra CARPENTER LABOR SUPERVISOR Primary Care Provider [phone] Joan Antunez MD Primary Care Provide r Encounter Details Date Type Department Care Team (Latest Contact Info) Description 10/05/2018 Abstract [facility] CONVERSIONS Dental, Provider, DDS Social History [...] 9:15 AM EDT Office Visit [facility] MEDICINE [address] [place], [place] [phone] Joan Antunez MD [address] [place] [address] 01/29/2025 9:00 AM EDT Office Visit [facility] ADULT DENTAL [address] [place], [place] [phone] Regina Broderick [address] [place] [address] documented as of this encounter Visit Diagnoses Not on filedocumented in this encounter Care Teams Prison Psychiatrist Relationship Specialty Start Date End Date Katherine Da Silva MD PCP - General Family Medicine 09/24/20 06/28/22 Madhuri Sawyer FNP PCP - General 06/29/22 10/07/22 David South AGNP PCP - General Family Medicine 10/08/22 04/28/23 Jesusita Garcia FNP [address] [place] [address] PCP - General Family Medicine 04/29/23 06/06/23 Joan Antunez MD [address] [place] [address] PCP - General Internal Medicine 06/07/23 documented as of this encounter
--- OUTSIDE RECORDS SUMMARY | 2024-11-01 09:42 | XMS_ITS | Encounter Summary ---
Author Organization [employer] Address [address] [facility] [address] 7t [place] [address] Care Team Providers Care Rubber Insulator Name Role Phone Joan Antunez MD Primary Care Provide r Reason for Visit * Reason Comments Med Refill Encounter Details Date Type Department Care Team ([facility] st Contact Info) Description 10/26/2024 Refill [facility] MEDICINE 230 [place], [place] [phone] Joan Antunez MD [address] [place], [place] [phone] Social History Tobacco Use Types Packs/Day Years [...] Description 11/02/2024 9:15 AM EDT Office Visit [facility] MEDICINE [address] [place] [address] Joan Antunez MD [address] [place] [address] 01/29/2025 9:00 AM EDT Office Visit [facility] ADULT DENTAL [address] [place] [address] Meggan, Regina [address] [place] [address] documented as of this encounter Visit Diagnoses Not on filedocumented in this encounter Additional Health Concerns Assessment Noted Time PHQ-9 Depression Total Score: 14 024 12:06 PM EDT documented as of this encounter Care Teams Rubber Insulator Relationship Specialty Start Date End Date Joan Antunez MD [address] [place] [address] PCP - General Internal Medicine 06/07/23 documented as of this encounter
== END 2024-11-01 09:39 | disposition home or self-care (01) ==
LOC: HO.HGI 08:55
PROVIDERS: PCP Internal Medicine; Visit Provider Internal Medicine
DX: K59.1 Functional diarrhea (principal); R15.9 Full incontinence of feces
CPT/HCPCS: 99213

== ENCOUNTER → 2024-11-01 08:54 | Outpatient (BNVA) | payer OTHER, SELFPAY | PROVIDERS: PCP Internal Medicine; Visit Provider Internal Medicine | DX: K59.1 Functional diarrhea (principal); R19.4 Change in bowel habit; R15.9 Full incontinence of feces | CPT/HCPCS: 99212 ==

== ENCOUNTER 2024-11-28 09:01 | Outpatient (REF) | payer OTHER, SELFPAY ==
--- OUTSIDE RECORDS SUMMARY | 2024-11-28 09:33 | XMS_ITS | Encounter Summary ---
Author Organization [email or web address] Address 75 [facility] 7t [place] [address] Care Team Providers Care Bus Person Name Role Phone Joan Antunez MD Primary Care Provide r Reason for Visit * Reason Comments Med Refill Encounter Details Date Type Department Care Team (Late st Contact Info) Description 08/15/2024 Refill [facility] MEDICINE [address] [place], [place] [phone] Joan Antunez MD [address] [place], [place] [phone] Chronic back pain, unspecified back location, unspecified [...] Care Team (Late st Contact Info) Description 01/29/2025 9:00 AM EDT Office Visit [facility] ADULT DENTAL [address] [place] [address] Meggan, Regina [address] [place] [address] documented as of this encounter Visit Diagnoses Diagnosis Chronic back pain, unspecified back location, unspecified back pain laterality documented in this encounter Additional Health Concerns Assessment Noted Time PHQ-9 Depression Total Score: 14 024 12:06 PM EDT documented as of this encounter Care Teams Bus Person Relationship Specialty Start Date End Date Joan Antunez MD [address] [place] [address] PCP - General Internal Medicine 06/07/23 documented as of this encounter
--- OUTSIDE RECORDS SUMMARY | 2024-11-28 09:33 | XMS_ITS | Encounter Summary ---
Author Organization [employer] Address [address] [facility] 7t [place] [address] Care Team Providers Care Campaign Worker Name Role Phone Joan Antunez MD Primary Care Provide r Reason for Visit * Reason Onset Date Comments Nurse Triage 12/16/2023 Encounter Details Date Type Department Care Team ([facility] st Contact Info) Description 12/16/2023 Telephone [facility] MEDICINE [address] [place], [place] [phone] Joan Antunez MD [address] [place] [address] Nurse Triage Social History Tobacco Use Types [...] to triage below. Spoke with daughter Nirali Jackosn who is on HIPAA form from February [...] acuity questions The caller accepted this outcome amharic speaker documented in this encounter Plan of Treatment Upcoming Encounters Date Type Department Care Team (Late st Contact Info) Description 01/29/2025 9:00 AM EDT Office Visit [facility] ADULT DENTAL [address] [place] [address] Meggan, Regina [address] [place] [address] documented as of this encounter Visit Diagnoses Not on filedocumented in this encounter Additional Health Concerns Assessment Noted Time PHQ-9 Depression Total Score: 14 024 12:06 PM EDT documented as of this encounter Care Teams Campaign Worker Relationship Specialty Start Date End Date Joan Antunez MD [address] [place] [address] PCP - General Internal Medicine 06/07/23 documented as of this encounter
--- OUTSIDE RECORDS SUMMARY | 2024-11-28 09:33 | XMS_ITS | Clinical Summary ---
Author Organization [employer] Address [address] [facility] 7t [place] [address] Care Team Providers Care Supervisor Feed House Name Role Phone Joan Antunez MD Primary [...] swallow. 1 each 2 10/13/19 24 Active metoprolol succinate XL (Toprol-XL) 25 MG [...] MORNING 90 tablet 1 07/26/20 24 Active fluticasone (Flonase) 50 MCG/ACT nasal spray INSTILL 2 SPRAYS IN EACH NOSTRIL ONCE DAILY NEEDED 48 g 1 10/27/19 25 Active pregabalin (Lyrica) 300 MG capsuleIndicati ons:Chronic back pain, unspecified back location, unspecified back pain laterality TAKE 1 CAPSULE BY MOUTH TWICE DAILY IN THE MORNING AND IN THE EVENING 56 capsule 10/28/19 25 Active amLODIPine (Norvasc) 5 MG tabletIndicatio ns:Raynaud's phenomenon without gangrene Take 1 tablet (5 mg) by mouth Once per day. 30 tablet 11 11/03/19 25 026 Active dicyclomine (Bentyl) 20 MG tabletIndicatio ns:Chronic diarrhea TAKE 1 TABLET BY MOUTH 4 TIMES A DAY IN THE MORNING, AT NOON, IN THE EVENING, AND AT BEDTIME 60 tablet 1 11/07/19 25 Active potassium chloride CR (Klor-Con M20) 20 MEQ ER tabletIndicatio ns:Hypokalemia Take 1 tablet (20 mEq) by mouth 3 times daily. Do not crush or chew. 42 tablet 11/23/19 24 025 dicyclomine (Bentyl) 20 MG tabletIndicatio ns:Chronic diarrhea TAKE 1 TABLET BY MOUTH 4 TIMES A DAY IN THE MORNING, AT NOON, IN THE EVENING, AND AT BEDTIME 60 tablet 1 09/11/19 025 Discontinued Active Problems Problem Noted Date Diagnosed Date Raynaud's phenomenon without gangrene 11/02/2024 Assessment & Plan (11/02/2024 11:12 AM EDT): Patient educated about her condition, I advised for her to avoid caffeine, cold and medications like phenylephrine for cold symptoms, patient is a non-smoker I decided to start her on amlodipine 5 mg daily we will help for both Raynaud's and blood pressure Chronic diarrhea 08/03/2024 Assessment & Plan (08/03/2024 9:56 AM EST): I will refer patient to GI and start her on bentyl I will prescribed for patient pull ups Mixed stress and urge urinary incontinence 08/03 Assessment & Plan (08/03/2024 9:57 AM EST): I will prescribed for patient pull ups Periodontal disease 07/28/2024 Fractured dental tenriism with loss of materi al 03/27/2024 Lupus [...] not to miss her appointments with both candy vendor and sugar plantation manager Nausea 10/13/2023 Polyarthralgia 07/29/2023 Assessment & Plan [...] posterolateral disc osteophyte complex, severe left-sided and codowuyj-wa-aouxak right-sided facet arthropathy with active inflammatory changes at the left facet joint, with csqbwekw-hr-xthytw left-sided neural foraminal stenosis impinging on the exiting left L5 nerve root. No spinal canal stenosis. 2. Mild marrow edema in the L5 and S1 pedicles bilaterally which may be reactive or secondary to stress reactions. Patient requesting referral to orthopedic surgery. Assessment & Plan (11/06/2022 11:06 AM EDT): Per patient managed at [facility]. She is taking pregabalin 200 mg [...] regurgitation 11/05/2022 Prediabetes 11/05/2022 Assessment & Plan (11/02/2024 11:12 AM EDT): Extensive counseling about healthy diet, avoid sweets and exercise done today Assessment & Plan (11/06/2022 12:34 PM EDT): Glucose = 122 A1C = 6.2 Encounter for screening mamm ogram for malignant neoplasm of breast 11/05/2022 Assessment & Plan (11/06/2022 11:13 AM EDT): Normal mammogram as of 11/13/2020 Order for annual mammogram placed. Essential hypertension 11/17/2018 Assessment & Plan (11/02/2024 11:11 AM EDT): I advised: - Aerobic exercise to reduce [...] consulting health care provider Assessment & Plan (08/03/2024 9:54 AM EST): [...] her diet. She will speak to her candy vendor November 17 about potential exercise. Obstructive sleep apnea of adult 09/06/2015 Uterine leiomyoma 09/06/2015 Encounters Date Type Department Care Team Description 11/13/2024 Telephone [facility] MEDICINE [address] [place] [address] Joan Antunez MD Durable Medical Equipment 11/04/2024 Refill [facility] [address] [place] [address] Joann Gauthier MD Chronic diarrhea 11/02/2024 9:15 AM EDT Office Visit [facility] MED[facility]INE [address] [place] [address] Joan Antunez MD Raynaud's phenomenon without gangrene (Primary Dx); Prediabetes; Essential hypertension 11/02/2024 Travel 10/27/2024 Refill [facility] [address] [place], [place] [phone] Joan Antunez MD Chronic back pain, unspecified back location, unspecified back pain laterality 10/26/2024 Refill [facility] [address] [place] [address] Joan Antunez MD 10/24/2024 Patient Outreach [facility] [address] [place] [address] Joan Antunez MD Pre-visit Planning (SDOH screening negative and tobacco screening negative) 09/09/2024 Refill [facility] [address] [place], [place] [phone] Joan Antunez MD Chronic diarrhea 08/31/2024 Telephone [facility] MED[facility]INE [address] [place], [place] [phone] Joan Antunez MD Durable Medical Equipment (Home Care Delivered From: Pull-ups (XL)) from Last 3 Months Immunizations Name Administration [...] Sign Reading Time Taken Comments Blood Pressure 145/91 11/02/2024 9:27 AM EDT Pulse 60 11/02/2024 9:27 AM EDT Temperature 35.2 ??C (95.4 ??F) 11/02/2024 9:27 AM ED T Respiratory Rate 16 11/02/2024 9:27 AM EDT Oxygen Saturation 100% 11/02/2024 9:27 AM EDT Inhaled Oxygen Concentration - - Weight 94.1 kg (207 lb 6.4 oz) 11/02/2024 9:27 A M EDT Height 157.5 cm (5' 2 ) 11/02/2024 9:27 AM EDT Body Mass Index 37.93 11/02/2024 9:27 AM EDT Plan of Treatment Upcoming Encounters Date Type Department Care Team (Late st Contact Info) Description 01/29/2025 9:00 AM EDT Office Visit [facility] ADULT DENTAL [address] [place] [address] Meggan, Regina [address] [place] [address] Health Maintenance Due Date Last Done Comments CT Colonography 1965 FIT DNA/Cologuard 1965 FIT 1965 FOBT 1965 Sigmoidoscopy 1965 Alcohol/Substance Use Screening 1977 Pap Smear 1986 HPV/Cotest 1995 Colonoscopy 12/09/2021 12/09/2016 Colorectal Cancer Screening 12/09/2021 Dental Oral Exam 05/07/2024 11/04/2023, , 06/29/2013, Additional history exists Depression Monitoring 05/24/2024 11/23/2023, 024 Dental X-Ray: Bitewings 11/04/2024 11/04/19 24, 02/22/2023, 06/29/2013 Depression Screening 11/22/2024 11/23/2023, 11/23/19 24 Dental Prophylaxis 01/27/2025 07/28/2024, 0 04/22/2023, 07/28/2013, Additional history exists Mammogram 03/10/2025 03/10/2024, 12/08, 11/13/2020, Additional history exists SDOH Screening 10/24/2025 10/24/2024 Diabetes: Hemoglobin A1C 11/02/2025 025, 10/13/2023, 11/06/2022, Additional history exists Tobacco Screening 11/02/2025 11/02/2024 Dental X-Ray: Full Mouth 02/23/2026 02/22/2023 Lipid [...] Procedure Name Priority Date/Time Associated Diagnosis Comments POCT GLUCOSE Routine 11/02/2024 10:04 AM EDT Prediabetes POCT GLYCATED HEMOGLOBIN, TOTAL Routine 11/02/2024 10:03 AM EDT Prediabetes PROPHYLAXIS - ADULT Routine 07/28/2024 9 :00 [...] Routine 10/13/2023 10:53 AM EST Other fatigue INTRAORAL - COMPLETE SERIES OF RADIOGRAPHIC IMAGES Routine 02/22/2023 9:30 AM EDT LIPID PANEL, STANDARD Routine 10/26/2022 9:27 AM EDT HM COLONOSCOPY Routine 12/09/2016 from Last 3 Months or Most Recently Relevant to Health Maintenance Results * POCT Glucose (11/02/2024 10:04 AM EDT) Glucose Blood, POC 86 60 - 200 mg/dL QC Media Lot # [id number] Lot# Expiration Date [id number] Blood Capillary blood specimen / Unknown 11/02/2024 10:04 AM EDT Joan Casiano MD POINT OF CARE TEST EN TER/EDIT ORDERABLES Final Result * POCT HGB A1C (11/02/2024 10:03 AM EDT) Hemoglobin A1C 5.8 4.0 - 6.0 % QC Media Lot # [id number] Lot# Expiration Date [id number] Blood 11/02/2024 10:0 3 AM EDT Joan Casiano MD POINT OF CARE TEST EN TER/EDIT ORDERABLES Final Result * BI Mammogram Screening Tomosynthesis Bilateral (03/10/2024 8:46 AM EDT) Anatomical Region Laterality Modality Breast Bilateral Mammography 03/10/2024 8:46 AM EDT Narrative 04/10/2024 11:06 PM EDT ? [facility] ? [address] ?[place] [address] ? Mammography Report ? Signed ? Patient: Juan,Flor I ?MR#: [id number] ?? 59 ? : 1965 ?Acct:[id number] ? Age/Sex: 58 / F ?ADM Date: 03/10/24 ? Loc: HO.MAMMO ? Attending Dr: Joan Casiano MD ? Ordering Physician: Joan Antunez MD ?Results: ?? 1Negative ? Date of Service: 03/10/24 ?Follow Up: 1 Year From Orig ?? inal Mammogram ? Procedure(s): MM tomosynthesis screening BI ?? Accession Number(s): [id number] ? cc: Joan Antunez MD ? EXAMINATION: [...] DD/ 0846 ? TD/TT: 03/10/24 0906 ? Spool Tender: ? Procedure Note Donkarishmater, Image - 04/10/2024 Marga [facility] [address] [place], [place] [address] Mammography Report Signed Patient: Flor Martinez IMR#: [id number] 59 : 1965Acct:[id number] Age/Sex: 58 / FADM Date: 03/10/24 Loc: HO.MAMMO Attending Dr: Joan Casiano MD Ordering Physician: Joan Antunez MDResults: 1Negative Date of Service: 03/10/24Follow Up: 1 Year From Orig inal Mammogram Procedure(s): MM tomosynthesis screening BI Accession Number(s): [id number] cc: Joan Antunez MD EXAMINATION: MM SCREENING [...] OV> 04/10/242301 DD/ 0846 TD/TT: 03/10/24 0906 Spool Tender: us Joan Casiano MD IMG BI PROCEDURES Fin al Result * Hepatitis Panel, General (11/17/2023 9:47 AM EDT) Hepatitis A IgM Nonreactive Nonreactive [facility] Comment:IgM antibodies to PICKENS V not detected; does not exclude earlyacute or recovered HAV infection. ~Hepatitis B Surface Antibody REACTIVE Nonreactive [facility] Comment:REACTIVE: > 11.99 mI U/mL Hepatitis B Core Antibody Nonreactive Nonreactive [facility] Hepatitis C Antibody Nonreactive Nonreactive [facility] Comment:Antibodies to HCV no t detected; does not exclude early acuteHCV infection. Hepatitis B Surface Ag Negative Negative [facility] 11/17/2023 9:47 AM EDT 11/17/2023 9:47 AM EDT us Generic External Data Provider LAB BLOOD ORDERAB LES Final Result [facility] [address] [place] [phone] * HIV-1/2 Antigen and Antibodies, Fourth Generation, with Reflexes (10/13/2023 10:53 AM EST) [facility] HIV AB/AG Nonreactive Nonreactive [facility] Comment:HIV-1 p24 Ag and/or HIV-1/HIV-2 Ab not detected.A test result that is nonreactive does not exclude thepossibility of exposure to or infection with HIV-1 and/orHIV-2. Nonreactive results in this assay for individualswith prior exposure to HIV-1 and/or HIV-2 may be due toantigen and antibody levels that are below the limit ofdetection of this assay.The [employer] HIV Ag/Ab Combo assay result andsupplemental assay results should be interpreted inconjunction with the patient's clinical presentation,history and other laboratory results. If the results areinconsistent with clinical evidence, additional testing issuggested to confirm the result. Blood Venous blood specimen / Unknown 10/13/2023 10:53 AM EST 10/13/2023 1:07 PM EST us Joan Casiano MD LAB BLOOD ORDERABLES Final Result [facility] [address] [place] [phone] * (ABNORMAL) Lipid Panel, Standard (10/26/2022 9:27 AM EDT) [facility] Cholesterol, Total 115 <200 mg/dL [email or web address] [place] [facility] HDL Cholesterol 40(L) > OR = 50 mg/dL [email or web address] [place] [facility] Triglycerides 100 <150 mg/dL [email or web address] [place] [facility] LDL Cholesterol 56 mg/dL (calc) [facility] [place] [facility] Comment: Reference range: <100 Desirable range <100 mg/dL for primary prevention; ?? <70 mg/dL for patients with CHD or diabetic patients with > or = 2 CHD risk factors. LDL-C is now calculated using the Javan-Land calculation, which is a validated novel method providing better accuracy than the Friedewald equation in the estimation of LDL-C. Javan SS et al. DERRICK. 2013;310(19): 5364-0879 (http://education.[employer]/faq/WZS598) Chol/HDLC Ratio 2.9 <5.0 (calc) [email or web address] [place] [facility] Non-HDL Cholesterol 75 <130 mg/dL (calc) [email or web address] [place] [facility] Comment: For patients with diabetes plus 1 major ASCVD risk factor, treating to a non-HDL-C goal of <100 mg/dL (LDL-C of <70 mg/dL) is considered a therapeutic option. 10/26/2022 9:27 AM EDT 10/26/2022 9:28 AM EDT Narrative [facility] - 10/26/2022 9:57 PM EDT FASTING:YES FASTING: YES Katherine Da Silva MD LAB BLOOD ORDERABLES Final R esult [facility] [address], [place] [address] [email or web address] [place] [facility] [address] [place] [address] * Hm Colonoscopy (12/09/2016) Colonoscopy Normal Normal Narrative Mariel Tan - 12/09/2016 Recommended 5 year follow up Historical Provider HEALTH MAINTENANCE Final Result from Last 3 Months or Most Recently Relevant to Health Maintenance Insurance [address] [place] [address] - [employer] [address] [place] [address] DENTAL - [facility] [address] [place] [address] [address] [place] [address] [address] [place] [address] Care Teams Supervisor Feed House Relationship Specialty Start Date End Date Joan Antunez MD [address] [place] [phone] PCP - General Internal Medicine 06/07/23
--- OUTSIDE RECORDS SUMMARY | 2024-11-28 09:33 | XMS_ITS | Encounter Summary ---
Author Organization [employer] Address [address] [facility] [address] 7t [place] [address] Care Team Providers Care Hoisting Engineer Pile Driving Name Role Phone Joan Antunez MD Primary Care Provide r Encounter Details Date Type Department Care Team ([facility] st Contact Info) Description 09/08/2023 Orders Only [facility] MEDICINE [address] [place], [place] [phone] Joan Antunez MD [address] [place], [place] [phone] Prediabetes (Primary Dx) Social History Tobacco Use [...] Description 01/29/2025 9:00 AM EDT Office Visit [facility] ADULT DENTAL [address] [place] [address] Meggan, Regina [address] [place] [address] documented as of this encounter Visit Diagnoses Diagnosis Prediabetes- Primary Other abnormal glucose documented in this encounter Additional Health Concerns Assessment Noted Time PHQ-9 Depression Total Score: 8 11/07/19 10:23 AM EDT documented as of this encounter Care Teams Hoisting Engineer Pile Driving Relationship Specialty Start Date End Date Joan Antunez MD [address] [place] [address] PCP - General Internal Medicine 06/07/23 documented as of this encounter
--- OUTSIDE RECORDS SUMMARY | 2024-11-28 09:33 | XMS_ITS | Encounter Summary ---
Author Organization [employer] Address [address] [facility] 7t [place] [address] Care Team Providers Care Superintendent Greens Name Role Phone Joan Antunez MD Primary Care Provide r Reason for Visit * Reason Onset Date Comments Nurse Triage 11/17/2023 Encounter Details Date Type Department Care Team ([facility] st Contact Info) Description 11/17/2023 Telephone [facility] MEDICINE [address] [place], [place] [phone] Joan Antunez MD [address] [place] [address] Nurse Triage Social History Tobacco Use Types [...] PM EDT Patient referred to [facility] for TELEMETRY TECHNICIAN 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 Paperwork sent to Provider for signature an then it will be faxed to [facility]. * Telephone Encounter - Delphine Burns RN - 11/17/2023 1:08 PM EDT Triage call with [place] [employer] T[employer] Apprentice [place] [id number] Pt reports diarrhea which started again 2-3 [...] country. Pt is offered to come to [facility] to be seen by provider [...] nurse or provider soon Reason: Getting worse French Speaker documented in this encounter Plan of Treatment Upcoming Encounters Date Type Department Care Team (Late st Contact Info) Description 01/29/2025 9:00 AM EDT Office Visit [facility] ADULT DENTAL [address] [place] [address] Meggan, Regina [address] [place] [address] documented as of this encounter Visit Diagnoses Not on filedocumented in this encounter Additional Health Concerns Assessment Noted Time PHQ-9 Depression Total Score: 8 11/07/19 10:23 AM EDT documented as of this encounter Care Teams Superintendent Greens Relationship Specialty Start Date End Date Joan Antunez MD [address] [place] [address] PCP - General Internal Medicine 06/07/23 documented as of this encounter
--- OUTSIDE RECORDS SUMMARY | 2024-11-28 09:33 | XMS_ITS | Encounter Summary ---
Author Organization [employer] Address [address] [facility] 7t [place] [address] Care Team Providers Care Hearing And Speech Assistant Name Role Phone David South Primary Care Provider Unavail Jesusita Mayers Primary Care Provider [phone] Joan Antunez MD Primary Care Provide r Encounter Details Date Type Department Care Team (Late st Contact Info) Description 10/26/2022 Orders Only [facility] MED & PEDS [address] [place] [address] Radha Jimenez LPN Social History Tobacco Use [...] Description 01/29/2025 9:00 AM EDT Office Visit [facility] ADULT DENTAL [address] [place], [place] [phone] Regina Broderick [address] [place] [address] documented as of this encounter Visit Diagnoses Not on filedocumented in this encounter Care Teams Hearing And Speech Assistant Relationship Specialty Start Date End Date David South AGNP PCP - General Family Medicine 10/08/22 04/28/23 Jesusita Garcia FNP [address] [place] [address] PCP - General Family Medicine 04/29/23 06/06/23 Joan Antunez MD [address] [place] [address] PCP - General Internal Medicine 06/07/23 documented as of this encounter
--- OUTSIDE RECORDS SUMMARY | 2024-11-28 09:33 | XMS_ITS | Encounter Summary ---
Author Organization [employer] Address [address] [facility] 7t [place] [address] Care Team Providers Care Games Dealer Name Role Phone David South Primary Care Provider Jesusita Sandra Primary Care Provider [phone] Joan Antunez MD Primary Care Provide r Reason for Visit * Reason Onset Date Comments Appointment 03/12/2023 Encounter Details Date Type Department Care Team (Late st Contact Info) Description 03/12/2023 Telephone [facility] ADULT DENTAL [address] [place], [place] [phone] MegganArsenioRegina [address] [place] [address] Appointment Social History Tobacco Use Types Packs/Day [...] Description 01/29/2025 9:00 AM EDT Office Visit [facility] ADULT DENTAL [address] [place] [address] Regina Broderick [address] [place] [address] documented as of this encounter Visit Diagnoses Not on filedocumented in this encounter Additional Health Concerns Assessment Noted Time PHQ-9 Depression Total Score: 8 11/07/19 10:23 AM EDT documented as of this encounter Care Teams Games Dealer Relationship Specialty Start Date End Date David South AGNP PCP - General Family Medicine 10/08/22 04/28/23 Jesusita Garcia FNP [address] [place] [address] PCP - General Family Medicine 04/29/23 06/06/23 Joan Antunez MD [address] [place] [address] PCP - General Internal Medicine 06/07/23 documented as of this encounter
--- OUTSIDE RECORDS SUMMARY | 2024-11-28 09:33 | XMS_ITS | Encounter Summary ---
Author Organization [employer] Address [address] [place] [address] [address] [place] [address] Care Team Providers Care Pest Controller Name Role Phone Katherine Da Silva MD Primary Care Provider Madhuri Grayson [facility] Primary Care Provider David Blankenship [facility] Primary Care Provider Jesusita Sandra FOREIGN BANKNOTE TELLER Primary Care Provider [phone] Joan Antunez MD Primary Care Provide r [...] Care Team ( st Contact Info) Description 01/29/2025 9:00 AM EDT Office Visit [facility] ADULT DENTAL [address] [place], [place] [phone] Meggan Regina [address] [place], [place] [phone] documented as of this encounter Visit Diagnoses Not on filedocumented in this encounter Care Teams Pest Controller Relationship Specialty Start Date End Date Katherine Da Silva MD PCP - General Family Medicine 09/24/20 06/28/22 Madhuri Sawyer FNP PCP - General 06/29/22 10/07/22 David South AGNP PCP - General Family Medicine 10/08/22 04/28/23 Jesusita Garcia FNP [address] [place] [address] PCP - General Family Medicine 04/29/23 06/06/23 Jona Antunez MD [address] [place] [address] PCP - General Internal Medicine 06/07/23 documented as of this encounter
--- OUTSIDE RECORDS SUMMARY | 2024-11-28 09:33 | XMS_ITS | Encounter Summary ---
Author Organization [employer] Address [address] [place] [address] 7t [place] [address] Care Team Providers Care Retail Service Representative Name Role Phone Jesusita Garcia LEATHA Primary Care Provider [phone] Joan Antunez MD Primary Care Provide r Encounter Details Date Type Department Care Team (Late st Contact Info) Description 05/07/2023 Abstract [facility] PEDI[facility]IC DENTAL [address] [place] [address] Burke Frederick DDS [address] [place] [address] Social History Tobacco Use Types Packs/Day Years [...] [facility] [address] [place] [address] Regina Broderick [address] [place] [address] documented as of this encounter Visit Diagnoses Not on filedocumented in this encounter Additional Health Concerns Assessment Noted Time PHQ-9 Depression Total Score: 8 11/07/19 23 10:23 AM EDT documented as of this encounter Care Teams Retail Service Representative Relationship Specialty Start Date End Date Jesusita Garcia FNP [address] [place] [address] PCP - General Family Medicine 04/29/23 06/06/23 Joan Antunez MD [address] [place] [address] PCP - General Internal Medicine 06/07/23 documented as of this encounter
--- OUTSIDE RECORDS SUMMARY | 2024-11-28 09:33 | XMS_ITS | Encounter Summary ---
Author Organization [employer] Address [address] 7t [place] [address] Care Team Providers Care Circulation Tender Name Role Phone Joan Antunez MD Primary Care Provide r Encounter Details Date Type Department Care Team ([facility] st Contact Info) Description 06/22/2023 Abstract [facility] MEDICINE [address] [place], [place] [phone] Joan Antunez MD [address] [place], [place] [phone] Social History Tobacco Use Types Packs/Day Years [...] Description 01/29/2025 9:00 AM EDT Office Visit [facility] ADULT DENTAL [address] [place] [address] Meggna, Regina [address] [place] [address] documented as of this encounter Procedures Procedure Name Priority Date/Time Associated Diagnosis Comments COLONOSCOPY Routine 12/09/2016 documented in this encounter Results * Hm Colonoscopy (12/09/2016) Colonoscopy Normal Normal Narrative Mariel Tan - 12/09/2016 Recommended 5 year follow up Historical Provider HEALTH MAINTENANCE Final Result documented in this encounter Visit Diagnoses Not on filedocumented in this encounter Additional Health Concerns Assessment Noted Time PHQ-9 Depression Total Score: 8 11/07/19 23 10:23 AM EDT documented as of this encounter Care Teams Circulation Tender Relationship Specialty Start Date End Date Joan Antunez MD [address] [place], [place] [phone] PCP - General Internal Medicine 06/07/23 documented as of this encounter
--- OUTSIDE RECORDS SUMMARY | 2024-11-28 09:33 | XMS_ITS | Encounter Summary ---
Author Organization [employer] Address [address] [facility] 7 [place] [address] Care Team Providers Care Sales Vendor Name Role Phone Katherine Da Silva MD Primary Care Provider Madhuri Grayson [facility] Primary Care Provider David Blankenship [facility] Primary Care Provider Jesusita Sandra UTILITY DRIVER Primary Care Provider [phone] Joan Antunez MD Primary Care Provide r Encounter Details Date Type Department Care Team (Latest Contact Info) Description 10/05/2018 Abstract [facility] CONVERSIONS Dental, Provider, DDS Social History [...] Description 01/29/2025 9:00 AM EDT Office Visit [facility] ADULT DENTAL [address] [place], [place] [phone] Meggan Regina [address] [place], [place] [phone] documented as of this encounter Visit Diagnoses Not on filedocumented in this encounter Care Teams Sales Vendor Relationship Specialty Start Date End Date Katherine Da Silva MD PCP - General Family Medicine 09/24/20 06/28/22 Madhuri Sawyer FNP PCP - General 06/29/22 10/07/22 David South AGNP PCP - General Family Medicine 10/08/22 04/28/23 Jesusita Garcia FNP [address] [place] [address] PCP - General Family Medicine 04/29/23 06/06/23 Joan Antunez MD [address] [place] [address] PCP - General Internal Medicine 06/07/23 documented as of this encounter
--- OUTSIDE RECORDS SUMMARY | 2024-11-28 09:33 | XMS_ITS | Encounter Summary ---
Author Organization [employer] Address [address] [facility] 7t [place] [address] Care Team Providers Care Trash Collector Supervisor Name Role Phone Joan Antunez MD Primary Care Provide r Reason for Visit * Reason Comments Med Refill Encounter Details Date Type Department Care Team ([facility] st Contact Info) Description 10/28/2023 Refill [facility] MEDICINE [address] [place], [place] [phone] Joan Antunez MD [address] [place], [place] [phone] Social History Tobacco Use Types Packs/Day Years [...] Description 01/29/2025 9:00 AM EDT Office Visit [facility] ADULT DENTAL [address] [place] [address] Arsenio Broderickaris [address] [place] [address] documented as of this encounter Visit Diagnoses Not on filedocumented in this encounter Additional Health Concerns Assessment Noted Time PHQ-9 Depression Total Score: 8 11/07/19 10:23 AM EDT documented as of this encounter Care Teams Trash Collector Supervisor Relationship Specialty Start Date End Date Joan Antunez MD 230 [place] [address] PCP - General Internal Medicine 06/07/23 documented as of this encounter
--- OUTSIDE RECORDS SUMMARY | 2024-11-28 09:34 | XMS_ITS | Encounter Summary ---
Author Organization [employer] Address [address] [facility] 7 [place] [address] Care Team Providers Care Dictaphone Typist Name Role Phone Digna Madhuri [facility] Primary Care Provider David Blankenship [facility] Primary Care Provider Jesusita Sandra [facility] Primary Care Provider [phone] Joan Antunez MD Primary Care Provide r Reason for Visit * Reason Comments Med Refill Encounter Details Date Type Department Care Team (Late st Contact Info) Description 08/06/2022 Refill [facility] MEDICINE [address] [place] [address] Delma Gauthier MD [address] [place] [address] Social History Tobacco Use Types Packs/Day Years [...] Description 01/29/2025 9:00 AM EDT Office Visit [facility] ADULT DENTAL [address] [place] [address] Regina Broderick 230 [place] [address] documented as of this encounter Visit Diagnoses Not on filedocumented in this encounter Care Teams Dictaphone Typist Relationship Specialty Start Date End Date Madhuri Sawyer FNP PCP - General 06/29/22 10/07/22 David South AGNP PCP - General Family Medicine 10/08/22 04/28/23 Jesusita Garcia FNP [address] [place] [address] PCP - General Family Medicine 04/29/23 06/06/23 Joan Antunez MD [address] [place] [address] PCP - General Internal Medicine 06/07/23 documented as of this encounter
--- OUTSIDE RECORDS SUMMARY | 2024-11-28 09:34 | XMS_ITS | Encounter Summary ---
Author Organization [employer] Address [address] 7[address] [place] [address] Care Team Providers Care Rf Manager Name Role Phone Joan Antunez MD Primary Care Provide r Encounter Details Date Type Department Care Team ([facility] st Contact Info) Description 12/16/2023 Telephone [facility] MEDICINE [address] [place], [place] [phone] Joan Antunez MD [address] [place], [place] [phone] Social History Tobacco Use Types Packs/Day Years [...] 9:00 AM EDT Office Visit [facility] ADULT DENTAL [address] [place] [address] Meggan, Regina [address] [place] [address] documented as of this encounter Visit Diagnoses Not on filedocumented in this encounter Additional Health Concerns Assessment Noted Time PHQ-9 Depression Total Score: 14 024 12:06 PM EDT documented as of this encounter Care Teams Rf Manager Relationship Specialty Start Date End Date Joan Antunez MD [address] [place] [address] PCP - General Internal Medicine 06/07/23 documented as of this encounter
--- OUTSIDE RECORDS SUMMARY | 2024-11-28 09:34 | XMS_ITS | Encounter Summary ---
Author Organization [employer] Address [address] [facility] 7 [place] [address] Care Team Providers Care Business Support Coordinator Name Role Phone Madhuri Sawyer Primary Care Provider David Blankenship Primary Care Provider Jesusita Sandra Primary Care Provider [phone] Joan Antunez MD Primary Care Provide r Encounter Details Date Type Department Care Team (Late st Contact Info) Description 08/11/2022 Orders Only [facility] MED & PEDS [address] [place] [address] Radha Jimenez LPN Social History Tobacco Use [...] Description 01/29/2025 9:00 AM EDT Office Visit [facility] ADULT DENTAL [address] [place] [address] Meggan, Regina [address] [place] [address] documented as of this encounter Visit Diagnoses Not on filedocumented in this encounter Care Teams Business Support Coordinator Relationship Specialty Start Date End Date Madhuri Sawyer FNP PCP - General 06/29/22 10/07/22 David South AGNP PCP - General Family Medicine 10/08/22 04/28/23 Jesusita Garcia FNP [address] [place] [address] PCP - General Family Medicine 04/29/23 06/06/23 Joan Antunez MD 230 [place] [address] PCP - General Internal Medicine 06/07/23 documented as of this encounter
--- OUTSIDE RECORDS SUMMARY | 2024-11-28 09:34 | XMS_ITS | Encounter Summary ---
Author Organization [employer] Address [address] [facility] 7 [place] [address] Care Team Providers Care Heel Blacker Name Role Phone Digna Madhuri [facility] Primary Care Provider David Blankenship Primary Care Provider Jesusita Sandra [facility] Primary Care Provider [phone] Joan Antunez MD Primary Care Provide r Reason for Visit * Reason Comments Med Refill Encounter Details Date Type Department Care Team (Late st Contact Info) Description 08/11/2022 Refill [facility] MEDICINE [address] [place] [address] Delma Gauthier MD [address] [place] [address] Nausea (Primary Dx) Social History Tobacco Use [...] EST F/U with patient on request for [employer]WER services, she needs mostly IADL's, but does [...] Description 01/29/2025 9:00 AM EDT Office Visit [facility] ADULT DENTAL [address] [place], [place] [phone] Arsenio Broderickaris [address] [place] [address] documented as of this encounter Visit Diagnoses Diagnosis Nausea- Primary Nausea alone documented in this encounter Care Teams Heel Blacker Relationship Specialty Start Date End Date Madhuri Sawyer FNP PCP - General 06/29/22 10/07/22 David South AGNP PCP - General Family Medicine 10/08/22 04/28/23 Jesusita Garcia FNP [address] [place] [address] PCP - General Family Medicine 04/29/23 06/06/23 Joan Antunez MD [address] [place] [address] PCP - General Internal Medicine 06/07/23 documented as of this encounter
[2024-11-28 10:19] LABS: Hematocrit 44.5 % (37.0-47.0); Hemoglobin 13.9 g/dl (12.0-16.0); Mean Corpuscular HGB Conc 31.2 g/dl (31.0-35.0); Mean Corpuscular Hemoglobin 29.5 pg (27.0-33.0); Mean Corpuscular Volume 94.5 fL (80.0-98.0); Platelet Count 186 X10*3/uL (160-400); Red Blood Count 4.71 X10*6/uL (4.20-5.50); Red Cell Distribution Width 13.9 % (11.0-16.0); White Blood Count 5.3 X10*3/uL (4.8-10.8)
[2024-11-28 10:31] LABS: Alanine Aminotransferase 22 U/L (0-31); Albumin Level 3.8 g/dL (3.5-5.0); Alkaline Phosphatase 112 U/L (39-117); Anion Gap 9 (12-20); Aspartate Amino Transferase 26 U/L (5-31); Bilirubin Total 0.3 mg/dL (0.0-1.0); Blood Urea Nitrogen 17 mg/dL (9-16); Calcium 8.7 mg/dL (8.4-10.2); Carbon Dioxide 27 mmol/L (22-29); Chloride 110 mmol/L (96-108); Estimated Glomerular Filt Rate > 60; Glucose Random 125 mg/dL (60-115); Potassium 3.9 mmol/L (3.3-5.1); Sodium 142 mmol/L (135-145); Total Protein 7.1 g/dL (6.5-8.0)
[2024-11-28 10:49] LABS: TSH reflex Free T4 1.93 uIU/mL (0.32-4.0)
[2024-11-29 05:08] LABS: Immunoglobulin A 203 mg/dL (47-310)
[2024-11-29 21:59] LABS: Transglutaminase IgA <1.0 U/mL
== END 2024-11-28 09:02 | disposition home or self-care (01) ==
LOC: HO.LAB 09:01
PROVIDERS: Absent Provider Student in an Organized Health Care Education/Training Program; PCP Internal Medicine; Visit Provider Internal Medicine
DX: K59.1 Functional diarrhea (principal)
CPT/HCPCS: 36415; 80053; 82784; 84443; 85027; 86364

== ENCOUNTER 2024-12-22 08:40 | Outpatient (AMB) | payer OTHER, SELFPAY ==
--- OUTSIDE RECORDS SUMMARY | 2024-12-22 08:54 | XMS_ITS | Encounter Summary ---
Author Organization [employer] Address [address] 7t [place] [address] Care Team Providers Care Rural Carrier Name Role Phone Joan Antunez MD Primary Care Provide r Encounter Details Date Type Department Care Team ([facility] st Contact Info) Description 09/08/2023 Orders Only [facility] MEDICINE [address] [place], [place] [phone] Joan Antunez MD [address] [place] [address] Prediabetes (Primary Dx) Social History Tobacco Use [...] [facility] ADULT DENTAL [address] [place] [address] Meggan, Regina [address] [place] [address] documented as of this encounter Visit Diagnoses Diagnosis Prediabetes- Primary Other abnormal glucose documented in this encounter Additional Health Concerns Assessment Noted Time PHQ-9 Depression Total Score: 8 11/07/19 10:23 AM EDT documented as of this encounter Care Teams Rural Carrier Relationship Specialty Start Date End Date Joan Antunez MD [address] [place] [address] PCP - General Internal Medicine 06/07/23 documented as of this encounter
--- OUTSIDE RECORDS SUMMARY | 2024-12-22 08:54 | XMS_ITS | Encounter Summary ---
Author Organization [employer] Address [address] [facility] 7t [place] [address] Care Team Providers Care Chief Nursing Officer Name Role Phone Joan Antunez MD Primary Care Provide r Reason for Visit * Reason Onset Date Comments Med Refill 12/13/2024 Encounter Details Date Type Department Care Team ([facility] st Contact Info) Description 12/13/2024 Telephone [facility] MEDICINE [address] [place], [place] [phone] Joan Antunez MD [address] [place] [address] Med Refill Social History Tobacco Use Types Packs/Day Years [...] encounter Miscellaneous Notes * Telephone Encounter - Rachna Seay LPN - 12/13/2024 9:57 AM EDT Please review request medication is not pended as unclear if prescribed for short term * Telephone Encounter - Kavitha Buitrago - 12/13/2024 9:53 AM EDT TC from pt requesting medication refill. Medications needing refill : ondansetron (Zofran) 8 MG tablet To be sent to: [facility] pharmacy documented in this encounter Plan of Treatment Upcoming Encounters Date Type Department Care Team (Late st Contact Info) Description 01/29/2025 9:00 AM EDT Office Visit [facility] ADULT DENTAL [address] [place] [address] Meggan, Regina [address] [place] [address] documented as of this encounter Visit Diagnoses Not on filedocumented in this encounter Additional Health Concerns Assessment Noted Time PHQ-9 Depression Total Score: 14 024 12:06 PM EDT documented as of this encounter Care Teams Chief Nursing Officer Relationship Specialty Start Date End Date Joan Antunez MD [address] [place] [address] PCP - General Internal Medicine 06/07/23 documented as of this encounter
--- OUTSIDE RECORDS SUMMARY | 2024-12-22 08:54 | XMS_ITS | Encounter Summary ---
Author Organization [employer] Address [address] [facility] 7t [place] [address] Care Team Providers Care Supervisor Typesetting Name Role Phone David South Primary Care Provider Unavail Jesusita Mayers Primary Care Provider [phone] Joan Antunez MD Primary Care Provide r Encounter Details Date Type Department Care Team (Late st Contact Info) Description 10/26/2022 Orders Only [facility]ED[facility] [address] [place] [address] Radha Jimenez LPN Social History Tobacco Use [...] 01/29/2025 9:00 AM EDT Office Visit [facility] ADULT DENTAL [address] [place], [place] [phone] Regina Broderick [address] [place] [address] documented as of this encounter Visit Diagnoses Not on filedocumented in this encounter Care Teams Supervisor Typesetting Relationship Specialty Start Date End Date David South AGNP PCP - General Family Medicine 10/08/22 04/28/23 Jesusita Garcia FNP [address] [place] [address] PCP - General Family Medicine 04/29/23 06/06/23 Joan Antunez MD [address] [place] [address] PCP - General Internal Medicine 06/07/23 documented as of this encounter
--- OUTSIDE RECORDS SUMMARY | 2024-12-22 08:54 | XMS_ITS | Encounter Summary ---
Author Organization [employer] Address [address] [place] [address] 7t [place] [address] Care Team Providers Care Cut Out Stitcher Name Role Phone Jesusita Garcia LEATHA Primary Care Provider [phone] Joan Antunez MD Primary Care Provide r Encounter Details Date Type Department Care Team (Late st Contact Info) Description 05/07/2023 Abstract [facility] D[facility] [address] [place] [address] Burke Frederick DDS [address] [place] [address] Social History Tobacco Use Types Packs/Day Years [...] Office Visit [facility] ADULT DENTAL [address] [place] [address] Regina Broderick [address] [place] [address] documented as of this encounter Visit Diagnoses Not on filedocumented in this encounter Additional Health Concerns Assessment Noted Time PHQ-9 Depression Total Score: 8 11/07/19 23 10:23 AM EDT documented as of this encounter Care Teams Cut Out Stitcher Relationship Specialty Start Date End Date Jesusita Garcia FNP [address] [place] [address] PCP - General Family Medicine 04/29/23 06/06/23 Joan Antunez MD [address] [place] [address] PCP - General Internal Medicine 06/07/23 documented as of this encounter
--- OUTSIDE RECORDS SUMMARY | 2024-12-22 08:54 | XMS_ITS | Encounter Summary ---
Author Organization [employer] Address [address] [facility]t [place] [address] Care Team Providers Care Welfare Manager Name Role Phone Joan Antunez MD Primary Care Provide r Encounter Details Date Type Department Care Team ([facility] st Contact Info) Description 06/22/2023 Abstract [facility] MEDICINE [address] [place], [place] [phone] Joan Antunez MD [address] [place], [place] [phone] Social History Tobacco Use Types Packs/Day Years [...] Description 01/29/2025 9:00 AM EDT Office Visit [facility] ADULT DENTAL [address] [place], [place] [phone] Meggan, Regina [address] [place] [address] documented as of this encounter Procedures Procedure Name Priority Date/Time Associated Diagnosis Comments HM COLONOSCOPY Routine 12/09/2016 documented in this encounter [...] documented as of this encounter Care Teams Welfare Manager Relationship Specialty Start Date End Date Joan Antunez MD [address] [place], [place] [phone] PCP - General Internal Medicine 06/07/23 documented as of this encounter
--- OUTSIDE RECORDS SUMMARY | 2024-12-22 08:54 | XMS_ITS | Encounter Summary ---
Author Organization [employer] Address [address] [facility] 7t [place] [address] Care Team Providers Care Bullet Casting Operator Name Role Phone David South Primary Care Provider Unavail Jesusita Mayers Primary Care Provider [phone] Joan Antunez MD Primary Care Provide r Reason for Visit * Reason Onset Date Comments Appointment 03/12/2023 Encounter Details Date Type Department Care Team (Late st Contact Info) Description 03/12/2023 Telephone [facility] ADULT DENTAL [address] [place], [place] [phone] Meggan Regina [address] [place] [address] Appointment Social History Tobacco Use Types Packs/Day [...] Miscellaneous Notes * Telephone Encounter - Prema Lombardis - 03/12/2023 8:11 AM EDT Daughter of patient called in at 8:10 stating that her mom has covid and is unable to come to hygiene visit scheduled for 8am. Informed daughter that [facility] dental has her infomration and will call her when it is her turn on the list again to call in. Encouraged patient to call in from time to time looking for cancellations DR documented in this encounter Plan of Treatment Upcoming Encounters Date Type Department Care Team (Late st Contact Info) Description 01/29/2025 9:00 AM EDT Office Visit [facility] ADULT DENTAL [address] [place] [address] Regina Broderick [address] [place] [address] documented as of this encounter Visit Diagnoses Not on filedocumented in this encounter Additional Health Concerns Assessment Noted Time PHQ-9 Depression Total Score: 8 11/07/19 10:23 AM EDT documented as of this encounter Care Teams Bullet Casting Operator Relationship Specialty Start Date End Date David South AGNP PCP - General Family Medicine 10/08/22 04/28/23 Jesusita Garcia FNP [address] [place] [address] PCP - General Family Medicine 04/29/23 06/06/23 Joan Antunez MD [address] [place] [address] PCP - General Internal Medicine 06/07/23 documented as of this encounter
--- OUTSIDE RECORDS SUMMARY | 2024-12-22 08:55 | XMS_ITS | Encounter Summary ---
Author Organization [employer] Address [address] [facility] [address], [place] [address] Care Team Providers Care Traffic Line Painter Name Role Phone Katherine Da Silva MD Primary Care Provider Madhuri Grayson [facility] Primary Care Provider David Blankenship [facility] Primary Care Provider Jesusita Sandra CARTON INSPECTOR Primary Care Provider [phone] Joan Antunez MD Primary Care Provide r Encounter Details Date Type Department Care Team (Latest Contact Info) Description 10/06/2019 Abstract [facility] CONVERSIONS Dental, Provider, DDS Social History [...] Office Visit [facility] ADULT DENTAL [address] [place], [place] [phone] MegganArsenioRegina [address] [place], [place] [phone] documented as of this encounter Visit Diagnoses Not on filedocumented in this encounter Care Teams Traffic Line Painter Relationship Specialty Start Date End Date Katherine Da Silva MD PCP - General Family Medicine 09/24/20 06/28/22 Madhuri Sawyer FNP PCP - General 06/29/22 10/07/22 David South AGNP PCP - General Family Medicine 10/08/22 04/28/23 Jesusita Garcia FNP [address] [place] [address] PCP - General Family Medicine 04/29/23 06/06/23 Joan Antunez MD [address] [place] [address] PCP - General Internal Medicine 06/07/23 documented as of this encounter
--- OUTSIDE RECORDS SUMMARY | 2024-12-22 08:55 | XMS_ITS | Encounter Summary ---
Author Organization [employer] Address [address] [facility] 7t [place] [address] Care Team Providers Care Professor Of Archaeology Name Role Phone Joan Antunez MD Primary Care Provide r Reason for Visit * Reason Comments Med Refill Encounter Details Date Type Department Care Team ([facility] st Contact Info) Description 08/15/2024 Refill [facility] MEDICINE [address] [place], [place] [phone] Joan Antunez MD 230 [place], [place] [phone] Chronic back pain, unspecified back location, unspecified [...] 9:00 AM EDT Office Visit [facility] ADULT DENTAL [address] [place] [address] Meggan, Regina [address] [place] [address] documented as of this encounter Visit Diagnoses Diagnosis Chronic back pain, unspecified back location, unspecified back pain laterality documented in this encounter Additional Health Concerns Assessment Noted Time PHQ-9 Depression Total Score: 14 024 12:06 PM EDT documented as of this encounter Care Teams Professor Of Archaeology Relationship Specialty Start Date End Date Joan Antunez MD [address] [place] [address] PCP - General Internal Medicine 06/07/23 documented as of this encounter
--- OUTSIDE RECORDS SUMMARY | 2024-12-22 08:55 | XMS_ITS | Encounter Summary ---
Author Organization [employer] Address [address] [facility] 7 [place] [address] Care Team Providers Care Agricultural Engineering Technicians Name Role Phone DignaEvenstrina [facility] Primary Care Provider David Blankenship [facility] Primary Care Provider Jesusita Sandra REST ROOM MAID Primary Care Provider [phone] Joan Antunez MD Primary Care Provide r Reason for Visit * Reason Comments Med Refill Encounter Details Date Type Department Care Team (Late st Contact Info) Description 08/06/2022 Refill [facility] MEDICINE [address] [place] [address] Delma Gauthier MD [address] [place] [address] Social History Tobacco Use Types Packs/Day Years [...] 9:00 AM EDT Office Visit [facility] ADULT DENTAL [address] [place] [address] Regina Broderick [address] [place] [address] documented as of this encounter Visit Diagnoses Not on filedocumented in this encounter Care Teams Agricultural Engineering Technicians Relationship Specialty Start Date End Date Madhuri Sawyer FNP PCP - General 06/29/22 10/07/22 David South AGNP PCP - General Family Medicine 10/08/22 04/28/23 Jesusita Garcia FNP [address] [place] [address] PCP - General Family Medicine 04/29/23 06/06/23 Joan Antunez MD [address] [place] [address] PCP - General Internal Medicine 06/07/23 documented as of this encounter
--- OUTSIDE RECORDS SUMMARY | 2024-12-22 08:55 | XMS_ITS | Clinical Summary ---
Author Organization [employer] Address [address] [facility] 7t [place] [address] Care Team Providers Care Weight Engineer Name Role Phone Joan Antunez MD Primary Care Provide r Allergies Active Allergy Reactions Criticality Noted Date Comments Diclofenac Rash,Itching Low 04/20/2017 Medications Calcium Antacid Extra Strength 750 MG chewable tabletIndicati ons:GERD without esophagitis CHEW 1 TABLET BY MOUTH [...] 04/04/20 20 Active dexAMETHasone (Decadron) 4 MG tabletIndicati ons:Chronic back pain, unspecified back location, unspecified back pain laterality Take 1 tablet (4 mg) by mouth with breakfast for 5 days. 5 tablet 03/03/20 23 Active Mometasone Furoate (Asmanex HFA) 100 MCG/ACT aerosol INHALE 2 PUFFS BY MOUTH TWICE DAILY. RINSE MOUTH AFTER USING. 13 g 2 08/06/20 23 Active albuterol (Ventolin HFA) 108 (90 Base) MCG/ACT inhalerIndicat ions:Mild persistent asthma, unspecified whether complicated Inhale 2 puffs every 6 (six) hours if needed for wheezing. 18 g 10/13/19 24 Active budesonide (Pulmicort Flexhaler) 180 MCG/ACT inhalerIndicat ions:Mild persistent asthma, unspecified whether complicated Inhale 2 [...] MEALS 180 capsule 1 05/08/20 24 Active fluticasone (Flonase) 50 MCG/ACT nasal spray INSTILL 2 SPRAYS IN EACH NOSTRIL ONCE DAILY NEEDED 48 g 1 10/27/19 25 Active amLODIPine (Norvasc) 5 MG tabletIndicati ons:Raynaud's phenomenon without gangrene Take 1 tablet (5 mg) by mouth Once per day. 30 tablet 11 11/03/19 25 026 Active dicyclomine (Bentyl) 20 MG tabletIndicati ons:Chronic diarrhea TAKE 1 TABLET BY MOUTH 4 TIMES A DAY IN THE MORNING, AT NOON, IN THE EVENING, AND AT BEDTIME 60 tablet 1 11/07/19 25 Active cetirizine (ZyrTEC) 10 MG tablet TAKE 1 TABLET BY MOUTH EVERY MORNING 90 tablet 1 12/06/19 25 Active pregabalin (Lyrica) 300 MG capsuleIndicat ions:Chronic back pain, unspecified back location, unspecified back pain laterality TAKE 1 CAPSULE BY MOUTH TWICE DAILY IN THE MORNING AND IN THE EVENING 56 capsule 12/06/19 25 Active Blood Pressure kit Please use to check BP as directed. 1 kit 12/15/19 25 Active potassium chloride CR (Klor-Con M20) 20 MEQ ER tabletIndicati ons:Hypokalemi a Take 1 tablet (20 mEq) by mouth 3 times daily. Do not crush or chew. 42 tablet 11/23/19 24 025 cetirizine (ZyrTEC) 10 MG tablet TAKE 1 TABLET BY MOUTH EVERY MORNING 90 tablet 1 07/26/20 24 025 Discontinued(Re order (will not trigger notification to Pharmacy)) pregabalin (Lyrica) 300 MG capsuleIndicat ions:Chronic back pain, unspecified back location, unspecified back pain laterality TAKE 1 CAPSULE BY MOUTH TWICE DAILY IN THE MORNING AND IN THE EVENING 56 capsule 10/28/19 25 025 Discontinued(Re order (will not trigger notification to Pharmacy)) ondansetron (Zofran) 4 MG tabletIndicati ons:Nausea Take 2 tablets (8 mg) by mouth every 8 (eight) hours if needed for nausea or vomiting for up to 7 days. 20 tablet 12/14/19 025 Active Problems Problem Noted Date Diagnosed Date [...] pull ups Periodontal disease 07/28/2024 Fractured dental scientology with loss of materi al 03/27/2024 Lupus [...] not to miss her appointments with both c application developer and diet tech Nausea 10/13/2023 Polyarthralgia 07/29/2023 Assessment & Plan [...] posterolateral disc osteophyte complex, severe left-sided and oqtqzlts-ef-wtzdkp right-sided facet arthropathy with active inflammatory changes at the left facet joint, with pdaojqsa-sw-hvigyy left-sided neural foraminal stenosis impinging on the exiting left L5 nerve root. No spinal canal stenosis. 2. Mild marrow edema in the L5 and S1 pedicles bilaterally which may be reactive or secondary to stress reactions. Patient requesting referral to orthopedic surgery. Assessment & Plan (11/06/2022 11:06 AM EDT): Per patient managed at [facility] orthopedics. She is taking pregabalin 200 mg [...] her diet. She will speak to her c application developer November 17 about potential exercise. Obstructive sleep apnea of adult 09/06/2015 Uterine leiomyoma 09/06/2015 Encounters Date Type Department Care Team Description 12/14/2024 Refill [facility] MEDICINE [address] [place] [address] Joan Antunez MD 12/13/2024 Orders Only [facility] MED[facility] [address] [place] [address] Joan Antunez MD Nausea (Primary Dx) 12/13/2024 Telephone [facility] MED[facility]INE [address] [place] [address] Joan Antunez MD Med Refill 12/05/2024 Refill [facility] [address] [place] [address] Joan Antunez MD Chronic back pain, unspecified back location, unspecified back pain laterality 11/28/2024 Orders Only GENERIC EXTERNAL DATA DEPARTMENT Provider, Generic External Data 11/13/2024 Telephone [facility] MED[facility]INE [address] [place] [address] Joan Antunez MD Durable Medical Equipment 11/04/2024 Refill [facility] MED[facility] [address] [place] [address] Joann Gauthier MD Chronic diarrhea 11/02/2024 9:15 AM EDT Office Visit [facility] MED[facility] [address] [place] [address] Joan Antunez MD Raynaud's phenomenon without gangrene (Primary Dx); Prediabetes; Essential hypertension 11/02/2024 Travel 10/27/2024 Refill [facility] MED[facility] [address] [place] [address] Joan Antunez MD Chronic back pain, unspecified back location, unspecified back pain laterality 10/26/2024 Refill [facility] MEDICINE [address] [place], [place] [phone] Joan Antunez MD 10/24/2024 Patient Outreach [facility] MED[facility] [address] [place] [address] Joan Antunez MD Pre-visit Planning (SDOH screening negative and tobacco screening negative) from Last 3 Months Immunizations Immunization Administration Dates Next Due Hep A, Adult [...] Vaccination 11/16/2020 Pfizer Covid-19 Vaccine 12+ 05/05/2024, Pneumococcal Conjugate PCV 20 10/26/2023 Pneumococcal Polysaccharide [...] Description 01/29/2025 9:00 AM EDT Office Visit [facility] ADULT DENTAL [address] [place] [address] Meggan, Regina [address] [place] [address] Health Maintenance Due Date Last Done Comments CT Colonography 1965 FIT DNA/Cologuard 1965 FIT 1965 FOBT 1965 Sigmoidoscopy 1965 Alcohol/Substance Use Screening 1977 Pap Smear 1986 HPV/Cotest 1995 Colonoscopy 12/09/2021 12/09/2016 Colorectal Cancer Screening 12/09/2021 Dental Oral Exam 05/07/2024 11/04/2023, , 06/29/2013, Additional history exists Dental X-Ray: Bitewings 11/04/2024 [...] patient's age to complete this topic Meningococcal B Vaccine Aged Out No l onger eligible based on patient's age to complete [...] Procedure Name Priority Date/Time Associated Diagnosis Comments TISSUE TRANSGLUTAMINASE AB, IGA Routine 11/28/2024 9:10 AM EDT IMMUNOGLOBULIN A Routine 11/28/2024 9:10 AM EDT TSH W/REFLEX TO FT4 Routine 11/28/2024 9 :10 AM EDT COMPREHENSIVE METABOLIC PANEL Routine 11/28/2024 9:10 AM EDT CBC Routine 11/28/2024 9:10 AM EDT POCT GLUCOSE Routine 11/02/2024 10:04 AM EDT Prediabetes POCT GLYCATED HEMOGLOBIN, TOTAL Routine 11/02/2024 10:03 AM EDT Prediabetes PROPHYLAXIS - ADULT Routine 07/28/2024 9 :00 AM EST Periodontal disease Dental calculus BI MAMMOGRAM SCREENING TOMOSYNTHESIS BILATERAL Routine 03/10/2024 8:46 AM EDT HEPATITIS PANEL, GENERAL Routine 024 9:47 AM EDT BITEWINGS - 4 RADIOGRAPHIC IMAGES Routine 11/04/2023 1:00 PM EDT PERIODIC ORAL EVALUATION - ESTABLISHED PATIENT Routine 11/04/2023 1:00 PM EDT HIV 1/2 ANTIGEN/ANTIBODY, FOURTH GENERATION W/RFL Routine 10/13/2023 10:53 AM EST Other fatigue INTRAORAL - COMPLETE SERIES OF RADIOGRAPHIC IMAGES Routine 02/22/2023 9:30 AM EDT LIPID PANEL, STANDARD Routine 10/26/2022 9:27 AM EDT COLONOSCOPY Routine 12/09/2016 from Last 3 Months or Most Recently Relevant to Health Maintenance Results * TSH with Reflex to Free T4 (11/28/2024 9:10 AM EDT) Pathologist [facility] TSH reflex Free T4 1.93 0.32 - 4.0 uIU/mL [facility] 11/28/2024 9:10 AM EDT 11/28/2024 9:10 AM EDT Generic External Data Provider LAB BLOOD ORDERAB LES Final Result Performing Organization Address [facility] Co de Phone Number [facility] [address] [place] [phone] * Tissue Transglutaminase Antibody, IgA (11/28/2024 9:10 AM EDT) [facility] Transglutaminase IgA <1.0 U/mL [facility] Comment:Value Interpretation ----- <15.0 Antibody not detected> or = 15.0 Antibody detectedTHIS TEST WAS PERFORMED AT:[employer] [facility] [place] [phone] HILARIO MD 11/28/2024 9:10 AM EDT 11/28/2024 9:10 AM EDT Generic External Data Provider LAB BLOOD ORDERAB LES Final Result Performing Organization Address [facility]/ZIP Co de Phone Number [facility] [address] [place] [phone] * (ABNORMAL) CBC (11/28/2024 9:10 AM EDT) [facility] White Blood Count 5.3 4.8 - 10.8 X10*3/uL [facility] Red Blood Count 4.71 4.20 - 5.50 X10*6/uL [facility] Hemoglobin 13.9 12.0 - 16.0 g/dl [facility] Hematocrit 44.5 37.0 - 47.0 % [facility] Mean Corpuscular Volume 94.5 80.0 - 98.0 fL [facility] Mean Corpuscular Hemoglobin 29.5 27.0 - 33.0 pg [facility] Mean Corpuscular HGB Conc 31.2 31.0 - 35.0 g/dl [facility] Red Cell Distribution Width 13.9 11.0 - 16.0 % [facility] Platelet Count 186 160 - 400 X10*3/uL [facility] Mean Platelet Volume 13.0(H) 9.4 - 12.3 fL [facility] NRBC Pct Auto 0.0 0.0 - 0.2 /100WBC [facility] NRBC Abs Auto 0.000 0.0 - 0.012 X10*3/uL [facility] 11/28/2024 9:10 AM EDT 11/28/2024 9:10 AM EDT us Generic External Data Provider LAB BLOOD ORDERAB LES Final Result Performing Organization Address [facility] Co de Phone Number [facility] [address] [place] [phone] * Immunoglobulin A (11/28/2024 9:10 AM EDT) Immunoglobulin A 203 47 - 310 mg/dL [facility] Comment:THIS TEST WAS PERFOR MED AT:[facility] [place] [phone] HILARIO MD 11/28/2024 9:10 AM EDT 11/28/2024 9:10 AM EDT us Generic External Data Provider LAB BLOOD ORDERAB LES Final Result Performing Organization Address [facility] Co de Phone Number [facility] [address] [place] [phone] * (ABNORMAL) Comprehensive Metabolic Panel (11/28/2024 9:10 AM EDT) Sodium 142 135 - 145 mmol/L [facility] Potassium 3.9 3.3 - 5.1 mmol/L [facility] Chloride 110(H) 96 - 108 mmol/L [facility] Carbon Dioxide 27 22 - 29 mmol/L [facility] Anion Gap 9(L) 12 - 20 [facility] Urea Nitrogen (BUN) 17(H) 9 - 16 mg/dL [facility] Creatinine, Serum 0.84 0.5 - 1.4 mg/dL [facility] Estimated Glomerular Filt Rate >60 [facility] Comment:Chronic Kidney Disea se: Estimated GFR < 60 mL/min/1.54i6Loosrt Kidney Disease: Estimated GFR < 15 mL/min/1.73m2 Glucose 125(H) 60 - 115 mg/dL [facility] Calcium 8.7 8.4 - 10.2 mg/dL [facility] Bilirubin, Total 0.3 0.0 - 1.0 mg/dL [facility] Aspartate Amino Transferase 26 5 - 31 U/L [facility] Alanine Aminotransferase 22 0 - 31 U/L [facility] Total Protein 7.1 6.5 - 8.0 g/dL [facility] Albumin Level 3.8 3.5 - 5.0 g/dL [facility] Alkaline Phosphatase 112 39 - 117 U/L [facility] 11/28/2024 9:10 AM EDT 11/28/2024 9:10 AM EDT us Generic External Data Provider LAB BLOOD ORDERAB LES Final Result [facility] [address] [place] [address] [phone] * POCT Glucose (11/02/2024 10:04 AM EDT) Glucose Blood, POC 86 60 - 200 mg/dL [employer] Lot # [id number] Lot# Expiration Date [id number] Blood Capillary blood specimen / Unknown 11/02/2024 10:04 AM EDT us Joan Casiano MD POINT OF CARE TEST EN TER/EDIT ORDERABLES Final Result * POCT HGB A1C (11/02/2024 10:03 AM EDT) Pathologist [facility] Hemoglobin A1C 5.8 4.0 - 6.0 % QC Media Lot # [id number] Lot# Expiration Date [id number] Blood 11/02/2024 10:0 3 AM EDT us Joan Casiano MD POINT OF CARE TEST EN TER/EDIT ORDERABLES Final Result * BI Mammogram Screening Tomosynthesis Bilateral (03/10/2024 8:46 AM EDT) Anatomical Region Laterality Modality Breast Bilateral Mammography 03/10/2024 8:46 AM EDT Narrative 04/10/2024 11:06 PM EDT ? [facility] ? [address] ?[place] [address] ? Mammography Report ? Signed ? Patient: Juan,Flor I ?MR#: [id number] ?? 59 ? : 1965 ?Acct:[id number] ? Age/Sex: 58 / F ?ADM Date: 03/10/ ? Loc: HO.MAMMO ? Attending Dr: Joan Casiano MD ? Ordering Physician: Joan Antunez MD ?Results: ?? 1Negative ? Date of Service: 03/10/24 ?Follow Up: 1 Year From Orig ?? inal Mammogram ? Procedure(s): MM tomosynthesis screening BI ?? Accession Number(s): [id number] ? cc: Joan Antunez MD ? EXAMINATION: [...] DD/ 0846 ? TD/TT: 03/10/24 0906 ? [employer] Protection Maintainer: ? Procedure Note Donotuseinterpreter, Image - 04/10/2024 [facility] [address] [place] [address] Mammography Report Signed Patient: Flor Martinez IMR#: [id number] 59 : 1965Acct:[id number] Age/Sex: 58 / FADM Date: 03/10/24 Loc: HO.MAMMO Attending Dr: Joan Casiano MD Ordering Physician: Joan Antunez MDResults: 1Negative Date of Service: 03/10/24Follow Up: 1 Year From Orig inal Mammogram Procedure(s): MM tomosynthesis screening BI Accession Number(s): [id number] cc: Joan Antunez MD EXAMINATION: MM SCREENING [...] OV> 04/10/242301 DD/ 0846 TD/TT: 03/10/24 0906 [employer] Protection Maintainer: us Joan Casiano MD IMG BI PROCEDURES Fin al Result * Hepatitis Panel, General (11/17/2023 9:47 AM EDT) Hepatitis A IgM Nonreactive Nonreactive [facility] Comment:IgM antibodies to PICKENS V not detected; does not exclude earlyacute or recovered HAV infection. ~Hepatitis B Surface Antibody REACTIVE Nonreactive [facility] Comment:REACTIVE: > 11.99 mI U/mL Hepatitis B Core Antibody Nonreactive Nonreactive [facility] Hepatitis C Antibody Nonreactive Nonreactive [facility] Comment:Antibodies to HCV no t detected; does not exclude early acuteHCV infection. Hepatitis B Surface Ag Negative Negative [facility] 11/17/2023 9:47 AM EDT 11/17/2023 9:47 AM EDT us Generic External Data Provider LAB BLOOD ORDERAB LES Final Result [facility] [address] [place] [phone] * HIV-1/2 Antigen and Antibodies, Fourth Generation, with Reflexes (10/13/2023 10:53 AM EST) HIV AB/AG Nonreactive Nonreactive [facility] Comment:HIV-1 p24 Ag and/or HIV-1/HIV-2 Ab not detected.A test result that is nonreactive does not exclude thepossibility of exposure to or infection with HIV-1 and/orHIV-2. Nonreactive results in this assay for individualswith prior exposure to HIV-1 and/or HIV-2 may be due toantigen and antibody levels that are below the limit ofdetection of this assay.[employer] HIV Ag/Ab Combo assay result andsupplemental assay results should be interpreted inconjunction with the patient's clinical presentation,history and other laboratory results. If the results areinconsistent with clinical evidence, additional testing issuggested to confirm the result. Blood Venous blood specimen / Unknown 10/13/2023 10:53 AM EST 10/13/2023 1:07 PM EST us Joan Casiano MD LAB BLOOD ORDERABLES Final Result [facility] [address] [place] [phone] * (ABNORMAL) Lipid Panel, Standard (10/26/2022 9:27 AM EDT) Cholesterol, Total 115 <200 mg/dL [facility] HDL Cholesterol 40(L) > OR = 50 mg/dL [facility] Triglycerides 100 <150 mg/dL [facility] LDL Cholesterol 56 mg/dL (calc) [facility] Comment: Reference range: <100 Desirable range <100 mg/dL for primary prevention; ?? <70 mg/dL for patients with CHD or diabetic patients with > or = 2 CHD risk factors. LDL-C is now calculated using the Javan-Land calculation, which is a validated novel method providing better accuracy than the Friedewald equation in the estimation of LDL-C. Javan SS et al. DERRICK. 2013;310(19): 3527-6203 (http://education.[facility]/faq/JPJ001) Chol/HDLC Ratio 2.9 <5.0 (calc) [facility] Non-HDL Cholesterol 75 <130 mg/dL (calc) [facility] Comment: For patients with diabetes plus 1 major ASCVD risk factor, treating to a non-HDL-C goal of <100 mg/dL (LDL-C of <70 mg/dL) is considered a therapeutic option. 10/26/2022 9:27 AM EDT 10/26/2022 9:28 AM EDT Narrative [facility] - 10/26/2022 9:57 PM EDT FASTING:YES FASTING: YES us Katherine Da Silva MD LAB BLOOD ORDERABLES Final R esult [facility] [address] [facility], [place] [phone] [facility] [address] [place] [phone] * Hm Colonoscopy (12/09/2016) Colonoscopy Normal Normal Narrative Mariel Tan - 12/09/2016 Recommended 5 year follow up us Historical Provider HEALTH MAINTENANCE Final Result from Last 3 Months or Most Recently Relevant to Health Maintenance Insurance [address] [place] [address] [facility] [address] [place] [address] [facility] [address] [place] [address] [address] [place] [address] [address] [place] [address] Care Teams Weight Engineer Relationship Specialty Start Date End Date Joan Antunez MD [address] [place] [phone] PCP - General Internal Medicine 06/07/23
--- OUTSIDE RECORDS SUMMARY | 2024-12-22 08:55 | XMS_ITS | Encounter Summary ---
Author Organization [employer] Address [address] [facility] [address] [place] [address] Care Team Providers Care Paperhanger Apprentice Name Role Phone Digna Madhuri [facility] Primary Care Provider David Blankenship [facility] Primary Care Provider Jesusita Sandra DOCUMENT CONTROLLER Primary Care Provider [phone] Joan Antunez MD Primary Care Provide r Reason for Visit * Reason Comments Med Refill Encounter Details Date Type Department Care Team (Late st Contact Info) Description 08/11/2022 Refill [facility] MEDICINE [address] [place], [place] [phone] Delma Gauthier MD [address] [place], [place] [phone] Nausea (Primary Dx) Social History Tobacco Use [...] EST F/U with patient on request for CULTURIST services, she needs mostly IADL's, but does [...] Visit [facility] ADULT DENTAL [address] [place] [address] Arsenio Broderickaris [address] [place] [address] documented as of this encounter Visit Diagnoses Diagnosis Nausea- Primary Nausea alone documented in this encounter Care Teams Paperhanger Apprentice Relationship Specialty Start Date End Date Madhuri Sawyer FNP PCP - General 06/29/22 10/07/22 David South AGNP PCP - General Family Medicine 10/08/22 04/28/23 Jesusita Garcia FNP [address] [place] [address] PCP - General Family Medicine 04/29/23 06/06/23 Joan Antunez MD [address] [place] [address] PCP - General Internal Medicine 06/07/23 documented as of this encounter
--- OUTSIDE RECORDS SUMMARY | 2024-12-22 08:55 | XMS_ITS | Encounter Summary ---
Author Organization [employer] Address 75 [facility] [address] [place] [address] Care Team Providers Care Medication Care Manager Name Role Phone Joan Antunez MD Primary Care Provide r Reason for Visit * Reason Onset Date Comments Nurse Triage 11/17/2023 Encounter Details Date Type Department Care Team ([facility] st Contact Info) Description 11/17/2023 Telephone [facility] [address] [place], [place] [phone] Joan Antunez MD [address] [place] [address] Nurse Triage Social History Tobacco Use Types [...] PM EDT Patient referred to [facility] for [employer] ECONOMIST 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 Paperwork sent to Provider for signature an then it will be faxed to [facility]. * Telephone Encounter - Delphine Burns RN - 11/17/2023 1:08 PM EDT Triage call with [employer] Professor [place] [id number] Pt reports diarrhea which started again 2-3 [...] country. Pt is offered to come to [facility] to be seen by provider but,has apt with PCP 11/23/23 coming up. Pt will wait for apt with PCP. Pt is advised to increase liquids to at least 6-8 glasses daily, include broth, decaf tea, gator malloyr. Pt agrees with disposition andhome care reviewed. [...] nurse or provider soon Reason: Getting worse Croatian Speaker documented in this encounter Plan of Treatment Upcoming Encounters Date Type Department Care Team (Late st Contact Info) Description 01/29/2025 9:00 AM EDT Office Visit [facility] ADULT DENTAL [address] [place] [address] Meggan, Regina [address] [place] [address] documented as of this encounter Visit Diagnoses Not on filedocumented in this encounter Additional Health Concerns Assessment Noted Time PHQ-9 Depression Total Score: 8 11/07/19 10:23 AM EDT documented as of this encounter Care Teams Medication Care Manager Relationship Specialty Start Date End Date Joan Antunez MD [address] [place] [address] PCP - General Internal Medicine 06/07/23 documented as of this encounter
--- OUTSIDE RECORDS SUMMARY | 2024-12-22 08:55 | XMS_ITS | Encounter Summary ---
Author Organization [employer] Address [address] [facility] [address] [place] [address] Care Team Providers Care Medical Record Specialist Name Role Phone Katherine Da Silva MD Primary Care Provider Madhuri Grayson [facility] Primary Care Provider David Blankenship [facility] Primary Care Provider Jesusita Sandra HYDROELECTRIC PRODUCTION TECHNICIAN Primary Care Provider [phone] Joan Antunez MD Primary Care Provide r Encounter Details Date Type Department Care Team (Latest Contact Info) Description 10/05/2018 Abstract [facility] Dental, Provider, DDS Social History [...] Description 01/29/2025 9:00 AM EDT Office Visit [facility] ADULT D[facility] [address] [place], [place] [phone] MegganArsenioRegina [address] [place], [place] [phone] documented as of this encounter Visit Diagnoses Not on filedocumented in this encounter Care Teams Medical Record Specialist Relationship Specialty Start Date End Date Katherine Da Silva MD PCP - General Family Medicine 09/24/20 06/28/22 Madhuri Sawyer FNP PCP - General 06/29/22 10/07/22 David South AGNP PCP - General Family Medicine 10/08/22 04/28/23 Jesusita Garcia FNP [address] [place] [address] PCP - General Family Medicine 04/29/23 06/06/23 Joan Antunez MD [address] [place] [address] PCP - General Internal Medicine 06/07/23 documented as of this encounter
--- OUTSIDE RECORDS SUMMARY | 2024-12-22 08:55 | XMS_ITS | Encounter Summary ---
Author Organization [employer] Address [address] [facility] [address] [place] [address] Care Team Providers Care Project Officer Name Role Phone Madhuri Sawyer Primary Care Provider David Blankenship Primary Care Provider Jesusita Sandra Primary Care Provider [phone] Joan Antunez MD Primary Care Provide r Encounter Details Date Type Department Care Team (Late st Contact Info) Description 08/11/2022 Orders Only [facility]ED[facility] [address] [place] [address] Radha Jimenez LPN Social History Tobacco Use [...] Description 01/29/2025 9:00 AM EDT Office Visit [facility] ADULT DENTAL [address] [place] [address] Meggan, Regina [address] [place] [address] documented as of this encounter Visit Diagnoses Not on filedocumented in this encounter Care Teams Project Officer Relationship Specialty Start Date End Date Madhuri Sawyer FNP PCP - General 11/21/22 3/1/23 David South AGNP PCP - General Family Medicine 10/08/22 04/28/23 Jesusita Garcia FNP [address] [place] [address] PCP - General Family Medicine 04/29/23 06/06/23 Joan Antunez MD [address] [place] [address] PCP - General Internal Medicine 06/07/23 documented as of this encounter
--- OUTSIDE RECORDS SUMMARY | 2024-12-22 08:55 | XMS_ITS | Encounter Summary ---
Author Organization [employer] Address [address] [facility] [address] [place] [address] Care Team Providers Care Livestock Farmworker Name Role Phone Joan Antunez MD Primary Care Provide r Reason for Visit * Reason Comments Med Refill Encounter Details Date Type Department Care Team ([facility] st Contact Info) Description 10/28/2023 Refill [facility] MEDICINE [address] [place], [place] [phone] Joan Antunez MD [address] [place], [place] [phone] Social History Tobacco Use Types Packs/Day Years [...] Description 01/29/2025 9:00 AM EDT Office Visit [facility] ADULT DENTAL [address] [place] [address] Meggan, Regina [address] [place] [address] documented as of this encounter Visit Diagnoses Not on filedocumented in this encounter Additional Health Concerns Assessment Noted Time PHQ-9 Depression Total Score: 8 11/07/19 10:23 AM EDT documented as of this encounter Care Teams Livestock Farmworker Relationship Specialty Start Date End Date Joan Antunez MD [address] [place] [address] PCP - General Internal Medicine 06/07/23 documented as of this encounter
--- OUTSIDE RECORDS SUMMARY | 2024-12-22 08:55 | XMS_ITS | Encounter Summary ---
Author Organization [employer] Address [address] [place] [address] Care Team Providers Care Grinding And Polishing Laborer Name Role Phone Joan Antunez MD Primary Care Provide r Encounter Details Date Type Department Care Team ([facility] st Contact Info) Description 12/16/2023 Telephone [facility] MEDICINE [address] [place], [place] [phone] Joan Antunez MD [address] [place] [address] Social History Tobacco Use Types Packs/Day Years [...] Description 01/29/2025 9:00 AM EDT Office Visit [facility] ADULT DENTAL [address] [place] [address] Meggan, Regina [address] [place] [address] documented as of this encounter Visit Diagnoses Not on filedocumented in this encounter Additional Health Concerns Assessment Noted Time PHQ-9 Depression Total Score: 14 024 12:06 PM EDT documented as of this encounter Care Teams Grinding And Polishing Laborer Relationship Specialty Start Date End Date Joan Antunez MD [address] [place] [address] PCP - General Internal Medicine 06/07/23 documented as of this encounter
--- OUTSIDE RECORDS SUMMARY | 2024-12-22 08:55 | XMS_ITS | Encounter Summary ---
Author Organization [employer] Address [address] [facility] [address] [place] [address] Care Team Providers Care Can Reforming Machine Operator Name Role Phone Joan Antunez MD Primary Care Provide r Reason for Visit * Reason Onset Date Comments Nurse Triage 12/16/2023 Encounter Details Date Type Department Care Team ([facility] st Contact Info) Description 12/16/2023 Telephone [facility] MEDICINE [address] [place], [place] [phone] Joan Antunez MD [address] [place] [address] Nurse Triage Social History Tobacco Use Types [...] acuity questions The caller accepted this outcome wolof speaker documented in this encounter Plan of Treatment Upcoming Encounters Date Type Department Care Team (Late st Contact Info) Description 01/29/2025 9:00 AM EDT Office Visit [facility] ADULT DENTAL [address] [place] [address] Meggan, Regina [address] [place] [address] documented as of this encounter Visit Diagnoses Not on filedocumented in this encounter Additional Health Concerns Assessment Noted Time PHQ-9 Depression Total Score: 14 024 12:06 PM EDT documented as of this encounter Care Teams Can Reforming Machine Operator Relationship Specialty Start Date End Date Joan Antunez MD [address] [place] [address] PCP - General Internal Medicine 06/07/23 documented as of this encounter
[2024-12-22 09:24] VITALS: BP 90/60; PULSE 67; O2SAT 95; BMI 39.0
--- NOTE | 2024-12-22 09:24 | A.OFFVIS_ITS ---
Vital Signs 12/22/24 09:24 Height 5 ft 1.5 in Weight 210 lb BMI 39.0 BP 90/60 Blood Pressure Location Lt brachial Pulse 67 Pulse Source Pulse Oximeter Pulse Oximetry (%) 95 Oxygen Delivery Method Room Air Intake Visit Reasons: Follow Up 6mo Intake Note: Patient presents 6 month follow up for ALKA, compliance in chart Fund Development Manager Required: No Fund Development Manager Name: Dianelys interpreted Accompanied by: Grand Child Allergies diclofenac [DICLOFENAC] Allergy (Unknown, Verified 12/22/24 09:27) itch Medication List - Last Reconciled 12/22/24 by LEATHA Dick albuterol sulfate 90 mcg/actuation (ProAir HFA) 2 puffs inhalation QID APAP Machine/Device 9-12 cmH2O nightly > 4 hours apixaban (Eliquis) 5 mg PO BID aripiprazole mg PO DAILY aripiprazole 10 mg PO DAILY cetirizine 10 mg PO QAM chlorpromazine 100 mg PO BEDTIME dapagliflozin propanediol (Farxiga) 10 mg PO DAILY empagliflozin (Jardiance) 10 mg PO DAILY eplerenone 25 mg PO .Nightly fluticasone propionate 110 mcg/actuation (Flovent HFA) 2 puffs PO BID fluticasone propionate 50 mcg/actuation intranasal furosemide mg PO DAILY hydrochlorothiazide 12.5 mg PO QAM hydroxychloroquine 200 mg PO BID ibuprofen 800 mg PO TID PRN isosorbide mononitrate ER 30 mg PO DAILY loperamide (Imodium A-D) 2 mg PO QID PRN 90 days metoprolol succinate ER mg PO DAILY omeprazole 20 mg PO pregabalin 300 mg PO BID psyllium husk 1 tsp PO DAILY 90 days sacubitril-valsartan 49-51 mg (Entresto) 1 tab PO BID trazodone 25 mg PO DAILY venlafaxine ER 75 mg PO QAM HPI Comments Details: 59-yr-old female presents for follow-up visit of ALKA. Patient is accompanied by her granddaughter. Pt endorses the following interval medical history changes: S patient reports she is being followed closely by Rheumatology and Cardiology for SLE and congestive heart failure. She is now seen being seen at the [facility] GDMT (guideline directed medical therapy) clinic, to optimize her cardiac medication regimen, which patient is very open to. Recently increased Entresto, started Eplerenone 25 mg q.h.s. and stopped amlodipine. Increase fluids to 64-80 oz daily, and advised to avoid eating bananas. Patient was unaware of their specific recommendation to obtain daily weights. Patient reports she is using her CPAP machine nightly and sleeping well with the use. She typically sleeps about 4-5 hours a night, but then takes cat naps throughout the day. During the day she can have some shortness of breath on exertion. However, denies SOB at night. Does prefer to sleep w/ head elevated some. Patient reports she has sufficient quantity of CPAP supplies She reports she cleans her CPAP supplies regularly. She is using distilled water in her CPAP water reservoir. 09/14/2024-12/12/2024, APAP compliance report Overall usage 92% Usage greater than 4 hours 64% Average usage on days used 5 hours and 0 minutes Sis II auto CPAP [id number] APAP- 9-12 cmH2O w/ reflex 2 Average pressure 8.8 cm H2O Average leaks 7 L/min Residual AHI 2.6 per hour [facility] Medical History Cervical myofascial pain syndrome Lumbar spondylosis Obesity GERD (gastroesophageal reflux disease) Mild persistent asthma Uterine leiomyoma Depressive disorder ALKA on CPAP Allergic rhinitis Nonrheumatic mitral valve regurgitation Non-ischemic cardiomyopathy Prediabetes Surgical History Hx of cardiac pacemaker History of esophagogastroduodenoscopy (EGD) Hx of cardiac catheterization Hx of colonoscopy History of hernia surgery H/O elbow surgery H/O: hysterectomy History of hand surgery Family History Family/Other Intestinal cancer, Onset Age: 31 Social History Alcohol intake: never Patient Tobacco Use Status: Former Tobacco user Years Smoked: stopped in 2007 Current occupational status: disabled 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 Physical Exam Vital Signs: Last Vital Signs Pulse 67 12/22/24 09:24 BP 90/60 12/22/24 09:24 Pulse Ox 95 12/22/24 09:24 Oxygen Delivery Method Room Air 12/22/24 09:24 BMI result Body Mass Index 39.0 Const General: no acute distress Orientation/consciousness: patient oriented x3 HEENT Head: Yes normocephalic Resp Effort & Inspection: normal respiratory effort and able to speak in complete sentences Neuro General: patient oriented x3 Psych Mental Status: mental status grossly normal Speech and movement: Clear speech present Attitude: cooperative Assessment & Plan Assessment & Plan (1) Obstructive sleep apnea: Code(s): G47.33 - Obstructive sleep apnea (adult) (pediatric) Category: Medical (2) Chronic HFrEF (heart failure with reduced ejection fraction): Comment: NYHA class 3- per November 2024 cardiology GDMT clinic notes Code(s): I50.22 - Chronic systolic (congestive) heart failure Category: Medical Plan Continue APAP 9-12 cmH2O nightly > 4 hours, as pt is having good clinical effect. * Clean machine and supplies daily. * Change PAP supplies routinely. * Consistently use distilled water in CPAP water reservoir * Pt to call us/respiratory home care company with any concerns. Reviewed recent [facility] Cardiology and GDMT clinic notes with patient. Encourage patient to monitor and record 1st morning daily weights- explained rationalization for reporting weight gain greater than 3 lb in 1 day or 5 lb in 1 week to her cardiology/GDMT clinic. F/u w/ cardiology and rheumatology as scheduled. Pt advised to f/u w/ any new s/s, especially nocturnal dyspnea, orthopnea. And follow-up in clinic in 6 months or sooner as needed Coding Level of Care Code Est Pt Level 3 (06809) Diagnoses Obstructive sleep apnea G47.33 Chronic HFrEF (heart failure with reduced ejection fraction) I50.22
== END 2024-12-22 10:20 | disposition home or self-care (01) ==
LOC: HO.HSMS 08:42
PROVIDERS: PCP Internal Medicine; Visit Provider Nurse Practitioner Family
DX: G47.33 Obstructive sleep apnea (adult) (pediatric) (principal); I50.22 Chronic systolic (congestive) heart failure
CPT/HCPCS: 99213

== ENCOUNTER → 2024-12-22 08:40 | Outpatient (BNVA) | payer OTHER, SELFPAY | PROVIDERS: PCP Internal Medicine; Visit Provider Nurse Practitioner Family | DX: G47.33 Obstructive sleep apnea (adult) (pediatric) (principal); I50.22 Chronic systolic (congestive) heart failure; Z99.89 Dependence on other enabling machines and devices | CPT/HCPCS: 99212 ==

== ENCOUNTER 2025-02-03 10:51 | Emergency (ER) | payer OTHER, SELFPAY ==
--- NOTE | ~2025-02-03 | CT_ITS ---
CLINICAL HISTORY: pain, question right AEROSPACE STRESS ENGINEER CT soft tissue neck with contrast Comparison: None available Findings: The right palatine tonsil is enlarged. There is fluid tracking along the crypts (series 2 images 46 through 56). No rim enhancing fluid collection. There is questionable mild edema in the soft palate and epiglottis. Otherwise normal pharyngeal mucosa, oral cavity and larynx. Lymphadenopathy measures up to 1.1 cm in short axis, greatest on the right. Increased attenuation in the parotid glands with small stones versus calcifications on the right. No ductal dilatation. Trace fat stranding on the right with mild thickening of the right platysma muscle. Unremarkable submandibular glands. Unremarkable thyroid. Normal carotid space. Mild calcified atherosclerotic disease. No acute fracture. The lung apices are clear. Left chest wall dual lead cardiac pacemaker. Impression: Enlarged right palatine tonsil may indicate tonsillitis. No peritonsillar abscess. Questionable mild edema in the soft palate and epiglottis which could be infectious/inflammatory. Associated cervical lymphadenopathy. Follow up is recommended if symptoms persist or worsen. Increased attenuation in the parotid glands. There are calcifications versus stones on the right with trace adjacent fat stranding and mild thickening of the right platysma muscle. Mild right parotitis could be considered. No ductal dilatation This document has been electronically signed by: Jaylene Moss MD on 02/03/2025 14:58:12
[2025-02-03 10:54] VITALS: BP 91/46; PULSE 78; RESP 16; TEMP 35.7; O2SAT 96; BMI 39.1
[2025-02-03 11:14] VITALS: BP 102/63; PULSE 77; RESP 14; O2SAT 98
--- NOTE | 2025-02-03 11:39 | ED.GENADULT ---
HPI - General Adult General Chief complaint: General Medical Stated complaint: sore throat Time Seen by Provider: 02/03/25 11:04 Source: patient, RN notes reviewed, old records reviewed and power transformer assembler Mode of arrival: ambulatory Limitations: language barrier History of Present Illness ED Provider: Nai HPI narrative: 59-year-old female presents for evaluation of a sore throat. She was seen at [facility] on 01/30/25. She tested positive for COVID-19, was negative for strep and was given prednisone She returned to the [facility] this afternoon for right-sided sore throat and inability to eat. This has been going on for a total of 7 days. She was sent to the ER for concern of peritonsillar abscess. She is able to drink fluids but is having trouble eating She had a negative strep test both on the and again today. She was positive for COVID-19 a but reportedly negative today. Related Data Home Medications ?Medication ?Instructions ?Recorded ?Confirmed albuterol sulfate 90 mcg/actuation 2 puff inhalation QID 09/22/21 12/23/23 aerosol inhaler (ProAir HFA) cetirizine 10 mg tablet 10 mg PO QAM 09/22/21 12/22/24 chlorpromazine 50 mg tablet 100 mg PO BEDTIME 09/22/21 12/23/23 fluticasone propionate 110 2 puff PO BID 09/22/21 12/23/23 mcg/actuation HFA aerosol inhaler (Flovent HFA) ibuprofen 800 mg tablet 800 mg PO TID PRN 09/22/21 12/23/23 omeprazole 20 mg capsule,delayed 20 mg PO 09/22/21 12/22/24 release venlafaxine 75 mg capsule,extended 75 mg PO QAM 09/22/21 12/23/23 release 24 hr empagliflozin 10 mg tablet 10 mg PO DAILY 04/14/23 12/23/23 (Jardiance) isosorbide mononitrate 30 mg 30 mg PO DAILY 04/14/23 12/22/24 tablet,extended release 24 hr pregabalin 300 mg capsule 300 mg PO BID 11/17/23 12/22/24 apixaban 5 mg tablet (Eliquis) 5 mg PO BID 03/23/24 12/22/24 dapagliflozin propanediol 10 mg 10 mg PO DAILY 10/04/24 12/22/24 tablet (Farxiga) aripiprazole 5 mg tablet mg PO DAILY 11/01/24 fluticasone propionate 50 intranasal 11/01/24 mcg/actuation nasal spray,suspension metoprolol succinate 200 mg mg PO DAILY 11/01/24 12/22/24 tablet,extended release 24 hr trazodone 50 mg tablet 25 mg PO DAILY 11/01/24 aripiprazole 10 mg tablet 10 mg PO DAILY 12/22/24 12/22/24 eplerenone 25 mg tablet 25 mg PO .Nightly 12/22/24 12/22/24 sacubitril 49 mg-valsartan 51 mg 1 tab PO BID 12/22/24 12/22/24 tablet (Entresto) Previous Rx's ?Medication ?Instructions ?Recorded APAP Machine/Device #1 ea 01/13/22 loperamide 2 mg tablet (Imodium 2 mg PO QID PRN loose stool 90 11/01/24 A-D) days #90 tabs hydroxychloroquine 200 mg tablet 200 mg PO BID #180 tabs 11/30/24 psyllium husk 2.6 gram/4.1 gram 1 tsp PO DAILY 90 days #480 grams 12/06/24 oral powder amoxicillin 875 mg-potassium 1 tab PO Q12H #20 tabs 02/03/25 clavulanate 125 mg tablet Allergies Allergy/AdvReac Type Severity Reaction Status Date / Time diclofenac (DICLOFENAC) Allergy Unknown itch Verified 02/03/25 10:55 Review of Systems Constitutional: Constitutional: Denies body ache(s), Denies chills, Denies fever(s) and Denies headache(s) ENT: Denies headache(s), Reports odynophagia, Denies sinus pain, Reports sore throat, Reports throat swelling and Denies tongue swelling Cardiovascular: Cardiovascular: Denies chest pain and Denies dyspnea on exertion Respiratory: Respiratory: Denies cough and Denies dyspnea on exertion Gastrointestinal: Gastrointestinal: Denies abdominal pain, Denies nausea, Reports odynophagia and Denies vomiting Musculoskeletal: Musculoskeletal: Denies myalgias Integumentary/Breasts: Skin/Breast: Denies rash Neurologic: Denies headache(s) Psychiatric: Psychiatric: Denies anxiety Allergic/Immunologic: Allergic/Immunologic: Reports throat swelling and Denies tongue swelling PMFSH Past Medical History Medical History Cervical myofascial pain syndrome Lumbar spondylosis Obesity GERD (gastroesophageal reflux disease) Mild persistent asthma Uterine leiomyoma Depressive disorder [place]KA on CPAP Allergic rhinitis Nonrheumatic mitral valve regurgitation Non-ischemic cardiomyopathy Prediabetes Surgical History Hx of cardiac pacemaker History of esophagogastroduodenoscopy (EGD) Hx of cardiac catheterization Hx of colonoscopy History of hernia surgery H/O elbow surgery H/O: hysterectomy History of hand surgery Family History Family History Family/Other Intestinal cancer, Onset Age: 31 Social History Social History Alcohol intake: never Patient Tobacco Use Status: Former Tobacco user Years Smoked: stopped in 2007 Smoked in Last 30 Days: No Use of substances other than those prescribed or required for medical reasons: No Advance Directives: No Advance Directives Information Provided: Yes Do you have a plan to hurt others: No Plan Patient : No Current occupational status: disabled 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 Physical Exam ED Vital Signs: Vital Signs - 24 hr 02/03/25 10:54 02/03/25 11:14 02/03/25 11:55 Temperature 96.3 F L 98.3 F Pulse Rate 78 77 72 Respiratory Rate 16 14 18 Blood Pressure 91/46 L 102/63 94/56 L Pulse Oximetry 96 98 97 Oxygen Delivery Method Room Air Room Air Room Air 02/03/25 13:01 Temperature 98.3 F Pulse Rate 70 Respiratory Rate 18 Blood Pressure 100/62 Pulse Oximetry 100 Oxygen Delivery Method Room Air BMI result Body Mass Index 39.1 Const General: healthy appearing, comfortable, no acute distress, alert and awake Nutritional Appearance: well nourished Orientation/consciousness: patient oriented x3 HENMT Other: There is minimal retropharyngeal erythema with some right-sided tonsillar hypertrophy. There is some fullness to the soft palate on the right. Uvula is still midline, airway remains patent. No anterior neck edema Head: Yes normocephalic and Yes atraumatic Eyes Eyelids: Yes eyelids normal Conjunctivae: conjunctivae normal Sclerae: sclerae normal Corneas: corneas normal Pupils: Equal, round and reactive pupils present EOM: EOMs intact bilaterally Neck Neck: Yes full ROM Resp Effort & Inspection: normal respiratory effort, able to speak in complete sentences, no audible wheezes and not labored Auscultation: clear to auscultation bilaterally Cardio Rate: regular rate Rhythm: regular rhythm GI Inspection: No distended Palpation (GI): Soft to palpation, not firm, nontender, no guarding and not rigid Skin General skin exam: no rashes or lesions noted and elasticity normal Neuro General: patient oriented x3 Cranial nerves: Yes Equal, round and reactive pupils present and Yes Bilaterally intact EOM present Cognition (Neuro): normal cognition Extrem Other: Moving all extremities well without any obvious deformities Course Reevaluation(s) Reevaluation #1: The patient's CT scan resulted showing no evidence of peritonsillar abscess. She does have evidence of tonsillitis likely infectious and we will cover with Augmentin. I discussed this with the patient using the show card letterer and she is stable for discharge Time: 15:28 Medications Administered Discontinued Medications Generic Name Dose Route Start Last Admin Trade Name Freq PRN Reason Stop Dose Admin Acetaminophen 1,000 mg in 100 mls @ 400 mls/hr 02/03/25 11:39 02/03/25 12:34 Ofirmev IV 02/03/25 11:53 Infused ONCE ONE Infusion Sodium Chloride 1,000 mls @ 999 mls/hr 02/03/25 12:15 02/03/25 13:22 Ns IV 02/03/25 13:15 Infused .Q1H1M MIRIAM Infusion Iohexol 100 ml 02/03/25 13:44 02/03/25 13:44 Iohexol 350 Mg/Ml 100 Ml Infus..Btl IV 02/03/25 13:45 60 ml ONCE ONE Administration Medical Decision Making Medical Decision Making MDM Narrative: 59-year-old female presents for evaluation of a sore throat. She was initially positive for COVID 1 week ago a negative today. She had 2- strep test. There was concern for peritonsillar abscess. Plan for CT scan of the neck with IV contrast to evaluate for potential incision/aspiration. The patient is afebrile, she has a mild leukocytosis. Blood pressure is slightly low most recently at 94/56, we will treat with IV fluids. She has not been on any antibiotics given that this was a viral illness initially. I also ordered a throat culture and a mononucleosis screen. Differential Diagnosis Differential Diagnoses: The differential diagnosis associated with the presentation includes Peritonsillar abscess Pharyngitis Upper respiratory infection Mononucleosis COVID-19 Strep pharyngitis Admission/Observation Consideration of admission/observation: Escalation of care including admission/observation considered Lab Data MDM Lab Attestation statement: I reviewed the patient's lab results. Mild leukocytosis, no significant anemia. Normal platelet count 02/03/25 11:46 02/03/25 12:29 Labs: Lab Results 02/03/25 02/03/25 02/03/25 Range/Units 11:46 12:29 13:22 WBC 11.2 H (4.8-10.8) X10*3/uL RBC 4.65 (4.20-5.50) X10*6/uL Hgb 13.7 (12.0-16.0) g/dl Hct 40.7 (37.0-47.0) % MCV 87.5 (80.0-98.0) fL MCH 29.5 (27.0-33.0) pg MCHC 33.7 (31.0-35.0) g/dl RDW 14.3 (11.0-16.0) % Plt Count 195 (160-400) X10*3/uL MPV 13.0 H (9.4-12.3) fL Immature Gran % (Auto) 0.4 (0.0-0.4) % Neut % (Auto) 74.5 H (45-73) % Lymph % (Auto) 14.5 L (20-40) % Mcdonald % (Auto) 8.6 (2-11) % Eos % (Auto) 1.6 (0-4) % Baso % (Auto) 0.4 (0-2) % Lymph # (Auto) 1.6 (1.2-4.9) X10*3/uL Mcdonald # (Auto) 1.0 (0.1-1.2) X10*3/uL Eos # (Auto) 0.2 (0.0-0.4) X10*3/uL Baso # (Auto) 0.0 (0.0-0.2) X10*3/uL Abs Immat Gran (auto) 0.05 H (0.00-0.03) X10*3/uL Absolute Neuts (auto) 8.4 H (2.0-8.3) x10*3/uL Absolute Nucleated RBC 0.000 (0.0-0.012) X10*3/uL Nucleated RBC % (auto) 0.0 (0.0-0.2) /100WBC Sodium 140 (135-145) mmol/L Potassium 4.2 (3.3-5.1) mmol/L Chloride 108 (96-108) mmol/L Carbon Dioxide 20 L (22-29) mmol/L Anion Gap 16 (12-20) BUN 27 H (9-16) mg/dL Creatinine 1.18 (0.5-1.4) mg/dL Estim Creat Clear Calc 53.6 Estimated GFR 47 Random Glucose 75 (60-115) mg/dL Lactic Acid 1.4 (0.5-2.0) mmol/L Calcium 9.4 D (8.4-10.2) mg/dL Monoscreen Negative (Negative) Independent Interpretation I performed an independent interpretation of an: CT Scan Interpretation: Agree with Radiology interpretation, tonsillitis without abscess Radiology Impression Discussion of test interpretation with radiology: I have reviewed the radiologist's reading. Radiologist Impression: Findings: The right palatine tonsil is enlarged. There is fluid tracking along the crypts (series 2 images 46 through 56). No rim enhancing fluid collection. There is questionable mild edema in the soft palate and epiglottis. Otherwise normal pharyngeal mucosa, oral cavity and larynx. Lymphadenopathy measures up to 1.1 cm in short axis, greatest on the right. Increased attenuation in the parotid glands with small stones versus calcifications on the right. No ductal dilatation. Trace fat stranding on the right with mild thickening of the right platysma muscle. Unremarkable submandibular glands. Unremarkable thyroid. Normal carotid space. Mild calcified atherosclerotic disease. No acute fracture. The lung apices are clear. Left chest wall dual lead cardiac pacemaker. Impression: Enlarged right palatine tonsil may indicate tonsillitis. No peritonsillar abscess. Questionable mild edema in the soft palate and epiglottis which could be infectious/inflammatory. Associated cervical lymphadenopathy. Follow up is recommended if symptoms persist or worsen. Increased attenuation in the parotid glands. There are calcifications versus stones on the right with trace adjacent fat stranding and mild thickening of the right platysma muscle. Mild right parotitis could be considered. No ductal dilatation This document has been electronically signed by: Jaylene Moss MD on 02/03/2025 14:58:12 Discharge Plan Discharge Clinical Impression: Acute tonsillitis Patient Disposition: Home, Self-Care Instructions: Tonsillitis (ED) Additional Instructions: Your CT scan did not show any evidence of peritonsillar abscess. I recommend that you take Augmentin twice daily for the next 10 days. You may use [id number] chlorhexidine spray or magic mouthwash to help with the pain Follow-up with your primary doctor, return for new or worsening symptoms Prescriptions: New amoxicillin-pot clavulanate 875-125 mg tablet 1 tab PO Q12H Qty: 20 0RF No Action hydroxychloroquine 200 mg tablet 200 mg PO BID Qty: 180 1RF psyllium husk 2.6 gram/4.1 gram powder 1 tsp PO DAILY 90 Days Qty: 480 0RF Rx Instructions: mix into at least 4 oz water or juice before administering Flovent HFA 110 mcg/actuation HFA aerosol inhaler 2 puff PO BID omeprazole 20 mg capsule,delayed release(DR/EC) 20 mg PO cetirizine 10 mg tablet 10 mg PO QAM venlafaxine 75 mg capsule,extended release 24hr 75 mg PO QAM ibuprofen 800 mg tablet 800 mg PO TID PRN chlorpromazine 50 mg tablet 100 mg PO BEDTIME albuterol sulfate [ProAir HFA] 90 mcg/actuation HFA aerosol inhaler 2 puff inhalation QID (DME) APAP Machine/Device Kit See Rx Instructions .Route Qty: 1 0RF Rx Instructions: 9-12 cmH2O nightly > 4 hours pregabalin 300 mg capsule 300 mg PO BID Eliquis 5 mg tablet 5 mg PO BID aripiprazole 10 mg tablet 10 mg PO DAILY Entresto 49-51 mg tablet 1 tab PO BID eplerenone 25 mg tablet 25 mg PO .Nightly Jardiance 10 mg tablet 10 mg PO DAILY isosorbide mononitrate 30 mg tablet extended release 24 hr 30 mg PO DAILY dapagliflozin propanediol [Farxiga] 10 mg tablet 10 mg PO DAILY aripiprazole 5 mg tablet PO DAILY metoprolol succinate 200 mg tablet extended release 24 hr PO DAILY fluticasone propionate 50 mcg/actuation spray,suspension intranasal trazodone 50 mg tablet 25 mg PO DAILY loperamide [Imodium A-D] 2 mg tablet 2 mg PO QID PRN (Reason: loose stool) 90 Days Qty: 90 0RF Rx Instructions: Take 1 tab every night. Repeat next AM for loose stools. Print Language: Mauritian
[2025-02-03 11:50] LABS: MANUAL DIFF FLAG NO
[2025-02-03 11:53] LABS: Basophils Percent Auto 0.4 % (0-2); Eosinophils Absolute Auto 0.2 X10*3/uL (0.0-0.4); Eosinophils Percent Auto 1.6 % (0-4); Hematocrit 40.7 % (37.0-47.0); Hemoglobin 13.7 g/dl (12.0-16.0); Imm Gran Abs Auto 0.05 X10*3/uL (0.00-0.03); Imm Gran Pct Auto 0.4 % (0.0-0.4); Lymphocytes Absolute Auto 1.6 X10*3/uL (1.2-4.9); Lymphocytes Percent Auto 14.5 % (20-40); Mean Corpuscular HGB Conc 33.7 g/dl (31.0-35.0); Mean Corpuscular Hemoglobin 29.5 pg (27.0-33.0); Mean Corpuscular Volume 87.5 fL (80.0-98.0); Monocytes Percent Auto 8.6 % (2-11); Neutrophils Absolute Auto 8.4 x10*3/uL (2.0-8.3); Neutrophils Percent Auto 74.5 % (45-73); Platelet Count 195 X10*3/uL (160-400); Red Blood Count 4.65 X10*6/uL (4.20-5.50); Red Cell Distribution Width 14.3 % (11.0-16.0); White Blood Count 11.2 X10*3/uL (4.8-10.8)
[2025-02-03 11:55] VITALS: BP 94/56; PULSE 72; RESP 18; TEMP 36.8; O2SAT 97
--- OUTSIDE RECORDS SUMMARY | 2025-02-03 12:12 | XMS_ITS | Encounter Summary ---
Author Organization [employer] Address [address] [place] [address] [address] [place] [address] Care Team Providers Care Fiction And Nonfiction Writer Prose Name Role Phone Brannon David SIDDIQUI Primary Care Provider Jesusita SandraP Primary Care Provider [phone] Joan Antunez MD Primary Care Provide r Encounter Details Date Type Department Care Team (Late st Contact Info) Description 10/26/2022 Orders Only [facility] [address] [place] [address] Radha Jimenez LPN Social History Tobacco Use [...] Care Team (Late st Contact Info) Description 02/19/2025 9:45 AM EDT Office Visit [facility] [address] [place], [place] [phone] Joan Antunez MD [address] [place] [address] 03/05/2025 1:30 PM EDT Office Visit [facility] [address] [place], [place] [phone] Burke Frederick DDS [address] [place] [address] 08/06/2025 10:00 AM EST Office Visit [facility] [address] [place], [place] [phone] Regina Broderick [address] [place], [place] [phone] documented as of this encounter Visit Diagnoses Not on filedocumented in this encounter Care Teams Fiction And Nonfiction Writer Prose Relationship Specialty Start Date End Date David South AGNP PCP - General Family Medicine 10/08/22 04/28/23 Jesusita Garcia FNP [address] [place], [place] [phone] PCP - General Family Medicine 04/29/23 06/06/23 Joan Antunez MD [address] [place] [address] [id number] PCP - General Internal Medicine 06/07/23 documented as of this encounter
[2025-02-03] MEDS: Acetaminophen 1,000 MG/100 ML PIGGYBACK 400 MG IV (12:14)
[2025-02-03] MEDS: 0.9 % Sodium Chloride 1,000 ML 999 ML IV (12:14)
--- NOTE | 2025-02-03 12:32 | PC.NURSE ---
Pt BPs soft- 90s/50s, asymptomatic. Jaiden WALLACE aware. Fluids infusing per MAR. BP cycling q15min, nsr on quality assurance monitor body, HR- 60s.
[2025-02-03 12:49] LABS: Anion Gap 16 (12-20); Blood Urea Nitrogen 27 mg/dL (9-16); Calcium 9.4 mg/dL (8.4-10.2); Carbon Dioxide 20 mmol/L (22-29); Chloride 108 mmol/L (96-108); Creatinine Clr Calc Pharmacy 53.6; Estimated Glomerular Filt Rate 47; Glucose Random 75 mg/dL (60-115); Potassium 4.2 mmol/L (3.3-5.1); Sodium 140 mmol/L (135-145)
[2025-02-03 12:52] LABS: Lactic Acid 1.4 mmol/L (0.5-2.0)
[2025-02-03 13:01] VITALS: BP 100/62; PULSE 70; RESP 18; TEMP 36.8; O2SAT 100
[2025-02-03] MEDS: iohexoL 350 MG/ML 100 ML INFUS..BTL IV (13:44)
[2025-02-03 14:06] LABS: Monotest Negative (Negative)
[2025-02-03] MEDS: Amoxicillin/Potassium Clav 875 MG TABLET PO (15:40)
[2025-02-03 15:52] VITALS: BP 101/68; PULSE 66; RESP 16; TEMP 36.7; O2SAT 96
== END 2025-02-03 15:58 | disposition home or self-care (01) ==
PROVIDERS: Physician Assistant; Emergency Provider Emergency Medicine; PCP Internal Medicine
DX: J03.90 Acute tonsillitis, unspecified (principal); R11.0 Nausea; Z79.899 Other long term (current) drug therapy; Z87.891 Personal history of nicotine dependence
CPT/HCPCS: 36415; 70491; 80048; 83605; 85025; 86308; 87040; 87070; 96361; 96374; 99284; 99285; J0131; Q9967

== ENCOUNTER → 2025-02-03 11:39 | Outpatient (BNV) | payer OTHER, SELFPAY | PROVIDERS: Emergency Provider Emergency Medicine; PCP Internal Medicine; Visit Provider Radiology Diagnostic Radiology | DX: J35.1 Hypertrophy of tonsils (principal) | CPT/HCPCS: 70491 ==

== ENCOUNTER 2025-02-12 09:29 | Outpatient (REF) | payer OTHER, SELFPAY ==
--- OUTSIDE RECORDS SUMMARY | 2025-02-12 10:00 | XMS_ITS | Encounter Summary ---
Author Organization [employer] Address [address] [place] [address] [address] [place] [address] Care Team Providers Care Composite Technician Name Role Phone Brannon David SIDDIQUI Primary Care Provider Jesusita SandraP Primary Care Provider [phone] Joan Antunez MD Primary Care Provide r Encounter Details Date Type Department Care Team (Late st Contact Info) Description 10/26/[address] [facility] [address] [place] [address] Radha Jimenez LPN Social History Tobacco Use [...] Description 02/19/2025 9:45 AM EDT Office Visit [facility] [address], [place] [phone] Joan Antunez MD [address] [place], [place] [phone] 03/05/2025 1:30 PM EDT Office Visit [facility] [address], [place] [phone] Burke Frederick DDS [address] [place] [address] 08/06/2025 10:00 AM EST Office Visit [facility] [address], [place] [phone] Regina Broderick [address], [place] [phone] documented as of this encounter Visit Diagnoses Not on filedocumented in this encounter Care Teams Composite Technician Relationship Specialty Start Date End Date David South AGNP PCP - General Family Medicine 10/08/22 04/28/23 Jesusita Garcia FNP [address], [place] [phone] PCP - General Family Medicine 04/29/23 06/06/23 Joan Antunez MD [address] [place] [address] [phone] PCP - General Internal Medicine 06/07/23 documented as of this encounter
[2025-02-12 10:13] LABS: MANUAL DIFF FLAG NO
[2025-02-12 10:50] LABS: Hematocrit 43.1 % (37.0-47.0); Hemoglobin 14.0 g/dl (12.0-16.0); Imm Gran Abs Auto 0.05 X10*3/uL (0.00-0.03); Imm Gran Pct Auto 0.7 % (0.0-0.4); Lymphocytes Absolute Auto 1.6 X10*3/uL (1.2-4.9); Mean Corpuscular HGB Conc 32.5 g/dl (31.0-35.0); Mean Corpuscular Hemoglobin 29.2 pg (27.0-33.0); Mean Corpuscular Volume 89.8 fL (80.0-98.0); NRBC Abs Auto 0.000 X10*3/uL (0.0-0.012); NRBC Pct Auto 0.0 /100WBC (0.0-0.2); Platelet Count 255 X10*3/uL (160-400); Red Blood Count 4.80 X10*6/uL (4.20-5.50); White Blood Count 6.9 X10*3/uL (4.8-10.8)
[2025-02-12 12:16] LABS: Appearance Urine Clear; Glucose Urine UA >=1000 mg/dL (Negative); PH 5.5 (5.0-9.0); Specific Gravity - Urine 1.025 (1.005-1.025); UMIC TRIGGER UA YES
[2025-02-12 13:16] LABS: Anion Gap 11 (12-20)
[2025-02-12 13:20] LABS: Alanine Aminotransferase 24 U/L (0-31); Albumin Level 3.9 g/dL (3.5-5.0); Alkaline Phosphatase 104 U/L (39-117); Aspartate Amino Transferase 25 U/L (5-31); Blood Urea Nitrogen 16 mg/dL (9-16); Calcium 8.7 mg/dL (8.4-10.2); Carbon Dioxide 24 mmol/L (22-29); Chloride 112 mmol/L (96-108); Cholesterol 132 mg/dL (<200); Estimated Glomerular Filt Rate > 60; HDL Cholesterol 35 mg/dL (>40); Potassium 4.8 mmol/L (3.3-5.1); Sodium 142 mmol/L (135-145); Total Protein 7.2 g/dL (6.5-8.0); Triglycerides 142 mg/dL (<150)
[2025-02-12 13:52] LABS: Protein/Creatinine Ratio, Ur 0.13 (<0.2); Total Protein Urine Random 10 mg/dL (<12)
== END 2025-02-12 09:30 | disposition home or self-care (01) ==
LOC: HO.LAB 09:29
PROVIDERS: PCP Internal Medicine; Visit Provider Student in an Organized Health Care Education/Training Program
DX: M32.8 Other forms of systemic lupus erythematosus (principal); I10 Essential (primary) hypertension; R73.03 Prediabetes
CPT/HCPCS: 36415; 80053; 80061; 81001; 82570; 84156; 85025; 85652; 86140; 86160; 86225

== ENCOUNTER 2025-02-13 09:08 | Outpatient (AMB) | payer OTHER, SELFPAY ==
--- NOTE | 2025-02-13 09:14 | A.OFFVIS_ITS ---
Vital Signs 02/13/25 09:15 Height 5 ft 2 in Weight 212 lb 15.465 oz BMI 38.9 BP 110/68 Blood Pressure Location Rt brachial Position Sitting Pulse 48 L Pulse Source Pulse Oximeter Pulse Oximetry (%) 100 Oxygen Delivery Method Room Air Intake Visit Reasons: SLE Intake Note: Patient presents for follow up on lupus, complains of hands getting pale, she can't hold cold things, and they get stiff. Community Program Assistant Services: Community Program Assistant Offered & Declined Community Program Assistant Name: Daughter Chandni Accompanied by: Daughter Allergies diclofenac (DICLOFENAC) Allergy (Unknown, Verified 02/13/25 09:18) itch Medication List - Last Reconciled 02/13/25 by Naima Munoz MD albuterol sulfate 90 mcg/actuation (ProAir HFA) 2 puffs inhalation QID APAP Machine/Device 9-12 cmH2O nightly > 4 hours apixaban (Eliquis) 5 mg PO BID aripiprazole 10 mg PO DAILY cetirizine 10 mg PO QAM dapagliflozin propanediol (Farxiga) 10 mg PO DAILY eplerenone 25 mg PO .Nightly hydroxychloroquine 200 mg PO BID isosorbide mononitrate ER 30 mg PO DAILY omeprazole 20 mg PO pregabalin 300 mg PO BID sacubitril-valsartan 49-51 mg (Entresto) 1 tab PO BID HPI Comments Details: Patient is a 59-year-old female with asthma, depression, prediabetes, hypertension complicated by coronary artery disease and chronic heart failure with reduced ejection fraction, dilated cardiomyopathy, GERD, 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 Simmons - HCQ 200mg bid - c/o diarrhea with fecal urgency and accidents - Recommended to f/u with PCP - no active lupus sx Today - Here with her aid - Complains of raynaud's but denies ulcers - no active lupus sx - saw ophthal 02/2025, all normal Rheumatologic History: SLE dx 12/2023 (+++JOANN +++Mcelroy+++CS ASSOCIATE ++DsDNA) HCQ 12/2023 effective Initial history: This is a 58-year-old female who presents for evaluation of a positive JOANN. Patient stated that she has had generalized fatigue and weakness for more than 2 years. Recently patient had an AICD placed. She stated that she has history of mitral regurgitation, she stated that it was treated with medications however her heart rate was too slow and an AICD was placed recently. Patient is unaware of any family history of an autoimmune rheumatic disease. She has generalized pain but no swollen joints. Denies any skin rashes. Denies any history of DVT/PE. Denies any history of stroke or OR. denies any fevers or weight loss. She had 6 pregnancies in total, 5 children and 1 miscarriage. Current Rheumatology Medication(s): Hydroxychloroquine 200mg bid PFSH Medical History Cervical myofascial pain syndrome Lumbar spondylosis Obesity GERD (gastroesophageal reflux disease) Mild persistent asthma Uterine leiomyoma Depressive disorder ALKA on CPAP Allergic rhinitis Nonrheumatic mitral valve regurgitation Non-ischemic cardiomyopathy Prediabetes Surgical History Hx of cardiac pacemaker History of esophagogastroduodenoscopy (EGD) Hx of cardiac catheterization Hx of colonoscopy History of hernia surgery H/O elbow surgery H/O: hysterectomy History of hand surgery Family History Family/Other Intestinal cancer, Onset Age: 31 Social History Alcohol intake: never Patient Tobacco Use Status: Former Tobacco user Years Smoked: stopped in 2007 Current occupational status: disabled 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 still c/o of diarrhea Pulm: Denies SOB, HSU, hemoptysis, wheezing Cards: Denies chest pain, palpitations Skin: Denies rash, nail changes, photosensitivity, [employer]: Denies headaches, weakness, paresthesias, recurrent falls MSK: as per HPI All other systems reviewed and are unremarkable except noted above Physical Exam Vital Signs: Last Vital Signs Pulse 48 L 02/13/25 09:15 BP 110/68 02/13/25 09:15 Pulse Ox 100 02/13/25 09:15 Oxygen Delivery Method Room Air 02/13/25 09:15 BMI result Body Mass Index 38.9 Vital signs reviewed Physical Examination CONSTITUITIONAL Patient alert and cooperative. Well appearing and in no apparent painful distress HEENT Conjunctiva and sclera clear. No lymphadenopathy. CHEST/RESPIRATORY SYSTEM Normal respiratory effort and able to speak in complete sentences. Clear to auscultation bilaterally. No crackles, rales, rhonchi, wheezes heard. CARDIAC SYSTEM Regular rate and rhythm. S1 and S2 heard no murmurs. Radial pulses intact bilaterally MSK Hands * Right Hand: Able to make a fist. No swelling or tenderness to palpation of these joints. No deformities noted. * Left Hand: Able to make a fist. No swelling or tenderness to palpation of these joints. No deformities noted. Wrists * Right Wrist: Full ROM. 70 degrees of wrist flexion, 80 degrees of wrist extension. No swelling or TTP * Left Wrist: Full ROM. 70 degrees of wrist flexion, 80 degrees of wrist extension. No swelling or TTP Elbows * Right Elbow: Full ROM. No swelling or TTP. No TTP of the medial and lateral epicondyles * Left Elbow: Full ROM. No swelling or TTP. No TTP of the medial and lateral epicondyles Shoulders * Right shoulder: Full ROM. No swelling noted. No TTP of the AC joint, subacromial bursa or posterior shoulder * Left shoulder: Full ROM. No swelling noted. No TTP of the AC joint, subacromial bursa or posterior shoulder Knees * Right knee: Full ROM. No swelling noted. No TTP of the knee joint lie or pes anserine bursa * Left knee: Full ROM. No swelling noted. No TTP of the knee joint lie or pes anserine bursa. * Crepitations felt bilaterally Ankles * Right ankle: Good ankle dorsiflexion and plantar flexion. No swelling. No TTP of the ankle joint * Left ankle: Good ankle dorsiflexion and plantar flexion. No swelling. No TTP of the ankle joint Feet * Right foot: Negative squeeze test * Left foot: Negative squeeze test Tender points? * No tenderness to palpation of the bilateral trapezius, supraspinatus, anterior costochondral junctions, bilateral suboccipital muscle insertions SKIN ecchymosis noted to right forearm Normal nailfold capillaries Results Reviewed Results Reviewed: Laboratory Tests 02/12/25 10:10 WBC 6.9 RBC 4.80 Hgb 14.0 Hct 43.1 Plt Count 255 D ESR 20 Sodium 142 Potassium 4.8 Chloride 112 H Carbon Dioxide 24 BUN 16 Creatinine 0.79 AST 25 ALT 24 C-Reactive Protein 0.40 Lupus Labs 07/21/24 02/12/25 09:57 10:10 Double Strand DNA Ab 2 Pending Complement C3 170 Pending Complement C4 40 Pending Urine Tests 02/12/25 10:02 Urine Color Yellow Urine Protein Negative Protein/Creatinin Ratio 0.13 Assessment & Plan Assessment & Plan (1) SLE (systemic lupus erythematosus): Comment: dx 12/2023 (+++JOANN +++Mcelroy+++CS ASSOCIATE ++DsDNA) HCQ 12/2023 effective Code(s): M32.9 - Systemic lupus erythematosus, unspecified Category: Medical Qualifiers: Systemic lupus erythematosus type: other Systemic lupus erythematosus organ involvement: unspecified Qualified Code(s): M32.8 - Other forms of systemic lupus erythematosus Plan: #SLE Patient is a 59-year-old female with SLE here today for follow up. Disease is currently in remission with no evidence of active synovitis, no oral or nasal ulcers, no alopecia and no active skin rashes. Plan - Hydroxychloroquine 200mg bid - RTC 6 months - Labs before visit: CBC, CMP, ESR, CRP, C3, C4, dsDNA, UA, UPC (2) Raynaud's disease with gangrene: Code(s): I73.01 - Raynaud's syndrome with gangrene Plan: #Raynaud's Phenomenon Patient complaining of symptoms consistent with Raynaud's phenomenon. No evidence of ulcers on the fingers today and normal nail fold capillaries. Recommended conservative management including wearing gloves and keeping core body temperature warm (3) Long-term use of hydroxychloroquine: Code(s): Z79.899 - Other group home (current) drug therapy Category: Medical Plan: #Long-term Use of Hydroxychloroquine Discussed with patient the risks and benefits of hydroxychloroquine in managing the rheumatic condition Benefits include: - Reduced pain, reduce mortality, maintenance of remission and reduction of flares Risks include: - GI upset, skin hyperpigmentation, retinal toxicity (especially after more than 5 years of use), myopathy Advised yearly ophthalmology visits Last ophthalmology visit: 02/2025 Plan I spent 34 minutes reviewing the record and labs, taking a history, examining the patient, discussing the treatment plan, ordering diagnostic work up and documenting in the medical record Orders: Orders 2 Complement C3 6 Months M32.8 - Other forms of systemic lupus erythematosus C Reactive Protein 6 Months M32.8 - Other forms of systemic lupus erythematosus Comprehensive Met. Panel 6 Months M32.8 - Other forms of systemic lupus erythematosus Complete Blood Count Auto Diff 6 Months M32.8 - Other forms of systemic lupus erythematosus Protein Creatinine Ratio, Ur 6 Months M32.8 - Other forms of systemic lupus erythematosus UA w Microscopic 6 Months M32.8 - Other forms of systemic lupus erythematosus Complement C4 6 Months M32.8 - Other forms of systemic lupus erythematosus Anti DNA DS Antibody 6 Months M32.8 - Other forms of systemic lupus erythematosus Erythrocyte Sedimentation Rate 6 Months M32.8 - Other forms of systemic lupus erythematosus Vitamin D 25-OH Total 6 Months E55.9 - Vitamin D deficiency, unspecified Medications: Refilled hydroxychloroquine 200 mg PO BID 180 tabs 1RF M32.8 - Other forms of systemic lupus erythematosus Coding Level of Care Code Est Pt Level 4 (15646) Complex EM visit Add On G2211 Diagnoses Other forms of systemic lupus erythematosus, unspecified organ involvement status M32.8 Systemic lupus erythematosus type: other Systemic lupus erythematosus organ involvement: unspecified Raynaud's disease with gangrene I73.01 Long-term use of hydroxychloroquine Z79.899
[2025-02-13 09:15] VITALS: BP 110/68; PULSE 48; O2SAT 100; BMI 38.9
--- OUTSIDE RECORDS SUMMARY | 2025-02-13 09:34 | XMS_ITS | Encounter Summary ---
Author Organization [employer] Address [address] [place] [address] [address] [place] [address] Care Team Providers Care Cycling Instructor Name Role Phone Brannon David SIDDIQUI Primary Care Provider Jesusita SandraP Primary Care Provider [phone] Joan Antunez MD Primary Care Provide r Encounter Details Date Type Department Care Team (Late st Contact Info) Description 10/26/2022 Orders Only [facility] [address] [place] [address] Radha Jimenez LPN Social History Tobacco Use [...] Department Care Team (Late Contact Info) Description 02/19/2025 9:45 AM EDT Office Visit [facility] [address], [place] [phone] Joan Antunez MD [address] [place], [place] [phone] 03/05/2025 1:30 PM EDT Office Visit [facility] [address], [place] [phone] Burke Frederick DDS [address] [place] [address] 08/06/2025 10:00 AM EST Office Visit [facility] [address] [place], [place] [phone] Regina Broderick [address], [place] [phone] documented as of this encounter Visit Diagnoses Not on filedocumented in this encounter Care Teams Cycling Instructor Relationship Specialty Start Date End Date David South AGNP PCP - General Family Medicine 10/08/22 04/28/23 Jesusita Garcia FNP [address], [place] [phone] PCP - General Family Medicine 04/29/23 06/06/23 Joan Antunez MD [address] [place] [id number] PCP - General Internal Medicine 06/07/23 documented as of this encounter
== END 2025-02-13 09:59 | disposition home or self-care (01) ==
LOC: HO.RHE 09:11
PROVIDERS: PCP Internal Medicine; Visit Provider Student in an Organized Health Care Education/Training Program
DX: M32.8 Other forms of systemic lupus erythematosus (principal); I73.01 Raynaud's syndrome with gangrene; Z79.899 Other long term (current) drug therapy
CPT/HCPCS: 99214; G2211

== ENCOUNTER → 2025-02-13 09:08 | Outpatient (BNVA) | payer OTHER, SELFPAY | PROVIDERS: PCP Internal Medicine; Visit Provider Student in an Organized Health Care Education/Training Program | DX: I73.01 Raynaud's syndrome with gangrene (principal); M32.8 Other forms of systemic lupus erythematosus; E55.9 Vitamin D deficiency, unspecified; Z79.899 Other long term (current) drug therapy | CPT/HCPCS: 99212 ==

== ENCOUNTER 2025-03-05 08:45 | Outpatient (AMB) | payer OTHER, SELFPAY ==
--- NOTE | 2025-03-05 09:02 | MHC.OFFVIS ---
Vital Signs 03/05/25 09:04 Height 5 ft 2 in Weight 211 lb 10.3 oz BMI 38.7 BP 123/63 Blood Pressure Location Lt brachial Position Sitting Pulse 62 Intake Visit Reasons: chronic diarrhea 4 months f/u Intake Note: Flor presents in the office as a follow up for chronic diarrhea. CC: States that kriss been having diarrhea since wednesday. Wednesday was the last time she had she diarrhea. Associate Account Director Required: Yes Associate Account Director Name: Sherwin [id number] Allergies diclofenac (DICLOFENAC) Allergy (Unknown, Verified 03/05/25 09:06) itch HPI Comments Details: 57y.o F with PMH of who is here for chest pain 01/13/23: Pt reports having chest pain associated with burning devon on walking long distance that started almost 3 years ago. This is associated with shortness of breath. Intermittently with palpitations and nausea. No changes in appetite, and has gained weight. Has been taking Omeprazole 20 BID x 1 year now without any change in sx. Has had extensive cardiac work up through Dr Wray including cardiac cath, echo etc without any CAD or cardiomyopathy. Last colo was in 2017 (Dr Dan) no polyps were noted but cecum could not be intubated. Repeat recommended in 5-10 years. 04/01/23: 1. Normal esophageal mucosa (biopsy) 2. Normal stomach mucosa 3. Stomach mucosa (biopsy) 4. Normal colon and terminal ileum mucosa 5. Diverticulosis 6. Internal hemorrhoids Path: A.? Duodenum, biopsy:? Duodenal mucosa within normal limits; preserved villous architecture and no increased intraepithelial lymphocytes seen.? B.? Esophagus, lower, biopsy:? Squamous mucosa within normal limits; negative for inflammation (including intraepithelial eosinophils), fungal organisms, intestinal metaplasia and dysplasia.? C.? Esophagus, middle, biopsy:? Squamous mucosa with rare intraepithelial eosinophils (up to 2 per high-power field); negative for fungal organisms, intestinal metaplasia and dysplasia. 04/14/23: Reports persistent chest discomfort devon early in morning and on exertion. Recent echo and records from Cardiology reviewed from January 2022. EF 35%. Being considered for ICD and has appt next month. EGD and colo results reviewed with the pt. Mild reflux otherwise no esophageal abnormality. No colon polyps. 10/04/24: Pt pranav this follow up for chronic diarrhea. Reports around 6-7 months ago, developed diarrhea which she describes as watery stools that occur at least 4-5 times a day, sometimes with incontinence. Night time sx. Sx present at least half the week. No blood in stool. Has lower abd pain sometimes and the pain doesnt change with BM. No N/V. No untentional weight loss. No travel outside [place], no new meds in one year. 11/01/24: Accompanied by her daughter. Seen with the help of camera tuning engineer Eleanor. Here for follow up. Reports diarrhea is in fact better. Was started on abilify 5 mg that also seemed to help with the diarrhea. Currently having 4 BMs per day but they are formed and no incontinence. Labs as below. Unfortunately blood work and fecal calpro not done. Laboratory Tests 10/06/24 10/11/24 13:15 19:12 Stool Pancreat Elastase 786 Stl C. cayetanensis PCR Not Detected Stool Rotavirus A PCR Not Detected Stl Adenov F 40/41 PCR Not Detected Stool Astrovirus (PCR) Not Detected Stool Campylobacter PCR Not Detected Stool Cryptosporidium PCR Not Detected Stl Sh Tox Pr E STEC PCR Not Detected Stool E coli O157 PCR Not applicable Stl Enterotoxigenic E PCR Not Detected Stool EPEC (PCR) Not Detected Stool EAEC (PCR) Not Detected Stl E. histolytica PCR Not Detected Stl Giardia Antigen SEE NOTE Stool Giardia Lamblia PCR Not Detected Stl P. shigelloides PCR Not Detected Stool Salmonella PCR Not Detected Stool Sapovirus (PCR) Not Detected Stl Shigella/EIEC PCR Not Detected St Y.enterocolitica PCR Not Detected Stool Vibrio (PCR) Not Detected Stl Vibrio cholerae PCR Not Detected Stl Norovirus GI/GII PCR Not Detected Cryptosporidium Exam SEE NOTE 03/05/25: Here for follow up. Seen with Booker SHARIF for interpretation. Reports intermittent diarrhea 1-2 times a week. Has up to 5 BMs per day which are loose and watery. No blood. Discontinued metamucil due to taste and texture. Rarely takes imodium. [facility] Medical History Cervical myofascial pain syndrome Lumbar spondylosis Obesity GERD (gastroesophageal reflux disease) Mild persistent asthma Uterine leiomyoma Depressive disorder ALKA on CPAP Allergic rhinitis Nonrheumatic mitral valve regurgitation Non-ischemic cardiomyopathy Prediabetes Surgical History Hx of cardiac pacemaker History of esophagogastroduodenoscopy (EGD) Hx of cardiac catheterization Hx of colonoscopy History of hernia surgery H/O elbow surgery H/O: hysterectomy History of hand surgery Family History Family/Other Intestinal cancer, Onset Age: 31 Social History Alcohol intake: never Patient Tobacco Use Status: Former Tobacco user Years Smoked: stopped in 2007 Current occupational status: disabled 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 Review of Systems Const All systems reviewed & are unremarkable except as noted in HPI and below Physical Exam Exam Exam: No apparent distress Nonicteric Abdomen soft, nondistended Alert and oriented x3, normal gait Vital Signs: Last Vital Signs Pulse 62 03/05/25 09:04 BP 123/63 03/05/25 09:04 BMI result Body Mass Index 38.7 Assessment & Plan Assessment & Plan (1) Diarrhea: Code(s): R19.7 - Diarrhea, unspecified Category: Medical Qualifiers: Diarrhea type: functional diarrhea Qualified Code(s): K59.1 - Functional diarrhea (2) Change in bowel habit: Code(s): R19.4 - Change in bowel habit Category: Medical Plan Was unable to tolerate psyllium based fiber. Advised benefiber instead. Would also recommend fecal calpro - no inflammation noted on colo 2022 but if elevated low threshold for luminal eval with bx. Plan: - Fecal calpro - Switch to benefiber - Start Imodium PRN - advised to NOT treat expected constipation with laxatives to avoid see-sawing between constipation and diarrhea Follow up 3 months Orders: Orders Calprotectin, Fecal Today K52.9 - Noninfective gastroenteritis and colitis, unspecified Medications: New loperamide (Imodium A-D) take half or one tab for 2 or more loose stools 2 mg PO BID PRN 90 tabs 0RF loose stool 90 days Coding Level of Care Code Est Pt Level 3 (18019) Diagnoses Functional diarrhea K59.1 Diarrhea type: functional diarrhea Change in bowel habit R19.4
[2025-03-05 09:04] VITALS: BP 123/63; PULSE 62; BMI 38.7
--- OUTSIDE RECORDS SUMMARY | 2025-03-05 09:14 | XMS_ITS | Encounter Summary ---
Author Organization [employer] Address [address] [facility] [address] [facility] [address] [facility] [address] [place] [address] Care Team Providers Care Solar Crew Member Name Role Phone David South AGNCecilio Primary Care Provider Unavail Jesusiat Mayers Primary Care Provider [phone] Joan Antunez MD Primary Care Provide r Encounter Details Date Type Department Care Team (Late st Contact Info) Description 10/26/2022 Orders Only [facility] [address] [place] [address] Radha Jimenez LPN Social History Tobacco Use [...] Care Team (Late st Contact Info) Description 03/05/2025 1:30 PM EDT Office Visit [facility] [address] [place] [address] Burke Frederick DDS [address] [place] [address] 08/06/2025 10:00 AM EST Office Visit [facility] [address] [place] [address] Regina Broderick [address] [place] [address] documented as of this encounter Visit Diagnoses Not on filedocumented in this encounter Care Teams Solar Crew Member Relationship Specialty Start Date End Date David South AGNP PCP - General Family Medicine 10/08/22 04/28/23 Jesusita Garcia FNP [address] [place] [address] PCP - General Family Medicine 04/29/23 06/06/23 Joan Antunez MD [address] [place] [address] PCP - General Internal Medicine 06/07/23 documented as of this encounter
--- OUTSIDE RECORDS SUMMARY | 2025-03-05 09:15 | XMS_ITS | Clinical Summary ---
Author Organization [facility] Address [address] [place] [address] Phone Care Team Providers Care Claims Coordinator Name Role Phone Joan Delgadillo MD Primary Care Provider Allergies Active Allergy Reactions Criticality Noted Date Comments Diclofenac Itching,Rash Low 04/20/2017 Medications cetirizine (ZYRTEC) 10 MG tablet Take 1 tablet by mouth every morning. 4 Active ELIQUIS 5 mg tablet Take 5 mg by mouth 2 (two) times a day. 4 Active ENTRESTO 24-26 mg per tablet Take 1 tablet by mouth 2 (two) times a day. Active dapagliflozin propanediol (FARXIGA) 10 mg tablet Take 10 mg by mouth daily. 4 Active furosemide (LASIX) 20 MG tablet Take 20 mg by mouth daily. 4 Active hydroxychloroquine (PLAQUENIL) 200 mg tablet Take 200 mg by mouth daily. 4 Active isosorbide mononitrate (IMDUR) 30 MG 24 hr tablet Take 30 mg by mouth daily. 4 Active metoprolol succinate (TOPROL-XL) 100 MG 24 hr tablet Take 200 mg by mouth daily. 4 Active omeprazole (PRILOSEC) 20 MG capsule Take 20 mg by mouth daily. 4 Active venlafaxine (EFFEXOR-XR) 75 MG 24 hr capsule Take 75 mg by mouth daily. 4 Active ARIPiprazole (ABILIFY) 5 MG tablet Take 5 mg by mouth nightly at bedtime. at bedtime. 5 Active pregabalin (LYRICA) 300 MG capsule Take 300 mg by mouth. 5 Active ondansetron (ZOFRAN-ODT) 4 MG disintegrating tablet 4 mg. 5 Active fluticasone propionate (FLONASE) 50 mcg/actuation nasal spray 2 sprays. 4 Active Active Problems Problem Noted Date Diagnosed Date Angina pectoris 08/07/2024 Assessment & Plan (08/07/2024 10:16 AM EST): Reportedly this patient has cardiomyopathy which is being treated with guideline directed medical therapy along with the heart failure team at [facility]. Localized edema 08/07/2024 Assessment & Plan (08/07/2024 10:16 AM EST): Her legs have obvious venous varicosities Varicose vein of leg 08/07/2024 Assessment & Plan (10/12/2024 9:08 AM EST): She was deemed to CEAP class IV. Very little edema to her bilateral lower extremities with her left worse than right. She denies any consistent symptoms of her varicose veins. She does report having some discomfort in her legs at times. She has tried compression stockings in the past but has not been wearing them. We did discuss possible treatment for her varicose veins but given the fact that she really has very little symptoms she would like to hold off on this. She was given a prescription today for 2 pairs of compression stockings which she will try again. Will follow-up as needed. Assessment & Plan (08/07/2024 10:16 AM EST): I have ordered arterial and venous studies she has symptomatic venous insufficiency. Other hypertrophic cardiomyopathy 08/07/2024 Social History Tobacco Use Types Packs/Day Years Used Date Smoking Tobacco: Never Smokeless Tobacco: Never Tobacco Cessation:Counseling Given: Not Answered Education Answer Date Recorded Are you interested in more education? Not on greg e 05/09/2024 Are you concerned about learning? Not on file 05/09/2024 No 05/09/2024 No 05/09/2024 Digital Access Answer Date Recorded No 05/09/2024 No 05/09/2024 Reliable internet access at home? Not on file 05/09/2024 Device with a working camera? Not on file Comments Unknown Sex and Gender Information Value Date Recorded Sex Assigned at Not on file Legal Sex Female 11:23 AM EDT Gender Identity Not on file Sexual Orientation Not on file Last Filed Vital Signs Vital Sign Reading Time Taken Comments Blood Pressure 132/70 10/12/2024 8:39 AM EST Pulse 60 10/12/2024 8:39 AM EST Temperature - - Respiratory Rate - - Oxygen Saturation 98% 10/12/2024 8:39 AM EST Inhaled Oxygen Concentration - - Weight 93 kg (205 lb) 10/12/2024 8:39 AM EST Height 157.5 cm (5' 2 ) 10/12/2024 8:39 AM EST Body Mass Index 37.49 10/12/2024 8:39 AM EST Plan of Treatment Health Maintenance Due Date Last Done Comments CREATININE LEVEL 1965 DEPRESSION SCREENING 1977 HEPATITIS C SCREENING 1983 HIV ONE-TIME SCREENING (18-6 5 YEARS) 1983 PAP SMEAR 1986 SCREENING FOR DIABETES 2000 COLOGUARD 2010 COLONOSCOPY 2010 COLORECTAL CANCER SCREENING 2010 FIT TEST 2010 FOBT 2010 SIGMOIDOSCOPY 2010 VIRTUAL COLONOSCOPY 2010 ZOSTER VACCINES (1 of 2) 2015 PNEUMOCOCCAL VACCINES (50+ years) (2 of 2 - PCV) 03/08/2019 03/08/2018 COVID-19 VACCINE (1 - 2023-2 5 season) 2024 MAMMOGRAM 12/28/2024 12/28/2022, 05/12/2019, 04/29/2018 BLOOD PRESSURE 04/14/2025 10/12/2024 LIPID PANEL 10/27/2027 10/26/2022 Adult Td,Tdap Booster 04/02/2032 04/02/2022 , 02/19/2012 SMOKING STATUS SCREENING (On ce After 26 Yrs) Completed 10/12/2024 HEPATITIS A VACCINES Aged Out No long er eligible based on patient's age to complete this topic HIB VACCINES Aged Out No longer eligi ble based on patient's age to complete this topic MENINGOCOCCAL VACCINES (ACWY) Aged Out No longer eligible based on patient's age to complete this topic MENINGOCOCCAL VACCINES (B) Aged Out N o longer eligible based on patient's age to complete this topic Medical Devices Not on file Insurance MEDICARE PART A & B [facility] ONE CARE MEDICARE REPLACEMENT RODRIGO ALFONSO [id number] MEDICARE PART A & [place] [address] [place] [id number] ONE CARE MEDICARE REPLACEMENT MEDICARE PART A & B ONE CARE MEDICARE REPLACEMENT MEDICARE PART A & [place] [address] [place] [id number] ONE CARE MEDICARE REPLACEMENT MEDICARE PART A & B CARE MEDICARE REPLACEMENT MEDICARE PART A & B [facility] ONE CARE MEDICARE REPLACEMENT Care Teams Claims Coordinator Relationship Specialty Start Date End Date Joan Delgadillo MD [address] [place] [address] PCP - General Internal Medicine 05/09/24 Additional Source Comments The information contained in this document represents components of the legal health record. It is not the complete legal health record.[facility]
== END 2025-03-05 09:48 | disposition home or self-care (01) ==
LOC: HO.HGI 08:46
PROVIDERS: PCP Internal Medicine; Visit Provider Internal Medicine
DX: K59.1 Functional diarrhea (principal)
CPT/HCPCS: 99213

== ENCOUNTER → 2025-03-05 08:45 | Outpatient (BNVA) | payer OTHER, SELFPAY | PROVIDERS: PCP Internal Medicine; Visit Provider Internal Medicine | DX: K59.1 Functional diarrhea (principal) | CPT/HCPCS: 99212 ==

== ENCOUNTER 2025-06-13 09:16 | Outpatient (AMB) | payer OTHER, SELFPAY ==
--- NOTE | 2025-06-13 09:17 | A.OFFVIS_ITS ---
Vital Signs 06/13/25 09:20 Height 5 ft 2 in Weight 213 lb 13.574 oz BMI 39.1 BP 120/63 Blood Pressure Location Lt brachial Position Sitting Pulse 63 Intake Visit Reasons: 3 month diarrhea Intake Note: Flor presents in the office as a 3 month follow up for diarrhea. CC: no pains in the stomach - diarrhea off and on. Lead Setter Required: Yes Allergies diclofenac (DICLOFENAC) Allergy (Unknown, Verified 03/05/25 09:06) itch HPI Comments Details: 57y.o F with PMH of who is here for chest pain 01/13/23: Pt reports having chest pain associated with burning devon on walking long distance that started almost 3 years ago. This is associated with shortness of breath. Intermittently with palpitations and nausea. No changes in appetite, and has gained weight. Has been taking Omeprazole 20 BID x 1 year now without any change in sx. Has had extensive cardiac work up through Dr Wray including cardiac cath, echo etc without any CAD or cardiomyopathy. Last colo was in 2017 (Dr Dan) no polyps were noted but cecum could not be intubated. Repeat recommended in 5-10 years. 04/01/23: 1. Normal esophageal mucosa (biopsy) 2. Normal stomach mucosa 3. Stomach mucosa (biopsy) 4. Normal colon and terminal ileum mucosa 5. Diverticulosis 6. Internal hemorrhoids Path: A.? Duodenum, biopsy:? Duodenal mucosa within normal limits; preserved villous architecture and no increased intraepithelial lymphocytes seen.? B.? Esophagus, lower, biopsy:? Squamous mucosa within normal limits; negative for inflammation (including intraepithelial eosinophils), fungal organisms, intestinal metaplasia and dysplasia.? C.? Esophagus, middle, biopsy:? Squamous mucosa with rare intraepithelial eosinophils (up to 2 per high-power field); negative for fungal organisms, intestinal metaplasia and dysplasia. 04/14/23: Reports persistent chest discomfort devon early in morning and on exertion. Recent echo and records from Cardiology reviewed from January 2022. EF 35%. Being considered for ICD and has appt next month. EGD and colo results reviewed with the pt. Mild reflux otherwise no esophageal abnormality. No colon polyps. 10/04/24: Pt pranav this follow up for chronic diarrhea. Reports around 6-7 months ago, developed diarrhea which she describes as watery stools that occur at least 4-5 times a day, sometimes with incontinence. Night time sx. Sx present at least half the week. No blood in stool. Has lower abd pain sometimes and the pain doesnt change with BM. No N/V. No untentional weight loss. No travel outside [place], no new meds in one year. 11/01/24: Accompanied by her daughter. Seen with the help of paid search marketing analyst Eleanor. Here for follow up. Reports diarrhea is in fact better. Was started on abilify 5 mg that also seemed to help with the diarrhea. Currently having 4 BMs per day but they are formed and no incontinence. Labs as below. Unfortunately blood work and fecal calpro not done. Laboratory Tests 10/06/24 10/11/24 13:15 19:12 Stool Pancreat Elastase 786 Stl C. cayetanensis PCR Not Detected Stool Rotavirus A PCR Not Detected Stl Adenov F 40/41 PCR Not Detected Stool Astrovirus (PCR) Not Detected Stool Campylobacter PCR Not Detected Stool Cryptosporidium PCR Not Detected Stl Sh Tox Pr E STEC PCR Not Detected Stool E coli O157 PCR Not applicable Stl Enterotoxigenic E PCR Not Detected Stool EPEC (PCR) Not Detected Stool EAEC (PCR) Not Detected Stl E. histolytica PCR Not Detected Stl Giardia Antigen SEE NOTE Stool Giardia Lamblia PCR Not Detected Stl P. shigelloides PCR Not Detected Stool Salmonella PCR Not Detected Stool Sapovirus (PCR) Not Detected Stl Shigella/EIEC PCR Not Detected St Y.enterocolitica PCR Not Detected Stool Vibrio (PCR) Not Detected Stl Vibrio cholerae PCR Not Detected Stl Norovirus GI/GII PCR Not Detected Cryptosporidium Exam SEE NOTE 03/05/25: Here for follow up. Seen with Booker SHARIF for interpretation. Reports intermittent diarrhea 1-2 times a week. Has up to 5 BMs per day which are loose and watery. No blood. Discontinued metamucil due to taste and texture. Rarely takes imodium. 06/13/25: Here for follow up. Seen with paid search marketing analyst. Reports fluctuating BMs. Now has 2-3 loose BMs/day 2-3 times a week. I.e half the week she has diarrhea. Reports has noted association with red meat, pasta, lettuce which she avoids but these are also foods that she likes to eat so has frequent dietary indiscretion. Takes imodium PRN may be 1-2 times a week, hesitant to take it more frequently as it causes severe constipation otherwise. Fecal calpro still pending. Last colo 2022 was endoscopically normal, 10 y recall given. PFSH Medical History Cervical myofascial pain syndrome Lumbar spondylosis Obesity GERD (gastroesophageal reflux disease) Mild persistent asthma Uterine leiomyoma Depressive disorder ALKA on CPAP Allergic rhinitis Nonrheumatic mitral valve regurgitation Non-ischemic cardiomyopathy Prediabetes Surgical History Hx of cardiac pacemaker History of esophagogastroduodenoscopy (EGD) Hx of cardiac catheterization Hx of colonoscopy History of hernia surgery H/O elbow surgery H/O: hysterectomy History of hand surgery Family History Family/Other Intestinal cancer, Onset Age: 31 Social History Alcohol intake: never Patient Tobacco Use Status: Former Tobacco user Years Smoked: stopped in 2007 Current occupational status: disabled 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 Review of Systems Const All systems reviewed & are unremarkable except as noted in HPI and below Physical Exam Exam Exam: No apparent distress Nonicteric Abdomen soft, nondistended Alert and oriented x3, normal gait Vital Signs: Last Vital Signs Pulse 63 06/13/25 09:20 BP 120/63 06/13/25 09:20 BMI result Body Mass Index 39.1 Assessment & Plan Assessment & Plan (1) Diarrhea: Code(s): R19.7 - Diarrhea, unspecified Category: Medical Qualifiers: Diarrhea type: functional diarrhea Qualified Code(s): K59.1 - Functional diarrhea (2) Change in bowel habit: Code(s): R19.4 - Change in bowel habit Category: Medical Plan Discussed with the pt that at this point this seems to be likely IBS vs food intolerance however fecal calpro still pending. No inflammation noted on colo 2022 but if elevated low threshold for luminal eval with bx. Plan: - Reminded to submit fecal calpro - Cont fiber supplementation as bulking agent - Avoid trigger foods - Cont imodium PRN - can use half a tablet if full tablet causes severe constipation Follow up 4 months Medications: Refilled loperamide (Imodium A-D) take half or one tab for 2 or more loose stools 2 mg PO BID PRN 90 tabs 1RF loose stool 90 days Coding Level of Care Code Est Pt Level 3 (36979) Diagnoses Functional diarrhea K59.1 Diarrhea type: functional diarrhea Change in bowel habit R19.4
[2025-06-13 09:20] VITALS: BP 120/63; PULSE 63; BMI 39.1
--- OUTSIDE RECORDS SUMMARY | 2025-06-13 10:05 | XMS_ITS | Encounter Summary ---
Author Organization [employer] Address [address] 7[address] [place] [address] Care Team Providers Care Classroom Assistant Name Role Phone David South AGNCecilio Primary Care Provider Jesusita Sandra Primary Care Provider [phone] Joan Antunez MD Primary Care Provide r Reason for Visit * Reason Onset Date Comments Appointment 03/12/2023 Encounter Details Date Type Department Care Team (Late st Contact Info) Description 03/12/2023 Telephone [facility] [address] [place], [place] [phone] Meggan Regina [address] [place] [address] Appointment Social History Tobacco Use Types Packs/Day [...] visit scheduled for 8am. Informed daughter that [facility] dental has her infomration and will call her when it is her turn on the list again to call in. Encouraged patient to call in from time to time looking for cancellations DR documented in this encounter Plan of Treatment Upcoming Encounters Date Type Department Care Team (Late st Contact Info) Description 06/25/2025 9:00 AM EST Office Visit [facility] [address] [place] [address] Burke Frederick DDS [address] [place] [address] 08/15/2025 9:30 AM EST Office Visit [facility] [address] [place] [address] MegganRegina [address] [place] [address] documented as of this encounter Visit Diagnoses Not on filedocumented in this encounter Additional Health Concerns Assessment Noted Time PHQ-9 Depression Total Score: 8 11/07/19 10:23 AM EDT documented as of this encounter Care Teams Classroom Assistant Relationship Specialty Start Date End Date David South AGNP PCP - General Family Medicine 10/08/22 04/28/23 Jesusita Garcia FNP [address] [place] [address] PCP - General Family Medicine 04/29/23 06/06/23 Joan Antunez MD [address] [place] [id number] PCP - General Internal Medicine 06/07/23 documented as of this encounter
--- OUTSIDE RECORDS SUMMARY | 2025-06-13 10:05 | XMS_ITS | Encounter Summary ---
Author Organization [facility] Address [address] [place] [address] Phone Care Team Providers Care Grinder Set Up Operator Thread Tool Name Role Phone Joan Delgadillo MD Primary Care Provider Reason for Referral * - New Request Specialty Diagnoses / Procedures Referred By Chance davis Referred To Contact Radiology Diagnoses Primary hypertension Procedures US Aorta Duplex Complete Maurice Abad DO Phone: tel: fax: [email or web address] Referral ID Status Reason Start Date Expiration Date V isits Requested Visits Authorized [id number] New Request 09/01/2024 1 1 Encounter Details Date Type Department Care Team (Latest Contact Info) Description 09/01/2024 Ancillary Orders [facility] [address] [facility] 3rd [place] [address] Maurice Abad DO [address] [facility] [address] [place] [address] Primary hypertension (Primary Dx) Social History Tobacco Use Types Packs/Day Years Used Date Smoking Tobacco: Never Smokeless Tobacco: Never Education Answer Date Recorded Are you interested [...] on file Sexual Orientation Not on file documented as of this encounter Plan of Treatment Not on file documented as of this encounter Results * US Aorta Duplex Complete (09/01/2024 9:46 AM EST) Anatomical Region Laterality Modality Aorta Ultrasound Narrative 09/04/2024 7:48 AM EST Impression: No evidence of aortic or iliac aneurysms. No evidence of arterial occlusive disease in the right iliac arterial system. No evidence of arterial occlusive disease in the left iliac arterial system. Abdominal Aorta AORTA Findings: normal and no plaque RIGHT COMMON ILIAC ARTERY Findings: normal Spectral Doppler Waveform: triphasic LEFT COMMON ILIAC ARTERY Findings: normal Spectral Doppler Waveform: triphasic us Maurice Los Olmsteado DO IMG US ABDOMEN Final Result documented in this encounter Visit Diagnoses Diagnosis Angina pectoris Other and unspecified angina pectoris Localized edema Edema PVD (peripheral vascular disease) Unspecified peripheral vascular disease Primary hypertension Unspecified essential hypertension Primary hypertension- Primary Unspecified essential hypertension documented in this encounter Care Teams Grinder Set Up Operator Thread Tool Relationship Specialty Start Date End Date Joan Delgadillo MD [address] [place] [address] PCP - General Internal Medicine 05/09/24 documented as of this encounter Additional Source Comments The information contained in this document represents components of the legal health record. It is not the complete legal health record.[facility]
--- OUTSIDE RECORDS SUMMARY | 2025-06-13 10:05 | XMS_ITS | Encounter Summary ---
Author Organization [employer] Address [address] [place] [address] Care Team Providers Care Cable Armorer Operator Name Role Phone Joan Antunez MD Primary Care Provide r Reason for Visit * Reason Comments Med Refill Encounter Details Date Type Department Care Team ([facility] st Contact Info) Description 03/05/2025 Refill [facility] [address] [place], [place] [phone] Joan Antunez MD [address] [place] [address] Chronic diarrhea Social History Tobacco Use Types Packs/Day Years Used Date Smoking Tobacco: Former Cigarettes Passive Smoke Exposure: Past Smokeless Tobacco: Never Alcohol Use Standard Drinks/Week Comments Never 0 (1 standard drink = 0.6 oz pur e alcohol) Depression Answer Date Recorded Patient Health Questionnaire-9 Score 0 02/19/2025 Patient Health Questionnaire-9 Score 0 02/19/2025 Last PHQ-9: Questionnaire Data Not on file 0 02/19/2025 Housing Stability Answer Date Recorded What is [...] Answer Date Recorded Patient Health Questionnaire-2 Score 0 02/19/2025 Internet Access Answer Date Recorded Internet Access [...] Description 06/25/2025 9:00 AM EST Office Visit [facility] [address] [place] [address] Burke Frederick DDS [address] [place] [address] 08/15/2025 9:30 AM EST Office Visit [facility] [address] [place] [address] Arsenio Broderickaris [address] [place] [address] documented as of this encounter Visit Diagnoses Diagnosis Chronic diarrhea Diarrhea documented in this encounter Additional Health Concerns Assessment Noted Time PHQ-9 Depression Total Score: 0 02/20/20 25 9:47 AM EDT documented as of this encounter Care Teams Cable Armorer Operator Relationship Specialty Start Date End Date Joan Antunez MD [address] [place] [address] PCP - General Internal Medicine 06/07/23 documented as of this encounter
--- OUTSIDE RECORDS SUMMARY | 2025-06-13 10:05 | XMS_ITS | Clinical Summary ---
Author Organization [facility] Address [address] [place] [address] Phone Care Team Providers Care Acreage Reporter Name Role Phone Joan Delgadillo MD Primary [...] along with the heart failure team at [facility]. Localized edema 08/07/2024 Assessment & Plan (08/07/2024 [...] FOBT 2010 SIGMOIDOSCOPY 2010 VIRTUAL COLONOSCOPY 2010 RSV VACCINE (1 - Risk 50-74 years 1-dose series) 2015 ZOSTER VACCINES (1 of 2) 2015 PNEUMOCOCCAL VACCINES (50+ years) (2 of 2 - PCV) 03/08/2019 03/08/2018 MAMMOGRAM 12/28/2024 12/28/2022, 05/12/2019, 04/29/2018 INFLUENZA VACCINE (#1) 2025 COVID-19 VACCINE (1 - 2024-2 6 season) 2025 BLOOD PRESSURE 04/14/2025 10/12/2024 LIPID PANEL 10/27/2027 [...] file Insurance MEDICARE PART A & B [facility] ONE [facility] MEDICARE REPLACEMENT MEDICARE PART A & B Member Subscriber Plan / Payer (Ef fective 2024-Present) Name:Flor Martinez Member ID:[id number] Relation to Subscriber:Self Name:Flor Martinez Subscriber ID:[id number] Payer ID:[id number] Group ID:Not on file Type:Medicare Address: [employer] [address] ONE CARE MEDICARE REPLACEMENT MEDICARE PART A & B CARE MEDICARE REPLACEMENT MEDICARE PART A & B ONE CARE MEDICARE REPLACEMENT [place]IG[id number] [place] [id number] MEDICARE PART A & B CARE MEDICARE REPLACEMENT MEDICARE PART A & B Member Subscriber Plan / Payer (Ef fective 2024-Present) Name:Flor Martinez Member ID:[id number] Relation to Subscriber:Self Name:Flor Martinez Subscriber ID:[id number] Payer ID:[id number] Group ID:Not on file Type:Medicare Address: [facility] [employer] [facility] [address] [place] [address] [facility] ONE CARE MEDICARE REPLACEMENT Care Teams Acreage Reporter Relationship Specialty Start Date End Date Joan Delgadillo MD [address] [place] [id number] PCP - General Internal Medicine 05/09/24 Additional Source Comments The information contained in this document represents components of the legal health record. It is not the complete legal health record.[facility]
--- OUTSIDE RECORDS SUMMARY | 2025-06-13 10:05 | XMS_ITS | Encounter Summary ---
Author Organization [employer] Address [address] [place] [address] Care Team Providers Care Torch Cutter Name Role Phone David South AGNCecilio Primary Care Provider Unavail Jesusita Mayers Primary Care Provider [phone] Joan Antunez MD Primary Care Provide r Encounter Details Date Type Department Care Team (Late st Contact Info) Description 10/26/2022 Orders Only [facility] [address] [place] [address] Radha Jimenez LPN Social History Tobacco Use [...] Description 06/25/2025 9:00 AM EST Office Visit [facility] [address] [place] [address] Burke Frederick DDS [address] [place] [address] 08/15/2025 9:30 AM EST Office Visit [facility] [address] [place] [address] Regina Broderick [address] [place] [address] documented as of this encounter Visit Diagnoses Not on filedocumented in this encounter Care Teams Torch Cutter Relationship Specialty Start Date End Date David South AGNP PCP - General Family Medicine 10/08/22 04/28/23 Jesusita Garcia FNP [address] [place] [address] PCP - General Family Medicine 04/29/23 06/06/23 Joan Antunez MD [address] [place] [address] PCP - General Internal Medicine 06/07/23 documented as of this encounter
--- OUTSIDE RECORDS SUMMARY | 2025-06-13 10:05 | XMS_ITS | Encounter Summary ---
Author Organization [facility] Address [address] [place] [address] Phone Care Team Providers Care Carpenter Cradle And Dolly Name Role Phone Joan Delgadillo MD Primary Care Provider Reason for Referral * - New Request Specialty Diagnoses / Procedures Referred By Contac t Referred To Contact Radiology Diagnoses PVD (peripheral vascular disease) Procedures US Lower Extremity Arteries (PRISCILLA) Physio Complete Bilat Maurice Abad DO Phone: tel: fax: [email or web address] Referral ID Status Reason Start Date Expiration Date V isits Requested Visits Authorized [id number] New Request 09/01/2024 1 1 Encounter Details Date Type Department Care Team (Late st Contact Info) Description 09/01/2024 Ancillary Orders [facility] [address] [facility] 3rd [place] [address] Maurice Abad DO [address] [facility] [address] [place] [address] [email or web address] PVD (peripheral vascular disease) (Primary Dx) Social History Tobacco Use Types [...] as of this encounter Results * US Lower Extremity Arteries (PRISCILLA) Physio Complete Bilat (09/01/2024 9:46 AM EST) Arm 118 mmHg Posterior Tibial 132 mmHg Posterior Tibial Index 1.12 Dorsalis Pedis 132 mmHg Dorsalis Pedis Index 1.12 Posterior Tibial 130 mmHg Posterior Tibial Index 1.10 Dorsalis Pedis 136 mmHg Dorsalis Pedis Index 1.15 Anatomical Region Laterality Modality Ultrasound Narrative 09/04/2024 7:30 AM EST Right Side: Ankle/Brachial index on the right side is 1.12. Doppler waveform is triphasic. Left Side: Ankle/Brachial index on the left side is 1.15. Doppler waveform is triphasic. Impression: Normal ABIs bilaterally. us Maurice Abad DO CV US VASCULAR Final Result documented in this encounter Visit Diagnoses Diagnosis Angina pectoris Other and unspecified angina pectoris Localized edema Edema PVD (peripheral vascular disease) Unspecified peripheral vascular disease Primary hypertension Unspecified essential hypertension PVD (peripheral vascular disease)- Primary Unspecified peripheral vascular disease documented in this encounter Care Teams Carpenter Cradle And Dolly Relationship Specialty Start Date End Date Joan Delgadillo MD [address] [place] [id number] PCP - General Internal Medicine 05/09/24 documented as of this encounter Additional Source Comments The information contained in this document represents components of the legal health record. It is not the complete legal health record.[facility]
--- OUTSIDE RECORDS SUMMARY | 2025-06-13 10:06 | XMS_ITS | Encounter Summary ---
Author Organization [employer] [facility] Address [address] [facility] 7 [place] [address] Care Team Providers Care Tool Technician Name Role Phone Digna Madhuri POCKETED SPRING MACHINE OPERATOR Primary Care Provider David Blankenship [facility] Primary Care Provider Jesusita Sandra POCKETED SPRING MACHINE OPERATOR Primary Care Provider [phone] Joan Antunez MD Primary Care Provide r Reason for Visit * Reason Comments Med Refill Encounter Details Date Type Department Care Team (Late st Contact Info) Description 08/06/2022 Refill [facility] MEDICINE [address] [place] [address] Delma Gauthier MD [address] [place] [address] Social History Tobacco Use Types Packs/Day Years [...] Description 06/25/2025 9:00 AM EST Office Visit [facility] ADULT DENTAL [address] [place] [address] Burke Frederick DDS [address] [place] [address] 08/15/2025 9:30 AM EST Office Visit [facility] ADULT DENTAL [address] [place] [address] Regina Broderick [address] [place] [address] documented as of this encounter Visit Diagnoses Not on filedocumented in this encounter Care Teams Tool Technician Relationship Specialty Start Date End Date Madhuri Sawyer FNP PCP - General 06/29/22 10/07/22 David South AGNP PCP - General Family Medicine 10/08/22 04/28/23 Jesusita Garcia FNP [address] [place] [address] PCP - General Family Medicine 04/29/23 06/06/23 Joan Antunez MD [address] [place] [address] PCP - General Internal Medicine 06/07/23 documented as of this encounter
--- OUTSIDE RECORDS SUMMARY | 2025-06-13 10:06 | XMS_ITS | Encounter Summary ---
Author Organization [employer] Address [address] [address] [facility] 7[address] [place] [address] Care Team Providers Care Canvas Cutter Name Role Phone Joan Antunez MD Primary Care Provide r Encounter Details Date Type Department Care Team ([facility] st Contact Info) Description 12/16/2023 Telephone [facility] MEDICINE [address] [place], [place] [phone] Joan Antunez MD [address] [place] [address] Social History Tobacco Use Types Packs/Day Years [...] Description 06/25/2025 9:00 AM EST Office Visit [facility] ADULT DENTAL [address] [place] [address] Burke Frederick DDS [address] [place] [address] 08/15/2025 9:30 AM EST Office Visit [facility] ADULT DENTAL [address] [place] [address] Meggan, Regina [address] [place] [address] documented as of this encounter Visit Diagnoses Not on filedocumented in this encounter Additional Health Concerns Assessment Noted Time PHQ-9 Depression Total Score: 14 024 12:06 PM EDT documented as of this encounter Care Teams Canvas Cutter Relationship Specialty Start Date End Date Joan Antunez MD [address] [place] [address] PCP - General Internal Medicine 06/07/23 documented as of this encounter
--- OUTSIDE RECORDS SUMMARY | 2025-06-13 10:06 | XMS_ITS | Encounter Summary ---
Author Organization [employer] Address [address] [facility] 7t [place] [address] Care Team Providers Care Optical Instruments Supervisor Name Role Phone Digna Madhuri DIRECTOR BIOMEDICAL ENGINEERING Primary Care Provider David Blankenship Primary Care Provider Jesusita Sandra DIRECTOR BIOMEDICAL ENGINEERING Primary Care Provider [phone] Joan Antunez MD Primary Care Provide r Encounter Details Date Type Department Care Team (Late st Contact Info) Description 08/11/2022 Orders Only [facility] [address] [place] [address] Radha Jimenez LPN Social History Tobacco Use [...] Description 06/25/2025 9:00 AM EST Office Visit [facility] ADULT DENTAL [address] [place] [address] Burke Frederick DDS [address] [place] [address] 08/15/2025 9:30 AM EST Office Visit [facility] ADULT DENTAL [address] [place] [address] Regina Broderick [address] [place] [address] documented as of this encounter Visit Diagnoses Not on filedocumented in this encounter Care Teams Optical Instruments Supervisor Relationship Specialty Start Date End Date Madhuri Sawyer FNP PCP - General 06/29/22 10/07/22 David South AGNP PCP - General Family Medicine 10/08/22 04/28/23 Jesusita Garcia FNP [address] [place] [address] PCP - General Family Medicine 04/29/23 06/06/23 Joan Antunez MD [address] [place] [id number] PCP - General Internal Medicine 06/07/23 documented as of this encounter
--- OUTSIDE RECORDS SUMMARY | 2025-06-13 10:06 | XMS_ITS | Encounter Summary ---
Author Organization [employer] Address [address] [facility] 7[address] [place] [address] Care Team Providers Care Track Inspector Name Role Phone Joan Antunez MD Primary Care Provide r Reason for Visit * Reason Comments Med Refill Encounter Details Date Type Department Care Team ([facility] st Contact Info) Description 10/28/2023 Refill [facility] MEDICINE [address] [place], [place] [phone] Joan Antunez MD [address] [place] [address] Social History Tobacco Use Types Packs/Day Years [...] Description 06/25/2025 9:00 AM EST Office Visit [facility] ADULT DENTAL 230 [place] [address] Burke Frederick DDS [address] [place] [address] 08/15/2025 9:30 AM EST Office Visit [facility] ADULT DENTAL [address] [place] [address] Meggan, Regina [address] [place] [address] documented as of this encounter Visit Diagnoses Not on filedocumented in this encounter Additional Health Concerns Assessment Noted Time PHQ-9 Depression Total Score: 8 11/07/19 10:23 AM EDT documented as of this encounter Care Teams Track Inspector Relationship Specialty Start Date End Date Joan Antunez MD [address] [place] [address] PCP - General Internal Medicine 06/07/23 documented as of this encounter
--- OUTSIDE RECORDS SUMMARY | 2025-06-13 10:06 | XMS_ITS | Encounter Summary ---
Author Organization [employer] Address [address] [facility] 7t [place] [address] Care Team Providers Care Algologist Name Role Phone Joan Antunez MD Primary Care Provide r Reason for Visit * Reason Comments Med Refill Encounter Details Date Type Department Care Team ([facility] st Contact Info) Description 04/19/2025 Refill [facility] MEDICINE [address] [place], [place] [phone] Joan Antunez MD [address] [place] [address] Chronic back pain, unspecified back location, unspecified [...] Description 06/25/2025 9:00 AM EST Office Visit [facility] ADULT DENTAL [address] [place] [address] Burke Frederick DDS [address] [place] [address] 08/15/2025 9:30 AM EST Office Visit [facility] ADULT DENTAL [address] [place] [address] Arsenio Broderickaris [address] [place] [address] documented as of this encounter Visit Diagnoses Diagnosis Chronic back pain, unspecified back location, unspecified back pain laterality documented in this encounter Additional Health Concerns Assessment Noted Time PHQ-9 Depression Total Score: 0 02/20/20 9:47 AM EDT documented as of this encounter Care Teams Algologist Relationship Specialty Start Date End Date Joan Antunez MD [address] [place] [address] PCP - General Internal Medicine 06/07/23 documented as of this encounter
--- OUTSIDE RECORDS SUMMARY | 2025-06-13 10:06 | XMS_ITS | Encounter Summary ---
Author Organization [employer] Address [address] [facility] 7t [place] [address] Care Team Providers Care Adult Secondary Education Instructor Name Role Phone Katherine Da Silva MD Primary Care Provider Madhuri Grayson CATERING DRIVER Primary Care Provider David Blankenship Primary Care Provider Jesusita Sandra CATERING DRIVER Primary Care Provider [phone] Joan Antunez MD Primary Care Provide r Encounter Details Date Type Department Care Team (Latest Contact Info) Description 10/05/2018 Abstract [facility] CONVERSIONS Dental, Provider, DDS Social History [...] Description 06/25/2025 9:00 AM EST Office Visit [facility] ADULT DENTAL [address] [place] [address] Burke Frederick DDS [address] [place] [address] 08/15/2025 9:30 AM EST Office Visit [facility] ADULT DENTAL [address] [place] [address] Regina Broderick [address] [place] [address] documented as of this encounter Visit Diagnoses Not on filedocumented in this encounter Care Teams Adult Secondary Education Instructor Relationship Specialty Start Date End Date Katherine Da Silva MD PCP - General Family Medicine 09/24/20 06/28/22 Madhuri Sawyer FNP PCP - General 06/29/22 10/07/22 David South AGNP PCP - General Family Medicine 10/08/22 04/28/23 Jesusita Garcia FNP [address] [place] [address] PCP - General Family Medicine 04/29/23 06/06/23 Joan Antunez MD [address] [place] [address] PCP - General Internal Medicine 06/07/23 documented as of this encounter
--- OUTSIDE RECORDS SUMMARY | 2025-06-13 10:06 | XMS_ITS | Encounter Summary ---
Author Organization [employer] Address [address] [facility] 7t [place] [address] Care Team Providers Care Publishing Director Name Role Phone Joan Antunez MD Primary Care Provide r Reason for Visit * Reason Onset Date Comments Med Refill 12/13/2024 Encounter Details Date Type Department Care Team ([facility] st Contact Info) Description 12/13/2024 Telephone [facility] MEDICINE [address] [place], [place] [phone] Joan Antunez MD [address] [place], [place] [phone] Med Refill Social History Tobacco Use Types [...] your housing situation today? I have young sing 10/24/[address] you li [...] 8 MG tablet To be sent to: [facility] pharmacy documented in this encounter Plan of Treatment Upcoming Encounters Date Type Department Care Team (Late st Contact Info) Description 06/25/2025 9:00 AM EST Office Visit [facility] ADULT DENTAL [address] [place] [address] Burke Frederick DDS [address] [place] [address] 08/15/2025 9:30 AM EST Office Visit [facility] ADULT DENTAL [address] [place] [address] Regina Broderick [address] [place] [address] documented as of this encounter Visit Diagnoses Not on filedocumented in this encounter Additional Health Concerns Assessment Noted Time PHQ-9 Depression Total Score: 14 11/22/ 024 12:06 PM EDT documented as of this encounter Care Teams Publishing Director Relationship Specialty Start Date End Date Joan Antunez MD [address] [place] [address] PCP - General Internal Medicine 06/07/23 documented as of this encounter
--- OUTSIDE RECORDS SUMMARY | 2025-06-13 10:06 | XMS_ITS | Encounter Summary ---
Author Organization [employer] Address [address] [facility] 7t [place] [address] Care Team Providers Care Sealing And Canceling Machine Operator Name Role Phone Katherine Da Silva MD Primary Care Provider Madhuri Grayson SKI LIFT OPERATOR Primary Care Provider David Blankenship Primary Care Provider Jesusita Sandra SKI LIFT OPERATOR Primary Care Provider [phone] Joan Antunez MD Primary Care Provide r Encounter Details Date Type Department Care Team (Latest Contact Info) Description 10/06/2019 Abstract [facility] CON[facility] Dental, Provider, DDS Social [...] Description 06/25/2025 9:00 AM EST Office Visit [facility] ADULT DENTAL [address] [place] [address] Burke Frederick DDS [address] [place] [address] 08/15/2025 9:30 AM EST Office Visit [facility] ADULT DENTAL [address] [place] [address] Regina Broderick [address] [place] [address] documented as of this encounter Visit Diagnoses Not on filedocumented in this encounter Care Teams Sealing And Canceling Machine Operator Relationship Specialty Start Date End Date Katherine Da Silva MD PCP - General Family Medicine 09/24/20 06/28/22 Madhuri Sawyer FNP PCP - General 06/29/22 10/07/22 David South AGNP PCP - General Family Medicine 10/08/22 04/28/23 Jesusita Garcia FNP [address] [place] [address] PCP - General Family Medicine 04/29/23 06/06/23 Joan Antunez MD [address] [place] [address] PCP - General Internal Medicine 06/07/23 documented as of this encounter
--- OUTSIDE RECORDS SUMMARY | 2025-06-13 10:06 | XMS_ITS | Encounter Summary ---
Author Organization [employer] Address [address] [facility] [address] [place] [address] Care Team Providers Care Brick Baker Name Role Phone Joan Antunez MD Primary Care Provide r Encounter Details Date Type Department Care Team (Late st Contact Info) Description 09/08/2023 Orders Only [facility] MEDICINE [address] [place], [place] [phone] Joan Antunez MD [address] [place], [place] [phone] Prediabetes (Primary Dx) Social History Tobacco Use [...] Description 06/25/2025 9:00 AM EST Office Visit [facility] ADULT DENTAL [address] [place] [address] Burke Frederick DDS [address] [place] [address] 08/15/2025 9:30 AM EST Office Visit [facility] ADULT DENTAL [address] [place] [address] Meggan, Regina [address] [place] [address] documented as of this encounter Visit Diagnoses Diagnosis Prediabetes- Primary Other abnormal glucose documented in this encounter Additional Health Concerns Assessment Noted Time PHQ-9 Depression Total Score: 8 11/07/19 10:23 AM EDT documented as of this encounter Care Teams Brick Baker Relationship Specialty Start Date End Date Joan Antunez MD [address] [place] [address] PCP - General Internal Medicine 06/07/23 documented as of this encounter
--- OUTSIDE RECORDS SUMMARY | 2025-06-13 10:06 | XMS_ITS | Clinical Summary ---
Author Organization [employer] Address [address] [place] [address] Care Team Providers Care Boss Dyer Name Role Phone Joan Antunez MD Primary Care Provide r Allergies Active Allergy Reactions Criticality Noted Date Comments Diclofenac Rash,Itching Low 04/20/2017 Medications * This document contains information received from the source organization and may not represent a complete record from that organization. Entresto 24-26 MG tablet TAKE 1 TABLET BY MOUTH TWICE DAILY IN THE MORNING AND IN THE EVENING 10/16/19 23 Active chlorproMAZINE (Thorazine) 50 MG tablet take 2 tablets by oral route every bedtime 04/04/20 20 Active dexAMETHasone (Decadron) 4 MG tabletIndicati ons:Chronic back pain, unspecified back location, unspecified back pain laterality Take 1 tablet (4 mg) by mouth with breakfast for 5 days. 5 tablet 03/03/20 23 Active albuterol (Ventolin HFA) 108 (90 [...] swallow. 1 each 2 10/13/19 24 Active cetirizine (ZyrTEC) 10 MG tablet TAKE 1 TABLET BY MOUTH EVERY MORNING 90 tablet 1 12/06/19 25 Active Blood Pressure kit Please use to check BP as directed. 1 kit 12/15/19 25 Active amitriptyline (Elavil) 10 MG tablet 01/23/20 25 Active Eliquis 5 MG tablet TAKE 1 TABLET BY MOUTH TWICE DAILY IN THE MORNING AND IN THE EVENING Active dapagliflozin (Farxiga) 10 MG Take 10 mg by mouth Once per day. 12/09/19 24 Active hydroxychloroq uine (Plaquenil) 200 MG tablet TAKE 1 TABLET BY MOUTH TWICE DAILY IN THE MORNING AND IN THE EVENING Active carvedilol (Coreg) 25 MG tablet 01/27/20 25 Active acetaminophen (Tylenol) 500 MG tablet Take 2 tablets (1,000 mg) by mouth every 6 (six) hours if needed for moderate pain or fever for up to 25 doses. 50 tablet 01/31/20 25 Active omeprazole (PriLOSEC) [address] capsule TAKE 1 CAPSULE BY MOUTH TWICE DAILY IN THE MORNING AND IN THE EVENING BEFORE MEALS 180 capsule 1 04/16/20 25 Active pregabalin (Lyrica) 300 MG capsuleIndicat ions:Chronic back pain, unspecified back location, unspecified back pain laterality TAKE 1 CAPSULE BY MOUTH TWICE DAILY IN THE MORNING AND IN THE EVENING 56 capsule 05/17/20 25 Active Tirzepatide-We ight Management (Zepbound) 2.5 MG/0.5ML solution auto-injectorI ndications:Cla ss 3 severe obesity due to excess calories with serious comorbidity and body mass index (BMI) of 40.0 to 44.9 in adult (HCC) Inject 0.5 mL (2.5 mg) under the skin 1 (one) time per week. 2 mL 05/24/20 25 Active Calcium Antacid Extra Strength 750 MG chewable tabletIndicati ons:GERD without esophagitis CHEW 1 TABLET BY MOUTH THREE TIMES DAILY BEFORE MEALS 90 tablet 1 08/12/19 23 025 Discontinued isosorbide mononitrate ER (Imdur) 30 MG 24 hr tablet Take 30 mg by mouth in the morning. 10/02/19 23 025 Discontinued amLODIPine (Norvasc) 5 MG tabletIndicati ons:Raynaud's phenomenon without gangrene Take 1 tablet (5 mg) by mouth Once per day. 30 tablet 11 11/03/19 25 025 Discontinued Tirzepatide-We ight Management (Zepbound) 2.5 MG/0.5ML solution auto-injectorI ndications:Cla ss 2 severe obesity due to excess calories with serious comorbidity and body mass index (BMI) of 39.0 to 39.9 in adult Inject 0.5 mL (2.5 mg) under the skin 1 (one) time per week. 2 mL 02/20/20 25 025 Discontinued(Re order (will not trigger notification to Pharmacy)) fluticasone (Flonase) 50 MCG/ACT nasal spray INSTILL 2 SPRAYS IN EACH NOSTRIL ONCE DAILY NEEDED 48 g 1 04/16/20 25 025 Discontinued pregabalin (Lyrica) 300 MG capsuleIndicat ions:Chronic back pain, unspecified back location, unspecified back pain laterality TAKE 1 CAPSULE BY MOUTH TWICE DAILY IN THE MORNING AND IN THE EVENING 56 capsule 04/24/20 25 025 Discontinued Active Problems Problem Noted Date Diagnosed Date Class 3 severe obesity due t o excess calories with serious comorbidity and body mass index (BMI) of 40.0 to 44.9 in adult 05/24/2025 Assessment & Plan (05/24/2025 12:37 PM EDT): - Severe obesity with unsuccessful weight loss despite dietary efforts. Discussed pharmacologic and surgical options for weight reduction. Patient expressed concern regarding bariatric surgery due to cardiac comorbidity and personal preference. Extensive counseling about healthy diet and exercise done today Napper Fixer referral done today I will prescribe Zepbound 2.5 mg weekly, I cannot prescribe for this patient phentermine because of current indication she has cardiomyopathy and is status post ICD Screening mammogram, encounter for 05/24/2025 Lower extremity edema 05/24/2025 Assessment & Plan (05/24/2025 12:40 PM EDT): - Chronic lower extremity edema attributed to venous insufficiency. Compression stockings not tolerated. - Advised use of compression stockings as tolerated, even for short periods. Recommended leg elevation at end of day. Reviewed medication list for possible contributors; confirmed amlodipine discontinued by cardiology in December 2024. Swelling of tonsil 02/03/2025 Assessment & Plan (02/03/2025 9:46 AM EDT): 59 yr old female with Pmhx of SLE, recently tested positive for Covid ( days ago) c/o severe right sided sore throat and difficulty swallowing preventing her from eating or drinking x 3 days. On exam she has significant right tonsillar swelling/causing uvula deviation and right sided neck tenderness and swelling. Etiology ? Rapid testing for Strep, Flu and Covid NEGATIVE Given high risk (SLE) retrotonsillar abscess needs to be ruled out. Plan: Patient to present herself to ER for evaluation and CT of neck with IV contrast. Also she might need to be admitted until she is able to eat or drink Pt agreeable with plan. Pt to be transported to [facility] via private transport by family member Tooth abrasion 01/29/2025 Raynaud's phenomenon without gangrene 11/02/2024 Assessment & [...] pull ups Periodontal disease 07/28/2024 Fractured dental amish with loss of materi al 03/27/2024 Lupus (systemic lupus erythematosus) (CMS/HCC) 0 02/03/2024 Assessment & Plan (05/24/2025 12:39 PM EDT): - SLE controlled on hydroxychloroquine, 2 tablets daily. Patient reports symptoms exacerbated by cold weather. - Continue hydroxychloroquine. Rheumatology follow-up scheduled for September. Advised use of gloves and warm clothing during cold weather. Assessment & Plan (02/19/2025 12:58 PM EDT): Continue to follow with specialist Assessment & Plan (08/03/2024 9:59 AM EST): [...] c cardioverter/defibrillator (AICD) 11/23/2023 Assessment & Plan (05/24/2025 12:38 PM EDT): Follow-up with cardiology Assessment & Plan (02/19/2025 12:56 PM EDT): Continue to follow up with cardiology Assessment & Plan (02/03/2024 10:20 AM EDT): Continue to follow with cardiology Assessment & Plan (11/24/2023 2:11 PM EDT): As above Positive JOANN (antinuclear antibody) 10/18/2023 Assessment & Plan (11/24/2023 2:12 PM EDT): Continue to follow with rheumatology Other fatigue 10/13/2023 Assessment & Plan (11/03/2023 2:39 PM EDT): I advise patient not to miss her appointments with both vice president tax and food services director Nausea 10/13/2023 Polyarthralgia 07/29/2023 Assessment & Plan (02/19/2025 12:58 PM EDT): Prescription for recliner will be generated Acetaminophen as needed Assessment & Plan (08/03/2024 9:57 AM EST): [...] 04/22/2023 Periodontosis 04/22/2023 Localized gingival recession 04/22/2023 Partial edentulism 04/22/2023 Alveolitis of jaw, right 03/03/2023 Dental caries 02/22/2023 Chronic back pain 11/06/2022 Overview (03/03/2023): Assessment & Plan (03/03/2023 5:55 PM EDT): MRI lumbar spine 12/02/2021 MR/MR lumbar spine wo con IMPRESSION: 1. Discogenic degenerative changes at L5-S1 as discussed above, with small central disc protrusion and left posterolateral disc osteophyte complex, severe left-sided and [id number] right-sided facet arthropathy with active inflammatory changes at the left facet joint, with [id number]-[id number] left-sided neural foraminal stenosis impinging on the exiting left L5 nerve root. No spinal canal stenosis. 2. Mild marrow edema in the L5 and S1 pedicles bilaterally which may be reactive or secondary to stress reactions. Patient requesting referral to orthopedic surgery. Assessment & Plan (11/06/2022 11:06 AM EDT): Per patient managed at [facility] orth[facility]. She is taking pregabalin 200 mg BID for pain management. Routine adult health maintenance 11/06/2022 Cardiomyopathy 11/05/2022 Assessment & Plan (05/24/2025 12:38 PM EDT): Continue with current medication regimen and follow-up with cardiology Assessment & Plan (02/19/2025 12:55 PM EDT): Continue to follow up with cardiology C/w carvedilol, entresto, farxiga and isosorbide Assessment & Plan (11/24/2023 2:11 PM EDT): [...] regurgitation 11/05/2022 Prediabetes 11/05/2022 Assessment & Plan (05/24/2025 12:37 PM EDT): Extensive counseling about healthy diet and exercise done today Zepbound 2.5 mg weekly prescribed today Assessment & Plan (11/02/2024 11:12 AM EDT): [...] placed. Essential hypertension 11/17/2018 Assessment & Plan (02/19/2025 12:55 PM EDT): I advised: - Aerobic exercise to [...] consulting health care provider Assessment & Plan (11/02/2024 11:11 AM EDT): [...] 39.9 in adult 09/06/2015 Assessment & Plan (02/19/2025 12:58 PM EDT): Today extensive discussion was done about life style modifications I advise healthy diet (low calorie) and cardiovascular exercise I will prescribed for patient zepbound, I can not prescribe for patient phentermine in light of patient's underline arrhythmia she is s/p pacemaker and cardiomyopathy Assessment & Plan (11/06/2022 11:19 AM EDT): Discussed diet and exercise. She agrees to start adding more vegetables to her diet. She will speak to her vice president tax November 17 about potential exercise. Obstructive sleep apnea of adult 09/06/2015 Uterine leiomyoma 09/06/2015 Encounters Date Type Department Care Team Description 06/08/2025 Telephone [facility] [address] [place] [phone] Joan Antunez MD CAROLYN RECALL 05/24/2025 9:00 AM EDT Office Visit [facility] [address] [place] [phone] Joan Antunez MD Class 3 severe obesity due to excess calories with serious comorbidity and body mass index (BMI) of 40.0 to 44.9 in adult (HCC) (Primary Dx); Prediabetes; Cardiomyopathy, unspecified type ([facility]/HCC) ([facility]); S/P implantation of automatic cardioverter/defibril lator (AICD); Systemic lupus erythematosus, unspecified SLE type, unspecified organ involvement status ([facility]) ([facility]); Screening mammogram, encounter for; Encounter for immunization; Lower extremity edema 05/24/2025 Travel 05/23/[address] [phone] Joan Antunez MD Chart prep 05/16/2025 Refill [facility] [address] [place], [place] [phone] Joan Antunez MD Chronic back pain, unspecified back location, unspecified back pain laterality 05/15/2025 Patient Outreach [address] [phone] Joan Antunez MD Pre-visit Planning ([facility] screening completed on 10/24/2024) 05/11/2025 11:00 AM EDT Office Visit [facility] ADULT DENTAL [address] [place] [phone] Burke Frederick DDS Partial edentulism, unspecified edentulism class (Primary Dx) 04/24/2025 Refill [facility] [address] [place] [address] Joan Antunez MD Chronic back pain, unspecified back location, unspecified back pain laterality 04/24/2025 Refill [facility] [address] [place] [phone] Joan Antunez MD Chronic back pain, unspecified back location, unspecified back pain laterality 04/23/2025 Refill [facility] [address] [place] [phone] Joan Antunez MD Chronic back pain, unspecified back location, unspecified back pain laterality 04/19/2025 10:00 AM EDT Office Visit [facility] ADULT DENT[facility] [address] [place] [address] Burke Frederick, DDS Partial edentulism, unspecified edentulism class (Primary Dx) 04/19/2025 Refill [facility] [address] [place] [address] Joan Antunez MD Chronic back pain, unspecified back location, unspecified back pain laterality 04/15/2025 Refill [facility] [address] [place] [address] Joan Antnuez MD 03/20/2025 Refill [facility] [address] [place] [address] Joan Antunez MD Chronic back pain, unspecified back location, unspecified back pain laterality 03/15/2025 Telephone [facility] [address] [place] [address] Joan Antunez MD OCT RECALL 03/14/2025 Telephone [facility] [address] [place] [address] Joan Antunez MD Durable Medical Equipment (Home Care Delivered Form) from Last 3 Months Immunizations Immunization Administration Dates Next Due Hep A, Adult 07/30/2011,01/13/2011 Hep B, adult 11/06/2016, 1,02/23/2011,01/13 Influenza Injectable Quadriv alant Preservative Free IIV4 MDCK 06/17/2020 Influenza injectable quadriv alent IIV4 with preservative 06/10/2018,07/07/2017 Influenza injectable quadriv alent preservative free 07/29/2023,06/12/2021,07/27/2019,07/27,05/23/2015 Influenza, IIV3, injectable 05/10/2014 Influenza, Split (incl. odalis fied surface antigen) 06/19/2013,05/02/2012 Influenza, seasonal, injecta ble, preservative free 05/24/2025,05/05/2024 Regina SARS-CoV-2 Vaccination 11/16/2020 Pfizer Covid-19 Vaccine [...] Sign Reading Time Taken Comments Blood Pressure 122/84 05/24/2025 8:51 AM EDT Pulse 60 05/24/2025 8:51 AM EDT Temperature 34.7 C (94.4 F) 05/24/2025 8:51 AM EDT Respiratory Rate 24 05/24/2025 8:51 AM EDT Oxygen Saturation 99% 05/24/2025 8:51 AM EDT Inhaled Oxygen Concentration - - Weight 99.3 kg (219 lb) 05/24/2025 8:51 AM EDT Height 154.9 cm (5' 1 ) 05/24/2025 8:51 AM EDT Body Mass Index 41.38 05/24/2025 8:51 AM EDT Plan of Treatment Upcoming Encounters Date Type Department Care Team (Late st Contact Info) Description 06/25/2025 9:00 AM EST Office Visit [facility] [address] [place] [address] Burke Frederick DDS [address] [place] [address] 08/15/2025 9:30 AM EST Office Visit [facility] [address] [place] [address] Regina Broderick [address] [place] [address] Health Maintenance Due Date Last Done Comments CT Colonography 1965 FIT DNA/Cologuard 1965 FIT 1965 FOBT 1965 Sigmoidoscopy 1965 Pap Smear 1986 HPV/Cotest 1995 Mammogram 03/10/2025 03/10/2024, 05/09/2022, 11/13/2020, Additional history exists RSV Patients and Patients Aged 60 years or older (1 - Risk 60-74 years 1-dose series) 2025 Dental Oral Exam 08/01/2025 01/29/2025, , 02/22/2023, Additional history exists Dental Prophylaxis 08/01/2025 01/29/2025, 1 09/28/2023, 04/22/2023, Additional history exists SDOH Screening 10/24/2025 10/24/2024 Dental X-Ray: Bitewings 01/30/2026 01/30/20 25, 11/04/2023, 02/22/2023, Additional history exists Alcohol/Substance Use Screening 02/19/2026 02/19/2025 Depression Screening 02/19/2026 02/19/2025, 02/20/20 Disability Screening 02/19/2026 02/19/2025 Dental X-Ray: Full Mouth 02/23/2026 02/22/2023 Diabetes: Hemoglobin A1C 05/24/2026 025, 11/02/2024, 10/13/2023, Additional history exists Tobacco Screening 05/24/2026 05/24/2025 Lipid Panel 10/27/2027 10/26/2022, 10/08, 03/19/2021, Additional history exists DTaP/Tdap/Td Vaccines (4 - Td or Tdap) 04/02/2032 04/02/2022, 02/28/2015, 02/19/2012, Additional history exists Colonoscopy 04/01/2033 04/01/2023, 12/09/2016 Colorectal Cancer Screening 04/01/2033 Hepatitis A Vaccines Aged Out 07/30/2011, 01/14/20 11 No longer eligible based on patient's age to complete this topic Hepatitis B Vaccines Completed 11/06/2016, 07/30/2011, 02/23/2011, Additional history exists Zoster Vaccines Completed 12/02/2020, 06/17/2020 HIV Screening Completed 10/13/2023 Pneumococcal Vaccine: 50+ Years Completed 10/26/2023, 03/08/2018 Hepatitis C Screening Completed 11/17/2023, 024 COVID-19 Vaccine Completed 05/05/2024, 11/2020, 11/16/2020 Influenza Vaccine Completed 05/24/2025, , 07/29/2023, Additional history exists Cervical Cancer Screening Discontinued [...] Name Priority Date/Time Associated Diagnosis Comments POCT GLYCATED HEMOGLOBIN, TOTAL Routine 05/24/2025 9:03 AM EDT Prediabetes BITE REGISTRATION Routine 05/11/2025 11: 00 AM EDT DENTURE IMPRESSION Routine 04/19/2025 10 :00 AM EDT PROPHYLAXIS - ADULT Routine 01/29/2025 9 :00 AM EDT Localized gingival recession Dental calculus Missing teeth, acquired Fractured dental amish with loss of material BITEWINGS - 2 RADIOGRAPHIC IMAGES Routine 01/29/2025 9:00 AM EDT Localized gingival recession Dental calculus Missing teeth, acquired Fractured dental amish with loss of material PERIODIC ORAL EVALUATION - ESTABLISHED PATIENT Routine 01/29/2025 9:00 AM EDT BI MAMMOGRAM SCREENING TOMOSYNTHESIS BILATERAL Routine 03/10/2024 8:46 AM EDT HEPATITIS PANEL, GENERAL Routine 11/17/2023 9:47 AM EDT HIV 1/2 ANTIGEN/ANTIBODY, FOURTH GENERATION W/RFL Routine 10/13/2023 10:53 AM EST Other fatigue HM COLONOSCOPY Routine 04/01/2023 INTRAORAL - COMPLETE SERIES OF RADIOGRAPHIC IMAGES Routine 02/22/2023 9:30 AM EDT LIPID PANEL, STANDARD Routine 10/26/2022 9:27 AM EDT from Last 3 Months or Most Recently Relevant to Health Maintenance Results * (ABNORMAL) POCT Hgb A1c (05/24/2025 9:03 AM EDT) Hemoglobin A1C 5.6(A) 4.0 - 5.7 % QC Media Lot # [id number] Lot# Expiration Date 51, Blood 05/24/2025 9:03 AM EDT Joan Casiano MD POINT OF CARE TEST EN TER/EDIT ORDERABLES Final Result * BI Mammogram Screening Tomosynthesis Bilateral (03/10/2024 8:46 AM EDT) Anatomical Region Laterality Modality Breast Bilateral Mammography 03/10/2024 8:46 AM EDT Narrative 04/10/2024 11:06 PM EDT [facility] [place] [address] Mammography Report Signed Patient: Flor Martinez I MR#: [id number] 59 : 1965 Acct:[id number] Age/Sex: 58 / F ADM Date: 03/10/24 Loc: HO.MAMMO Attending Dr: Joan Casiano MD Ordering Physician: Joan Antunez MD Results: 1Negative Date of Service: 03/10/24 Follow Up: 1 Year From Orig inal Mammogram Procedure(s): MM tomosynthesis screening BI Accession Number(s): [id number] cc: Joan Antunez MD EXAMINATION: MM SCREENING [...] Cielo Velazquez MD in OV> 04/10/242301 DD/ 5 TD/TT: 03/10/24905 State Epidemiologist: Procedure Note Donotuseinterpreter, Image - 04/10/2024 [facility] [address] [place] [address] Mammography Report Signed Patient: Flor Martinez IMR#: [id number] 59 : 1965Acct:[id number] Age/Sex: 58 / FADM Date: 03/10/24 Loc: MAMMO Attending Dr: Joan Casiano MD Ordering Physician: Joan Antunez MDResults: 1Negative Date of Service: 03/10/24Follow Up: 1 Year From Orig inal Mammogram Procedure(s): MM tomosynthesis screening BI Accession Number(s): [id number] cc: Joan Antunez MD EXAMINATION: MM SCREENING [...] Cielo Velazquez MD in OV> 04/10/242301 DD/ 5 TD/TT: 03/10/24 09 State Epidemiologist: us Joan Casiano MD IMG BI PROCEDURES Fin al Result * Hepatitis Panel, General (11/17/2023 9:47 AM EDT) Pathologist [facility] Hepatitis A IgM Nonreactive Nonreactive [facility] Comment:IgM antibodies to PICKENS V not detected; does not exclude earlyacute or recovered HAV infection. ~Hepatitis B Surface Antibody REACTIVE Nonreactive [facility] Comment:REACTIVE: > 11.99 mI U/mL Hepatitis B Core Antibody Nonreactive Nonreactive [facility] Hepatitis C Antibody Nonreactive Nonreactive [facility] Comment:Antibodies to HCV no t detected; does not exclude early acuteHCV infection. Hepatitis B Surface Ag Negative Negative [facility] 11/17/2023 9:47 AM EDT 11/17/2023 9:47 AM EDT us Generic External Data Provider LAB BLOOD ORDERAB LES Final Result [facility] [address] [place] [phone] * HIV-1/2 Antigen and Antibodies, Fourth Generation, with Reflexes (10/13/2023 10:53 AM EST) Pathologist [facility] HIV AB/AG Nonreactive Nonreactive [facility] Comment:HIV-1 p24 Ag and/or HIV-1/HIV-2 Ab not detected.A test result that is nonreactive does not exclude thepossibility of exposure to or infection with HIV-1 and/orHIV-2. Nonreactive results in this assay for individualswith prior exposure to HIV-1 and/or HIV-2 may be due toantigen and antibody levels that are below the limit ofdetection of this assay.The [employer] HIV Ag/Ab Combo assay result andsupplemental assay results should be interpreted inconjunction with the patient's clinical presentation,history and other laboratory results. If the results areinconsistent with clinical evidence, additional testing issuggested to confirm the result. Blood Venous blood specimen / Unknown 10/13/2023 10:53 AM EST 10/13/2023 1:07 PM EST Joan Casiano MD LAB BLOOD ORDERABLES Final Result [facility] [address] [place] [phone] * Colonoscopy (04/01/2023) [facility] Colonoscopy Normal Normal Narrative Mariel Tan - 04/01/2023 Recommended 10 years. Colonoscopy order added Linda Chang MD HEALTH MAINTENANCE Final Result * (ABNORMAL) Lipid Panel, Standard (10/26/2022 9:27 AM EDT) [facility] Cholesterol, Total 115 <200 mg/dL [employer] [facility] HDL Cholesterol 40(L) > OR = 50 mg/dL [facility] [facility] [place] [facility] Triglycerides 100 <150 mg/dL [employer] [facility] [place] [facility] LDL Cholesterol 56 mg/dL (calc) [employer] [facility] Comment: Reference range: <100 Desirable range <100 mg/dL for primary prevention; <70 mg/dL for patients with CHD or diabetic patients with > or = 2 CHD risk factors. LDL-C is now calculated using the [employer] calculation, which is a validated novel method providing better accuracy than the Friedewald equation in the estimation of LDL-C. Javan SS et al. DERRICK. 2013;310(19): 1809-4544 (http://education.[employer].Estech/faq/FAP567) Chol/HDLC Ratio 2.9 <5.0 (calc) [employer] Non-HDL Cholesterol 75 <130 mg/dL (calc) [employer] [facility] Comment: For patients with diabetes plus 1 major ASCVD risk factor, treating to a non-HDL-C goal of <100 mg/dL (LDL-C of <70 mg/dL) is considered a therapeutic option. 10/26/2022 9:27 AM EDT 10/26/2022 9:28 AM EDT Narrative [facility] - 10/26/2022 9:57 PM EDT FASTING:YES FASTING: YES Katherine Da Silva MD LAB BLOOD ORDERABLES Final R esult [facility] [address], [place] [address] [employer] [facility] [place] [facility] [address] [place] [phone] from Last 3 Months or Most Recently Relevant to Health Maintenance Insurance [address] [place] [id number] ONE CARE < [address] [place] [id number] DENTAL - [facility] [address] [place] [phone] [place] [id number] Care Teams Boss Dyer Relationship Specialty Start Date End Date Joan Antunez MD [address] [place] [phone] PCP - General Internal Medicine 06/07/23
--- OUTSIDE RECORDS SUMMARY | 2025-06-13 10:06 | XMS_ITS | Encounter Summary ---
Author Organization [employer] Address [address] [facility] 7t [place] [address] Care Team Providers Care Barrel Ribs Solderer Name Role Phone Joan Antunez MD Primary Care Provide r Reason for Visit * Reason Onset Date Comments Nurse Triage 12/16/2023 Encounter Details Date Type Department Care Team ([facility] st Contact Info) Description 12/16/2023 Telephone [facility] MEDICINE [address] [place], [place] [phone] Joan Antunez MD [address] [place] [address] Nurse Triage Social History Tobacco Use Types [...] your housing situation today? I have young donauhe 06/07/[address] you li [...] acuity questions The caller accepted this outcome chinese speaker documented in this encounter Plan of Treatment Upcoming Encounters Date Type Department Care Team (Late st Contact Info) Description 06/25/2025 9:00 AM EST Office Visit [facility] ADULT DENTAL [address] [place] [address] Burke Frederick DDS [address] [place] [address] 08/15/2025 9:30 AM EST Office Visit [facility] ADULT DENTAL [address] [place] [address] Regina Broderick [address] [place] [address] documented as of this encounter Visit Diagnoses Not on filedocumented in this encounter Additional Health Concerns Assessment Noted Time PHQ-9 Depression Total Score: 14 024 12:06 PM EDT documented as of this encounter Care Teams Barrel Ribs Solderer Relationship Specialty Start Date End Date Joan Antunez MD [address] [place] [address] PCP - General Internal Medicine 06/07/23 documented as of this encounter
--- OUTSIDE RECORDS SUMMARY | 2025-06-13 10:06 | XMS_ITS | Encounter Summary ---
Author Organization [employer] Address [address] [facility] 7t [place] [address] Care Team Providers Care Drug And Alcohol Treatment Specialist Name Role Phone Digna Madhuri [facility] Primary Care Provider David Blankenship Primary Care Provider Jesusita Sandra [facility] Primary Care Provider [phone] Joan Antunez MD Primary Care Provide r Reason for Visit * Reason Comments Med Refill Encounter Details Date Type Department Care Team (Late st Contact Info) Description 08/11/2022 Refill [facility] MEDICINE [address] [place] [address] Delma Gauthier MD [address] [place] [address] Nausea (Primary Dx) Social History Tobacco Use [...] EST F/U with 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, she needs mostly IADL's, but does [...] Description 06/25/2025 9:00 AM EST Office Visit [facility] ADULT DENTAL [address] [place] [address] Burke Frederick DDS [address] [place] [address] 08/15/2025 9:30 AM EST Office Visit [facility] ADULT DENTAL [address] [place] [address] Arsenio Broderickaris [address] [place] [address] documented as of this encounter Visit Diagnoses Diagnosis Nausea- Primary Nausea alone documented in this encounter Care Teams Drug And Alcohol Treatment Specialist Relationship Specialty Start Date End Date Madhuri Sawyer FNP PCP - General 06/29/22 10/07/22 David South AGNP PCP - General Family Medicine 10/08/22 04/28/23 Jesusita Garcia FNP [address] [place] [address] PCP - General Family Medicine 04/29/23 06/06/23 Joan Antunez MD [address] [place] [address] PCP - General Internal Medicine 06/07/23 documented as of this encounter
--- OUTSIDE RECORDS SUMMARY | 2025-06-13 10:06 | XMS_ITS | Encounter Summary ---
Author Organization [employer] Address [address] [facility] [address] 7t [place] [address] Care Team Providers Care Pharmacy Associate Name Role Phone Joan Antunez MD Primary Care Provide r Encounter Details Date Type Department Care Team (Late st Contact Info) Description 06/22/2023 Abstract [facility] MEDICINE [address] [place], [place] [phone] Joan Antunez MD 230 [place] [address] Social History Tobacco Use Types Packs/Day Years [...] Description 06/25/2025 9:00 AM EST Office Visit [facility] ADULT [facility] [address] [place] [address] Burke Frederick DDS [address] [place] [address] 08/15/2025 9:30 AM EST Office Visit [facility] [address] [place] [address] MegganRegina [address] [place] [address] documented as of this encounter Procedures Procedure [...] documented as of this encounter Care Teams Pharmacy Associate Relationship Specialty Start Date End Date Joan Antunez MD 230 [place] [address] PCP - General Internal Medicine 06/07/23 documented as of this encounter
--- OUTSIDE RECORDS SUMMARY | 2025-06-13 10:06 | XMS_ITS | Encounter Summary ---
Author Organization [employer] Address 75 [facility] 7t [place] [address] Care Team Providers Care Amusement Park Entertainer Name Role Phone Konradarnold Jesusita LEATHA Primary Care Provider [phone] Joan Antunez MD Primary Care Provide r Encounter Details Date Type Department Care Team (Late st Contact Info) Description 05/07/2023 Abstract [facility] PEDI[facility]RIC DENTAL [address] [place] [address] Burke Frederick DDS [address] [place] [address] Social History Tobacco Use Types Packs/Day Years [...] Description 06/25/2025 9:00 AM EST Office Visit [facility] ADULT DENTAL [address] [place] [address] Burke Frederick DDS [address] [place] [address] 08/15/2025 9:30 AM EST Office Visit [facility] ADULT DENTAL [address] [place], [place] [phone] Regina Broderick [address] [place], [place] [phone] documented as of this encounter Visit Diagnoses Not on filedocumented in this encounter Additional Health Concerns Assessment Noted Time PHQ-9 Depression Total Score: 8 11/07/19 10:23 AM EDT documented as of this encounter Care Teams Amusement Park Entertainer Relationship Specialty Start Date End Date Jesusita Garcia FNP [address] [place], [place] [phone] PCP - General Family Medicine 04/29/23 06/06/23 Joan Antunez MD 230 [place], [place] [phone] PCP - General Internal Medicine 06/07/23 documented as of this encounter
--- OUTSIDE RECORDS SUMMARY | 2025-06-13 10:06 | XMS_ITS | Encounter Summary ---
Author Organization [employer] Address [address] [facility] [address] 7t [place] [address] Care Team Providers Care Credit Control Manager Name Role Phone Joan Antunez MD Primary Care Provide r Reason for Visit * Reason Onset Date Comments AUG RECALL 06/08/2025 Encounter Details Date Type Department Care Team ([facility] Contact Info) Description 06/08/2025 Telephone [facility] MEDICINE 230 [place], [place] [phone] Joan Antunez MD 230 [place] [address] AUG RECALL Social History Tobacco Use Types Packs/Day Years [...] encounter Miscellaneous Notes * Telephone Encounter - Mady Hyde MA - 06/08/2025 11:40 AM EDT TC- Patient to schedule an appt (Aug) with F\U chronic conditions .Mailed recallletter. documented in this encounter Plan of Treatment Upcoming Encounters Date Type Department Care Team (Late st Contact Info) Description 06/25/2025 9:00 AM EST Office Visit [facility] ADULT DENTAL [address] [place] [address] Burke Frederick DDS [address] [place] [address] 08/15/2025 9:30 AM EST Office Visit [facility]ULT D[facility] [address] [place] [address] Regina Broderick [address] [place] [address] documented as of this encounter Visit Diagnoses Not on filedocumented in this encounter Additional Health Concerns Assessment Noted Time PHQ-9 Depression Total Score: 0 02/20/20 25 9:47 AM EDT documented as of this encounter Care Teams Credit Control Manager Relationship Specialty Start Date End Date Joan Antunez MD 230 [place] [address] PCP - General Internal Medicine 06/07/23 documented as of this encounter
--- OUTSIDE RECORDS SUMMARY | 2025-06-13 10:06 | XMS_ITS | Encounter Summary ---
Author Organization [employer] Address 75 [facility] 7t [place] [address] Care Team Providers Care Tacker Off Name Role Phone Joan Antunez MD Primary Care Provide r Reason for Visit * Reason Comments Med Refill Encounter Details Date Type Department Care Team ([facility] st Contact Info) Description 01/23/2025 Refill [facility] MEDICINE 230 [place], [place] [phone] Joan Antunez MD 230 [place], [place] [phone] Chronic back pain, unspecified back location, unspecified [...] Description 06/25/2025 9:00 AM EST Office Visit [facility] ADULT DENTAL [address] [place] [address] Burke Frederick DDS [address] [place] [address] 08/15/2025 9:30 AM EST Office Visit [facility] ADULT DENTAL [address] [place] [address] Arsenio Broderickaris [address] [place] [address] documented as of this encounter Visit Diagnoses Diagnosis Chronic back pain, unspecified back location, unspecified back pain laterality documented in this encounter Additional Health Concerns Assessment Noted Time PHQ-9 Depression Total Score: 14 024 12:06 PM EDT documented as of this encounter Care Teams Tacker Off Relationship Specialty Start Date End Date Joan Antunez MD [address] [place] [address] PCP - General Internal Medicine 06/07/23 documented as of this encounter
--- OUTSIDE RECORDS SUMMARY | 2025-06-13 10:06 | XMS_ITS | Encounter Summary ---
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 Paperwork sent to Provider for signature an then it will be faxed to [facility]. * Telephone Encounter - Delphine Burns RN - 11/17/2023 1:08 PM EDT Triage call with Dent Environmental Programs Manager [place] [id number] Pt reports diarrhea which started again 2-3 [...] country. Pt is offered to come to [facility] to be seen by provider but,has apt [...] nurse or provider soon Reason: Getting worse Haitian Speaker documented in this encounter Plan of Treatment Upcoming Encounters Date Type Department Care Team (Late st Contact Info) Description 06/25/2025 9:00 AM EST Office Visit [facility] ADULT DENTAL [address] [place] [address] Burke Frederick DDS [address] [place] [address] 08/15/2025 9:30 AM EST Office Visit [facility] ADULT DENTAL [address] [place] [address] Regina Broderick [address] [place] [address] documented as of this encounter Visit Diagnoses Not on filedocumented in this encounter Additional Health Concerns Assessment Noted Time PHQ-9 Depression Total Score: 8 11/07/19 10:23 AM EDT documented as of this encounter Care Teams Cut Off Saw Operator Pipe Blanks Relationship Specialty Start Date End Date Joan Antunez MD [address] [place] [address] PCP - General Internal Medicine 06/07/23 documented as of this encounter
--- OUTSIDE RECORDS SUMMARY | 2025-06-13 10:06 | XMS_ITS | Encounter Summary ---
Author Organization [employer] Address 75 [facility] 7t [place] [address] Care Team Providers Care Property Administrator Name Role Phone Joan Antunez MD Primary Care Provide r Reason for Visit * Reason Comments Med Refill Encounter Details Date Type Department Care Team ([facility] st Contact Info) Description 08/15/2024 Refill [facility] MEDICINE 230 [place], [place] [phone] Joan Antunez MD [address] [place], [place] [phone] Chronic back pain, unspecified back location, unspecified [...] Description 06/25/2025 9:00 AM EST Office Visit [facility] ADULT DENTAL 230 [place] [address] Burke Frederick DDS 230 [place] [address] 08/15/2025 9:30 AM EST Office Visit [facility] ADULT DENTAL [address] [place] [address] MegganRegina 230 [place] [address] documented as of this encounter Visit Diagnoses Diagnosis Chronic back pain, unspecified back location, unspecified back pain laterality documented in this encounter Additional Health Concerns Assessment Noted Time PHQ-9 Depression Total Score: 14 024 12:06 PM EDT documented as of this encounter Care Teams Property Administrator Relationship Specialty Start Date End Date Joan Antunez MD [address] [place] [address] PCP - General Internal Medicine 06/07/23 documented as of this encounter
== END 2025-06-13 09:44 | disposition home or self-care (01) ==
PROVIDERS: PCP Internal Medicine; Visit Provider Internal Medicine
DX: K59.1 Functional diarrhea (principal)
CPT/HCPCS: 99213

== ENCOUNTER → 2025-06-13 09:16 | Outpatient (BNVA) | payer OTHER, SELFPAY | PROVIDERS: PCP Internal Medicine; Visit Provider Internal Medicine | DX: K59.1 Functional diarrhea (principal) | CPT/HCPCS: 99212 ==

== ENCOUNTER 2025-06-14 12:33 | Outpatient (REF) | payer OTHER, SELFPAY ==
--- OUTSIDE RECORDS SUMMARY | 2025-06-14 15:23 | XMS_ITS | Clinical Summary ---
Author Organization [facility] Address [address] [facility] [address] [place] [address] Phone Care Team Providers Care Seasoner Name Role Phone Joan Delgadillo MD Primary [...] along with the heart failure team at [facility]. Localized edema 08/07/2024 Assessment & Plan [...] file Insurance MEDICARE PART A & B [facility] MEDICARE REPLACEMENT MEDICARE PART A & B Member Subscriber Plan / Payer (Ef fective 2024-Present) Name:Flor Martinez Member ID:[id number] Relation to Subscriber:Self Name:Flor Martinez Subscriber ID:[id number] Payer ID:[id number] Group ID:Not on file Type:Medicare Address: [employer] [address] ONE CARE MEDICARE REPLACEMENT MEDICARE PART A & B CARE MEDICARE REPLACEMENT MEDICARE PART A & B ONE CARE MEDICARE REPLACEMENT [place] [id number] [place] [phone] MEDICARE PART A & B CARE MEDICARE REPLACEMENT MEDICARE PART A & B Member Subscriber Plan / Payer (Ef fective 2024-Present) Name:Flor Martinez Member ID:[id number] Relation to Subscriber:Self Name:Flor Martinez Subscriber ID:[id number] Payer ID:[id number] Group ID:Not on file Type:Medicare Address: [facility] [employer] [facility] [employer] [facility] [address] [place] [address] [facility] ONE CARE MEDICARE REPLACEMENT Care Teams Seasoner Relationship Specialty Start Date End Date Joan Delgadillo MD [address] [place] [address] PCP - General Internal Medicine 05/09/24 Additional Source Comments The information contained in this document represents components of the legal health record. It is not the complete legal health record.[facility]
--- OUTSIDE RECORDS SUMMARY | 2025-06-14 15:23 | XMS_ITS | Encounter Summary ---
Author Organization [employer] Address 75 [facility] 7t [place] [address] Care Team Providers Care Plater Supervisor Name Role Phone David South AGNCecilio Primary Care Provider Unavail Jesusita Mayers Primary Care Provider [phone] Joan Antunez MD Primary Care Provide r Encounter Details Date Type Department Care Team (Late st Contact Info) Description 10/26/2022 Orders Only [facility] MED & PEDS [address] [place] [address] Radha Jimenez LPN Social History Tobacco Use [...] Description 06/25/2025 9:00 AM EST Office Visit [facility] ADULT DENTAL [address] [place] [address] Burke Frederick DDS [address] [place] [address] 08/15/2025 9:30 AM EST Office Visit [facility] ADULT DENTAL [address] [place] [address] Regina Broderick [address] [place] [address] documented as of this encounter Visit Diagnoses Not on filedocumented in this encounter Care Teams Plater Supervisor Relationship Specialty Start Date End Date David South AGNP PCP - General Family Medicine 10/08/22 04/28/23 Jesusita Garcia FNP 230 [place] [address] PCP - General Family Medicine 04/29/23 06/06/23 Joan Antunez MD 230 [place] [address] PCP - General Internal Medicine 06/07/23 documented as of this encounter
--- OUTSIDE RECORDS SUMMARY | 2025-06-14 15:23 | XMS_ITS | Encounter Summary ---
Author Organization [employer] Address [address] [facility] 7t [place] [address] Care Team Providers Care Mass Communications Professor Name Role Phone David South AGNCecilio Primary Care Provider Jesusita Sandra Primary Care Provider [phone] Joan Antunez MD Primary Care Provide r Reason for Visit * Reason Onset Date Comments Appointment 03/12/2023 Encounter Details Date Type Department Care Team (Late st Contact Info) Description 03/12/2023 Telephone [facility] ADULT DENTAL 230 [place], [place] [phone] Meggan Regina [address] [place] [address] Appointment Social History Tobacco Use Types Packs/Day [...] visit scheduled for 8am. Informed daughter that [facility] dental has her infomration and will call her when it is her turn on the list again to call in. Encouraged patient to call in from time to time looking for cancellations DR documented in this encounter Plan of Treatment Upcoming Encounters Date Type Department Care Team (Late st Contact Info) Description 06/25/2025 9:00 AM EST Office Visit [facility] ADULT DENTAL [address] [place] [address] Burke Frederick DDS [address] [place] [address] 08/15/2025 9:30 AM EST Office Visit [facility] ADULT DENTAL [address] [place] [address] MegganRegina [address] [place] [address] documented as of this encounter Visit Diagnoses Not on filedocumented in this encounter Additional Health Concerns Assessment Noted Time PHQ-9 Depression Total Score: 8 11/07/19 10:23 AM EDT documented as of this encounter Care Teams Mass Communications Professor Relationship Specialty Start Date End Date David South AGNP PCP - General Family Medicine 10/08/22 04/28/23 Jesusita Garcia FNP [address] [place] [address] PCP - General Family Medicine 04/29/23 06/06/23 Joan Antunez MD [address] [place] [address] PCP - General Internal Medicine 06/07/23 documented as of this encounter
--- OUTSIDE RECORDS SUMMARY | 2025-06-14 15:24 | XMS_ITS | Encounter Summary ---
Author Organization [employer] Address [address] [facility] 7t [place] [address] Care Team Providers Care Scoop Filler Name Role Phone Digna Madhuri [facility] Primary Care Provider David Blankenship Primary Care Provider Jesusita Sandra [facility] Primary Care Provider [phone] Joan Antunez MD Primary Care Provide r Reason for Visit * Reason Comments Med Refill Encounter Details Date Type Department Care Team (Late st Contact Info) Description 08/11/2022 Refill [facility] MEDICINE [address] [place] [address] Delma Gatuhier MD 230 [place] [address] Nausea (Primary Dx) Social History Tobacco Use [...] EST F/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, she needs mostly IADL's, but does [...] Description 06/25/2025 9:00 AM EST Office Visit [facility] ADULT DENTAL [address] [place] [address] Burke Frederick DDS [address] [place] [address] 08/15/2025 9:30 AM EST Office Visit [facility] ADULT DENTAL [address] [place] [address] Arsenio Broderickaris [address] [place] [address] documented as of this encounter Visit Diagnoses Diagnosis Nausea- Primary Nausea alone documented in this encounter Care Teams Scoop Filler Relationship Specialty Start Date End Date Madhuri Sawyer FNP PCP - General 06/29/22 10/07/22 David South AGNP PCP - General Family Medicine 10/08/22 04/28/23 Jesusita Garcia FNP [address] [place] [address] PCP - General Family Medicine 04/29/23 06/06/23 Joan Antunez MD [address] [place] [address] PCP - General Internal Medicine 06/07/23 documented as of this encounter
--- OUTSIDE RECORDS SUMMARY | 2025-06-14 15:24 | XMS_ITS | Encounter Summary ---
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 Paperwork sent to Provider for signature an then it will be faxed to [facility]. * Telephone Encounter - Delphine Burns RN - 11/17/2023 1:08 PM EDT Triage call with [place] Actor Understudy [place] [id number] Pt reports diarrhea which started again 2-3 [...] country. Pt is offered to come to [facility] to be seen by provider [...] nurse or provider soon Reason: Getting worse Venezuelan Speaker documented in this encounter Plan of Treatment Upcoming Encounters Date Type Department Care Team (Late st Contact Info) Description 06/25/2025 9:00 AM EST Office Visit [facility] ADULT DENTAL [address] [place] [address] Burke Frederick DDS [address] [place] [address] 08/15/2025 9:30 AM EST Office Visit [facility] ADULT DENTAL [address] [place] [address] Regina Broderick [address] [place] [address] documented as of this encounter Visit Diagnoses Not on filedocumented in this encounter Additional Health Concerns Assessment Noted Time PHQ-9 Depression Total Score: 8 11/07/19 10:23 AM EDT documented as of this encounter Care Teams Automatic Car Wash Attendant Relationship Specialty Start Date End Date Joan Antunez MD [address] [place] [address] PCP - General Internal Medicine 06/07/23 documented as of this encounter
--- OUTSIDE RECORDS SUMMARY | 2025-06-14 15:24 | XMS_ITS | Encounter Summary ---
Author Organization [facility] Address [address] [facility] [address] [place] [address] Phone Care Team Providers Care Wrapping Machine Helper Name Role Phone Joan Delgadillo MD Primary Care Provider Reason for Referral * - New Request Specialty Diagnoses / Procedures Referred By Contac t Referred To Contact Radiology Diagnoses PVD (peripheral vascular disease) Procedures US Lower Extremity Arteries (PRISCILLA) Physio Complete Bilat Maurice Abad DO Phone: tel: fax: [email or web address] Meetings Referral ID Status Reason Start Date Expiration Date V isits Requested Visits Authorized [id number] New Request 09/01/2024 1 1 Encounter Details Date Type Department Care Team (Late st Contact Info) Description 09/01/2024 Ancillary Orders [facility]i [address] [facility] 3rd [place] [address] Maurice Abad DO [address] [facility] [address] [place] [address] PVD (peripheral vascular disease) (Primary Dx) Social [...] encounter Results * US Lower Extremity Arteries (PRISICLLA) Physio Complete Bilat (09/01/2024 9:46 AM EST) [...] disease documented in this encounter Care Teams Wrapping Machine Helper Relationship Specialty Start Date End Date Joan Delgadillo MD [address] [place] [address] PCP - General Internal Medicine 05/09/24 documented as of this encounter Additional Source Comments The information contained in this document represents components of the legal health record. It is not the complete legal health record.[facility]
--- OUTSIDE RECORDS SUMMARY | 2025-06-14 15:24 | XMS_ITS | Encounter Summary ---
Author Organization [employer] Address [address] [facility] 7t [place] [address] Care Team Providers Care Junior Administrative Assistant Name Role Phone Joan Antunez MD Primary Care Provide r Reason for Visit * Reason Comments Med Refill Encounter Details Date Type Department Care Team ([facility] st Contact Info) Description 01/23/2025 Refill [facility] [address] [place], [place] [phone] Joan Antunez MD [address] [place], [place] [phone] Chronic back pain, unspecified back location, unspecified [...] Description 06/25/2025 9:00 AM EST Office Visit [facility] [address] [place] [address] Burke Frederick DDS [address] [place] [address] 08/15/2025 9:30 AM EST Office Visit [facility] [address] [place] [address] Arsenio Broderickaris [address] [place] [address] documented as of this encounter Visit Diagnoses Diagnosis Chronic back pain, unspecified back location, unspecified back pain laterality documented in this encounter Additional Health Concerns Assessment Noted Time PHQ-9 Depression Total Score: 14 024 12:06 PM EDT documented as of this encounter Care Teams Junior Administrative Assistant Relationship Specialty Start Date End Date Joan Antunez MD [address] [place] [address] PCP - General Internal Medicine 06/07/23 documented as of this encounter
--- OUTSIDE RECORDS SUMMARY | 2025-06-14 15:24 | XMS_ITS | Clinical Summary ---
Author Organization [employer] Address [address] 7t [place] [address] Care Team Providers Care Umbrella Frame Maker Name Role Phone Joan Antunez MD Primary [...] MEALS 180 capsule 1 04/16/20 25 Active Tirzepatide-We ight Management (Zepbound) 2.5 MG/0.5ML solution auto-injectorI ndications:Cla ss 3 severe obesity due to excess calories with serious comorbidity and body mass index (BMI) of 40.0 to 44.9 in adult ([facility]) Inject 0.5 mL (2.5 mg) under the skin 1 (one) time per week. 2 mL 05/24/20 25 Active pregabalin (Lyrica) 300 MG capsuleIndicat ions:Chronic back pain, unspecified back location, unspecified back pain laterality TAKE 1 CAPSULE BY MOUTH TWICE DAILY IN THE MORNING AND IN THE EVENING 56 capsule 06/14/20 25 Active Calcium Antacid Extra Strength 750 [...] EVENING 56 capsule 04/24/20 25 025 Discontinued pregabalin (Lyrica) 300 MG capsuleIndicat ions:Chronic back pain, unspecified back location, unspecified back pain laterality TAKE 1 CAPSULE BY MOUTH TWICE DAILY IN THE MORNING AND IN THE EVENING 56 capsule 05/17/20 25 025 Discontinued(Re order (will not trigger notification to Pharmacy)) Active Problems Problem Noted Date Diagnosed Date [...] about healthy diet and exercise done today Pitch Flaker referral done today I will prescribe Zepbound [...] with plan. Pt to be transported to [facility] ER via private transport by family member [...] pull ups Periodontal disease 07/28/2024 Fractured dental uatsdin with loss of materi al 03/27/2024 Lupus (systemic lupus erythematosus) (CMS/[facility]) 0 02/03/2024 Assessment & Plan (05/24/2025 12:39 [...] not to miss her appointments with both gear hobber set up operator and precise winder Nausea 10/13/2023 Polyarthralgia 07/29/2023 Assessment & Plan [...] posterolateral disc osteophyte complex, severe left-sided and ojnqzmjt-hl-kablav right-sided facet arthropathy with active inflammatory changes at the left facet joint, with pkpskyhz-fq-dbzecz left-sided neural foraminal stenosis impinging on the exiting left L5 nerve root. No spinal canal stenosis. 2. Mild marrow edema in the L5 and S1 pedicles bilaterally which may be reactive or secondary to stress reactions. Patient requesting referral to orthopedic surgery. Assessment & Plan (11/06/2022 11:06 AM EDT): Per patient managed at [facility] orthopedics. She is taking pregabalin 200 mg [...] her diet. She will speak to her gear hobber set up operator November 17 about potential exercise. Obstructive sleep apnea of adult 09/06/2015 Uterine leiomyoma 09/06/2015 Encounters Date Type Department Care Team Description 06/14/2025 Refill [facility] MEDICINE [address] [place] [phone] Joan Antunez MD Chronic back pain, unspecified back location, unspecified back pain laterality 06/08/[address] [address] Joan Antunez MD CAROLYN RECALL 05/24/2025 9:00 AM EDT Office Visit [facility] [address] [place] [phone] Joan Antunez MD Class 3 severe obesity due to excess calories with serious comorbidity and body mass index (BMI) of 40.0 to 44.9 in adult ([facility]) (Primary Dx); Prediabetes; Cardiomyopathy, unspecified type (CMS/HCC) ([facility]); S/P implantation of automatic cardioverter/defibril lator (AICD); Systemic lupus erythematosus, unspecified SLE type, unspecified organ involvement status ([facility]) ([facility]); Screening mammogram, encounter for; Encounter for immunization; Lower extremity edema 05/24/2025 Travel 05/23/[address] [address] Joan Antunez MD Chart prep 05/16/2025 Refill [facility] [address] [place], [place] [phone] Joan Antunez MD Chronic back pain, unspecified back location, unspecified back pain laterality 05/15/2025 Patient Outreach [facility] [address] [place] [phone] Joan Antunez MD Pre-visit Planning (SDND screening completed on 10/24/2024) 05/11/2025 11:00 AM EDT Office Visit [facility] ADULT DENTAL [address] [place] [address] Burke Frederick, MICHAEL Partial edentulism, unspecified edentulism class (Primary Dx) 04/24/2025 Refill [facility] [address] [place] [address] Joan Antunez MD Chronic back pain, unspecified back location, unspecified back pain laterality 04/24/2025 Refill [facility] [address] [place] [address] Joan Antunez MD Chronic back pain, unspecified back location, unspecified back pain laterality 04/23/2025 Refill [facility] [address] [place] [address] Joan Antunez MD Chronic back pain, unspecified back location, unspecified back pain laterality 04/19/2025 10:00 AM EDT Office Visit [facility] ADULT DENTAL [address] [place] [address] Burke Frederick DDS Partial edentulism, unspecified edentulism class (Primary Dx) 04/19/2025 Refill [facility] MED[facility]INE [address] [place] [address] Joan Antunez MD Chronic back pain, unspecified back location, unspecified back pain laterality 04/15/2025 Refill [facility] [address] [place] [address] Joan Antunez MD 03/20/2025 Refill [facility] [address] [place] [address] Joan Antunez MD Chronic back pain, unspecified back location, unspecified back pain laterality 03/15/2025 Telephone [facility] [address] [place] [address] Joan Antunez MD OCT RECALL 03/14/2025 Telephone [facility] [address] [place] [phone] Joan Antunez MD Durable Medical Equipment (Home [...] Description 06/25/2025 9:00 AM EST Office Visit [facility] ADULT DENTAL [address] [place] [address] Burke Frederick DDS [address] [place] [address] 08/15/2025 9:30 AM EST Office Visit [facility] ADULT DENTAL [address] [place] [address] Regina Broderick [address] [place] [address] Health Maintenance Due Date Last Done Comments CT Colonography 1965 FIT DNA/Cologuard 1965 FIT 1965 FOBT 1965 Sigmoidoscopy 1965 Pap Smear 1986 HPV/Cotest 1995 Mammogram 03/10/2025 03/10/2024, 12/08, 11/13/2020, Additional history exists RSV Patients and [...] Dental calculus Missing teeth, acquired Fractured dental uatsdin with loss of material BITEWINGS - 2 RADIOGRAPHIC IMAGES Routine 01/29/2025 9:00 AM EDT Localized gingival recession Dental calculus Missing teeth, acquired Fractured dental uatsdin with loss of material PERIODIC ORAL EVALUATION [...] Media Lot # [id number] Lot# Expiration Date Blood 05/24/2025 9:03 AM EDT Joan Casiano MD POINT OF CARE TEST EN TER/EDIT ORDERABLES Final Result * BI Mammogram Screening Tomosynthesis Bilateral (03/10/2024 8:46 AM EDT) Anatomical Region Laterality Modality Breast Bilateral Mammography 03/10/2024 8:46 AM EDT Narrative 04/10/2024 11:06 PM EDT [facility] [address] [place] [address] Mammography Report Signed Patient: Flor Martinez I MR#: [id number] 59 : 1965 Acct:[id number] Age/Sex: 58 / F ADM Date: 03/10/24 Loc: [facility] Attending Dr: Joan Casiano MD Ordering Physician: Joan Antunez MD Results: 1Negative Date of Service: 03/10/24 Follow Up: 1 Year From Orig inal Mammogram Procedure(s): MM tomosynthesis screening BI Accession Number(s): [id number] cc: Joan Antunez MD EXAMINATION: MM SCREENING [...] by Cielo Velazquez MD in OV> 04/10/24 230 DD/ 0846 TD/TT: 03/10/24 0906 Cook Sauce: Procedure Note Donotuseinterpreter, Image - 04/10/2024 [facility] [address] [place] [address] Mammography Report Signed Patient: Flor Martinez [facility]#: [id number] 59 : 1965Acct:[id number] Age/Sex: 58 / FADM Date: 03/10/24 Loc: [facility] Attending Dr: Joan Casiano MD Ordering Physician: Joan Antunez MDResults: 1Negative Date of Service: 03/10/24Follow Up: 1 Year From Orig inal Mammogram Procedure(s): MM tomosynthesis screening BI Accession Number(s): [id number] cc: Joan Antunez MD EXAMINATION: MM SCREENING [...] OV> 04/10/242301 DD/ 0846 TD/TT: 03/10/24 0906 Cook Sauce: us Joan Casiano MD IMG BI PROCEDURES Fin al Result * Hepatitis Panel, General (11/17/2023 9:47 AM EDT) Hepatitis A IgM Nonreactive Nonreactive [facility] Comment:IgM antibodies to PICKENS V not detected; does not exclude earlyacute or recovered HAV infection. ~Hepatitis B Surface Antibody REACTIVE Nonreactive [facility] Comment:REACTIVE: > 11.99 mI U/mL Hepatitis B Core Antibody Nonreactive Nonreactive [facility] Hepatitis C Antibody Nonreactive Nonreactive [facility] Comment:Antibodies to HCV no t detected; does not exclude early acuteHCV infection. Hepatitis B Surface Ag Negative Negative [facility] 11/17/2023 9:47 AM EDT 11/17/2023 9:47 AM EDT us Generic External Data Provider LAB BLOOD ORDERAB LES Final Result Performing Organization Address [facility] Co de Phone Number [facility] [address] [place] [phone] * HIV-1/2 Antigen and Antibodies, Fourth Generation, with Reflexes (10/13/2023 10:53 AM EST) [facility] HIV AB/AG Nonreactive Nonreactive [facility] Comment:HIV-1 p24 Ag and/or HIV-1/HIV-2 Ab not detected.A test result that is nonreactive does not exclude thepossibility of exposure to or infection with HIV-1 and/orHIV-2. Nonreactive results in this assay for individualswith prior exposure to HIV-1 and/or HIV-2 may be due toantigen and antibody levels that are below the limit ofdetection of this assay.The WTFast HIV Ag/Ab Combo assay result andsupplemental assay results should be interpreted inconjunction with the patient's clinical presentation,history and other laboratory results. If the results areinconsistent with clinical evidence, additional testing issuggested to confirm the result. Blood Venous blood specimen / Unknown 10/13/2023 10:53 AM EST 10/13/2023 1:07 PM EST us Joan Casiano MD LAB BLOOD ORDERABLES Final Result Performing Organization Address [facility] Co de Phone Number [facility] [address] [place] [address] [phone] * Colonoscopy (04/01/2023) [facility] Colonoscopy Normal Normal Narrative Mariel Tan - 04/01/2023 Recommended 10 years. Colonoscopy order added us Historical Provider HEALTH MAINTENANCE Final Result * (ABNORMAL) Lipid Panel, Standard (10/26/2022 9:27 AM EDT) [facility] Cholesterol, Total 115 <200 mg/dL [facility] HDL Cholesterol 40(L) > OR = 50 mg/dL [email or web address] Triglycerides 100 <150 mg/dL [email or web address] LDL Cholesterol 56 mg/dL (calc) [facility] Comment: Reference range: <100 Desirable range <100 mg/dL for primary prevention; <70 mg/dL for patients with CHD or diabetic patients with > or = 2 CHD risk factors. LDL-C is now calculated using the Selene calculation, which is a validated novel method providing better accuracy than the Friedewald equation in the estimation of LDL-C. Javan SS et al. DERRICK. 2013;310(19): 2107-1442 (http://education.Buzz Media/faq/DOX289) Chol/HDLC Ratio 2.9 <5.0 (calc) [facility] Non-HDL Cholesterol 75 <130 mg/dL (calc) [email or web address] Comment: For patients with diabetes plus 1 major ASCVD risk factor, treating to a non-HDL-C goal of <100 mg/dL (LDL-C of <70 mg/dL) is considered a therapeutic option. 10/26/2022 9:27 AM EDT 10/26/2022 9:28 AM EDT Narrative [facility] - 10/26/2022 9:57 PM EDT FASTING:YES FASTING: YES Katherine Da Silva MD LAB BLOOD ORDERABLES Final R esult [facility] [address], [place] [address] [email or web address] [address] [place] [address] from Last 3 Months or Most Recently Relevant to Health Maintenance Insurance [facility] < [address] [place] [place] [id number] DENTAL - [facility] Care Teams Umbrella Frame Maker Relationship Specialty Start Date End Date Joan Antunez MD [address] [place] [address] PCP - General Internal Medicine 06/07/23
--- OUTSIDE RECORDS SUMMARY | 2025-06-14 15:24 | XMS_ITS | Encounter Summary ---
Author Organization [employer] Address [address] 7[address] [place] [address] Care Team Providers Care Corporate Account Executive Name Role Phone Joan Antunez MD Primary Care Provide r Encounter Details Date Type Department Care Team (Late st Contact Info) Description 06/14/[address] [facility] MEDICINE [address] [place], [place] [phone] Joan Antunez MD [address] [place] [address] Chronic back pain, unspecified back location, unspecified [...] Description 06/25/2025 9:00 AM EST Office Visit [facility] ADULT DENTAL [address] [place] [address] Burke Frederick DDS [address] [place] [address] 08/15/2025 9:30 AM EST Office Visit [facility] ADULT DENTAL [address] [place] [address] Meggan, Regina [address] [place] [address] documented as of this encounter Visit Diagnoses Diagnosis Chronic back pain, unspecified back location, unspecified back pain laterality documented in this encounter Additional Health Concerns Assessment Noted Time PHQ-9 Depression Total Score: 0 02/20/20 25 9:47 AM EDT documented as of this encounter Care Teams Corporate Account Executive Relationship Specialty Start Date End Date Joan Antunez MD [address] [place] [address] PCP - General Internal Medicine 06/07/23 documented as of this encounter
--- OUTSIDE RECORDS SUMMARY | 2025-06-14 15:24 | XMS_ITS | Encounter Summary ---
Author Organization [employer] Address [address] [facility] 7t [place] [address] Care Team Providers Care Edge Inker Uppers Name Role Phone Konradarnold Jesusita LEATHA Primary Care Provider [phone] Joan Antunez MD Primary Care Provide r Encounter Details Date Type Department Care Team (Late st Contact Info) Description 05/07/2023 Abstract [facility] PEDIATRIC DENTAL [address] [place] [address] Burke Frederick DDS [address] [place] [address] Social History Tobacco Use Types Packs/Day Years [...] 06/25/2025 9:00 AM EST Office Visit [facility] ADULT DENTAL [address] [place] [address] Burke Frederick DDS [address] [place] [address] 08/15/2025 9:30 AM EST Office Visit [facility] ADULT DENTAL [address] [place], [place] [phone] Regina Broderick [address] [place], [place] [phone] documented as of this encounter Visit Diagnoses Not on filedocumented in this encounter Additional Health Concerns Assessment Noted Time PHQ-9 Depression Total Score: 8 11/07/19 10:23 AM EDT documented as of this encounter Care Teams Edge Inker Uppers Relationship Specialty Start Date End Date Jesusita Garcia FNP [address] [place], [place] [phone] PCP - General Family Medicine 04/29/23 06/06/23 Joan Antunez MD [address] [place], [place] [phone] PCP - General Internal Medicine 06/07/23 documented as of this encounter
--- OUTSIDE RECORDS SUMMARY | 2025-06-14 15:24 | XMS_ITS | Encounter Summary ---
Author Organization [employer] Address [address] [facility] 7t [place] [address] Care Team Providers Care Outpatient Case Manager Name Role Phone Joan Antunez MD Primary Care Provide r Reason for Visit * Reason Comments Med Refill Encounter Details Date Type Department Care Team ([facility] st Contact Info) Description 04/19/[address] [facility] MEDICINE [address] [place], [place] [phone] Joan Antunez MD [address] [place] [address] Chronic back pain, unspecified back location, unspecified [...] Description 06/25/2025 9:00 AM EST Office Visit [facility] ADULT DENTAL [address] [place] [address] Burke Frederick DDS [address] [place] [address] 08/15/2025 9:30 AM EST Office Visit [facility] ADULT DENTAL [address] [place] [address] Arsenio Broderickaris [address] [place] [address] documented as of this encounter Visit Diagnoses Diagnosis Chronic back pain, unspecified back location, unspecified back pain laterality documented in this encounter Additional Health Concerns Assessment Noted Time PHQ-9 Depression Total Score: 0 02/20/20 9:47 AM EDT documented as of this encounter Care Teams Outpatient Case Manager Relationship Specialty Start Date End Date Joan Antunez MD [address] [place] [address] PCP - General Internal Medicine 06/07/23 documented as of this encounter
--- OUTSIDE RECORDS SUMMARY | 2025-06-14 15:24 | XMS_ITS | Encounter Summary ---
Author Organization [employer] Address [address] [facility] 7t [place] [address] Care Team Providers Care New Car Inspector Name Role Phone Katherine Da Silva MD Primary Care Provider Madhuri Grayson SALES DRIVER Primary Care Provider David Blankenship Primary Care Provider Jesusita Sandra SALES DRIVER Primary Care Provider [phone] Joan Antunez MD Primary Care Provide r Encounter Details Date Type Department Care Team (Latest Contact Info) Description 10/06/2019 Abstract [facility] CONVERSIONS Dental, Provider, DDS Social History [...] 9:00 AM EST Office Visit [facility] ADULT DENTAL [address] [place] [address] Burke Frederick DDS [address] [place] [address] 08/15/2025 9:30 AM EST Office Visit [facility] ADULT DENTAL [address] [place] [address] Regina Broderick [address] [place] [address] documented as of this encounter Visit Diagnoses Not on filedocumented in this encounter Care Teams New Car Inspector Relationship Specialty Start Date End Date Katherine Da Silva MD PCP - General Family Medicine 09/24/20 06/28/22 Madhuri Sawyer FNP PCP - General 06/29/22 10/07/22 David South AGNP PCP - General Family Medicine 10/08/22 04/28/23 Jesusita Garcia FNP [address] [place] [address] PCP - General Family Medicine 04/29/23 06/06/23 Joan Antunez MD [address] [place] [address] PCP - General Internal Medicine 06/07/23 documented as of this encounter
--- OUTSIDE RECORDS SUMMARY | 2025-06-14 15:24 | XMS_ITS | Encounter Summary ---
Author Organization [employer] Address [address] [facility] [address] [place] [address] Care Team Providers Care Assistant Project Engineer Name Role Phone Joan Antunez MD Primary Care Provide r Encounter Details Date Type Department Care Team ([facility] st Contact Info) Description 12/16/2023 Telephone [facility] MEDICINE [address] [place], [place] [phone] Joan Antunez MD [address] [place] [address] Social History Tobacco Use Types Packs/Day Years [...] Description 06/25/2025 9:00 AM EST Office Visit [facility] ADULT DENTAL [address] [place] [address] Burke Frederick DDS [address] [place] [address] 08/15/2025 9:30 AM EST Office Visit [facility] ADULT DENTAL [address] [place] [address] Meggan, Regina [address] [place] [address] documented as of this encounter Visit Diagnoses Not on filedocumented in this encounter Additional Health Concerns Assessment Noted Time PHQ-9 Depression Total Score: 14 024 12:06 PM EDT documented as of this encounter Care Teams Assistant Project Engineer Relationship Specialty Start Date End Date Joan Antunez MD [address] [place] [address] PCP - General Internal Medicine 06/07/23 documented as of this encounter
--- OUTSIDE RECORDS SUMMARY | 2025-06-14 15:24 | XMS_ITS | Encounter Summary ---
Author Organization [employer] Address [address] [address] [facility] [address] 7[address] [place] [address] Care Team Providers Care Gauge And Weigh Machine Operator Name Role Phone Joan Antunez MD Primary Care Provide r Reason for Visit * Reason Comments Med Refill Encounter Details Date Type Department Care Team ([facility] st Contact Info) Description 10/28/2023 Refill [facility] MEDICINE [address] [place], [place] [phone] Joan Antunez MD [address] [place] [address] Social History Tobacco Use Types Packs/Day Years [...] Description 06/25/2025 9:00 AM EST Office Visit [facility] ADULT DENTAL [address] [place] [address] Burke Frederick DDS [address] [place] [address] 08/15/2025 9:30 AM EST Office Visit [facility] ADULT DENTAL [address] [place] [address] Meggan, Regina [address] [place] [address] documented as of this encounter Visit Diagnoses Not on filedocumented in this encounter Additional Health Concerns Assessment Noted Time PHQ-9 Depression Total Score: 8 11/07/19 10:23 AM EDT documented as of this encounter Care Teams Gauge And Weigh Machine Operator Relationship Specialty Start Date End Date Joan Antunez MD [address] [place] [address] PCP - General Internal Medicine 06/07/23 documented as of this encounter
--- OUTSIDE RECORDS SUMMARY | 2025-06-14 15:24 | XMS_ITS | Encounter Summary ---
Author Organization [employer] Address [address] [facility] 7t [place] [address] Care Team Providers Care Case Management Manager Name Role Phone Joan Antunez MD Primary Care Provide r Reason for Visit * Reason Comments Med Refill Encounter Details Date Type Department Care Team ([facility] st Contact Info) Description 08/15/2024 Refill [facility] MEDICINE [address] [place], [place] [phone] Joan Antunez MD [address] [place], [place] [phone] Chronic back pain, unspecified back location, unspecified [...] Description 06/25/2025 9:00 AM EST Office Visit [facility] ADULT DENTAL [address] [place] [address] Burke Frederick DDS [address] [place] [address] 08/15/2025 9:30 AM EST Office Visit [facility] ADULT DENTAL [address] [place] [address] MegganRegina [address] [place] [address] documented as of this encounter Visit Diagnoses Diagnosis Chronic back pain, unspecified back location, unspecified back pain laterality documented in this encounter Additional Health Concerns Assessment Noted Time PHQ-9 Depression Total Score: 14 024 12:06 PM EDT documented as of this encounter Care Teams Case Management Manager Relationship Specialty Start Date End Date Joan Antunez MD [address] [place] [address] PCP - General Internal Medicine 06/07/23 documented as of this encounter
--- OUTSIDE RECORDS SUMMARY | 2025-06-14 15:24 | XMS_ITS | Encounter Summary ---
Author Organization [employer] Address [address] [facility] 7t [place] [address] Care Team Providers Care Tape Sewer Name Role Phone Joan Antunez MD Primary Care Provide r Reason for Visit * Reason Onset Date Comments Med Refill 12/13/2024 Encounter Details Date Type Department Care Team ([facility] st Contact Info) Description 12/13/2024 Telephone [facility] MEDICINE [address] [place], [place] [phone] Joan Antunez MD 230 [place], [place] [phone] Med Refill Social History Tobacco Use Types [...] 8 MG tablet To be sent to: [facility] pharmacy documented in this encounter Plan of Treatment Upcoming Encounters Date Type Department Care Team (Late st Contact Info) Description 06/25/2025 9:00 AM EST Office Visit [facility] ADULT DENTAL [address] [place] [address] Burke Frederick DDS [address] [place] [address] 08/15/2025 9:30 AM EST Office Visit [facility] ADULT DENTAL [address] [place] [address] Regina Broderick [address] [place] [address] documented as of this encounter Visit Diagnoses Not on filedocumented in this encounter Additional Health Concerns Assessment Noted Time PHQ-9 Depression Total Score: 14 11/22/ 024 12:06 PM EDT documented as of this encounter Care Teams Tape Sewer Relationship Specialty Start Date End Date Joan Antunez MD [address] [place] [address] PCP - General Internal Medicine 06/07/23 documented as of this encounter
--- OUTSIDE RECORDS SUMMARY | 2025-06-14 15:24 | XMS_ITS | Encounter Summary ---
Author Organization [employer] Address [address] 7[address] [place] [address] Care Team Providers Care Optometric Technician Name Role Phone Joan Antunez MD Primary Care Provide r Encounter Details Date Type Department Care Team (Late st Contact Info) Description 06/22/2023 Abstract [facility] MEDICINE [address] [place], [place] [phone] Joan Antunez MD [address] [place] [address] Social History Tobacco Use Types Packs/Day Years [...] 9:00 AM EST Office Visit [facility] ADULT DENTAL [address] [place] [address] Burke Frederick DDS [address] [place] [address] 08/15/2025 9:30 AM EST Office Visit [facility] ADULT DENTAL [address] [place] [address] MegganRegina [address] [place] [address] documented as of this encounter Procedures Procedure [...] documented as of this encounter Care Teams Optometric Technician Relationship Specialty Start Date End Date Joan Antunez MD [address] [place] [address] PCP - General Internal Medicine 06/07/23 documented as of this encounter
--- OUTSIDE RECORDS SUMMARY | 2025-06-14 15:24 | XMS_ITS | Encounter Summary ---
Author Organization [facility] Address [address] [place] [address] Phone Care Team Providers Care Manager Of Pharmacy Name Role Phone Joan Delgadillo MD Primary Care Provider Reason for Referral * - New Request Specialty Diagnoses / Procedures Referred By Chance davis Referred To Contact Radiology Diagnoses Primary hypertension Procedures US Aorta Duplex Complete Maurice Abad DO Phone: tel: fax: [email or web address] Referral ID Status Reason Start Date Expiration Date V isits Requested Visits Authorized [id number] New Request 09/01/2024 1 1 Encounter Details Date Type Department Care Team (Latest Contact Info) Description 09/01/2024 Ancillary Orders [facility] [address] [facility] 3rd [place] [address] Maurice Abad DO [address] [facility] [address] [place] [address] [email or web address] Primary hypertension (Primary Dx) Social History Tobacco [...] hypertension documented in this encounter Care Teams Manager Of Pharmacy Relationship Specialty Start Date End Date Joan Delgadillo MD [address] [place] [address] PCP - General Internal Medicine 05/09/24 documented as of this encounter Additional Source Comments The information contained in this document represents components of the legal health record. It is not the complete legal health record.[facility]
--- OUTSIDE RECORDS SUMMARY | 2025-06-14 15:24 | XMS_ITS | Encounter Summary ---
Author Organization [employer] Address [address] [facility] 7t [place] [address] Care Team Providers Care Accounting Methods Analyst Name Role Phone Katherine Da Silva MD Primary Care Provider Madhuri Grayson GRANITE POLISHER APPRENTICE Primary Care Provider David Blankenship Primary Care Provider Jesusita Sandra GRANITE POLISHER APPRENTICE Primary Care Provider [phone] Joan Antunez MD Primary Care Provide r Encounter Details Date Type Department Care Team (Latest Contact Info) Description 10/05/2018 Abstract [facility] CONVERSIONS Dental, Provider, DDS Social [...] [facility] [address] [place] [address] Burke Frederick DDS [address] [place] [address] 08/15/2025 9:30 AM EST Office Visit [facility] ADULT DENTAL [address] [place] [address] Regina Broderick [address] [place] [address] documented as of this encounter Visit Diagnoses Not on filedocumented in this encounter Care Teams Accounting Methods Analyst Relationship Specialty Start Date End Date Katherine Da Silva MD PCP - General Family Medicine 09/24/20 06/28/22 Madhuri Sawyer FNP PCP - General 06/29/22 10/07/22 David South AGNP PCP - General Family Medicine 10/08/22 04/28/23 Jesusita Garcia FNP [address] [place] [address] PCP - General Family Medicine 04/29/23 06/06/23 Joan Antunez MD [address] [place] [address] PCP - General Internal Medicine 06/07/23 documented as of this encounter
--- OUTSIDE RECORDS SUMMARY | 2025-06-14 15:24 | XMS_ITS | Encounter Summary ---
Author Organization [employer] Address [address] 7t [place] [address] Care Team Providers Care Shactor Helper Name Role Phone Joan Antunez MD Primary Care Provide r Reason for Visit * Reason Comments Med Refill Encounter Details Date Type Department Care Team ([facility] st Contact Info) Description 03/05/2025 Refill [facility] [address] [place], [place] [phone] Joan Antunez MD [address] [place] [address] Chronic diarrhea Social History Tobacco Use Types [...] 9:00 AM EST Office Visit [facility] ADULT D[facility] [address] [place] [address] Burke Frederick DDS [address] [place] [address] 08/15/2025 9:30 AM EST Office Visit [facility]ULT D[facility] [address] [place] [address] Arsenio Broderickaris [address] [place] [address] documented as of this encounter Visit Diagnoses Diagnosis Chronic diarrhea Diarrhea documented in this encounter Additional Health Concerns Assessment Noted Time PHQ-9 Depression Total Score: 0 02/20/20 25 9:47 AM EDT documented as of this encounter Care Teams Shactor Helper Relationship Specialty Start Date End Date Joan Antunez MD [address] [place] [address] PCP - General Internal Medicine 06/07/23 documented as of this encounter
--- OUTSIDE RECORDS SUMMARY | 2025-06-14 15:24 | XMS_ITS | Encounter Summary ---
Author Organization [employer] Address [address] [facility] 7t [place] [address] Care Team Providers Care Grocery Store Clerk Name Role Phone Digna Madhuri BOOKKEEPING SERVICE SALES AGENT Primary Care Provider David Blankenship Primary Care Provider Jesusita Sandra BOOKKEEPING SERVICE SALES AGENT Primary Care Provider [phone] Joan Antunez MD Primary Care Provide r Encounter Details Date Type Department Care Team (Late st Contact Info) Description 08/11/2022 Orders Only [facility] MED & PEDS [address] [place] [address] Radha Jimenez LPN Social History Tobacco Use [...] 9:00 AM EST Office Visit [facility] ADULT DENTAL [address] [place] [address] uBrke Frederick DDS [address] [place] [address] 08/15/2025 9:30 AM EST Office Visit [facility] ADULT DENTAL [address] [place] [address] Regina Broderikc [address] [place] [address] documented as of this encounter Visit Diagnoses Not on filedocumented in this encounter Care Teams Grocery Store Clerk Relationship Specialty Start Date End Date Madhuri Sawyer FNP PCP - General 06/29/22 10/07/22 David South AGNP PCP - General Family Medicine 10/08/22 04/28/23 Jesusita Garcia FNP [address] [place] [address] PCP - General Family Medicine 04/29/23 06/06/23 Joan Antunez MD [address] [place] [address] PCP - General Internal Medicine 06/07/23 documented as of this encounter
--- OUTSIDE RECORDS SUMMARY | 2025-06-14 15:24 | XMS_ITS | Encounter Summary ---
Author Organization [employer] Address [address] [facility] [address] 7t [place] [address] Care Team Providers Care Dump Truck Operator Name Role Phone Joan Antunez MD Primary Care Provide r Encounter Details Date Type Department Care Team (Late st Contact Info) Description 09/08/2023 Orders Only [facility] MEDICINE [address] [place], [place] [phone] Joan Antunez MD [address] [place], [place] [phone] Prediabetes (Primary Dx) Social History Tobacco Use [...] 9:00 AM EST Office Visit [facility] ADULT DENTAL [address] [place] [address] Burke Frederick DDS [address] [place] [address] 08/15/2025 9:30 AM EST Office Visit [facility] ADULT DENTAL [address] [place] [address] Meggan, Regina [address] [place] [address] documented as of this encounter Visit Diagnoses Diagnosis Prediabetes- Primary Other abnormal glucose documented in this encounter Additional Health Concerns Assessment Noted Time PHQ-9 Depression Total Score: 8 11/07/19 10:23 AM EDT documented as of this encounter Care Teams Dump Truck Operator Relationship Specialty Start Date End Date Joan Antunez MD [address] [place] [address] PCP - General Internal Medicine 06/07/23 documented as of this encounter
--- OUTSIDE RECORDS SUMMARY | 2025-06-14 15:24 | XMS_ITS | Encounter Summary ---
Author Organization [employer] Address [address] [facility] 7t [place] [address] Care Team Providers Care Utility Bill Collection Clerk Name Role Phone Joan Antunez MD Primary Care Provide r Reason for Visit * Reason Onset Date Comments Nurse Triage 12/16/2023 Encounter Details Date Type Department Care Team ([facility] st Contact Info) Description 12/16/2023 Telephone [facility] MEDICINE [address] [place], [place] [phone] Joan Antunez MD [address] [place] [address] Nurse Triage Social History Tobacco Use Types [...] 9:00 AM EST Office Visit [facility] ADULT DENTAL [address] [place] [address] Burke Frederick DDS [address] [place] [address] 08/15/2025 9:30 AM EST Office Visit [facility] ADULT DENTAL [address] [place] [address] Regina Broderick [address] [place] [address] documented as of this encounter Visit Diagnoses Not on filedocumented in this encounter Additional Health Concerns Assessment Noted Time PHQ-9 Depression Total Score: 14 024 12:06 PM EDT documented as of this encounter Care Teams Utility Bill Collection Clerk Relationship Specialty Start Date End Date Joan Antunez MD [address] [place] [address] PCP - General Internal Medicine 06/07/23 documented as of this encounter
--- OUTSIDE RECORDS SUMMARY | 2025-06-14 15:24 | XMS_ITS | Encounter Summary ---
Author Organization [employer] [facility] Address [address] [facility] 7 [place] [address] Care Team Providers Care Word Processor Operator Name Role Phone Digna Madhuri FISH HATCHERY SPECIALIST Primary Care Provider [facility] Blankenship [facility] Primary Care Provider Jesusita Sandra FISH HATCHERY SPECIALIST Primary Care Provider [phone] Joan Antunez MD Primary Care Provide r Reason for Visit * Reason Comments Med Refill Encounter Details Date Type Department Care Team (Late st Contact Info) Description 08/06/2022 Refill [facility] MEDICINE [address] [place] [address] Delma Gauthier MD [address] [place] [address] Social History Tobacco Use Types Packs/Day Years [...] Description 06/25/2025 9:00 AM EST Office Visit [facility] ADULT DENTAL [address] [place] [address] Burke Frederick DDS [address] [place] [address] 08/15/2025 9:30 AM EST Office Visit [facility] ADULT DENTAL [address] [place] [address] Regina Broderick [address] [place] [address] documented as of this encounter Visit Diagnoses Not on filedocumented in this encounter Care Teams Word Processor Operator Relationship Specialty Start Date End Date Madhuri Sawyer FNP PCP - General 06/29/22 10/07/22 David South AGNP PCP - General Family Medicine 10/08/22 04/28/23 Jesusita Garcia FNP [address] [place] [address] PCP - General Family Medicine 04/29/23 06/06/23 Joan Antunez MD [address] [place] [address] PCP - General Internal Medicine 06/07/23 documented as of this encounter
[2025-06-21 19:18] LABS: Calprotectin, Fecal 229 mcg/g
== END 2025-06-14 12:34 | disposition home or self-care (01) ==
LOC: HO.LNP 12:33
PROVIDERS: Visit Provider Internal Medicine
DX: K52.9 Noninfective gastroenteritis and colitis, unspecified (principal)
CPT/HCPCS: 83993